=== PATIENT | female | born 1960 | race Caucasian/White ===

== ENCOUNTER 2016-07-02 16:14 | Inpatient (IN) | payer OTHER ==
[~2016-07-02] VITALS: Ht 177.8 cm; Wt 77.8 kg
[~2016-07-02 16:14] MED LIST: ALPR-138 PO; ETOMIDATE 20 MG/10 ML VIAL IV PUSH ONE; ETOMIDATE 40 MG/20 ML VIAL IV PUSH ONE; LIDOCAINE HCL 2% 100 MG/5 ML SYRINGE IV PUSH ONE; PAROXETINE PO; SUCCINYLCHOLINE CHLORIDE 200 MG/10 ML VIAL IVP ONE; VASO10TA8 PO; [UNRECOGNIZED DRUG - OTHER] PO
[2016-07-02 16:18] VITALS: O2SAT 100; O2SAT 99
[2016-07-02] MEDS ORDERED: PROPOFOL 1000 MG/100 ML INJ 100 ML ONE (16:24)
[2016-07-02] MEDS ORDERED: ROCURONIUM INJ 50 MG/5 ML VIAL ONE (16:25)
--- NOTE | 2016-07-02 16:33 | PD ---
HPI Chief Complaint: trauma alert Time Seen by Provider: 16:17 Travel History International Travel<30 days: No (unknown GCS 3) Contact w/Intl Traveler<30days: No (unknown GCS 3) Traveled to known affect area: No (unknown GCS 3) History of Present Illness HPI The patient is an approximately 48-year-old female who presents to the emergency department via air 1 as a trauma alert. According to EMS the patient was found down on the ground, and in an industrial area, with shelving material found on top of her. EMS surmised is that the shelving fell and the patient. The patient had an unknown down time, when EMS arrived, her GCS for apparently was 3. The patient was intubated prior to arrival by air one paramedics with a 7-0 endotracheal tube at 22 cm. EMS states that the patient had blood at the nares bilaterally and within the oropharynx was intubated. No further information is obtainable from the patient. Allergies are unknown. Medications are unknown. Medical history and surgical history are unknown. Social history is unknown. Patient did receive 2 doses of etomidate and 1 dose of succinylcholine by EMS in the field, prior to arrival. [facility] Past Medical History Medical History: Unable to Obtain Past Surgical History Surgical History: Unable to Obtain Family History Narrative Family History Unable to obtain Social History Narrative Social History Unable to obtain Tobacco Use: No Allergies-Medications (Allergen,Severity, Reaction): Coded Allergies: No Known Allergies (Unverified , 07/02/16) Reported Meds & Prescriptions Reported Meds & Active Scripts Active Review of Systems ROS Limitations: Clinical Condition, Intubated Except as stated in HPI: all other systems reviewed are Neg Physical Exam Narrative GENERAL: 48 something year-old female who presents intubated, cervical collar in place, and on a backboard. Initial GCS 3. SKIN: Warm and dry. HEAD: Atraumatic. Normocephalic. EYES: Pupils are 3 mm bilateral and sluggish. ENT: Dry blood in the nares bilateral. ET tube right lip at 22 cm. NECK: Trachea midline. No JVD. Cervical collar in place, when removed, trachea is midline with no visible hematoma. No obvious step-off of the cervical vertebrae. C-collar was placed back on. CARDIOVASCULAR: Regular rate and rhythm. No murmur appreciated. RESPIRATORY: Back valve ventilation reveals bilateral breath sounds. GASTROINTESTINAL: Abdomen soft, non-tender, nondistended. No rebound tenderness. MUSCULOSKELETAL: Walking boot in place left lower extremity. When removed, LE hose replaced, when they were pulled down, no obvious trauma. Bili was placed back on. No obvious trauma to the other extremities. Back: No obvious step-offs of the thoracic or lumbar vertebrae. NEUROLOGICAL: GCS of 3. PSYCHIATRIC: Unable to obtain. Data Data Last Documented VS Vital Signs Date Time Temp Pulse Resp B/P Pulse Ox O2 Delivery O2 Flow Rate FiO2 07/02/16 16:18 100 100 Orders Propofol 1000 Mg/100 Ml Inj (Diprivan 10 (07/02/16 16:24) Rocuronium Inj (Zemuron Inj) (07/02/16 16:25) I-Stat Profile (07/02/16 16:24) I-Stat Creatinine (07/02/16 16:24) Complete Blood Count With Diff (07/02/16 16:24) Prothrombin Time / Inr (Pt) (07/02/16 16:24) Act Partial Throm Time (Ptt) (07/02/16 16:24) Type And Screen (07/02/16 16:24) Alcohol (Ethanol) (07/02/16 16:24) Drug Screen, Random Urine (07/02/16 16:24) Chest, Single Ap (07/02/16 16:24) Ct Brain W/O Iv Contrast(Rout) (07/02/16 16:24) Ct Cerv Spine W/O Contrast (07/02/16 16:24) Ct Abd/Pel W Iv Contrast(Rout) (07/02/16 16:24) Ct Thorax/ Chest W Iv Contrast (07/02/16 16:24) Ct Thor Spine W/O Contrast (07/02/16 16:24) Ct Lumb Spine W/O Contrast (07/02/16 16:24) Iv Access Insert/Monitor (07/02/16 16:24) Ecg Monitoring (07/02/16 16:24) Oximetry (07/02/16 16:24) Oxygen Administration (07/02/16 16:24) Creatine Kinase (Cpk) (07/02/16 16:24) Dryv-Nwu-Zlbyjr (Booster) Inj (Boostrix (07/02/16 16:42) Sodium Chlor 0.9% 1000 Ml Inj (Ns 1000 M (07/02/16 17:00) Consult Neurosurgery (07/02/16 ) Admit Order (Ed Use Only) (07/02/16 16:47) Iohexol 350 Inj (Omnipaque 350 Inj) (07/02/16 16:49) Labs Laboratory Tests Test 07/02/16 16:25 White Blood Count 6.6 TH/MM3 Red Blood Count 4.20 MIL/MM3 Hemoglobin 12.8 GM/DL Bedside Hemoglobin 12.2 G/DL Hematocrit 37.7 % Bedside Hematocrit 36.0 % Mean Corpuscular Volume 89.9 FL Mean Corpuscular Hemoglobin 30.6 PG Mean Corpuscular Hemoglobin 34.0 % Concent Red Cell Distribution Width 12.9 % Platelet Count 168 TH/MM3 Mean Platelet Volume 7.8 FL Neutrophils (%) (Auto) 75.7 % Lymphocytes (%) (Auto) 15.1 % Monocytes (%) (Auto) 7.9 % Eosinophils (%) (Auto) 0.8 % Basophils (%) (Auto) 0.5 % Neutrophils # (Auto) 5.0 TH/MM3 Lymphocytes # (Auto) 1.0 TH/MM3 Monocytes # (Auto) 0.5 TH/MM3 Eosinophils # (Auto) 0.1 TH/MM3 Basophils # (Auto) 0.0 TH/MM3 CBC Comment DIFF FINAL Differential Comment Prothrombin Time 11.1 SEC Prothromb Time International 1.0 RATIO Ratio Activated Partial 25.8 SEC Thromboplast Time Bedside Sodium 140 MMOL/L Bedside Potassium 3.6 MMOL/L Bedside Chloride 102 MMOL/L Bedside Blood Urea Nitrogen 13 MG/DL Bedside Creatinine 0.8 MG/DL Bedside Glucose 121 MG/DL Total Creatine Kinase 134 U/L Ethyl Alcohol Level LESS THAN 3 MG/DL Blood Type A POSITIVE Antibody Screen NEGATIVE MDM Medical Screen Exam Complete: Yes Emergency Medical Condition: Yes Medical Record Reviewed: No (unable to assess as patient is Chapo Whitmore) EKG Prior to Arrival: No Interpretation(s) Laboratory Tests Test 07/02/16 16:25 White Blood Count 6.6 TH/MM3 Red Blood Count 4.20 MIL/MM3 Hemoglobin 12.8 GM/DL Bedside Hemoglobin 12.2 G/DL Hematocrit 37.7 % Bedside Hematocrit 36.0 % Mean Corpuscular Volume 89.9 FL Mean Corpuscular Hemoglobin 30.6 PG Mean Corpuscular Hemoglobin 34.0 % Concent Red Cell Distribution Width 12.9 % Platelet Count 168 TH/MM3 Mean Platelet Volume 7.8 FL Neutrophils (%) (Auto) 75.7 % Lymphocytes (%) (Auto) 15.1 % Monocytes (%) (Auto) 7.9 % Eosinophils (%) (Auto) 0.8 % Basophils (%) (Auto) 0.5 % Neutrophils # (Auto) 5.0 TH/MM3 Lymphocytes # (Auto) 1.0 TH/MM3 Monocytes # (Auto) 0.5 TH/MM3 Eosinophils # (Auto) 0.1 TH/MM3 Basophils # (Auto) 0.0 TH/MM3 CBC Comment DIFF FINAL Differential Comment Bedside Sodium 140 MMOL/L Bedside Potassium 3.6 MMOL/L Bedside Chloride 102 MMOL/L Bedside Blood Urea Nitrogen 13 MG/DL Bedside Creatinine 0.8 MG/DL Bedside Glucose 121 MG/DL Chest x-ray reveals endotracheal tube is in place. No pneumothorax. Last Impressions Thoracic Spine CT 07/02/161623 Signed Impressions: Service Date/Time: Saturday, July 02, 2016 16:40 - CONCLUSION: No acute bony injury in the thoracic spine Chapo Hicks MD Lumbar Spine CT 07/02/161623 Signed Impressions: Service Date/Time: Saturday, July 02, 2016 16:40 - CONCLUSION: No acute bony injury in the lumbosacral spine. Chapo Hicks MD Head CT 07/02/161623 Signed Impressions: Service Date/Time: Saturday, July 02, 2016 16:32 - CONCLUSION: None drainable intracranial hemorrhage. Diffuse cerebral edema. Skull fracture. Chapo Hicks MD Chest X-Ray 07/02/161623 Signed Impressions: Service Date/Time: Saturday, July 02, 2016 16:10 - CONCLUSION: Satisfactory trauma chest appearance. Chapo Hicks MD Chest CT 07/02/161623 Signed Impressions: Service Date/Time: Saturday, July 02, 2016 16:40 - CONCLUSION: Bilateral posterior lower lobe consolidative changes, left worse than right. No evidence of acute mediastinal injury. Chapo Hicks MD Cervical Spine CT 07/02/161623 Signed Impressions: Service Date/Time: Saturday, July 02, 2016 16:32 - CONCLUSION: 1. No acute findings. Moderate degenerative change in the lower cervical spine. David Quispe MD Differential Diagnosis Differential diagnosis includes intracranial hemorrhage, subdural hemorrhage, epidural hemorrhage, subarachnoid hemorrhage, concussion, cervical fracture, multisystem trauma, overdose. Narrative Course ATLS protocol was followed. The trauma surgeon was present when the patient arrived. Upon arrival the patient was intubated, had bilateral breath sounds via bag valve ventilation. The patient's heart rate and blood pressure were within normal limits. 2 large-bore IVs were established, labs were drawn and sent, and the patient was placed on cardiac telemetry monitoring and continuous pulse oximetry monitoring. Chest x-ray was obtained, endotracheal tube was in proper position. The patient was log rolled off of the backboard and the back was inspected. Tetanus shot was updated. He went to the CT suite with the trauma surgeon. The patient will be admitted to the trauma service. CT the brain was evaluated by Dr. Godoy in the trauma room on the patient was still present in the CT suite. Dr. Godoy believes that the patient has a subarachnoid and subdural hemorrhage with possible anoxic injury. Therefore, call was placed to the on-call neurosurgeon, Dr. Garcias, and the patient will be admitted to the intensive surgical care unit. I discussed the patient Dr. Garcias at 4:56 PM who will evaluate the patient in the surgical intensive care unit. Critical Care Narrative Aggregate critical care time was 20 minutes. Time to perform other separately billable procedures was not included in the critical care time. My time did not include minutes spent treating any other patients simultaneously or on activities that did not directly contribute to the patient's treatment. The services I provided to this patient were to treat and/or prevent clinically significant deterioration that could result in: Anoxia, proxy, aspiration, herniation, arrhythmia, . I provided critical care services requiring my management, as noted below: Chart data review, documentation time, medication orders and management, vital sign assessments/reviewing monitor data, ordering and reviewing lab tests, ordering and interpreting/reviewing x-rays and diagnostic studies, care of the patient and discussion of the patient with the admitting physicians. Trauma Alert - Level One Trauma Alert Level One: Full trauma team activate Time Surgeon Summoned: 16:06 Physician Communication The patient will be admitted to the trauma surgeon with consultation to neurosurgery and will be admitted to the intensive surgical care unit. Diagnosis Diagnosis: Primary Impression: Subarachnoid hemorrhage Additional Impressions: Subdural hemorrhage Trauma Condition: Critical Paulino Tadeo MD Jul 02, 2016 16:33
[2016-07-02 16:37] LABS: BASOPHIL % 0.5 % (0.0-2.0); EOSINOPHIL # 0.1 TH/MM3 (0-0.4); EOSINOPHIL % 0.8 % (0.0-4.0); HEMATOCRIT 37.7 % (35.0-46.0); HEMO FLAGS DIFF FINAL; LYMPH % 15.1 % (9.0-44.0); MEAN CELL VOLUME 89.9 FL (80.0-100.0); MEAN CORPUSCULAR HEMOGLOBIN 30.6 PG (27.0-34.0); MONO % 7.9 % (0.0-8.0); NEUT % 75.7 % (16.0-70.0); PLATELET COUNT 168 TH/MM3 (150-450); RED CELL DISTRIBUTION WIDTH 12.9 % (11.6-17.2); WHITE BLOOD COUNT 6.6 TH/MM3 (4.0-11.0)
--- NOTE | 2016-07-02 16:37 | RADRPT ---
EXAM DATE/TIME: 07/02/2016 16:10 [facility] COMPARISON: No previous studies available for comparison. INDICATIONS : Trauma alert, patient hit in head by shelving. MEDICAL HISTORY : None. SURGICAL HISTORY : None. ENCOUNTER: Initial ACUITY: 1 day PAIN SCORE: Non-responsive. LOCATION: Bilateral chest FINDINGS: Endotracheal tube is present in satisfactory position with tip 3-4 cm above the katharine. The lungs are grossly symmetric without definite contusion, hemothorax or pneumothorax. The cardiomediastinal cont ours are satisfactory for technique and projection. Thoracic skeleton appears grossly intact. CONCLUSION: Satisfactory trauma chest appearance. Chapo Hicks MD on July 02, 2016 at 16:33 Board Certified Radiologist. This report was verified electronically.
[2016-07-02 16:40] LABS: I-STAT SODIUM 140 MMOL/L (138-146)
[2016-07-02 16:41] LABS: I-STAT POTASSIUM 3.6 MMOL/L (3.5-4.9)
[2016-07-02] MEDS ORDERED: DIPHTH/TETANUS/ACEL PERTUSSIS (BOOSTER) 0.5 ML VIAL/PFS IM ONE (16:42)
[2016-07-02] MEDS ORDERED: IOHEXOL 350 MG/ML 10 ML VIAL (for RAD DIAG) IV ONE (16:49)
[2016-07-02 16:50] LABS: APTT (PATIENT) 25.8 SEC (24.3-30.1); PROTHROMBIN TIME - PATIENT 11.1 SEC (9.8-11.6)
--- NOTE | 2016-07-02 16:52 | RADRPT ---
EXAM DATE/TIME: 07/02/2016 16:32 [facility] COMPARISON: No previous studies available for comparison. INDICATIONS : Trauma alert; blunt trauma to head. RADIATION DOSE: 54.41 CTDIvol (mGy) MEDICAL HISTORY : Non-responsive. SURGICAL HISTORY : Non-responsive. ENCOUNTER: Initial ACUITY: 1 day PAIN SCALE: Non-responsive LOCATION: cranial TECHNIQUE: Multiple contiguous axial images were obtained of the head. Using automated exposure control and adj ustment of the mA and/or kV according to patient size, radiation dose was kept as low as reasonably a chievable to obtain optimal diagnostic quality images. FINDINGS: There is subarachnoid blood present fairly diffusely, mainly in the right frontal region are also pre sent over the left hemisphere and in the sylvian fissures. There appears to be mild diffuse brain swe lling with effacement of the paramesencephalic cisterns. Sulcal spaces are effaced. There is no drain able hemorrhagic collection. There appear to be a couple punctate parenchymal hemorrhages in the high convexity right frontal region. A right frontal skull fracture extends from the vertex inferiorly through the right frontal sinus and orbital roof. This is nondepressed. CONCLUSION: None drainable intracranial hemorrhage. Diffuse cerebral edema. Skull fracture. Chapo Hicks MD on July 02, 2016 at 16:45 Board Certified Radiologist. This report was verified electronically.
--- NOTE | 2016-07-02 16:53 | RADRPT ---
EXAM DATE/TIME: 07/02/2016 16:32 [facility] COMPARISON: No previous studies available for comparison. INDICATIONS : Trauma alert; blunt trauma to head. RADIATION DOSE: 17.44 CTDIvol (mGy) MEDICAL HISTORY : Non-responsive. SURGICAL HISTORY : Non-responsive. ENCOUNTER: Initial ACUITY: 1 day PAIN SCALE: Non-responsive LOCATION: neck TECHNIQUE: Volumetric scanning of the cervical spine was performed. Multiplanar reconstructions in the sagittal, coronal and oblique axial planes were performed. Using automated exposure control and adjustment o f the mA and/or kV according to patient size, radiation dose was kept as low as reasonably achievable to obtain optimal diagnostic quality images. FINDINGS: No acute fracture. Moderate degenerative disc disease at C5-6 with minimal degenerative retrolisthesi s of C5 on C6. No prevertebral soft tissue swelling. Patient is intubated. Mild facet arthropathy. CONCLUSION: 1. No acute findings. Moderate degenerative change in the lower cervical spine. David Quispe MD on July 02, 2016 at 16:45 Board Certified Radiologist. This report was verified electronically.
[2016-07-02 17:00] VITALS: BP 151/77; PULSE 61; RESP 14; TEMP 97.7; O2SAT 100
[2016-07-02] MEDS ORDERED: SODIUM CHLOR 0.9% 1000 ML INJ 1,000 ML IV SCH (17:00)
--- NOTE | 2016-07-02 17:00 | RADRPT ---
EXAM DATE/TIME: 07/02/2016 16:40 [facility] COMPARISON: CT THORAX W CONTRAST, July 02, 2016, 16:40. INDICATIONS : Trauma alert; blunt trauma to head. IV CONTRAST: 91 cc Omnipaque 350 (iohexol) IV ; Cumulative dose for multiple exams. ORAL CONTRAST: No oral contrast ingested. RADIATION DOSE: 17.78 CTDIvol (mGy) ; Combined studies - Thorax/Abdomen/Pelvis MEDICAL HISTORY : Non-responsive. SURGICAL HISTORY : Non-responsive. ENCOUNTER: Initial ACUITY: 1 day PAIN SCALE: Non-responsive LOCATION: Abdomen/pelvis TECHNIQUE: Volumetric scanning of the abdomen and pelvis was performed. Using automated exposure control and ad justment of the mA and/or kV according to patient size, radiation dose was kept as low as reasonably achievable to obtain optimal diagnostic quality images. FINDINGS: There are consolidative changes in the left base suspicious for aspiration. There is no pericardial effusion. Liver is free of focal defects. Spleen, pancreas, adrenal glands and kidneys are unremark able. There is no ascites or adenopathy. Pelvic contents appear normal. There is no free air. Review of bone windows reveals degenerative changes in the lower lumbar spine. There is no evidence for pelvic fracture. CONCLUSION: Negative CT scan abdomen and pelvis for acute traumatic injury. Jitendra Godoy MD FACR on July 02, 2016 at 16:52 Board Certified Radiologist. This report was verified electronically.
[2016-07-02 17:03] LABS: CREATINE KINASE 134 U/L (26-192)
--- NOTE | 2016-07-02 17:12 | RADRPT ---
EXAM DATE/TIME: 07/02/2016 16:40 [facility] COMPARISON: No previous studies available for comparison. INDICATIONS : Trauma alert; blunt trauma to head. IV CONTRAST: 91 cc Omnipaque 350 (iohexol) IV ; Cumulative dose for multiple exams. RADIATION DOSE: 17.78 CTDIvol (mGy) ; Combined studies - Thorax/Abdomen/Pelvis MEDICAL HISTORY : Non-responsive. SURGICAL HISTORY : Non-responsive. ENCOUNTER: Initial ACUITY: 1 day PAIN SCALE: Non-responsive LOCATION: chest TECHNIQUE: Volumetric scanning of the chest was performed. Using automated exposure control and adjustment of t he mA and/or kV according to patient size, radiation dose was kept as low as reasonably achievable to obtain optimal diagnostic quality images. FINDINGS: LUNGS: There is consolidation in the posterior medial left lower lobe and minimal atelectasis in the depende nt posterior right lung. PLEURA: There is no pleural thickening or pleural effusion. MEDIASTINUM: The heart and great vessels demonstrate no acute abnormality. There is no mediastinal or hilar lymph adenopathy. AXILLAE: Within normal limits. No lymphadenopathy. SKELETAL: Within normal limits for patient age. MISCELLANEOUS: The visualized upper abdominal organs demonstrate no acute abnormality. CONCLUSION: Bilateral posterior lower lobe consolidative changes, left worse than right. No evidence of acute mediastinal injury. Chapo Hicks MD on July 02, 2016 at 17:07 Board Certified Radiologist. This report was verified electronically.
--- NOTE | 2016-07-02 17:17 | RADRPT ---
EXAM DATE/TIME: 07/02/2016 16:40 [facility] COMPARISON: No previous studies available for comparison. INDICATIONS : Trauma alert; blunt trauma to head. RADIATION DOSE: ; Reconstructed from previous dataset MEDICAL HISTORY : Non-responsive. SURGICAL HISTORY : Non-responsive. ENCOUNTER: Initial ACUITY: 1 day PAIN SCALE: Non-responsive LOCATION: Lower back TECHNIQUE: Volumetric scanning of the lumbar spine was performed. Multiplanar reconstructions in the sagittal, coronal and oblique axial planes were performed. Using automated exposure control and adjustment of the mA and/or kV according to patient size, radiation dose was kept as low as reasonably achievable t o obtain optimal diagnostic quality images. FINDINGS: Lumbar spine alignment is satisfactory. There is no evidence of fracture. No bony canal or foraminal stenosis is identified. There is no evidence of paraspinal hematoma. 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 CONCLUSION: No acute bony injury in the lumbosacral spine. Chapo Hicks MD on July 02, 2016 at 17:13 Board Certified Radiologist. This report was verified electronically.
--- NOTE | 2016-07-02 17:18 | RADRPT ---
EXAM DATE/TIME: 07/02/2016 16:40 [facility] COMPARISON: No previous studies available for comparison. INDICATIONS : Trauma alert; blunt trauma to head. RADIATION DOSE: ; Reconstructed from previous dataset MEDICAL HISTORY : Non-responsive. SURGICAL HISTORY : Non-responsive. ENCOUNTER: Initial ACUITY: 1 day PAIN SCALE: Non-responsive LOCATION: Middle back TECHNIQUE: Volumetric scanning of the thoracic spine was performed. Multiplanar reconstructions in the sagittal , coronal and oblique axial planes were performed. Using automated exposure control and adjustment o f the mA and/or kV according to patient size, radiation dose was kept as low as reasonably achievable to obtain optimal diagnostic quality images. FINDINGS: The thoracic spinal alignment is satisfactory. There is no evidence of fracture. No bony canal or for aminal compromise is noted. Mild degenerative changes present with occasional predominantly ventral e ndplate osteophytes in the lower thoracic region. No evidence of paraspinal hematoma. CONCLUSION: No acute bony injury in the thoracic spine Chapo Hicks MD on July 02, 2016 at 17:15 Board Certified Radiologist. This report was verified electronically.
[2016-07-02] MEDS: SODIUM CHLOR 0.9% 1000 ML INJ 1,000 ML IV SCH (17:26)
[2016-07-02] MEDS ORDERED: ONDANSETRON HCL 4 MG/2 ML VIAL IV PRN (17:30)
[2016-07-02] MEDS ORDERED: CHLORHEXIDINE GLUCONATE 2 % 1 PACK (2 CLOTHS) TOP PRN (17:30)
[2016-07-02] MEDS ORDERED: SODIUM CHLORIDE 0.9% FLUSH 5 ML FLUSH IVF PRN (17:30)
[2016-07-02] MEDS ORDERED: MAGNESIUM HYDROXIDE SUSP 30 ML CUP PO PRN (17:30)
[2016-07-02] MEDS ORDERED: MISCELLANEOUS NURSING INFORMATION XX SCH (17:30)
--- NOTE | 2016-07-02 17:44 | PD.CONS ---
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 GCS was3 in the field. She was intubated in the ED. The head CT showed a large sagittal skull fracture non displaced with 2-3 mm diffuse SAH , worse in the frontal regions, right greater than left. She is sedated on propofol but has been opening her left eye and is moving purposefully all extremities. GCS is now [id number] = 9. She is spastic with positive Dos Santos and Babinski signs. Review of Systems ROS Limitations: Clinical Condition Past Family Social History Allergies: Coded Allergies: UNOBTAINABLE (Unverified , 07/02/16) Past Medical History HTN per her Past Surgical History not known Family History not known Social History Possible tobacco, and working Physical Exam Vital Signs Vital Signs Date Time Temp Pulse Resp B/P Pulse Ox O2 Delivery O2 Flow Rate FiO2 07/02/16 16:18 100 100 07/02/16 16:18 99 50 Physical Exam Intubated and sedated, pupils 3mm poorly reactive, corneal reflexes and gag are brisk. Neck in extrication collar, positicve periorbital ecchymosis right greater than left, no Yeung sign Purposefully moving the upper and lower extremities against gravity, sensation present to pain in all extremities. Spastic in both the arms and the legs, Positive Dos Santos and Babinski Skin clean and dry, abd soft obese, lungs clear to auscultation Laboratory Laboratory Tests Test 07/02/16 16:25 White Blood Count 6.6 Red Blood Count 4.20 Hemoglobin 12.8 Bedside Hemoglobin 12.2 Hematocrit 37.7 Bedside Hematocrit 36.0 Mean Corpuscular Volume 89.9 Mean Corpuscular Hemoglobin 30.6 Mean Corpuscular Hemoglobin 34.0 Concent Red Cell Distribution Width 12.9 Platelet Count 168 Mean Platelet Volume 7.8 Neutrophils (%) (Auto) 75.7 Lymphocytes (%) (Auto) 15.1 Monocytes (%) (Auto) 7.9 Eosinophils (%) (Auto) 0.8 Basophils (%) (Auto) 0.5 Neutrophils # (Auto) 5.0 Lymphocytes # (Auto) 1.0 Monocytes # (Auto) 0.5 Eosinophils # (Auto) 0.1 Basophils # (Auto) 0.0 CBC Comment DIFF FINAL Differential Comment Prothrombin Time 11.1 Prothromb Time International 1.0 Ratio Activated Partial 25.8 Thromboplast Time Bedside Sodium 140 Bedside Potassium 3.6 Bedside Chloride 102 Bedside Blood Urea Nitrogen 13 Bedside Creatinine 0.8 Bedside Glucose 121 Total Creatine Kinase 134 Ethyl Alcohol Level LESS THAN 3 Blood Type A POSITIVE Antibody Screen NEGATIVE Result Diagram: 07/02/16 1625 Imaging Last Impressions Chest X-Ray 07/02/16 1624 Signed Impressions: Service Date/Time: Saturday, July 02, 2016 16:10 - CONCLUSION: Satisfactory trauma chest appearance. Chapo Hicks MD Head CT showed a large sagittal non displaced skull fracture, 2-3mm diffuse SAH , worse in the right frontal area. CT of the cervical spine shows no loss of alignment no fracture and no bleed. Assessment and Plan Diagnosis: (1) Closed head injury with loss of consciousness of unknown duration Plan: The patient may have suffered an anoxic injury, but also is expected to have diffuse axonal injury. Maintaining perfusion pressures, hydration and serial neurologic exams is planned. (2) Subarachnoid hemorrhage Plan: Traumatic SAH associated with bi frontal cerebral contusions and 2-3 mm SDH in the right frontal and falcine areas, will be re-imaged tomorrow. Baseline TCDs are ordered. Magnus Garcias Jul 02, 2016 17:44
--- NOTE | 2016-07-02 17:47 | PD.CONS ---
HPI Service Critical Care Medicine Consult Requested By Trauma Service Reason for Consult Critical Care Primary Care Physician Unknown History of Present Illness The patient is a 56-year-old female that presented to the emergency department/Trauma [place] via [facility] as a trauma alert. Per medical history, reported by EMS the patient was found down on the ground, and in an industrial area, with shelving material that had fallen on her. The patient was unconscious for an undetermined time. Upon arrival of EMS the patient's GCS score 3. The patient was intubated prior to arrival by [facility] paramedics.A 7-0 endotracheal tube at 22 cm.at the lip. EMS reported that the laryngoscopic view patient had blood at the nares bilaterally and within the oropharynx. EMS reported that the had a difficult airway, very anterior. Patient did receive 2 doses of etomidate and 1 dose of succinylcholine by EMS in the field, prior to arrival.The patient then received Rocuronium upon arrival. Critical care medicine was consulted for management. History PFSH Past Medical History Medical History: Unable to Obtain Past Surgical History Surgical History: Unable to Obtain Family History Narrative Family History Unable to obtain Social History Narrative Social History Unable to obtain Tobacco Use: No Allergies-Medications Allergies-Medications (Allergen,Severity, Reaction): Coded Allergies: UNOBTAINABLE (Unverified , 07/02/16) ROS Review of Systems ROS Limitations: Clinical Condition, Intubated Except as stated in HPI: all other systems reviewed are Neg Past Family Social History Allergies: Coded Allergies: UNOBTAINABLE (Unverified , 07/02/16) Physical Exam Vital Signs Vital Signs Date Time Temp Pulse Resp B/P Pulse Ox O2 Delivery O2 Flow Rate FiO2 07/02/16 16:18 100 100 07/02/16 16:18 99 50 Physical Exam GENERAL: Well-nourished well-developed female intubated sedated SKIN: Warm and dry. HEAD: Atraumatic. Normocephalic. EYES: Pupils round, and reactive. Periorbital edema/ecchymosis right greater than left. No scleral icterus. No injection or drainage. ENT: Dried nasal blood noted. Epistaxis reported upon presentation by EMS Mucous membranes pink and moist. NECK: Trachea midline. No JVD. CARDIOVASCULAR: Normal rate, regular rhythm. RESPIRATORY: Mechanical ventilation No accessory muscle use. Clear to auscultation. Breath sounds equal bilaterally. GASTROINTESTINAL: Abdomen soft, non-tender, nondistended. No guarding. Normoactive bowel sounds MUSCULOSKELETAL: Extremities without clubbing, cyanosis, or edema. Left lower extremity splint and compression stocking noted. No obvious deformities. NEUROLOGICAL: GCS 3T Sedated and intubated, neuromuscular blockade given approximately 35 minutes previously, unable to adequately assess motor function at this time. Laboratory Laboratory Tests Test 07/02/16 16:25 White Blood Count 6.6 Red Blood Count 4.20 Hemoglobin 12.8 Bedside Hemoglobin 12.2 Hematocrit 37.7 Bedside Hematocrit 36.0 Mean Corpuscular Volume 89.9 Mean Corpuscular Hemoglobin 30.6 Mean Corpuscular Hemoglobin 34.0 Concent Red Cell Distribution Width 12.9 Platelet Count 168 Mean Platelet Volume 7.8 Neutrophils (%) (Auto) 75.7 Lymphocytes (%) (Auto) 15.1 Monocytes (%) (Auto) 7.9 Eosinophils (%) (Auto) 0.8 Basophils (%) (Auto) 0.5 Neutrophils # (Auto) 5.0 Lymphocytes # (Auto) 1.0 Monocytes # (Auto) 0.5 Eosinophils # (Auto) 0.1 Basophils # (Auto) 0.0 CBC Comment DIFF FINAL Differential Comment Prothrombin Time 11.1 Prothromb Time International 1.0 Ratio Activated Partial 25.8 Thromboplast Time Bedside Sodium 140 Bedside Potassium 3.6 Bedside Chloride 102 Bedside Blood Urea Nitrogen 13 Bedside Creatinine 0.8 Bedside Glucose 121 Total Creatine Kinase 134 Ethyl Alcohol Level LESS THAN 3 Blood Type A POSITIVE Antibody Screen NEGATIVE Result Diagram: 07/02/16 1625 Imaging Last Impressions Head CT 07/02/161623 Signed Impressions: Service Date/Time: Saturday, July 02, 2016 16:32 - CONCLUSION: None drainable intracranial hemorrhage. Diffuse cerebral edema. Skull fracture. Chapo Hicks MD Chest X-Ray 07/02/161623 Signed Impressions: Service Date/Time: Saturday, July 02, 2016 16:10 - CONCLUSION: Satisfactory trauma chest appearance. Chapo Hicks MD Cervical Spine CT 07/02/161623 Signed Impressions: Service Date/Time: Saturday, July 02, 2016 16:32 - CONCLUSION: 1. No acute findings. Moderate degenerative change in the lower cervical spine. David Quispe MD Septic Shock Reassessment Heart: Regular rate and rhythm Lungs: Clear Skin: Warm Peripheral Pulses: Bounding Right Radial Bounding Left Radial Bounding Right Popliteal Bounding Left Popliteal Capillary Refill: Brisk Assessment and Plan Assessment and Plan Plan by systems: Neurologic: TBI Cerebral edema Possible Anoxic brain injury Right frontal skull fracture Subarachnoid hemorrhage Subdural hematoma C5-6 retrolisthesis -Neuro checks per ICU protocol-Propofol for sedation -CT head 07/02 diffuse cerebral edema -Repeat CT head -Hypertonic 3% sodium chloride at 30 cc/hour -Keppra BID-seizure prophylaxis -Neurosurgery-Dr. Garcias, follow-up recommendations -TCD daily 14 days -CT cervical 07/02-5 C6 degenerative disc disease, with mild retrolisthesis C5-6 -Maintain [place] J, until clinical evaluation can be performed Respiratory: Hypoxic respiratory failure Possible aspiration -Intubated 07/02 7.0 ETT 23 cm at the lip. Difficult intubation, reported as anterior, 2 attempts -CT chest B/L lower lobe consolidation left greater than right -Mechanical ventilation PRVC/AC-600/14/0.50/5 -Sedation holiday -Ventilator bundle -DuoNeb's every 4 hours schedule -Maintain head of bed 30 Cardiovascular: Hypertension -Maintain systolic blood pressure <140 -Obtain home medication records from family, patient takes scheduled antihypertensive Renal: -No acute issues -- Strict I/Os FEN/GI: -NPO, will begin tube feeds in the a.m. -IV fluid -3% sodium chloride at 30 cc/hr -Obtain BMP -Obtain serial sodium levels every 6 hours, maintain serum sodium 155 -Replete electrolytes per ICU protocol Heme/ID: Monitor CBC Endocrine: Blood glucose monitoring every 6 hours per ICU protocol -- SSI Prophylaxis: GI Prophylaxis Protonix 40 mg IV daily DVT Prophylaxis -- SCDs No pharmacological DVT prophylaxis at this time secondary to ICH Lines: Peripheral IVs 2. Central line 07/02 Dispo: This patient remains critically ill with one or more organ systems which are or may become a threat to life. I have spent in excess of 34 minutes discontinuously in the care and management of this patient. This time is exclusive of procedures, and includes, but is not limited to, evaluation of the patient, review of the medical record, discussions with family, consultants, nursing staff, or respiratory therapy, and documentation in the medical record. Code Status Full Discussed Condition With Family and GOLF BALL TRIMMER at bedside Zena Chatterjee MD Jul 02, 2016 17:47
--- NOTE | 2016-07-02 17:50 | HHI.HP ---
HPI Service Critical Care Medicine Primary Care Physician Unknown Admission Diagnosis trauma alert, subarachnoid hemorrhage, subdural hemorrhage Diagnosis: Chief Complaint: Found unconscious under shelving material Travel History International Travel<30 Days: No (unknown GCS 3) Contact w/Intl Traveler <30 Da: No (unknown GCS 3) Traveled to Known Affected Are: No (unknown GCS 3) History of Present Illness 56-year-old woman who was found down after an apparently large shelving apparatus toppled onto her. She was down for an unknown period of time and had a Arlette Coma Scale of 3 upon EMS arrival. Prior to intubation she exhibited some decorticate posturing giving her a Arlette Coma Scale of 5. She was RSI'd in the field and brought to [facility] as a level I trauma alert. Patient arrived intubated sedated with the only external sign of trauma being some dry epistaxis. Her vital signs were normal and stable. Review of Systems ROS Limitations: Intubated, Unresponsive Past Family Social History Allergies: Coded Allergies: UNOBTAINABLE (Unverified , 07/02/16) Past Medical History Unable to determine due to the patient's condition Past Surgical History Unable to determine due to the patient's condition Reported Medications Unknown due to the patient's condition Family History Unobtainable due to the patient's condition Social History Unobtainable due to the patient's condition Physical Exam Vital Signs Vital Signs Date Time Temp Pulse Resp B/P Pulse Ox O2 Delivery O2 Flow Rate FiO2 07/02/16 16:18 100 100 07/02/16 16:18 99 50 Physical Exam 56-year-old woman lying intubated and unresponsive Head Calvarium appears intact she has small hematoma and occipital region and a small frontal hematoma Facial bones are stable to palpation no crepitus she has dry epistaxis, pupils are equal bilaterally at 2 mm, dentition appears intact Neck Soft trachea is midline she has no palpable nodes or masses, no JVD Chest Lungs are clear to auscultation bilaterally heart regular rate and rhythm there is no tenderness or crepitus to palpation Abdomen Soft nontender nondistended Pelvis Pelvis is stable nontender to palpation, femoral pulses are palpable bilaterally Extremities There is a cam boot on her left lower extremity this was removed and inspected no obvious injury, dorsalis pedis pulses are palpable bilaterally, radial pulses are palpable bilaterally no obvious sign of trauma to the extremities Skin She has the frontal hematoma and occipital hematoma, there are no other visible signs of skin trauma Neurologic Patient is intubated and sedated, she was given medication in the field so currently she has no response to pain no spontaneous eye movement and no verbal response for a Arlette Coma Scale of 3T Psychiatric Unable to assess Laboratory Laboratory Tests Test 07/02/16 16:25 White Blood Count 6.6 Red Blood Count 4.20 Hemoglobin 12.8 Bedside Hemoglobin 12.2 Hematocrit 37.7 Bedside Hematocrit 36.0 Mean Corpuscular Volume 89.9 Mean Corpuscular Hemoglobin 30.6 Mean Corpuscular Hemoglobin 34.0 Concent Red Cell Distribution Width 12.9 Platelet Count 168 Mean Platelet Volume 7.8 Neutrophils (%) (Auto) 75.7 Lymphocytes (%) (Auto) 15.1 Monocytes (%) (Auto) 7.9 Eosinophils (%) (Auto) 0.8 Basophils (%) (Auto) 0.5 Neutrophils # (Auto) 5.0 Lymphocytes # (Auto) 1.0 Monocytes # (Auto) 0.5 Eosinophils # (Auto) 0.1 Basophils # (Auto) 0.0 CBC Comment DIFF FINAL Differential Comment Prothrombin Time 11.1 Prothromb Time International 1.0 Ratio Activated Partial 25.8 Thromboplast Time Bedside Sodium 140 Bedside Potassium 3.6 Bedside Chloride 102 Bedside Blood Urea Nitrogen 13 Bedside Creatinine 0.8 Bedside Glucose 121 Total Creatine Kinase 134 Ethyl Alcohol Level LESS THAN 3 Blood Type A POSITIVE Antibody Screen NEGATIVE Result Diagram: 07/02/16 1625 Imaging Last Impressions Chest X-Ray 07/02/161623 Signed Impressions: Service Date/Time: Saturday, July 02, 2016 16:10 - CONCLUSION: Satisfactory trauma chest appearance. Chapo Hicks MD Last 24 hours Impressions Chest X-Ray 07/02/161623 Signed Impressions: Service Date/Time: Saturday, July 02, 2016 16:10 - CONCLUSION: Satisfactory trauma chest appearance. Chapo Hicks MD Course Patient arrived via EMS as a trauma alert. She underwent a primary and secondary survey which included a chest x-ray for ET tube position. She was then taken to the CT scan with suspicion for anoxic brain injury as well as traumatic brain injury. Sub-dural hematoma with subarachnoid blood and a frontal skull fracture confirmed our suspicions. There was also a component of anoxia evident with slight blurring of the del cid-white matter. I discussed these findings with her and she was taken to the trauma ICU in critical condition. Assessment and Plan Assessment and Plan Traumatic brain injury with anoxia. -Admit to trauma ICU for continuous hemodynamic monitoring and serial neuro exams -Place Villar catheter to monitor urine output -If the patient requires an ICP monitor, will place central line -Neurosurgery consult -Repeat head CT in the morning The patient remains critically ill with traumatic brain injury suspicion for anoxia. She requires full ventilator support continuous hemodynamic monitoring. I spent 70 minutes in the evaluation and management of this trauma activation. Code Status Full code Discussed Condition With Trauma attending and staff, ICU staff, consultants, spouse Joce Bermudez MD Jul 02, 2016 17:50
[2016-07-02 18:00] VITALS: BP 145/73; PULSE 57
[2016-07-02 18:12] LABS: BLOOD GAS BASE EXCESS 0.6 mmol/L (-2-2); BLOOD GAS CARBOXYHEMOGLOBIN 0.9 % (0-4); BLOOD GAS HCO3 24 mmol/L (22-26); BLOOD GAS METHEMOGLOBIN 0.9 % (0-2); BLOOD GAS O2 HGB SATURATION 98 % (90-100); BLOOD GAS OXYGEN CONTENT 16.7 Vol % (12.0-20.0); BLOOD GAS PCO2 33 mmHg (38-42); BLOOD GAS PO2 268 mmHg (61-120); BLOOD GAS TOTAL HGB 11.7 G/DL (12.0-16.0); CRITICAL VALUE NO; DRAW SITE ART LINE; FIO2 50 %; OXYGEN DEVICE VENTILATOR; STAT YES; TEMP CORR TO 98.6; VENT SETTINGS AC 600/14/+5PEEP
--- NOTE | 2016-07-02 18:48 | HHI.PR ---
Immediate Post Op Note Procedure Date: Jul 02, 2016 Pre Op Diagnosis: traumatic brain injury Post Op Diagnosis: traumatic brain injury Surgeon: Joce Bermudez Advertising Dispatch Clerks Supervisor(s): none Procedure: right subclavian central venous catheter placement Findings: single attempt with return of dark venous blood. All three ports willian dark venous blood and flushed without resistance. Complications: none Specimen(s) removed: none Estimated blood loss: minimal Anesthesia: Local (1% plain lidocaine) Drains: None Patient Condition: Critical Date/Time of Procedure: SEE SURGICAL CARE RECORD Joce Bermudez MD Jul 02, 2016 18:48
--- NOTE | 2016-07-02 18:57 | RADRPT ---
EXAM DATE/TIME: 07/02/2016 18:43 [facility] COMPARISON: CHEST SINGLE AP, July 02, 2016, 16:10. INDICATIONS : Central line placement. MEDICAL HISTORY : Unobtainable. SURGICAL HISTORY : Unobtainable. ENCOUNTER: Subsequent ACUITY: 1 day PAIN SCORE: Non-responsive. LOCATION: Bilateral chest FINDINGS: A single view of the chest demonstrates right subclavian central line with tip in the SVC. Left retro cardiac density. Endotracheal tube is unchanged. Nasogastric tube tip in stomach. The cardiomediastin al contours are unremarkable. Osseous structures are intact. CONCLUSION: 1. Adequate placement of right subclavian central line. 2. Left retrocardiac density. Reynold Guillen MD on July 02, 2016 at 18:55 Board Certified Radiologist. This report was verified electronically.
--- NOTE | 2016-07-02 18:57 | PD.OP ---
Operative Report Date of Surgery: Jul 02, 2016 Preoperative Diagnosis: (1) Closed head injury with loss of consciousness of unknown duration (2) Subarachnoid hemorrhage (3) Subdural hemorrhage (4) Trauma Postoperative Diagnosis: (1) Subarachnoid hemorrhage (2) Subdural hemorrhage (3) Trauma (4) Closed head injury with loss of consciousness of unknown duration Procedure: Right subclavian central venous access catheter placement Anesthesia: Local 1% plain lidocaine Surgeon: Joce Bermudez Solar Business Developer(s): None Resident Surgeon: None Operation and Findings: After obtaining informed consent the patient was prepped and draped in a standard sterile manner, timeout was performed. Access to the right subclavian vein was obtained on a single pass of a finder needle with immediate return of nonpulsatile, dark venous blood. A Cook multi lumen central venous catheter was placed using sterile Seldinger technique. All ports willian dark venous blood and flushed without resistance. The catheter was then secured with a single 2- 0 silk suture and covered with a Biopatch and an occlusive dressing. She tolerated the procedure well there were no complications and minimal blood loss. Portable chest x-ray was ordered to confirm placement. Joce Bermudez MD Jul 02, 2016 18:57
[2016-07-02] MEDS ORDERED: SODIUM CHLORIDE 23.4% INJ 188 MEQ in SODIUM CHLOR 0.9% 1000 ML INJ 1,000 ML IV SCH (19:00)
[2016-07-02 19:21] VITALS: O2SAT 100
[2016-07-02] MEDS: hydrALAZINE HCL 20 MG/ML VIAL IV PUSH PRN (19:23)
[2016-07-02] MEDS ORDERED: DEXTROSE 50% IN WATER 50 ML VIAL(D50) IV PUSH PRN (19:45)
[2016-07-02] MEDS ORDERED: MAGNESIUM SULFATE INJ 4 GM in SODIUM CHLORIDE 0.9% INJ 92 ML IV PRN (19:45)
[2016-07-02] MEDS ORDERED: GLUCAGON 1 MG/ML VIAL OTHER PRN (19:45)
[2016-07-02] MEDS ORDERED: SODIUM PHOSPHATE INJ 30 MMOL in SODIUM CHLOR 0.9% 250 ML INJ 240 ML IV PRN (19:45)
[2016-07-02] MEDS ORDERED: MAGNESIUM OXIDE 400 MG TAB PO PRN (19:45)
[2016-07-02] MEDS ORDERED: POTASSIUM CHLOR 20 MEQ PREMIX 100 ML IV PRN ×2 (19:45)
[2016-07-02] MEDS ORDERED: POTASSIUM CL 40 MEQ/30 ML LIQ UDC PO/TUBE PRN ×2 (19:45)
[2016-07-02] MEDS ORDERED: POTASSIUM PHOSPHATE MONOBASIC 500 MG TAB PO/TUBE PRN (19:45)
[2016-07-02] MEDS ORDERED: MAGNESIUM SULFATE INJ 2 GM in SODIUM CHLORIDE 0.9% INJ 96 ML IV PRN (19:45)
[2016-07-02] MEDS ORDERED: POTASSIUM PHOSPHATE MONOBASIC 500 MG TAB PO PRN (19:45)
[2016-07-02] MEDS ORDERED: POTASSIUM CHLOR 40 MEQ PREMIX 100 ML IV PRN (19:45)
[2016-07-02] MEDS ORDERED: POTASSIUM PHOSPHATE INJ 30 MMOL in SODIUM CHLOR 0.9% 250 ML INJ 250 ML IV PRN (19:45)
[2016-07-02 20:00] VITALS: BP 164/66; PULSE 58; PULSE 64; RESP 14; TEMP 97.9; O2SAT 100
[2016-07-02] MEDS: PROPOFOL 1000 MG/100 ML INJ 100 ML IV SCH (20:03)
[2016-07-02] MEDS: MORPHINE SULFATE 4 MG/ML INJ IV PRN (20:04)
[2016-07-02] MEDS: CHLORHEXIDINE 0.12% (ORAL KIT) 15 ML CUP MT SCH (20:42)
[2016-07-02] MEDS: levETIRAcetam INJ 500 MG in SODIUM CHLORIDE 0.9% INJ 100 ML IV SCH (20:43)
[2016-07-02] MEDS: DOCUSATE SODIUM 100 MG CAP PO SCH (20:43)
[2016-07-02] MEDS: ENALAPRILAT 1.25 MG/ML VIAL IV PRN (20:44)
[2016-07-02] MEDS: INSULIN ASPART SUPPLEMENTAL SCALE SQ SCH (21:00)
[2016-07-02 21:25] LABS: BLOOD GAS BASE EXCESS 1.6 mmol/L (-2-2); BLOOD GAS CARBOXYHEMOGLOBIN 0.9 % (0-4); BLOOD GAS HCO3 25 mmol/L (22-26); BLOOD GAS METHEMOGLOBIN 0.9 % (0-2); BLOOD GAS O2 HGB SATURATION 98 % (90-100); BLOOD GAS OXYGEN CONTENT 16.9 Vol % (12.0-20.0); BLOOD GAS PCO2 35 mmHg (38-42); BLOOD GAS PO2 191 mmHg (61-120); CRITICAL VALUE NO; DRAW SITE ART LINE; FIO2 40 %; OXYGEN DEVICE VENTILATOR; STAT NO; TEMP CORR TO 98.6; VENT SETTINGS AC 14/600/5PEEP
[2016-07-02 22:23] VITALS: O2SAT 100
[2016-07-02 22:23] LABS: BICARBONATE 26.6 MEQ/L (21.0-32.0); MAGNESIUM 1.8 MG/DL (1.5-2.5); POTASSIUM 3.1 MEQ/L (3.5-5.1)
[2016-07-02 23:29] LABS: AMPHETAMINE, URINE NEG (NEG); BARBITURATES, URINE NEG (NEG)
[2016-07-02 23:30] LABS: COCAINE, URINE NEG (NEG)
[2016-07-02] MEDS ORDERED: METOPROLOL TARTRATE 5 MG/5 ML VIAL IV ONE (23:30)
[2016-07-02] MEDS: 3% SALINE INJ 500 ML IV SCH (23:50)
[2016-07-03] VITALS (18 sets, daily range): BP systolic 154–165; BP diastolic 57–66; PULSE 65–81; RESP 14–15; TEMP 99–101.5; O2SAT 100
[2016-07-03] MEDS: PROPOFOL 1000 MG/100 ML INJ 100 ML IV SCH ×3 (00:57→19:29)
[2016-07-03] MEDS: ACETAMINOPHEN 325 MG TAB PO PRN (02:25)
[2016-07-03] MEDS ORDERED: ACETAMINOPHEN 1000 MG/100 ML VIAL IV SCH (05:15)
--- NOTE | 2016-07-03 05:37 | RADRPT ---
EXAM DATE/TIME: 07/03/2016 04:43 [facility] COMPARISON: CT BRAIN W/O CONTRAST, July 02, 2016, 16:32. INDICATIONS : Follow up hemorrhage. RADIATION DOSE: 46.12 CTDIvol (mGy) MEDICAL HISTORY : Non-responsive. SURGICAL HISTORY : Non-responsive. ENCOUNTER: Subsequent ACUITY: 1 day PAIN SCALE: Non-responsive LOCATION: cranial TECHNIQUE: Multiple contiguous axial images were obtained of the head. Using automated exposure control and adj ustment of the mA and/or kV according to patient size, radiation dose was kept as low as reasonably a chievable to obtain optimal diagnostic quality images. FINDINGS: Again seen is subarachnoid hemorrhage overlying both cerebral hemispheres. A new focus of intraparenc hymal hemorrhage is seen involving the right frontal lobe. This measures 1.3 cm in diameter. Diffuse cerebral edema again noted. Ventricles remain patent. No midline shift. Right frontal skull fracture nondepressed. CONCLUSION: The only interval change has been the appearance of a small intraparenchymal hemorrhage within the ri ght frontal lobe. Subarachnoid hemorrhage and diffuse cerebral edema are stable. Javon Roach Jr., MD on July 03, 2016 at 5:33 Board Certified Radiologist. This report was verified electronically.
[2016-07-03] MEDS: SODIUM CHLOR 0.9% 1000 ML INJ 1,000 ML IV SCH (05:44)
[2016-07-03] MEDS: CHLORHEXIDINE GLUCONATE 2 % 1 PACK (2 CLOTHS) TOP SCH (05:44)
[2016-07-03 06:03] LABS: BLOOD GAS BASE EXCESS -2.3 mmol/L (-2-2); BLOOD GAS CARBOXYHEMOGLOBIN 0.8 % (0-4); BLOOD GAS HCO3 21 mmol/L (22-26); BLOOD GAS METHEMOGLOBIN 0.9 % (0-2); BLOOD GAS O2 HGB SATURATION 98 % (90-100); BLOOD GAS OXYGEN CONTENT 15.5 Vol % (12.0-20.0); BLOOD GAS PCO2 31 mmHg (38-42); BLOOD GAS PO2 171 mmHg (61-120); CRITICAL VALUE NO; TEMP CORR TO 98.6
[2016-07-03 06:04] LABS: DRAW SITE ART LINE; FIO2 40 %; OXYGEN DEVICE VENTILATOR; VENT SETTINGS 14/600/PEEP5
[2016-07-03 06:05] LABS: STAT NO
[2016-07-03 06:06] LABS: PROTHROMBIN TIME - PATIENT 11.1 SEC (9.8-11.6)
[2016-07-03 06:10] LABS: POTASSIUM 3.7 MEQ/L (3.5-5.1)
[2016-07-03] MEDS: INSULIN ASPART SUPPLEMENTAL SCALE SQ SCH ×4 (06:16→20:26)
--- NOTE | 2016-07-03 06:20 | HHI.CCPN ---
Subjective Remarks/Hospital Course The patient is a 56-year-old female that presented to the emergency department/Trauma [place] via [facility] as a trauma alert. Per medical history, reported by EMS the patient was found down on the ground, and in an industrial area, with shelving material that had fallen on her. The patient was unconscious for an undetermined time. Upon arrival of EMS the patient's GCS score 3. The patient was intubated prior to arrival by [facility] paramedics.A 7-0 endotracheal tube at 22 cm.at the lip. EMS reported that the laryngoscopic view patient had blood at the nares bilaterally and within the oropharynx. EMS reported that the had a difficult airway, very anterior. Patient did receive 2 doses of etomidate and 1 dose of succinylcholine by EMS in the field, prior to arrival.The patient then received Rocuronium upon arrival. Critical care medicine was consulted for management. 07/03:Tmax 101.2 The patient's systolic blood pressure remained mid 160s patient received metoprolol 2.5 mg IV 1 dose with resolution. The patient spiked a temp overnight,cultures were sent. Objective Vital Signs Date Time Temp Pulse Resp B/P Pulse Ox O2 Delivery O2 Flow Rate FiO2 07/03/16 04:40 100 07/03/16 04:13 40 07/03/16 00:00 100.8 65 14 159/63 07/02/16 19:00 Mechanical Ventilator Intake and Output 07/02/16 07/02/16 07/02/16 07:59 15:59 23:59 Intake Total 598 ml Output Total 725 ml Balance -127 ml Result Diagram: 07/02/16 1625 07/02/160 Other Results Laboratory Tests Test 07/02/16 07/02/16 07/03/16 18:01 21:14 05:49 Blood Gas Puncture Site ART LINE ART LINE ART LINE Blood Gas Patient Temperature 98.6 98.6 98.6 Blood Gas HCO3 24 mmol/L 25 mmol/L 21 mmol/L (22-26) (22-26) (22-26) Blood Gas Base Excess 0.6 mmol/L 1.6 mmol/L -2.3 mmol/L (-2-2) (-2-2) (-2-2) Blood Gas Oxygen Saturation 98 % (90-100) 98 % (90-100) 98 % (90-100) Arterial Blood pH 7.48 7.47 7.45 (7.380-7.420) (7.380-7.420) (7.380-7.420) Arterial Blood Partial 33 mmHg (38-42) 35 mmHg (38-42) 31 mmHg (38-42) Pressure CO2 Arterial Blood Partial 268 mmHg 191 mmHg 171 mmHg Pressure O2 (61-120) (61-120) (61-120) Arterial Blood Oxygen Content 16.7 Vol % 16.9 Vol % 15.5 Vol % (12.0-20.0) (12.0-20.0) (12.0-20.0) Arterial Blood 0.9 % (0-4) 0.9 % (0-4) 0.8 % (0-4) Carboxyhemoglobin Arterial Blood Methemoglobin 0.9 % (0-2) 0.9 % (0-2) 0.9 % (0-2) Blood Gas Hemoglobin 11.7 G/DL 12.0 G/DL 11.0 G/DL (12.0-16.0) (12.0-16.0) (12.0-16.0) Oxygen Delivery Device VENTILATOR VENTILATOR VENTILATOR Blood Gas Ventilator Setting AC AC 14/600/PEEP5 600/14/+5PEEP 14/600/5PEEP Blood Gas Inspired Oxygen 50 % 40 % 40 % Imaging Last Impressions Head CT 07/02/161623 Signed Impressions: Service Date/Time: Saturday, July 02, 2016 16:32 - CONCLUSION: None drainable intracranial hemorrhage. Diffuse cerebral edema. Skull fracture. Chapo Hicks MD Chest X-Ray 07/02/161623 Signed Impressions: Service Date/Time: Saturday, July 02, 2016 16:10 - CONCLUSION: Satisfactory trauma chest appearance. Chapo Hicks MD Cervical Spine CT 07/02/161623 Signed Impressions: Service Date/Time: Saturday, July 02, 2016 16:32 - CONCLUSION: 1. No acute findings. Moderate degenerative change in the lower cervical spine. David Quispe MD Objective Remarks GENERAL: Well-nourished well-developed female intubated and sedated with Propofol SKIN: Warm and dry. HEAD: Atraumatic. Normocephalic. EYES: Pupils round, and reactive. Periorbital edema/ecchymosis right greater than left. No scleral icterus. No injection or drainage. ENT: Dried nasal blood noted. Epistaxis reported upon presentation by EMS Mucous membranes pink and moist. NECK: Trachea midline. No JVD. Ororacheally intubated CARDIOVASCULAR: Normal rate, regular rhythm. RESPIRATORY: Mechanical ventilation No accessory muscle use. Clear to auscultation. Breath sounds equal bilaterally. GASTROINTESTINAL: Abdomen soft, non-tender, nondistended. No guarding. Normoactive bowel sounds MUSCULOSKELETAL: Extremities without clubbing, cyanosis, or edema. No obvious deformities. NEUROLOGICAL: GCS 9T, moves extremities. Urinary Catheter: Yes Villar insert reason: Measure Accurate Output Vascular Central Line Catheter: Yes Date of Insertion: Jul 02, 2016 Line: Central Venous Catheter Side: Right Location: Subclavian Reason for Continuation 3% normal saline, vasoactive medications A/P Assessment and Plan Plan by systems: Neurologic: TBI Cerebral edema Possible Anoxic brain injury Right frontal skull fracture Subarachnoid hemorrhage Subdural hematoma C5-6 retrolisthesis -Neuro checks per ICU protocol-Propofol for sedation -CT head 07/02 diffuse cerebral edema -F/U Repeat CT head this am -Hypertonic 3% sodium chloride at 30 cc/hour, plan to discontinue 07/04 -Keppra BID-seizure prophylaxis -Neurosurgery-Dr. Garcias, follow-up recommendations -TCD daily 14 days -CT cervical 07/02-5 C6 degenerative disc disease, with mild retrolisthesis C5-6 -Maintain [place] J, until clinical evaluation can be performed Respiratory: Hypoxic respiratory failure Possible aspiration -Intubated 07/02 7.0 ETT 23 cm at the lip. Difficult intubation, reported as anterior, 2 attempts -CT chest B/L lower lobe consolidation left greater than right -Mechanical ventilation PRVC/AC-600/14/0.50/5 -CPAP trials today-plan to wean to extubate -Ventilator bundle -DuoNeb's every 4 hours schedule -Maintain head of bed 30 Cardiovascular: Hypertension -Maintain systolic blood pressure <160 -Obtain home medication records from family, patient takes scheduled antihypertensive Renal: -No acute issues -- Strict I/Os FEN/GI: -NPO, will begin tube feeds in the a.m. -3% sodium chloride at 30 cc/hr -Obtain BMP -Obtain serial sodium levels every 6 hours, maintain serum sodium 155 -Replete electrolytes per ICU protocol Heme/ID: Monitor CBC Endocrine: Blood glucose monitoring every 6 hours per ICU protocol -- SSI Prophylaxis: GI Prophylaxis Protonix 40 mg IV daily DVT Prophylaxis -- SCDs No pharmacological DVT prophylaxis at this time secondary to ICH Lines: Peripheral IVs 2. Central line 07/02 Dispo: This patient remains critically ill with one or more organ systems which are or may become a threat to life. I have spent in excess of 34 minutes discontinuously in the care and management of this patient. This time is exclusive of procedures, and includes, but is not limited to, evaluation of the patient, review of the medical record, discussions with family, consultants, nursing staff, or respiratory therapy, and documentation in the medical record. Physician Zena Aguirre MD Jul 03, 2016 06:20
[2016-07-03] MEDS ORDERED: CITA20TA4 PO (06:41)
[2016-07-03] MEDS ORDERED: LISI10TA3 PO (06:41)
[2016-07-03] MEDS ORDERED: TOVI4TAB PO (06:41)
--- NOTE | 2016-07-03 06:44 | RADRPT ---
EXAM DATE/TIME: 07/03/2016 06:02 [facility] COMPARISON: CHEST SINGLE AP, July 02, 2016, 18:43. INDICATIONS : Short of breath. MEDICAL HISTORY : None. SURGICAL HISTORY : None. ENCOUNTER: Subsequent ACUITY: 2 days PAIN SCORE: Non-responsive. LOCATION: Bilateral chest FINDINGS: A single portable frontal view of the chest shows the tip of the endotracheal tube 4 cm proximal to t he katharine. Nasogastric tube coiled in the fundus of the stomach. Right subclavian central line observ ed. No pneumothorax. Mild left basilar atelectasis. Bony structures are unremarkable. CONCLUSION: Mild left basilar atelectasis. Javon Roach Jr., MD on July 03, 2016 at 6:42 Board Certified Radiologist. This report was verified electronically.
--- NOTE | 2016-07-03 06:53 | HHI.NSPN ---
Subjective History Day 1 after closed head injury with frontal skull fx, SAH and cerebral contusions, intubated and sedated. The repeat head CT shows improved SAH and better defined contusions in the frontal lobe. She is on 3% saline and bad river band J is maintained until she can be more awake. Vitals . Vital Signs Date Time Temp Pulse Resp B/P Pulse Ox O2 Delivery O2 Flow Rate FiO2 07/03/16 06:14 14 07/03/16 04:40 100 07/03/16 04:13 100 40 07/03/16 04:00 40 07/03/16 04:00 101.5 68 14 156/62 100 07/03/16 01:23 100 40 07/03/16 00:00 100.8 65 14 159/63 100 07/03/16 00:00 40 07/02/16 22:23 100 40 07/02/16 20:09 14 07/02/16 20:00 97.9 64 14 164/66 100 07/02/16 20:00 58 07/02/16 20:00 40 07/02/16 19:26 40 07/02/16 19:21 100 40 07/02/16 19:00 100 Mechanical Ventilator 50 07/02/16 18:00 145/73 07/02/16 18:00 100 Mechanical Ventilator 50 07/02/16 18:00 57 07/02/16 17:00 97.7 61 14 151/77 100 07/02/16 16:18 100 100 07/02/16 16:18 99 50 07/02/16 07/02/16 07/03/16 15:00 23:00 07:00 Intake Total 598 ml 1425 ml Output Total 725 ml 425 ml Balance -127 ml 1000 ml Maximum Temperature: 101.5 Physical Exam Head Head: Abrasions (periorbital ecchymosis) Eyes Eyes: Pupils Equal Neuro Mental Status: Sedated Drips: Diprivan @ Pupils: Reactive Bilaterally Face: Symmetric [place] Coma Scale Best Eye Openin - None Best Verbal: 1 - None Best Motor: 5 - Localizes pain Total [place] Coma Scale (GCS): 7 Cardiac Cardiac: Regular Rate & Rhythm Respiratory Respiratory: CTA Gastrointestinal Gastrointestinal: Soft Genitourinary Genitourinary: Villar Catheter In Place Musculoskeletal Extremities Upper Extremities Deltoid Bicep Tricep HI W. Ext Right Left Lower Extremeties Ilio Quad Plantar Dorsi EHL Right Left Musculoskeletal Remarks Moves all extremities purposefully Dermatologic Dermatologic: Abrasions Extremities Edema: SCDs Objective Infectious Disease Cultures Microbiology Date/Time Procedure Status Source Growth 07/03/16 05:30 Gram Stain Received Sputum Oral Tracheal Aspirate Pending 07/03/16 05:30 Sputum Culture Received Sputum Oral Tracheal Aspirate Pending 07/03/16 05:30 Urine Culture Received Urine Catheterized Urine Pending 07/03/16 05:36 Aerobic Blood Culture Received Blood Peripheral Pending 07/03/16 05:36 Anaerobic Blood Culture Received Blood Peripheral Pending 07/03/16 05:50 Aerobic Blood Culture Received Blood Peripheral Pending 07/03/16 05:50 Anaerobic Blood Culture Received Blood Peripheral Pending Labs Laboratory Tests 07/02/16 16:25 07/02/16 21:15 07/03/16 05:36 Laboratory Tests Test 07/02/16 07/02/16 07/03/16 16:25 21:15 05:36 Bedside Sodium 140 MMOL/L Bedside Potassium 3.6 MMOL/L Bedside Chloride 102 MMOL/L Bedside Blood Urea Nitrogen 13 MG/DL Bedside Creatinine 0.8 MG/DL Bedside Glucose 121 MG/DL Total Creatine Kinase 134 U/L 153 U/L 167 U/L Sodium Level 141 MEQ/L 142 MEQ/L Potassium Level 3.1 MEQ/L 3.7 MEQ/L Chloride Level 107 MEQ/L 107 MEQ/L Carbon Dioxide Level 26.6 MEQ/L 24.0 MEQ/L Anion Gap 7 MEQ/L 11 MEQ/L Blood Urea Nitrogen 11 MG/DL 10 MG/DL Creatinine 0.53 MG/DL 0.61 MG/DL Estimat Glomerular Filtration 100 ML/MIN 85 ML/MIN Rate Random Glucose 119 MG/DL 98 MG/DL Calcium Level 7.8 MG/DL 8.1 MG/DL Phosphorus Level 2.1 MG/DL Magnesium Level 1.8 MG/DL Laboratory Tests Test 07/02/16 07/02/16 16:25 22:55 Ethyl Alcohol Level LESS THAN 3 MG/DL Urine Opiates Screen POS Urine Barbiturates Screen NEG Urine Amphetamines Screen NEG Urine Benzodiazepines Screen NEG Urine Cocaine Screen NEG Urine Cannabinoids Screen NEG Imaging Remarks Last Impressions Thoracic Spine CT 07/02/161623 Signed Impressions: Service Date/Time: Saturday, July 02, 2016 16:40 - CONCLUSION: No acute bony injury in the thoracic spine Chapo Hicks MD Lumbar Spine CT 07/02/161623 Signed Impressions: Service Date/Time: Saturday, July 02, 2016 16:40 - CONCLUSION: No acute bony injury in the lumbosacral spine. Chapo Hicks MD Head CT 07/02/161623 Signed Impressions: Service Date/Time: Saturday, July 02, 2016 16:32 - CONCLUSION: None drainable intracranial hemorrhage. Diffuse cerebral edema. Skull fracture. Chapo Hicks MD Chest X-Ray 07/02/161623 Signed Impressions: Service Date/Time: Saturday, July 02, 2016 16:10 - CONCLUSION: Satisfactory trauma chest appearance. Chapo Hicks MD Chest CT 07/02/161623 Signed Impressions: Service Date/Time: Saturday, July 02, 2016 16:40 - CONCLUSION: Bilateral posterior lower lobe consolidative changes, left worse than right. No evidence of acute mediastinal injury. Chapo Hicks MD Cervical Spine CT 07/02/161623 Signed Impressions: Service Date/Time: Saturday, July 02, 2016 16:32 - CONCLUSION: 1. No acute findings. Moderate degenerative change in the lower cervical spine. David Quispe MD Assessment & Plan Diagnosis: (1) Closed head injury with loss of consciousness of unknown duration Plan: The patient may have suffered an anoxic injury, but also is expected to have diffuse axonal injury. Maintaining perfusion pressures, hydration and serial neurologic exams is planned.Weaning the sedation off is best at this time. She does not seem to have brainstem dysfunction with the limited cranial nerve exam so far. (2) Subarachnoid hemorrhage Plan: Traumatic SAH associated with bi frontal cerebral contusions and 2-3 mm SDH in the right frontal and falcine areas, has improved over 24 hrs. Baseline TCDs are ordered. Critical Care Time (minutes): Magnus Hines Jul 03, 2016 06:53
[2016-07-03] MEDS: ENALAPRILAT 1.25 MG/ML VIAL IV PRN (07:30)
[2016-07-03 07:45] LABS: AUTOMATED NEUTROPHIL # 6.3 TH/MM3 (1.8-7.7); BASOPHIL % 0.2 % (0.0-2.0); EOSINOPHIL % 0.2 % (0.0-4.0); HEMATOCRIT 39.7 % (35.0-46.0); HEMO FLAGS DIFF FINAL; LYMPH % 7.1 % (9.0-44.0); LYMPHOCYTE # 0.5 TH/MM3 (1.0-4.8); MEAN CORPUSCULAR HEMOGLOBIN 30.9 PG (27.0-34.0); MEAN CORPUSCULAR HGB CONC 33.6 % (32.0-36.0); MONO % 10.1 % (0.0-8.0); NEUT % 82.4 % (16.0-70.0); PLATELET COUNT 127 TH/MM3 (150-450); RED BLOOD COUNT 4.32 MIL/MM3 (4.00-5.30); RED CELL DISTRIBUTION WIDTH 13.6 % (11.6-17.2); WHITE BLOOD COUNT 7.7 TH/MM3 (4.0-11.0)
[2016-07-03] MEDS: hydrALAZINE HCL 20 MG/ML VIAL IV PUSH PRN (08:08)
[2016-07-03] MEDS: PANTOPRAZOLE SODIUM 40 MG VIAL IV PUSH SCH (08:08)
[2016-07-03] MEDS: levETIRAcetam INJ 500 MG in SODIUM CHLORIDE 0.9% INJ 100 ML IV SCH ×2 (08:08→20:26)
[2016-07-03] MEDS: CHLORHEXIDINE 0.12% (ORAL KIT) 15 ML CUP MT SCH ×2 (08:09→20:26)
[2016-07-03] MEDS: DOCUSATE SODIUM 100 MG CAP PO SCH ×2 (08:09→20:26)
[2016-07-03] MEDS: LISINOPRIL 10 MG TAB PO SCH (10:17)
--- NOTE | 2016-07-03 11:30 | PD.HHIRCNE ---
Patient History Record/History Review Medical Information Review: Pre-episode setting, Hx of present illness, Prior Medical Hx Reason for Referral: The patient is a 56 year old unknown handed female status post traumatic injury with SAH and SDH secondary to a large shelf falling on her on who was admitted on 07/02/16. She was found unresponsive for an unknown period of time with anoxia , and found with decorticate posturing. Her GCS score on EMS arrival was 3. Recent head CT revealed frontal lobe contusions. She is being referred to neuropsychology in order to document her neurobehavioral and neurocognitive status as per Trauma protocol. Past Surgical/Medical History Past Surgery: No Major surgery in last 100 days: Unknown Hx of Neuro Prob: No Hx of Musculoskeletal Pro: Yes (Lt plantar fascitis) Hx of Cardiovascular Prob: Yes Hypertension (High Blood Press: Yes Hx of Respiratory Problem: No Hx of GI Problems: No Hx of Problems: No Blood Transfusion History Will receive Blood /Blood prod: Yes Medication Active Medications Acetaminophen (Ofirmev Inj) 1,000 mg NOW IV Last administered on 07/03/16 05:44 ; Admin Dose 1,000 MG; Start 07/03/16 at 05:15; Stop 07/03/16 at 06:45; Status DC Acetaminophen (Tylenol) 650 mg Q6H PRN PO Last administered on 07/03/16 02:25; Admin Dose 650 MG; Start 07/02/16 at 17:30 Chlorhexidine Gluconate (Chlorhexidine 2% Cloth) 3 pack Taper DAILY@04 TOP Last administered on 07/03/16 05:44; Admin Dose 3 PACK; Start 07/03/16 at 04:00; Stop 06/29/17 at 03:59 Chlorhexidine Gluconate (Peridex 0.12% Liq) 15 ml BID@08,20 MT Last administered on 07/03/16 08:09; Admin Dose 15 ML; Start 07/02/16 at 20:00 Chlorhexidine Gluconate 3 pack 3 pack UNSCH PRN TOP; Start 07/02/16 at 17:30 Clevidipine (Cleviprex Inj) 50 ml @ 0 mls/hr TITRATE IV; Start 07/03/16 at 08:30 Dextrose (D50w (Vial) Inj) 25 ml UNSCH PRN IV PUSH; Start 07/02/16 at 19:45 Diphtheria/ Tetanus/Acell Pertussis 0.5 ml 0.5 ml ONCE ONCE IM; Start 07/02/16 at 16:42; Stop 07/02/16 at 16:44; Status DC Docusate Sodium (Colace) 100 mg BID PO Last administered on 07/02/16 20:43; Admin Dose 100 MG; Start 07/02/16 at 21:00 Enalaprilat (Vasotec Inj) 1.25 mg Q8H PRN IV Last administered on 07/03/16 07: 30; Admin Dose 1.25 MG; Start 07/02/16 at 17:30 Glucagon 1 mg 1 mg UNSCH PRN OTHER; Start 07/02/16 at 19:45 Hydralazine HCl 10 mg 10 mg Q4H PRN IV PUSH Last administered on 07/03/16 08:08 ; Admin Dose 10 MG; Start 07/02/16 at 18:15 Iohexol 91 ml 91 ml STK-MED ONCE IV Last administered on 07/02/16 16:49; Admin Dose 91 ML; Start 07/02/16 at 16:49; Stop 07/02/16 at 16:50; Status DC IV Flush (NS Flush) 2 ml UNSCH PRN IVF; Start 07/02/16 at 17:30 Levetriacetam 500 mg/Sodium Chloride 105 ml @ 420 mls/hr Q12HR IV Last administered on 07/03/16 08:08; Admin Dose 420 MLS/HR; Start 07/02/16 at 21:00 Lisinopril (Prinivil) 10 mg DAILY PO Last administered on 07/03/16 10:17; Admin Dose 10 MG; Start 07/03/16 at 10:00 Magnesium Hydroxide (Milk Of Magnesia Liq) 30 ml Q6H PRN PO; Start 07/02/16 at 17:30 Magnesium Oxide 800 mg 800 mg UNSCH PRN PO; Start 07/02/16 at 19:45 Magnesium Sulfate/ Sodium Chloride (Magnesium Sulfate Inj/NS Inj) 100 ml @ 50 mls/hr UNSCH PRN IV; Start 07/02/16 at 19:45 Magnesium Sulfate/ Sodium Chloride (Magnesium Sulfate Inj/NS Inj) 100 ml @ 50 mls/hr UNSCH PRN IV; Start 07/02/16 at 19:45 Metoprolol Tartrate (Lopressor Inj) 2.5 mg NOW ONCE IV Last administered on 07/02 23:50; Admin Dose 2.5 MG; Start 07/02/16 at 23:30; Stop 07/02/16 at 23:31; Status DC Miscellaneous Information 1 [id number] XX; Start 07/02/16 at 17:30 Morphine Sulfate (Morphine Inj) 2 mg Q1H PRN IV Last administered on 07/02/16 20:04; Admin Dose 2 MG; Start 07/02/16 at 17:30 Ondansetron HCl (Zofran Inj) 4 mg Q6H PRN IV; Start 07/02/16 at 17:30 Pantoprazole Sodium 40 mg 40 mg Q24H IV PUSH Last administered on 07/03/16 08:08 ; Admin Dose 40 MG; Start 07/03/16 at 08:00 Potassium Chloride 40 meq 40 meq UNSCH PRN PO/TUBE; Start 07/02/16 at 19:45 Potassium Phosphate 2000 mg 2,000 mg Q4H PRN PO; Start 07/02/16 at 19:45 Potassium Phosphate 2000 mg 2,000 mg UNSCH PRN PO/TUBE; Start 07/02/16 at 19:45 Potassium Phosphate/Sodium Chloride (Potassium Phosphate Inj/NS 250 ml Inj) 260 ml @ 42 mls/hr UNSCH PRN IV Last administered on 07/02/16 22:30; Admin Dose 42 MLS/HR; Start 07/02/16 at 19:45 Potassium Chloride 100 ml @ 25 mls/hr UNSCH PRN IV; Start 07/02/16 at 19:45 Potassium Chloride 100 ml @ 50 mls/hr Q2H PRN IV; Start 07/02/16 at 19:45 Potassium Chloride 100 ml @ 50 mls/hr Q2H PRN IV; Start 07/02/16 at 19:45 Potassium Chloride (KCl 20 Meq Premix Inj) 100 ml @ 50 mls/hr Q2H PRN IV; Start 07/02/16 at 19:45 Potassium Chloride (KCl 40 Meq/30 ml Liq) 40 meq UNSCH PRN PO/TUBE; Start at 19:45 Propofol 100 ml @ 0 mls/hr TITRATE IV Last administered on 07/03/16 00:57; Admin Dose 0 MLS/HR; Start 07/02/16 at 17:30 Propofol (Diprivan 1000 Mg/100ml Inj) 100 ml @ As Directed STK-MED ONCE .ROUTE ; Start 07/02/16 at 16:24; Stop 07/02/16 at 16:25; Status DC Rocuronium [place] (Zemuron Inj) 50 mg STK-MED ONCE .ROUTE; Start 07/02/16 at 16: 25; Stop 07/02/16 at 16:26; Status DC Sodium Chloride (NS 1000 ml Inj) 1,000 ml @ 100 mls/hr Q10H IV Last administered on 07/03/16 05:44; Admin Dose 100 MLS/HR; Start 07/02/16 at 17:26; Stop 07/03/16 at 09:54; Status DC Sodium Chloride (NS 1000 ml Inj) 1,000 ml @ 125 mls/hr Q8H IV; Start 07/02/16 at 17:00; Stop 07/03/16 at 00:59; Status DC Sodium Chloride (Sodium Chloride 3% Inj) 500 ml @ 30 mls/hr Q24H IV Last administered on 07/02/16 23:50; Admin Dose 30 MLS/HR; Start 07/02/16 at 23:30 Sodium Chloride/ Sodium Chloride (Sodium Chloride 23.4% Inj/NS 1000 ml Inj) 1, 047 ml @ 20 mls/hr Q24H IV Last administered on 07/02/16 19:23; Admin Dose 20 MLS/HR; Start 07/02/16 at 19:00; Stop 07/02/16 at 23:23; Status DC Sodium Phosphate/ Sodium Chloride (Sodium Phosphate Inj/NS 250 ml Inj) 250 ml @ 42 mls/hr UNSCH PRN IV; Start 07/02/16 at 19:45 Mental Status Assessment Orientation: unable to asses Self, unable to asses Place, unable to asses Time , unable to asses Situation Observation The patient is unresponsive. The [place] Orientation and Amnesia Test (GOAT) score was 0/100, which falls within the impaired range. Adjustment/Coping Assessment Observation Unable to be assessed at this time. LTG Status: Deferred STG Status: Deferred Team Members: Neuropsychologist Behavior Assessment Agitation: None Treatment Engagement: No effort Observation Behaviorally, the patient is unconscious, and thus unable to fully assess at this time. LTG - Status: Deferred STG Status: Deferred Team Members: Neuropsychologist Feedback/Education Barriers to Treatment: Awareness, Capacity to Self-Determine, Cognition, Insight, Mental Status Diagnosis/Discharge Plan Impression This patient suffered a severe traumatic brain injury with anoxia and presumed diffuse anxonal injury who has been admitted on the trauma unit. Diagnosis: [place] Level: I:No response-total assistance Maximizing acute care outcome It is recommended that the patient be monitored for emergent behavioral impulsivity as her medical condition evolves. This patients neuropathological challenges may limit their rehabilitation potential going forward, and these challenges will require specialized therapeutic skills to maximize outcome. Additionally, the patients family is experiencing ongoing issues of adjustment given the traumatic nature of the injury, and they may benefit from ongoing psychological assistance which I am happy to provide. Discharge Planning Anticipated Problems Ongoing areas of concern will include behavioral impulsivity, lack of insight and judgment, which is expected to improve with time and treatment. Presently , the patient is not conscious. 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 Treatment Plan This clinician will continue to follow with you throughout the course of this patients rehabilitation treatment, and I will be available to meet with the patients family/support system to facilitate their understanding and the ongoing care of their family member. The goals of neuropsychological intervention shall be both educational and supportive to the family/support system as is deemed clinically appropriate. Session Attendance Variance 20 minutes, which includes record review, discussion with trauma team members, clinical observations of patient, and report write-up. Thank you Thank you for the opportunity to assist in this patients care. Liborio Hitchcock, Ph.D., ABPP Board Certified in Clinical Neuropsychology [place] [employer] [place] Licensed Psychologist #[id number] Liborio Hitchcock PhD Jul 03, 2016 11:30
[2016-07-03] MEDS: CLEVIDIPINE INJ 50 ML IV SCH ×2 (11:53→19:23)
--- NOTE | 2016-07-03 13:50 | RADRPT ---
EXAM DATE/TIME: 07/03/2016 08:17 [facility] COMPARISON: CT BRAIN W/O CONTRAST, July 03, 2016, 4:43. INDICATIONS : Subarachnoid hemorrhage. MEDICAL HISTORY : Hypertension. Left plantar fascitis. SURGICAL HISTORY : Unable to obtain. ENCOUNTER: Initial ACUITY: 1 day PAIN SCORE: Nonresponsive. LOCATION: Bilateral cranial TIME -AVERAGED MAXIMAL VELOCITIES: MCA (1): Right: 93 Left: 84 MCA (2): Right: 147 Left: 67 JESSY (1): Right: 70 Left: 37 JESSY (2): Right: 73 Left: 62 UNIVERSITY LECTURER (1): Right: 44 Left: 37 UNIVERSITY LECTURER (2): Right: 48 Left: 53 Opthalmic Artery: Right: 41 Left: 33 VERTEBRAL: Right: Non visualized. Left: Non visualized. BASILAR: Non visualized. Non visualized. ICA: Right: Non visualized. Left: Non visualized. MCA/ICA Ratio: Right: Unable to obtain. Left: Unable to obtain. FINDINGS: Examination performed at bedside. Real-time ultrasound with the assistance of color and spectral Dop pler was utilized to evaluate the intracerebral circulation. Time-averaged maximal velocities are ca lculated in cm/s. The exam is somewhat limited as the patient was in a c-collar we were unable to ass ess the distal carotid and vertebral circulation. CONCLUSION: 1. Limited examination. The lindegaard ratio cannot be calculated as the distal carotids could not be assessed. Please see above. 2. The examination does demonstrate an elevated TAMM in the right MCA circulation. This is a range w hich would suggest a mild degree of vasospasm in the right MCA distribution. The peak pulsatility ind ex is mildly elevated in this area as well. The remainder of the time averaged maximal velocities are within normal limits. Temo Godoy MD on July 03, 2016 at 13:16 Board Certified Radiologist. This report was verified electronically.
[2016-07-03] MEDS: 3% SALINE INJ 500 ML IV SCH (14:57)
--- NOTE | 2016-07-03 15:10 | HHI.CCPN ---
Subjective Remarks/Hospital Course The patient is a 56-year-old female that presented to the emergency department/[facility] via [facility] as a trauma alert. Per medical history, reported by EMS the patient was found down on the ground, and in an industrial area, with shelving material that had fallen on her. The patient was unconscious for an undetermined time. Upon arrival of EMS the patient's GCS score 3. The patient was intubated prior to arrival by [facility] paramedics.A 7-0 endotracheal tube at 22 cm.at the lip. EMS reported that the laryngoscopic view patient had blood at the nares bilaterally and within the oropharynx. EMS reported that the had a difficult airway, very anterior. Patient did receive 2 doses of etomidate and 1 dose of succinylcholine by EMS in the field, prior to arrival.The patient then received Rocuronium upon arrival. Critical care medicine was consulted for management. Patient spiked a low-grade temperature overnight and was cultured by the critical care team Objective Vital Signs Date Time Temp Pulse Resp B/P Pulse Ox O2 Delivery O2 Flow Rate FiO2 07/03/16 11:31 100 40 07/03/16 10:00 74 07/03/16 08:00 100.8 14 165/66 07/02/16 19:00 Mechanical Ventilator Intake and Output 07/02/16 07/02/16 07/02/16 07:59 15:59 23:59 Intake Total 598 ml Output Total 725 ml Balance -127 ml Result Diagram: 07/03/16 0536 07/03/16 1120 Other Results Laboratory Tests Test 07/02/16 07/02/16 07/03/16 18:01 21:14 05:49 Blood Gas Puncture Site ART LINE ART LINE ART LINE Blood Gas Patient Temperature 98.6 98.6 98.6 Blood Gas HCO3 24 mmol/L 25 mmol/L 21 mmol/L (22-26) (22-26) (22-26) Blood Gas Base Excess 0.6 mmol/L 1.6 mmol/L -2.3 mmol/L (-2-2) (-2-2) (-2-2) Blood Gas Oxygen Saturation 98 % (90-100) 98 % (90-100) 98 % (90-100) Arterial Blood pH 7.48 7.47 7.45 (7.380-7.420) (7.380-7.420) (7.380-7.420) Arterial Blood Partial 33 mmHg (38-42) 35 mmHg (38-42) 31 mmHg (38-42) Pressure CO2 Arterial Blood Partial 268 mmHg 191 mmHg 171 mmHg Pressure O2 (61-120) (61-120) (61-120) Arterial Blood Oxygen Content 16.7 Vol % 16.9 Vol % 15.5 Vol % (12.0-20.0) (12.0-20.0) (12.0-20.0) Arterial Blood 0.9 % (0-4) 0.9 % (0-4) 0.8 % (0-4) Carboxyhemoglobin Arterial Blood Methemoglobin 0.9 % (0-2) 0.9 % (0-2) 0.9 % (0-2) Blood Gas Hemoglobin 11.7 G/DL 12.0 G/DL 11.0 G/DL (12.0-16.0) (12.0-16.0) (12.0-16.0) Oxygen Delivery Device VENTILATOR VENTILATOR VENTILATOR Blood Gas Ventilator Setting AC AC 14/600/PEEP5 600/14/+5PEEP 14/600/5PEEP Blood Gas Inspired Oxygen 50 % 40 % 40 % Imaging Last 24 hours Impressions Transcranial Doppler Study Complete 07/03/16 0600 Signed Impressions: Service Date/Time: June 08:17 - CONCLUSION: 1. Limited examination. The lindegaard ratio cannot be calculated as the distal carotids could not be assessed. Please see above. 2. The examination does demonstrate an elevated TAMM in the right MCA circulation. This is a range which would suggest a mild degree of vasospasm in the right MCA distribution. The peak pulsatility index is mildly elevated in this area as well. The remainder of the time averaged maximal velocities are within normal limits. Temo Godoy MD Head CT 07/03/16 0000 Signed Impressions: Service Date/Time: June 04:43 - CONCLUSION: The only interval change has been the appearance of a small intraparenchymal hemorrhage within the right frontal lobe. Subarachnoid hemorrhage and diffuse cerebral edema are stable. Javon Roach Jr., MD Chest X-Ray 07/03/16 0000 Signed Impressions: Service Date/Time: June 06:02 - CONCLUSION: Mild left basilar atelectasis. Javon Roach Jr., MD Thoracic Spine CT 07/02/161623 Signed Impressions: Service Date/Time: Saturday, July 02, 2016 16:40 - CONCLUSION: No acute bony injury in the thoracic spine Chapo Hicks MD Lumbar Spine CT 07/02/161623 Signed Impressions: Service Date/Time: Saturday, July 02, 2016 16:40 - CONCLUSION: No acute bony injury in the lumbosacral spine. Chapo Hicks MD Head CT 07/02/161623 Signed Impressions: Service Date/Time: Saturday, July 02, 2016 16:32 - CONCLUSION: None drainable intracranial hemorrhage. Diffuse cerebral edema. Skull fracture. Chapo Hicks MD Chest X-Ray 07/02/161623 Signed Impressions: Service Date/Time: Saturday, July 02, 2016 16:10 - CONCLUSION: Satisfactory trauma chest appearance. Chapo Hicks MD Chest CT 07/02/161623 Signed Impressions: Service Date/Time: Saturday, July 02, 2016 16:40 - CONCLUSION: Bilateral posterior lower lobe consolidative changes, left worse than right. No evidence of acute mediastinal injury. Chapo Hicks MD Cervical Spine CT 07/02/161623 Signed Impressions: Service Date/Time: Saturday, July 02, 2016 16:32 - CONCLUSION: 1. No acute findings. Moderate degenerative change in the lower cervical spine. aDvid Quispe MD Objective Remarks GENERAL: Well-nourished well-developed woman intubated and sedated HEAD: Atraumatic. Normocephalic. EYES: Pupils round, and reactive. Periorbital edema/ecchymosis right greater than left. No scleral icterus. Conjunctiva pink ENT: Dry epistaxis, no further bleeding NECK: Trachea midline. No JVD, no masses or swelling CARDIOVASCULAR: Regular rate and rhythm RESPIRATORY: Clear to auscultation bilaterally, currently on full ventilator support GASTROINTESTINAL: Abdomen soft nontender nondistended, no tenderness to palpation MUSCULOSKELETAL: No clubbing cyanosis or edema, palpable distal pulse NEUROLOGICAL: GCS 7T - patient localizes does not open her eyes spontaneously and does not vocalize Date of Insertion: Jul 02, 2016 Line: Central Venous Catheter Side: Right Location: Subclavian A/P Assessment and Plan Neuro Traumatic brain injury with a component of hypoxia -Increase hypertonic saline to 40 cc an hour to push sodium above 150 -Continue supportive care with neuro checks and continuous hemodynamic monitoring Pulmonary -Continue full ventilatory support, wean as tolerated -Aggressive pulmonary toilet Cardiovascular -Continue to monitor -Maintain systolic blood pressure less than 160 GI -Initiate tube feeds advanced to goal -Switch all possible IV medications to by feeding tube -Continue Villar catheter for hemodynamic monitoring and accurate output ID -Await culture results FEN -Continue to monitor Replace Select electrolytes as needed Dispo -Patient remains critically ill with traumatic brain injury and an unknown level of hypoxic insult. As a result she has acute respiratory failure requiring full ventilator support. Total critical care time in the evaluation and management of this trauma patient was 40 minutes Joce Bermudez MD Jul 03, 2016 15:10
[2016-07-04] VITALS (16 sets, daily range): BP systolic 131–149; BP diastolic 56–83; PULSE 61–89; RESP 14–24; TEMP 97.8–101.4; O2SAT 100
[2016-07-04] MEDS: CLEVIDIPINE INJ 50 ML IV SCH ×2 (00:32→09:13)
[2016-07-04] MEDS: PROPOFOL 1000 MG/100 ML INJ 100 ML IV SCH (00:32)
[2016-07-04] MEDS: CHLORHEXIDINE GLUCONATE 2 % 1 PACK (2 CLOTHS) TOP SCH (04:00)
[2016-07-04] MEDS: 3% SALINE INJ 500 ML IV SCH (05:12)
[2016-07-04 05:23] LABS: HEMATOCRIT 34.7 % (35.0-46.0); MEAN CELL VOLUME 89.8 FL (80.0-100.0); MEAN CORPUSCULAR HEMOGLOBIN 30.9 PG (27.0-34.0); MEAN CORPUSCULAR HGB CONC 34.4 % (32.0-36.0); PLATELET COUNT 125 TH/MM3 (150-450); RED BLOOD COUNT 3.87 MIL/MM3 (4.00-5.30); RED CELL DISTRIBUTION WIDTH 13.2 % (11.6-17.2); REVIEW FLAG FINAL; WHITE BLOOD COUNT 8.8 TH/MM3 (4.0-11.0)
[2016-07-04 05:53] LABS: BICARBONATE 24.2 MEQ/L (21.0-32.0); POTASSIUM 3.2 MEQ/L (3.5-5.1)
[2016-07-04 06:04] LABS: BLOOD GAS BASE EXCESS -1.2 mmol/L (-2-2); BLOOD GAS CARBOXYHEMOGLOBIN 0.8 % (0-4); BLOOD GAS HCO3 23 mmol/L (22-26); BLOOD GAS METHEMOGLOBIN 0.9 % (0-2); BLOOD GAS O2 HGB SATURATION 98 % (90-100); BLOOD GAS OXYGEN CONTENT 16.8 Vol % (12.0-20.0); BLOOD GAS PCO2 35 mmHg (38-42); BLOOD GAS PO2 182 mmHg (61-120); CRITICAL VALUE NO; OXYGEN DEVICE VENTILATOR; TEMP CORR TO 98.6
[2016-07-04 06:05] LABS: DRAW SITE ART LINE; FIO2 40 %; STAT NO; VENT SETTINGS AC/14/600/PEEP5
--- NOTE | 2016-07-04 06:35 | RADRPT ---
EXAM DATE/TIME: 07/04/2016 05:46 [facility] COMPARISON: CHEST SINGLE AP, July 03, 2016, 6:02. INDICATIONS : Please evaluate after respiratory failure. MEDICAL HISTORY : None. SURGICAL HISTORY : None. ENCOUNTER: Subsequent ACUITY: 3 days PAIN SCORE: Non-responsive. LOCATION: Bilateral chest FINDINGS: Endotracheal, right central, and gastric tubes are stable in position. Persistent patchy areas of in filtrate in the left infrahilar region with loss of delineation of portions of the left hemidiaphragm . The right lung is clear. The heart is normal size. CONCLUSION: Persistent left lower lung infiltrates. Lines and tubes stable. Javon Merida MD on July 04, 2016 at 6:32 Board Certified Radiologist. This report was verified electronically.
[2016-07-04] MEDS: INSULIN ASPART SUPPLEMENTAL SCALE SQ SCH ×4 (06:40→20:34)
[2016-07-04] MEDS: POTASSIUM CHLOR 40 MEQ PREMIX 100 ML IV PRN ×2 (06:48→09:13)
[2016-07-04] MEDS: CHLORHEXIDINE 0.12% (ORAL KIT) 15 ML CUP MT SCH ×2 (08:16→20:00)
[2016-07-04] MEDS: DOCUSATE SODIUM 100 MG CAP PO SCH ×2 (08:17→20:21)
[2016-07-04] MEDS: LISINOPRIL 10 MG TAB PO SCH (08:17)
[2016-07-04] MEDS: levETIRAcetam INJ 500 MG in SODIUM CHLORIDE 0.9% INJ 100 ML IV SCH ×2 (08:17→20:21)
[2016-07-04] MEDS: PANTOPRAZOLE SODIUM 40 MG VIAL IV PUSH SCH (08:17)
[2016-07-04] MEDS: MAGNESIUM HYDROXIDE SUSP 30 ML CUP PO SCH (09:12)
[2016-07-04] MEDS: SODIUM CHLOR 0.9% 1000 ML INJ 1,000 ML IV SCH ×2 (10:00→20:00)
--- NOTE | 2016-07-04 11:13 | PD.CONS ---
HPI Service Rehabilitation Medicine Consult Requested By [facility] trauma service Reason for Consult Comprehensive rehabilitation evaluation. Primary Care Physician Unknown History of Present Illness Jeanne Hillman is a 56-year-old female admitted [facility] 07/02/16 after being found on the ground with shelving material on top of her. Time down is unknown. Glascow coma scale was 3. She was intubated. Head CT 07/02/16 showed diffuse subarachnoid hemorrhage mainly in the right frontal area but also in the left hemisphere and sylvian fissures with diffuse mild brain swelling and right frontal fracture extending through the right frontal sinus and orbital roof. She was noted to have possible aspiration. Follow-up head CT 07/03/16 showed no acute intracranial findings but evolving hemorrhages. Review of Systems ROS Limitations: Intubated, Altered Mental Status Past Family Social History Allergies: Coded Allergies: No Known Allergies (Unverified , 07/02/16) Past Medical History Hypertension Past Surgical History Unable to obtain Current Medications Current Medications Medications (Trade) Dose Ordered Sig/Leigha Route Start Time Stop Time Status Last Admin (NS Flush) 2 ml UNSCH PRN IVF 07/02/16 17:30 (Morphine Inj) 2 mg Q1H PRN IV 07/02/16 17:30 07/02/16 20:04 (Tylenol) 650 mg Q6H PRN PO 07/02/16 17:30 07/03/16 02:25 (Vasotec Inj) 1.25 mg Q8H PRN IV 07/02/16 17:30 07/03/16 07:30 (Zofran Inj) 4 mg Q6H PRN IV 07/02/16 17:30 (Colace) 100 mg BID PO 07/02/16 21:00 07/04/16 08:17 (Milk Of Magnesia Liq) 30 ml Q6H PRN PO 07/02/16 17:30 07/04/16 11:30 Miscellaneous Information 1 Q361D XX 07/02/16 17:30 (Chlorhexidine 2% Cloth) 3 pack Taper DAILY@04 TOP 07/03/16 04:00 06/29/17 03:59 07/04/16 04:00 Chlorhexidine Gluconate 3 pack 3 pack UNSCH PRN TOP 07/02/16 17:30 Propofol 100 ml @ 0 mls/hr TITRATE IV 07/02/16 17:30 07/04/16 00:32 (Keppra Inj/NS Inj) 105 ml @ 420 mls/hr Q12HR IV 07/02/16 21:00 07/04/16 08:17 Hydralazine HCl 10 mg 10 mg Q4H PRN IV PUSH 07/02/16 18:15 07/03/16 08:08 Potassium Chloride 100 ml @ 50 mls/hr Q2H PRN IV 07/02/16 19:45 07/04/16 09:13 (KCl 20 Meq Premix Inj) 100 ml @ 50 mls/hr Q2H PRN IV 07/02/16 19:45 Potassium Chloride 40 meq 40 meq UNSCH PRN PO/TUBE 07/02/16 19:45 Potassium Chloride 100 ml @ 25 mls/hr UNSCH PRN IV 07/02/16 19:45 Potassium Chloride 100 ml @ 50 mls/hr Q2H PRN IV 07/02/16 19:45 (Magnesium Sulfate Inj/NS Inj) 100 ml @ 50 mls/hr UNSCH PRN IV 07/02/16 19:45 Magnesium Oxide 800 mg 800 mg UNSCH PRN PO 07/02/16 19:45 (Magnesium Sulfate Inj/NS Inj) 100 ml @ 50 mls/hr UNSCH PRN IV 07/02/16 19:45 Potassium Phosphate 2000 mg 2,000 mg Q4H PRN PO 07/02/16 19:45 (Sodium Phosphate Inj/NS 250 ml Inj) 250 ml @ 42 mls/hr UNSCH PRN IV 07/02/16 19:45 (KCl 40 Meq/30 ml Liq) 40 meq UNSCH PRN PO/TUBE 07/02/16 19:45 Potassium Phosphate 2000 mg 2,000 mg UNSCH PRN PO/TUBE 07/02/16 19:45 (Potassium Phosphate Inj/NS 250 ml Inj) 260 ml @ 42 mls/hr UNSCH PRN IV 07/02/16 19:45 07/02/16 22:30 (Peridex 0.12% Liq) 15 ml BID@08,20 MT 07/02/16 20:00 07/04/16 08:16 (D50w (Vial) Inj) 25 ml UNSCH PRN IV PUSH 07/02/16 19:45 (Glucagon Inj) 1 mg UNSCH PRN OTHER 07/02/16 19:45 Pantoprazole Sodium 40 mg 40 mg Q24H IV PUSH 07/03/16 08:00 07/04/16 08:17 (Cleviprex Inj) 50 ml @ 0 mls/hr TITRATE IV 07/03/16 08:30 07/04/16 09:13 (Prinivil) 10 mg DAILY PO 07/03/16 10:00 07/04/16 08:17 Magnesium Hydroxide 30 ml 30 ml DAILY PO 07/04/16 09:00 07/04/16 09:12 (NS 1000 ml Inj) 1,000 ml @ 100 mls/hr Q10H IV 07/04/16 10:00 Family History Unable to obtain Social History Prior to admission patient was living in [place], [place]. She was independent with ADLs and mobility. 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 Exam I&O / VS 07/03/16 07/03/16 07/04/16 15:00 23:00 07:00 Intake Total 1244 ml 681 ml 749 ml Output Total 1000 ml 1000 ml 350 ml Balance 244 ml -319 ml 399 ml Intake IV Total 1214 ml 479 ml 489 ml Tube Feeding 30 ml 142 ml 200 ml Tube Irrigant 60 ml 60 ml Output Urine Total 1000 ml 1000 ml 350 ml Gastric Drainage Total 0 ml # Bowel Movements 0 0 0 Vital Signs Date Time Temp Pulse Resp B/P Pulse Ox O2 Delivery O2 Flow Rate FiO2 07/04/16 10:00 89 07/04/16 09:48 40 07/04/16 09:45 40 07/04/16 08:00 74 07/04/16 08:00 98.8 84 15 131/69 100 07/04/16 08:00 40 07/04/16 06:00 74 07/04/16 04:14 100 40 07/04/16 04:00 40 07/04/16 04:00 98.3 74 14 140/56 100 07/04/16 04:00 74 07/04/16 02:00 72 07/04/16 01:39 100 40 07/04/16 00:00 99.0 76 14 138/56 100 07/04/16 00:00 76 07/04/16 00:00 40 07/03/16 22:10 100 40 07/03/16 22:00 73 07/03/16 20:00 78 07/03/16 20:00 40 07/03/16 20:00 99.0 78 14 158/64 100 07/03/16 19:47 100 40 07/03/16 18:00 75 07/03/16 16:00 81 07/03/16 16:00 40 07/03/16 16:00 100.4 81 15 155/62 100 07/03/16 15:36 100 40 07/03/16 14:00 76 07/03/16 12:00 40 07/03/16 12:00 100.0 72 14 154/57 100 07/03/16 12:00 72 07/03/16 11:31 100 40 General: Intubated (No sedation), No acute distress Respiratory: Lungs CTA, Non-labored respirations, BS equal Gastrointestinal: Positive Bowel Sounds, Non-Distended Cardiovascular: Normal rate, Normal peripheral perfusion, Regular Rhythm Orientation: unable to asses Self, unable to asses Place, unable to asses Time , unable to asses Situation Neurologic: Pupils (PERRLA), EOM (Not focusing ) Motor: Right Upper Extremity (Follows simple command to health promotion specialist approximately 50%) , Left Upper Extremity (Trace spontaneous finger flexion), Right Lower Extremity (Followed 25% simple one step commands to move), Left Lower Extremity (No spontaneous or voluntary movement) Babinski: Positive (Right) Assessment and Plan Diagnosis: (1) Subarachnoid hemorrhage Assessment TBI now [place] 2 Plan 1. PT/OT consults to begin ROM and progress as medical and neurologic status allows. Neurosurgery notes the patient can be mobilized out of bed from neurosurgical standpoint. 2. ST consult for evaluation after extubated 3. Anticipate that patient will need inpatient rehabilitation at discharge. Case management is following. Will follow for level of inpatient rehabilitation. 4. Neuropsychology consult per trauma protocol 5. Will follow while hospitalized and at discharge. Thank you for this consult. Cesilia Phillips MD Jul 04, 2016 11:13
--- NOTE | 2016-07-04 11:30 | HHI.PR ---
Neuropsych Emotional Emotional: UnabletoAssess: Emotional, Anxious/Fearful, Depressed/Sad, Hostile/ Resentful, Irritable/Angry/Frustrate, Labile, Constricted/Blunted Behavior Behavior: Unable to Asses: Behavior, Coping/Acceptance, Cooperative w/ Treatment, Motivation, Frustration Tolerance/[place], Impulsive/Agitated, Suicidal/ Homicidal Risk Cognitive Cognitive: Unable to Asses: Cognitive, Attention/Concentration, Confused/ Orientation, Insight/Awareness, Judgement/Problem-Solving, Memory Psychosocial Psychosocial: Intact: Family/Other Adjustment, Realistic Expectation Progress Notes/Response to Tx Contents of Sessions: Level of Consciousness Time with Patient: 30 minutes Premorbid psychological status Premorbid Cognitive, Emotional and Behavioral Status: Stable. 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 The patient has no psychiatric difficulties , as described above. Substance abuse history includes not significant. Behavioral Reactions of Patient and Family/Support System: Stable. The patient s family is experiencing ongoing issues of adjustment given the nature of the injury, and this aspect of recovery will require ongoing monitoring. I spoke at length with the patient's brother, who indicated good understanding of his sister's course of recovery. Emotional/Behavioral Status of Patient and Family/Support System: Deferred. Pertinent issues, if appropriate to this patients clinical care, are described in detail above. Maximizing acute care outcome It is recommended that the patient be monitored for emergent behavioral impulsivity as the medical condition evolves. This patients neuropathological challenges may limit their rehabilitation potential going forward, and these challenges will require specialized therapeutic skills to maximize outcome. Additionally, the patients family is experiencing ongoing issues of adjustment given the traumatic nature of the injury, and they [will need / may benefit] from ongoing psychological assistance. It is understood that any possible underlying anoxic/hypoxic injury may have been overstated, based on reports from the patient's brother. Anticipated Problems Ongoing areas of concern will include behavioral impulsivity, lack of insight and judgment, which is expected to improve with time and treatment. Presently , the patient is unconscious. Treatment Plan This clinician will continue to follow with you throughout the course of this patients rehabilitation treatment, and I will be available to meet with the patients family/support system to facilitate their understanding and the ongoing care of their family member. The goals of neuropsychological intervention shall be both educational and supportive to the family/support system as is deemed clinically appropriate. [facility] Level: II:General response-total assist Impression This patient suffered a severe traumatic brain injury although it is not understood that any anoxic/hypoxic injury may have been overstated. Diagnosis: Progress Note Narrative Ongoing follow-up with patient. I was also able to speak at length with this patient's brother, who voiced good understanding of the issues of diagnosis and prognosis. Patient remains unconscious, and for me not following commands. I will continue to follow with you, and I am happy to discuss issues with the patient's family. Liborio Hitchcock PhD Jul 04, 2016 11:30 am
--- NOTE | 2016-07-04 13:23 | HHI.CCPN ---
Subjective Remarks/Hospital Course The patient is a 56-year-old female that presented to the emergency department/Trauma [place] via [facility] as a trauma alert. Per medical history, reported by EMS the patient was found down on the ground, and in an industrial area, with shelving material that had fallen on her. The patient was unconscious for an undetermined time. Upon arrival of EMS the patient's GCS score 3. The patient was intubated prior to arrival by [facility] paramedics.A 7-0 endotracheal tube at 22 cm.at the lip. EMS reported that the laryngoscopic view patient had blood at the nares bilaterally and within the oropharynx. EMS reported that the had a difficult airway, very anterior. Patient did receive 2 doses of etomidate and 1 dose of succinylcholine by EMS in the field, prior to arrival.The patient then received Rocuronium upon arrival. Critical care medicine was consulted for management. Patient spiked a low-grade temperature overnight and was cultured by the critical care team Objective Vital Signs Date Time Temp Pulse Resp B/P Pulse Ox O2 Delivery O2 Flow Rate FiO2 07/04/16 11:48 100 Nasal Cannula 3 07/04/16 11:24 40 07/04/16 10:00 89 07/04/16 08:00 98.8 15 131/69 Intake and Output 07/03/16 07/03/16 07/04/16 08:00 16:00 00:00 Intake Total 1425 ml 1244 ml 681 ml Output Total 425 ml 1000 ml 1000 ml Balance 1000 ml 244 ml -319 ml Result Diagram: 07/04/16 0500 07/04/16 0500 Other Results Laboratory Tests Test 07/04/16 05:54 Blood Gas Puncture Site ART LINE Blood Gas Patient Temperature 98.6 Blood Gas HCO3 23 mmol/L (22-26) Blood Gas Base Excess -1.2 mmol/L (-2-2) Blood Gas Oxygen Saturation 98 % (90-100) Arterial Blood pH 7.43 (7.380-7.420) Arterial Blood Partial 35 mmHg (38-42) Pressure CO2 Arterial Blood Partial 182 mmHg Pressure O2 (61-120) Arterial Blood Oxygen Content 16.8 Vol % (12.0-20.0) Arterial Blood 0.8 % (0-4) Carboxyhemoglobin Arterial Blood Methemoglobin 0.9 % (0-2) Blood Gas Hemoglobin 12.0 G/DL (12.0-16.0) Oxygen Delivery Device VENTILATOR Blood Gas Ventilator Setting AC/14/600/PEEP5 Blood Gas Inspired Oxygen 40 % Imaging Last 24 hours Impressions Chest X-Ray 07/04/16 06 Signed Impressions: Service Date/Time: Monday, July 04, 2016 05:46 - CONCLUSION: Persistent left lower lung infiltrates. Lines and tubes stable. Javon Merida MD Last 24 hours Impressions Transcranial Doppler Study Complete 07/03/16 0600 Signed Impressions: Service Date/Time: June 08:17 - CONCLUSION: 1. Limited examination. The lindegaard ratio cannot be calculated as the distal carotids could not be assessed. Please see above. 2. The examination does demonstrate an elevated TAMM in the right MCA circulation. This is a range which would suggest a mild degree of vasospasm in the right MCA distribution. The peak pulsatility index is mildly elevated in this area as well. The remainder of the time averaged maximal velocities are within normal limits. Temo Godoy MD Head CT 07/03/16 0000 Signed Impressions: Service Date/Time: June 04:43 - CONCLUSION: The only interval change has been the appearance of a small intraparenchymal hemorrhage within the right frontal lobe. Subarachnoid hemorrhage and diffuse cerebral edema are stable. Javon Roach Jr., MD Chest X-Ray 07/03/16 0000 Signed Impressions: Service Date/Time: June 06:02 - CONCLUSION: Mild left basilar atelectasis. Javon Roach Jr., MD Thoracic Spine CT 07/02/161623 Signed Impressions: Service Date/Time: Saturday, July 02, 2016 16:40 - CONCLUSION: No acute bony injury in the thoracic spine Chapo Hicks MD Lumbar Spine CT 07/02/161623 Signed Impressions: Service Date/Time: Saturday, July 02, 2016 16:40 - CONCLUSION: No acute bony injury in the lumbosacral spine. Chapo Hicks MD Head CT 07/02/161623 Signed Impressions: Service Date/Time: Saturday, July 02, 2016 16:32 - CONCLUSION: None drainable intracranial hemorrhage. Diffuse cerebral edema. Skull fracture. Chapo Hicks MD Chest X-Ray 07/02/161623 Signed Impressions: Service Date/Time: Saturday, July 02, 2016 16:10 - CONCLUSION: Satisfactory trauma chest appearance. Chapo Hicks MD Chest CT 07/02/161623 Signed Impressions: Service Date/Time: Saturday, July 02, 2016 16:40 - CONCLUSION: Bilateral posterior lower lobe consolidative changes, left worse than right. No evidence of acute mediastinal injury. Chapo Hicks MD Cervical Spine CT 07/02/161623 Signed Impressions: Service Date/Time: Saturday, July 02, 2016 16:32 - CONCLUSION: 1. No acute findings. Moderate degenerative change in the lower cervical spine. David Quispe MD Objective Remarks GENERAL: Well-nourished well-developed woman intubated and sedated HEAD: Atraumatic. Normocephalic. EYES: Pupils equal, round, and reactive. Periorbital edema/ecchymosis, conjunctiva pink NECK: Trachea midline. No JVD, no masses or swelling CARDIOVASCULAR: Regular rate and rhythm RESPIRATORY: Clear to auscultation bilaterally, currently on full ventilator support GASTROINTESTINAL: Abdomen soft nontender nondistended, no tenderness to palpation MUSCULOSKELETAL: No clubbing cyanosis or edema, palpable distal pulse NEUROLOGICAL: GCS 7T - patient localizes does not open her eyes spontaneously and does not vocalize, but more awake than yesterday with strong cough Urinary Catheter: Yes Date of Insertion: Jul 02, 2016 Line: Central Venous Catheter Side: Right Location: Subclavian A/P Assessment and Plan Neuro Traumatic brain injury with an unknown component of hypoxia -Stop hypertonic saline -Stop sedation and transition pain medication from IV to PO -Continue supportive care with neuro checks and continuous hemodynamic monitoring Pulmonary -CPAP trials -Aggressive pulmonary toilet Cardiovascular -Continue to monitor -Maintain systolic blood pressure less than 160 -Add beta bambi GI -Hold tube feeds for extubation, place DHT if extubated to resume tube feeds -Initiate tube feeds advanced to goal -Switch all possible IV medications to by feeding tube -Continue Villar catheter for hemodynamic monitoring and accurate output ID -Await culture results FEN -Continue to monitor Replace Select electrolytes as needed Dispo -Patient remains critically ill at the moment with traumatic brain injury and an unknown level of hypoxic insult. The plan is to wean sedation and likely extubate. She still has a feeding problem and will require nutritional support which will be provided via a Dobbhoff tube after she is extubated. Total critical care time in evaluation and management of this trauma patient was 50 minutes Joce Bermudez MD Jul 04, 2016 13:23
[2016-07-04] MEDS ORDERED: ACETAMINOPHEN 1000 MG/100 ML VIAL IV PRN (16:00)
[2016-07-04] MEDS ORDERED: EPINEPHrine HCL (1:10,000) 1 MG/10 ML SYRINGE ONE (16:59)
[2016-07-04] MEDS ORDERED: LIDOCAINE HCL 2% 100 MG/5 ML SYRINGE ONE (16:59)
[2016-07-04] MEDS ORDERED: ATROPINE SULFATE 1 MG/10 ML SYRINGE ONE ×2 (16:59→20:51)
[2016-07-04] MEDS ORDERED: MIDAZOLAM HCL 5 MG/ML VIAL (1 ML) ONE (17:20)
[2016-07-04] MEDS ORDERED: ETOMIDATE 20 MG/10 ML VIAL ONE (17:20)
[2016-07-04 17:37] LABS: BLOOD GAS BASE EXCESS -1.1 mmol/L (-2-2); BLOOD GAS HCO3 23 mmol/L (22-26); BLOOD GAS METHEMOGLOBIN 0.9 % (0-2); BLOOD GAS O2 HGB SATURATION 97 % (90-100); BLOOD GAS OXYGEN CONTENT 16.1 Vol % (12.0-20.0); BLOOD GAS PCO2 41 mmHg (38-42); BLOOD GAS PO2 160 mmHg (61-120); BLOOD GAS TOTAL HGB 11.5 G/DL (12.0-16.0); TEMP CORR TO 98.6
[2016-07-04 17:38] LABS: CRITICAL VALUE NO; LITER FLOW 3 L/M; OXYGEN DEVICE NASAL CANNULA
[2016-07-04 17:39] LABS: DRAW SITE RT RADIAL; NUMBER OF ARTERIAL PUNCTURES 1; STAT YES; ULNAR PULSE PRESENT
--- NOTE | 2016-07-04 18:07 | RADRPT ---
EXAM DATE/TIME: 07/04/2016 17:47 [facility] COMPARISON: CT BRAIN W/O CONTRAST, July 03, 2016, 4:43. INDICATIONS : Recent trauma; follow-up intracranial hemorrhage. RADIATION DOSE: 56.35 CTDIvol (mGy) MEDICAL HISTORY : Hypertension. SURGICAL HISTORY : None. ENCOUNTER: Initial ACUITY: 1 day PAIN SCALE: Non-responsive LOCATION: cranial TECHNIQUE: Multiple contiguous axial images were obtained of the head. Using automated exposure control and adj ustment of the mA and/or kV according to patient size, radiation dose was kept as low as reasonably a chievable to obtain optimal diagnostic quality images. FINDINGS: Skull fracture and brain injuries there are similar to prior. Patchy subarachnoid blood and high conv exity right frontal contusion or evolving with no new acute findings identified. Ventricles are stabl e and symmetric. Basal cisterns are symmetric and patent. CONCLUSION: No new acute intracranial findings. Evolving hemorrhages. Chapo Hicks MD on July 04, 2016 at 18:03 Board Certified Radiologist. This report was verified electronically.
--- NOTE | 2016-07-04 21:49 | EKG ---
Date Performed: 07/04/2016 Time Performed: 17:14:16 PTAGE: 56 years EKG: Sinus bradycardia with sinus arrhythmia. Septal T wave changes are nonspecific, Clinical co rrelation is recommended Borderline ECG NO PREVIOUS TRACING DOCTOR: Avinash Diaz Interpretating Date/Time 07/04/2016 21:48:52
--- NOTE | 2016-07-04 23:48 | HHI.NSPN ---
History Interval History Traumatic brain injury. Traumatic subarachnoid hemorrhage. Exam Results Vital Signs Date Time Temp Pulse Resp B/P Pulse Ox O2 Delivery O2 Flow Rate FiO2 07/04/16 22:00 81 07/04/16 20:00 97.8 21 149/71 100 07/04/16 11:48 Nasal Cannula 3 07/04/16 11:24 40 Intake and Output 07/03/16 07/03/16 07/04/16 08:00 16:00 00:00 Intake Total 1425 ml 1244 ml 681 ml Output Total 425 ml 1000 ml 1000 ml Balance 1000 ml 244 ml -319 ml Physical Examination Extubated Clear nonlabored respirations. Cardiac regular Abdomen soft Minimal eye opening to voice and sternal rub Moderate grasp bilateral-not to command Localizes intermittent with upper extremities. Intermittent spontaneous movement lower extremities Lab, Micro, Other Results 07/04/16 CT scan head images reviewed by the undersigned. Agree with findings as noted below: Chest X-Ray 07/04/16 0600 Signed Impressions: Service Date/Time: Monday, July 04, 2016 05:46 - CONCLUSION: Persistent left lower lung infiltrates. Lines and tubes stable. Javon Merida MD Head CT 07/04/16 0000 Signed Impressions: Service Date/Time: Monday, July 04, 2016 17:47 - CONCLUSION: No new acute intracranial findings. Evolving hemorrhages. Chapo Hicks MD Laboratory Tests Test 07/04/16 07/04/16 07/04/16 07/04/16 00:00 05:00 05:54 17:17 Sodium Level 146 MEQ/L 147 MEQ/L Serum Osmolality 299 MOSM/KG 304 MOSM/KG White Blood Count 8.8 TH/MM3 Red Blood Count 3.87 MIL/MM3 Hemoglobin 11.9 GM/DL Hematocrit 34.7 % Mean Corpuscular Volume 89.8 FL Mean Corpuscular Hemoglobin 30.9 PG Mean Corpuscular Hemoglobin 34.4 % Concent Red Cell Distribution Width 13.2 % Platelet Count 125 TH/MM3 Mean Platelet Volume 7.8 FL Potassium Level 3.2 MEQ/L Chloride Level 116 MEQ/L Carbon Dioxide Level 24.2 MEQ/L Anion Gap 7 MEQ/L Blood Urea Nitrogen 8 MG/DL Creatinine 0.44 MG/DL Estimat Glomerular Filtration 147 ML/MIN Rate Random Glucose 151 MG/DL Calcium Level 8.2 MG/DL Blood Gas Puncture Site ART LINE RT RADIAL Blood Gas Patient Temperature 98.6 98.6 Blood Gas HCO3 23 mmol/L 23 mmol/L Blood Gas Base Excess -1.2 mmol/L -1.1 mmol/L Blood Gas Oxygen Saturation 98 % 97 % Arterial Blood pH 7.43 7.38 Arterial Blood Partial 35 mmHg 41 mmHg Pressure CO2 Arterial Blood Partial 182 mmHg 160 mmHg Pressure O2 Arterial Blood Oxygen Content 16.8 Vol % 16.1 Vol % Arterial Blood 0.8 % 1.0 % Carboxyhemoglobin Arterial Blood Methemoglobin 0.9 % 0.9 % Blood Gas Hemoglobin 12.0 G/DL 11.5 G/DL Oxygen Delivery Device VENTILATOR NASAL CANNULA Blood Gas Ventilator Setting AC/14/600/PEEP5 Blood Gas Inspired Oxygen 40 % Blood Gas Liter Flow 3 L/M Medical Decision Making Impression and Plan Impression: 1. Stable neurologic function and CT scan 07/04/16 following extubation. Plan: Continue ISC neuro checks. Continue PT/OT/ST May mobilize out of bed as tolerated from neurosurgery standpoint Discussed with family in room Discussed with nursing staff Rashi Silva MD Jul 04, 2016 23:48
[2016-07-05] VITALS (15 sets, daily range): BP systolic 131–165; BP diastolic 65–79; PULSE 48–85; RESP 16–31; TEMP 99.2–101.2; O2SAT 98–100
[2016-07-05] MEDS: hydrALAZINE HCL 20 MG/ML VIAL IV PUSH PRN (00:40)
[2016-07-05] MEDS: CHLORHEXIDINE GLUCONATE 2 % 1 PACK (2 CLOTHS) TOP SCH (04:00)
[2016-07-05] MEDS: SODIUM CHLOR 0.9% 1000 ML INJ 1,000 ML IV SCH ×2 (04:05→16:14)
[2016-07-05 05:38] LABS: HEMATOCRIT 32.6 % (35.0-46.0); MEAN CELL VOLUME 91.6 FL (80.0-100.0); MEAN CORPUSCULAR HEMOGLOBIN 31.2 PG (27.0-34.0); PLATELET COUNT 126 TH/MM3 (150-450); RED BLOOD COUNT 3.55 MIL/MM3 (4.00-5.30); RED CELL DISTRIBUTION WIDTH 13.1 % (11.6-17.2); REVIEW FLAG FINAL; WHITE BLOOD COUNT 8.7 TH/MM3 (4.0-11.0)
--- NOTE | 2016-07-05 06:12 | RADRPT ---
EXAM DATE/TIME: 07/05/2016 05:03 [facility] COMPARISON: CHEST SINGLE AP, July 04, 2016, 5:46. INDICATIONS : Shortness of breath. MEDICAL HISTORY : None. SURGICAL HISTORY : None. ENCOUNTER: Subsequent ACUITY: 4 - 6 days PAIN SCORE: Non-responsive. LOCATION: Bilateral chest FINDINGS: Interval extubation and removal of gastric tube. Right central line tip projects over the distal sup erior vena cava. There is persisting consolidation in the left lower lung with loss of delineation o f the left hemidiaphragm. Hazy opacity in the right lower chest suggest possible small pleural effus ion. CONCLUSION: Left lower lobe consolidation, stable. Possible new small pleural effusion on the right. Javon Merida MD on July 05, 2016 at 6:10 Board Certified Radiologist. This report was verified electronically.
[2016-07-05 06:34] LABS: BICARBONATE 26.1 MEQ/L (21.0-32.0); POTASSIUM 3.8 MEQ/L (3.5-5.1)
[2016-07-05] MEDS: INSULIN ASPART SUPPLEMENTAL SCALE SQ SCH ×4 (07:00→21:00)
[2016-07-05] MEDS: DOCUSATE SODIUM 100 MG CAP PO SCH ×2 (08:49→20:36)
[2016-07-05] MEDS: MAGNESIUM HYDROXIDE SUSP 30 ML CUP PO SCH (08:49)
[2016-07-05] MEDS: LISINOPRIL 10 MG TAB PO SCH (08:49)
[2016-07-05] MEDS: PANTOPRAZOLE SODIUM 40 MG VIAL IV PUSH SCH (09:01)
[2016-07-05] MEDS: levETIRAcetam INJ 500 MG in SODIUM CHLORIDE 0.9% INJ 100 ML IV SCH ×2 (09:01→21:38)
[2016-07-05] MEDS: CHLORHEXIDINE 0.12% (ORAL KIT) 15 ML CUP MT SCH ×2 (09:01→20:00)
[2016-07-05] MEDS: ACETAMINOPHEN 1000 MG/100 ML VIAL IV PRN (12:06)
--- NOTE | 2016-07-05 12:17 | HHI.CCPN ---
Subjective Brief History The patient is a 56-year-old female that presented to the emergency department/Trauma [place] via [facility] as a trauma alert. Per medical history, reported by EMS the patient was found down on the ground, and in an industrial area, with shelving material that had fallen on her. The patient was unconscious for an undetermined time. Upon arrival of EMS the patient's GCS score 3. The patient was intubated prior to arrival by [facility] paramedics.A 7-0 endotracheal tube at 22 cm.at the lip. EMS reported that the laryngoscopic view patient had blood at the nares bilaterally and within the oropharynx. EMS reported that the had a difficult airway, very anterior. Patient did receive 2 doses of etomidate and 1 dose of succinylcholine by EMS in the field, prior to arrival.The patient then received Rocuronium upon arrival. Patient was found to have the subarachnoid and intraparenchymal hemorrhage mainly of the right frontal areas of brain In addition patient may have suffered the hypoxic or anoxic brain injury for undetermined period of time 24 Hour Review/Hospital Course Patient was initially intubated and ventilated and over the last 24 hours has gradually improved Patient was extubated last night She had this point moves all 4 extremities tries to open left thigh but does not follow any commands Based on all of the above patient may remain extubated but I would not be surprised if patient required reintubation at some point should she develop significant secretions and there would be a danger of compromised airway Objective Vital Signs Date Time Temp Pulse Resp B/P Pulse Ox O2 Delivery O2 Flow Rate FiO2 07/05/16 10:00 61 07/05/16 08:00 101.2 26 142/66 100 07/05/16 07:40 Simple Mask 6.00 07/04/16 11:24 40 Intake and Output 07/04/16 07/04/16 07/05/16 08:00 16:00 00:00 Intake Total 749 ml 1105 ml 950 ml Output Total 350 ml 450 ml 100 ml Balance 399 ml 655 ml 850 ml Result Diagram: 07/05/16 0520 07/05/16 0520 Other Results Microbiology Date/Time Procedure Status Source Growth 07/03/16 05:30 Gram Stain - Final Complete Sputum Oral Tracheal Aspirate 07/03/16 05:30 Sputum Culture - Final Complete Sputum Oral Tracheal Aspirate HEAVY GROWTH NORMAL RESPIRATORY ROBERT 07/03/16 05:30 Urine Culture - Final Complete Urine Catheterized Urine NO GROWTH IN 48 HOURS. 07/03/16 11:50 Urine Culture - Final Complete Urine Catheterized Urine NO GROWTH IN 48 HOURS. Laboratory Tests Test 07/04/16 17:17 Blood Gas Puncture Site RT RADIAL Blood Gas Patient Temperature 98.6 Blood Gas HCO3 23 mmol/L (22-26) Blood Gas Base Excess -1.1 mmol/L (-2-2) Blood Gas Oxygen Saturation 97 % (90-100) Arterial Blood pH 7.38 (7.380-7.420) Arterial Blood Partial 41 mmHg (38-42) Pressure CO2 Arterial Blood Partial 160 mmHg Pressure O2 (61-120) Arterial Blood Oxygen Content 16.1 Vol % (12.0-20.0) Arterial Blood 1.0 % (0-4) Carboxyhemoglobin Arterial Blood Methemoglobin 0.9 % (0-2) Blood Gas Hemoglobin 11.5 G/DL (12.0-16.0) Oxygen Delivery Device NASAL CANNULA Blood Gas Liter Flow 3 L/M Exam TIP TESTER Patient was found to have the subarachnoid and intraparenchymal hemorrhage mainly of the right frontal areas of brain In addition patient may have suffered the hypoxic or anoxic brain injury for undetermined period of time Patient moves all extremities trying to open left thigh however does not follow commands or verbalizes Based on her neurologic function patient is at this point able to protect her upper airway in addition she has a left sided the nasal trumpet On the other hand should secretions become an issue patient may need to be reintubated Hemodynamic/Cardiac Hemodynamically patient is stable and she has required some antihypertensives for control of high blood pressure Blood pressure is now lower than under control Pulmonary/Respiratory Bilateral good breath sounds patient is good inspiratory effort however if secretions become difficult to manage then patient may need to be reintubated Abdomen/GI Nutrition Abdomen is soft active bowel sounds and patient remains nothing by mouth When she wakes up little more will start feedings either anteriorly or if patient is able to swallow by natural route Vascular Central Line Catheter Date of Insertion: Jul 02, 2016 Line: Central Venous Catheter Side: Right Location: Subclavian Assessment and Plan Attestation The exam, history, and the medical decision-making described in the above note were completed with the assistance of the mid-level provider. I reviewed and agree with the findings presented. I attest that I had a [id number] encounter with the patient on the same day, and personally performed and documented my assessment and findings in the medical record. Critical care time 40 minutes. Saul Kuo MD Jul 05, 2016 12:17
[2016-07-05] MEDS ORDERED: FUROSEMIDE 20 MG/2 ML VIAL IV PUSH ONE (12:45)
[2016-07-05] MEDS ORDERED: RESP: ALBUTEROL 2.5 MG/IPRATROPIUM 0.5 MG NEB (PRN) NEB (12:45)
[2016-07-05] MEDS: RESP: ALBUTEROL 2.5 MG/IPRATROPIUM 0.5 MG NEB (SCH) NEB ×2 (15:50→21:17)
--- NOTE | 2016-07-05 20:48 | HHI.NSPN ---
History Interval History Traumatic brain injury. Traumatic subarachnoid hemorrhage. Exam Results Vital Signs Date Time Temp Pulse Resp B/P Pulse Ox O2 Delivery O2 Flow Rate FiO2 07/05/16 18:00 85 07/05/16 16:00 99.2 26 138/66 100 07/05/16 07:40 Simple Mask 6.00 07/04/16 11:24 40 Intake and Output 07/04/16 07/04/16 07/05/16 08:00 16:00 00:00 Intake Total 749 ml 1105 ml 950 ml Output Total 350 ml 450 ml 100 ml Balance 399 ml 655 ml 850 ml Physical Examination Extubated Clear nonlabored respirations. Cardiac regular Abdomen soft Moderate eye opening to voice and sternal rub Moderate grasp bilateral-appears to be to command Localizes deep pain with upper extremities, left greater than right Intermittent spontaneous movement lower extremities Appears to move bilateral lower extremities to command Medical Decision Making Impression and Plan Impression: 1. Mild improved neurologic function and CT scan 07/04/16 following extubation. Plan: Continue ISC neuro checks. Continue PT/OT/ST May mobilize out of bed as tolerated from neurosurgery standpoint Discussed with nursing staff Rashi Silva MD Jul 05, 2016 20:48
[2016-07-06] VITALS (14 sets, daily range): BP systolic 126–163; BP diastolic 63–82; PULSE 54–98; RESP 22–28; TEMP 98.4–100.6; O2SAT 94–98
[2016-07-06] MEDS: SODIUM CHLOR 0.9% 1000 ML INJ 1,000 ML IV SCH ×3 (02:00→21:43)
[2016-07-06] MEDS: CHLORHEXIDINE GLUCONATE 2 % 1 PACK (2 CLOTHS) TOP SCH (04:00)
[2016-07-06] MEDS: RESP: ALBUTEROL 2.5 MG/IPRATROPIUM 0.5 MG NEB (SCH) NEB ×4 (04:00→21:03)
--- NOTE | 2016-07-06 05:04 | RADRPT ---
EXAM DATE/TIME: 07/06/2016 04:30 [facility] COMPARISON: CT BRAIN W/O CONTRAST, July 04, 2016, 17:47. INDICATIONS : Follow up bleed / trauma. RADIATION DOSE: 35.65 CTDIvol (mGy) MEDICAL HISTORY : Hypertension. SURGICAL HISTORY : None. ENCOUNTER: Subsequent ACUITY: 4 - 6 days PAIN SCALE: Non-responsive LOCATION: cranial TECHNIQUE: Multiple contiguous axial images were obtained of the head. Using automated exposure control and adj ustment of the mA and/or kV according to patient size, radiation dose was kept as low as reasonably a chievable to obtain optimal diagnostic quality images. FINDINGS: Stable appearance to the right frontal subdural hematoma, parenchymal contusions in the frontal orbit al region bilaterally and to the high right frontal hemorrhages with surrounding edema. The subarach noid hemorrhage along the falx and in the high bilateral convexity is stable. No evidence of midline shift. The ventricles are symmetric in size. No intraventricular blood. The linear skull fracture which extends from right supraorbital region, through the frontal sinuses and to the vertex is stabl e in configuration. CONCLUSION: Stable appearance to multiple cortical hemorrhages, subdural blood, subarachnoid blood and skull frac ture. Javon Merida MD on July 06, 2016 at 4:47 Board Certified Radiologist. This report was verified electronically.
[2016-07-06 05:50] LABS: HEMATOCRIT 31.9 % (35.0-46.0); MEAN CELL VOLUME 91.2 FL (80.0-100.0); MEAN CORPUSCULAR HEMOGLOBIN 31.1 PG (27.0-34.0); MEAN CORPUSCULAR HGB CONC 34.1 % (32.0-36.0); PLATELET COUNT 123 TH/MM3 (150-450); RED CELL DISTRIBUTION WIDTH 12.9 % (11.6-17.2); REVIEW FLAG FINAL
[2016-07-06 06:16] LABS: BICARBONATE 26.4 MEQ/L (21.0-32.0); POTASSIUM 3.4 MEQ/L (3.5-5.1)
[2016-07-06] MEDS: INSULIN ASPART SUPPLEMENTAL SCALE SQ SCH ×2 (06:38→11:00)
--- NOTE | 2016-07-06 07:07 | RADRPT ---
EXAM DATE/TIME: 07/06/2016 05:36 [facility] COMPARISON: CHEST SINGLE AP, July 05, 2016, 5:03. INDICATIONS : Short of breath. MEDICAL HISTORY : None. SURGICAL HISTORY : None. ENCOUNTER: Subsequent ACUITY: 1 week PAIN SCORE: Non-responsive. LOCATION: Bilateral chest FINDINGS: The patient is mildly rotated towards the left. Right subclavian central line tip projects over the mid superior vena cava. There is persistent consolidation in the left lower lung with loss of deline ation of the entire left hemidiaphragm. Mild hazy opacity in the lower right chest with some blurrin g of the costophrenic angle suggests a small right pleural effusion. CONCLUSION: Stable left lower lobar consolidation and probable small right pleural effusion. Javon Merida MD on July 06, 2016 at 7:04 Board Certified Radiologist. This report was verified electronically.
[2016-07-06] MEDS ORDERED: POTASSIUM CHLORIDE 10 MEQ CONTROLLED RELEASE TAB PO ONE (08:45)
[2016-07-06] MEDS: hydrALAZINE HCL 20 MG/ML VIAL IV PUSH PRN ×2 (08:50→12:41)
[2016-07-06] MEDS: DOCUSATE SODIUM 100 MG CAP PO SCH ×2 (09:00→21:43)
[2016-07-06] MEDS: MAGNESIUM HYDROXIDE SUSP 30 ML CUP PO SCH (09:00)
[2016-07-06] MEDS: PANTOPRAZOLE SODIUM 40 MG VIAL IV PUSH SCH (09:03)
[2016-07-06] MEDS: ENALAPRILAT 1.25 MG/ML VIAL IV PRN ×2 (09:03→15:15)
[2016-07-06] MEDS: levETIRAcetam INJ 500 MG in SODIUM CHLORIDE 0.9% INJ 100 ML IV SCH ×2 (09:03→21:43)
[2016-07-06] MEDS: CHLORHEXIDINE 0.12% (ORAL KIT) 15 ML CUP MT SCH (09:04)
--- NOTE | 2016-07-06 11:15 | RADRPT ---
EXAM DATE/TIME: 07/06/2016 10:44 [facility] COMPARISON: No previous studies available for comparison. INDICATIONS : Dobbhoff placement. MEDICAL HISTORY : Hypertension. SURGICAL HISTORY : None. ENCOUNTER: Initial ACUITY: 1 day PAIN SCORE: Non-responsive. LOCATION: Bilateral abdomen. FINDINGS: Feeding tube is across the GE junction. Bowel gas pattern is unremarkable. There is no free air or obstruction. evidence of obstruction. CONCLUSION: Feeding tube across the GE junction and second portion of the duodenum. Jitendra Godoy MD FACR on July 06, 2016 at 11:12 Board Certified Radiologist. This report was verified electronically.
--- NOTE | 2016-07-06 13:46 | HHI.CCPN ---
Subjective Brief History The patient is a 56-year-old female that presented to the emergency department/[facility] via [facility] as a trauma alert. Per medical history, reported by EMS the patient was found down on the ground, and in an industrial area, with shelving material that had fallen on her. The patient was unconscious for an undetermined time. Upon arrival of EMS the patient's GCS score 3. The patient was intubated prior to arrival by [facility] paramedics.A 7-0 endotracheal tube at 22 cm.at the lip. EMS reported that the laryngoscopic view patient had blood at the nares bilaterally and within the oropharynx. EMS reported that the had a difficult airway, very anterior. Patient did receive 2 doses of etomidate and 1 dose of succinylcholine by EMS in the field, prior to arrival.The patient then received Rocuronium upon arrival. Patient was found to have the subarachnoid and intraparenchymal hemorrhage mainly of the right frontal areas of brain In addition patient may have suffered the hypoxic or anoxic brain injury for undetermined period of time 24 Hour Review/Hospital Course Patient was initially intubated and ventilated and over the last 24 hours has gradually improved Patient was extubated last night She had this point moves all 4 extremities tries to open left thigh but does not follow any commands Based on all of the above patient may remain extubated but I would not be surprised if patient required reintubation at some point should she develop significant secretions and there would be a danger of compromised airway 07/06/16 Patient neurologically slightly improved Did not open is yet however does follow some commands and squeezes hand when asked to Moves all 4 extremities [place] Coma Scale about 10 Objective Vital Signs Date Time Temp Pulse Resp B/P Pulse Ox O2 Delivery O2 Flow Rate FiO2 07/06/16 10:00 68 07/06/16 08:00 98.8 26 158/74 96 07/06/16 07:30 Venturi Mask 3.00 28 Intake and Output 07/05/16 07/05/16 07/06/16 08:00 16:00 00:00 Intake Total 814 ml 882 ml 756 ml Output Total 475 ml 250 ml 950 ml Balance 339 ml 632 ml -194 ml Result Diagram: 07/06/16 0508 07/06/16 0508 Imaging Last 24 hours Impressions Chest X-Ray 07/06/16 0600 Signed Impressions: Service Date/Time: Wednesday, July 06, 2016 05:36 - CONCLUSION: Stable left lower lobar consolidation and probable small right pleural effusion. Javon Merida MD Head CT 07/06/16 0000 Signed Impressions: Service Date/Time: Wednesday, July 06, 2016 04:30 - CONCLUSION: Stable appearance to multiple cortical hemorrhages, subdural blood, subarachnoid blood and skull fracture. Javon Merida MD Abdomen X-Ray 07/06/16 0000 Signed Impressions: Service Date/Time: Wednesday, July 06, 2016 10:44 - CONCLUSION: Feeding tube across the GE junction and second portion of the duodenum. Jitendra Godoy MD FACR Exam SPA DIRECTOR [place] Coma Scale about 10 Patient squeezes hand on command does not open eyes yet doesn't track Swelling over the is decreasing Hemodynamic/Cardiac Hemodynamically patient is stable Pulmonary/Respiratory Bilateral good breath sounds and good inspiratory effort with good saturation and ventilatory mechanics Abdomen/GI Nutrition Abdomen is soft active bowel sounds Dobbhoff tube placed for feedings for it may take a few days with her patient is able to swallow considering her decreased level of consciousness Vascular Central Line Catheter Date of Insertion: Jul 02, 2016 Line: Central Venous Catheter Side: Right Location: Subclavian Assessment and Plan Attestation The exam, history, and the medical decision-making described in the above note were completed with the assistance of the mid-level provider. I reviewed and agree with the findings presented. I attest that I had a [id number] encounter with the patient on the same day, and personally performed and documented my assessment and findings in the medical record. Critical care time 35 minutes. Saul Kuo MD Jul 06, 2016 13:46
[2016-07-06] MEDS: LISINOPRIL 20 MG TAB PO SCH (15:44)
[2016-07-06] MEDS: hydrALAZINE HCL 20 MG/ML VIAL IV PUSH SCH ×2 (16:15→21:43)
--- NOTE | 2016-07-06 16:48 | EC ---
Study Study Date:07/06/2016 STUDY CONCLUSIONS SUMMARY - Left ventricle: The cavity size was normal. Wall thickness was normal. Systolic function was normal. The estimated ejection fraction was in the range of 55% to 60%. Wall motion was normal; there were no regional wall motion abnormalities. - Pulmonary arteries: Systolic pressure was mildly increased. PA peak pressure: 54mm Hg (S). If LV function is below 40, please consider prescribing an ACEI or ARB or document rationale for non-use. PROCEDURE DATA STUDY STATUS: Elective. Procedure: Transthoracic echocardiography. Image quality was adequate. Scanning was performed from the parasternal, apical, and subcostal acoustic windows. Study completion: The patient tolerated the procedure well. Transthoracic echocardiography. M-mode, complete 2D, complete spectral Doppler, and color Doppler. Patient status: Inpatient. CARDIAC ANATOMY LEFT VENTRICLE: The cavity size was normal. Wall thickness was normal. Systolic function was normal. The estimated ejection fraction was in the range of 55% to 60%. Wall motion was normal; there were no regional wall motion abnormalities. AORTIC VALVE: Trileaflet; normal thickness leaflets. Doppler: Transvalvular velocity was within the normal range. There was no stenosis. No regurgitation. AORTA: Aortic root: The aortic root was normal in size. MITRAL VALVE: Structurally normal valve. Doppler: Transvalvular velocity was within the normal range. There was no evidence for stenosis. No regurgitation. Peak gradient: 5mm Hg (D). LEFT ATRIUM: The atrium was normal in size. RIGHT VENTRICLE: The cavity size was normal. Wall thickness was normal. PULMONIC VALVE: Poorly visualized. Doppler: Transvalvular velocity was within the normal range. There was no evidence for stenosis. No regurgitation. TRICUSPID VALVE: Structurally normal valve. Doppler: Transvalvular velocity was within the normal range. Trace regurgitation. PULMONARY ARTERY: The main pulmonary artery was normal-sized. Systolic pressure was mildly increased. RIGHT ATRIUM: The atrium was normal in size. PERICARDIUM: There was no pericardial effusion. SYSTEMIC VEINS: Inferior vena cava: The vessel was normal in size. BASIC MEASUREMENTS ADULT NORMAL Left ventricle LV internal dimension, ED, chordal level, 44.3 mm 43-52 PLAX LV posterior wall thickness, ED 7.73 mm IVS/LVPW ratio, ED 1.24 <1.3 Ventricular septum Septal thickness, ED 9.58 mm Aortic valve Leaflet separation 19 mm 15-26 Left atrium Anterior-posterior dimension 34 mm Right ventricle RV internal dimension, ED, PLAX 24.9 mm 19-38 BASIC MEASUREMENTS ADULT NORMAL Aortic valve Leaflet separation 19 mm 15-26 Aorta Root diameter, ED 30 mm 20-37 DOPPLER MEASUREMENTS ADULT NORMAL Main pulmonary artery Pressure, S *54 mm Hg =30 Mitral valve Peak E-wave velocity 112 cm/s Peak A-wave velocity 73.4 cm/s Peak gradient, D 5 mm Hg Peak E/A ratio 1.5 Tricuspid valve Regurgitant peak velocity 331 cm/s Peak RV-RA gradient, S 44 mm Hg Maximal regurgitant velocity 331 cm/s Systemic veins Estimated CVP 10 mm Hg Right ventricle RV pressure, S *54 mm Hg <30 LEGEND: Mean values are shown as u=mean value. Asterisk (*) mulligan values outside specified normal range. Prepared and signed by Fernando Brown [id number]
--- NOTE | 2016-07-06 17:52 | HHI.NSPN ---
History Interval History Traumatic brain injury. Traumatic subarachnoid hemorrhage. Exam Results Vital Signs Date Time Temp Pulse Resp B/P Pulse Ox O2 Delivery O2 Flow Rate FiO2 07/06/16 16:00 70 07/06/16 12:00 100.6 24 163/72 95 07/06/16 07:30 Venturi Mask 3.00 28 Intake and Output 07/05/16 07/05/16 07/06/16 08:00 16:00 00:00 Intake Total 814 ml 882 ml 756 ml Output Total 475 ml 250 ml 950 ml Balance 339 ml 632 ml -194 ml Physical Examination Extubated Clear nonlabored respirations. Cardiac regular Abdomen soft Moderate eye opening to voice and sternal rub Moderate grasp bilateral-appears to be to command Localizes deep pain with upper extremities, left greater than right Intermittent spontaneous movement lower extremities Appears to move bilateral lower extremities to command Lab, Micro, Other Results 07/06/16 CT scan images reviewed. Agree with findings as noted below: Chest X-Ray 07/06/16 0600 Signed Impressions: Service Date/Time: Wednesday, July 06, 2016 05:36 - CONCLUSION: Stable left lower lobar consolidation and probable small right pleural effusion. Javon Merida MD Head CT 07/06/16 0000 Signed Impressions: Service Date/Time: Wednesday, July 06, 2016 04:30 - CONCLUSION: Stable appearance to multiple cortical hemorrhages, subdural blood, subarachnoid blood and skull fracture. Javon Merida MD Abdomen X-Ray 07/06/16 0000 Signed Impressions: Service Date/Time: Wednesday, July 06, 2016 10:44 - CONCLUSION: Feeding tube across the GE junction and second portion of the duodenum. Jitendra Godoy MD FACR Laboratory Tests Test 07/06/16 05:08 White Blood Count 7.0 TH/MM3 Red Blood Count 3.50 MIL/MM3 Hemoglobin 10.9 GM/DL Hematocrit 31.9 % Mean Corpuscular Volume 91.2 FL Mean Corpuscular Hemoglobin 31.1 PG Mean Corpuscular Hemoglobin 34.1 % Concent Red Cell Distribution Width 12.9 % Platelet Count 123 TH/MM3 Mean Platelet Volume 7.7 FL Sodium Level 151 MEQ/L Potassium Level 3.4 MEQ/L Chloride Level 117 MEQ/L Carbon Dioxide Level 26.4 MEQ/L Anion Gap 8 MEQ/L Blood Urea Nitrogen 20 MG/DL Creatinine 0.50 MG/DL Estimat Glomerular Filtration 127 ML/MIN Rate Random Glucose 119 MG/DL Calcium Level 8.5 MG/DL Medical Decision Making Impression and Plan Impression: 1. Mild improved neurologic function and CT scan 07/04/[address] scan 07/06/16 stable Plan: Discussed with family in the room today Continue ISC neuro checks. Continue PT/OT/ST May mobilize out of bed as tolerated from neurosurgery standpoint Discussed with nursing staff Rashi Silva MD Jul 06, 2016 17:52
[2016-07-06] MEDS: ACETAMINOPHEN 1000 MG/100 ML VIAL IV PRN (18:37)
[2016-07-06] MEDS: MORPHINE SULFATE 4 MG/ML INJ IV PRN (23:10)
[2016-07-07] VITALS (14 sets, daily range): BP systolic 138–173; BP diastolic 66–99; PULSE 58–132; RESP 23–56; TEMP 98.2–100.1; O2SAT 93–95
[2016-07-07] MEDS: RESP: ALBUTEROL 2.5 MG/IPRATROPIUM 0.5 MG NEB (SCH) NEB ×4 (03:17→21:17)
[2016-07-07] MEDS: SODIUM CHLOR 0.9% 1000 ML INJ 1,000 ML IV SCH ×2 (04:20→08:00)
[2016-07-07] MEDS: CHLORHEXIDINE GLUCONATE 2 % 1 PACK (2 CLOTHS) TOP SCH (04:24)
[2016-07-07] MEDS: hydrALAZINE HCL 20 MG/ML VIAL IV PUSH SCH ×4 (04:24→21:17)
[2016-07-07 04:30] LABS: MEAN CELL VOLUME 90.5 FL (80.0-100.0); MEAN CORPUSCULAR HEMOGLOBIN 30.4 PG (27.0-34.0); MEAN CORPUSCULAR HGB CONC 33.6 % (32.0-36.0); PLATELET COUNT 150 TH/MM3 (150-450); RED BLOOD COUNT 3.64 MIL/MM3 (4.00-5.30); RED CELL DISTRIBUTION WIDTH 12.5 % (11.6-17.2); REVIEW FLAG FINAL; WHITE BLOOD COUNT 7.8 TH/MM3 (4.0-11.0)
[2016-07-07 04:55] LABS: BICARBONATE 28.5 MEQ/L (21.0-32.0)
[2016-07-07] MEDS: POTASSIUM CHLOR 40 MEQ PREMIX 100 ML IV PRN (06:13)
[2016-07-07] MEDS: MAGNESIUM HYDROXIDE SUSP 30 ML CUP PO SCH (08:17)
[2016-07-07] MEDS: DOCUSATE SODIUM 100 MG CAP PO SCH ×2 (08:18→21:17)
[2016-07-07] MEDS: PANTOPRAZOLE SODIUM 40 MG VIAL IV PUSH SCH (08:18)
[2016-07-07] MEDS: levETIRAcetam INJ 500 MG in SODIUM CHLORIDE 0.9% INJ 100 ML IV SCH ×2 (08:18→21:16)
[2016-07-07] MEDS: LISINOPRIL 20 MG TAB PO SCH (08:18)
[2016-07-07] MEDS ORDERED: LACTULOSE SYRUP 20 GM/30 ML CUP PO ONE (08:30)
[2016-07-07] MEDS ORDERED: FUROSEMIDE 40 MG/4 ML VIAL IV PUSH ONE (10:30)
--- NOTE | 2016-07-07 10:47 | HHI.NSPN ---
Subjective History Day 1 after closed head injury with frontal skull fx, SAH and cerebral contusions, intubated and sedated. The repeat head CT shows improved SAH and better defined contusions in the frontal lobe. She is on 3% saline and [place] J is maintained until she can be more awake. 07/07/15 She is very lethargic but is sitting in bed. She does not follow commands. Vitals . Vital Signs Date Time Temp Pulse Resp B/P Pulse Ox O2 Delivery O2 Flow Rate FiO2 07/07/16 10:00 87 07/07/16 08:35 94 Venturi Mask 3.00 28 07/07/16 08:00 98.2 75 23 143/74 95 07/07/16 08:00 69 07/07/16 06:00 58 07/07/16 04:00 98.7 94 24 138/67 94 07/07/16 04:00 94 07/07/16 02:00 88 07/07/16 00:00 99.1 74 25 142/66 95 07/07/16 00:00 74 07/06/16 22:00 98 07/06/16 21:03 96 Venturi Mask 3.00 28 07/06/16 20:00 94 07/06/16 20:00 99.3 94 28 126/63 95 07/06/16 18:00 98 07/06/16 16:00 70 07/06/16 16:00 98.4 70 22 157/71 96 07/06/16 14:00 68 07/06/16 12:00 100.6 68 24 163/72 95 07/06/16 12:00 68 07/06/16 07/06/16 07/07/16 15:00 23:00 07:00 Intake Total 884 ml 804 ml 961 ml Output Total 500 ml 300 ml 475 ml Balance 384 ml 504 ml 486 ml Physical Exam Eyes Eyes: Pupils Equal Neuro Mental Status: Lethargic Pupils: Reactive Bilaterally [place] Coma Scale Best Eye Openin - To speech Best Verbal: 2 - Incomprehensible Best Motor: 5 - Localizes pain Total [place]ow Coma Scale (GCS): 10 Cardiac Cardiac: Regular Rate & Rhythm Gastrointestinal Gastrointestinal: Soft Musculoskeletal Extremities Upper Extremities Deltoid Bicep Tricep HI W. Ext Right Left Lower Extremeties Ilio Quad Plantar Dorsi EHL Right Left Musculoskeletal Remarks Moves all extremities purposefully Objective Labs Laboratory Tests 07/07/16 04:05 Laboratory Tests Test 07/07/16 04:05 Sodium Level 151 MEQ/L Potassium Level 3.0 MEQ/L Chloride Level 116 MEQ/L Carbon Dioxide Level 28.5 MEQ/L Anion Gap 7 MEQ/L Blood Urea Nitrogen 17 MG/DL Creatinine 0.43 MG/DL Estimat Glomerular Filtration 151 ML/MIN Rate Random Glucose 135 MG/DL Calcium Level 7.8 MG/DL Magnesium Level 2.1 MG/DL Imaging Remarks Last Impressions Chest X-Ray 07/06/16 0600 Signed Impressions: Service Date/Time: Wednesday, July 06, 2016 05:36 - CONCLUSION: Stable left lower lobar consolidation and probable small right pleural effusion. Javon Merida MD Head CT 07/06/16 0000 Signed Impressions: Service Date/Time: Wednesday, July 06, 2016 04:30 - CONCLUSION: Stable appearance to multiple cortical hemorrhages, subdural blood, subarachnoid blood and skull fracture. Javon Merida MD Abdomen X-Ray 07/06/16 0000 Signed Impressions: Service Date/Time: Wednesday, July 06, 2016 10:44 - CONCLUSION: Feeding tube across the GE junction and second portion of the duodenum. Jitendra Godoy MD FACR Transcranial Doppler Study Complete 07/03/16 0600 Signed Impressions: Service Date/Time: June 08:17 - CONCLUSION: 1. Limited examination. The lindegaard ratio cannot be calculated as the distal carotids could not be assessed. Please see above. 2. The examination does demonstrate an elevated TAMM in the right MCA circulation. This is a range which would suggest a mild degree of vasospasm in the right MCA distribution. The peak pulsatility index is mildly elevated in this area as well. The remainder of the time averaged maximal velocities are within normal limits. Temo Godoy MD Thoracic Spine CT 07/02/16 1624 Signed Impressions: Service Date/Time: Saturday, July 02, 2016 16:40 - CONCLUSION: No acute bony injury in the thoracic spine Chapo Hicks MD Lumbar Spine CT [id number]/02/[id number] Signed Impressions: Service Date/Time: Saturday, July 02, 2016 16:40 - CONCLUSION: No acute bony injury in the lumbosacral spine. Chapo Hicks MD Chest CT [id number] Signed Impressions: Service Date/Time: Saturday, July 02, 2016 16:40 - CONCLUSION: Bilateral posterior lower lobe consolidative changes, left worse than right. No evidence of acute mediastinal injury. Chapo Hicks MD Cervical Spine CT [id number]/[id number] Signed Impressions: Service Date/Time: Saturday, July 02, 2016 16:32 - CONCLUSION: 1. No acute findings. Moderate degenerative change in the lower cervical spine. David Quispe MD Abdomen/Pelvis CT [id number]/02/[id number] Signed Impressions: Service Date/Time: Saturday, July 02, 2016 16:40 - CONCLUSION: Negative CT scan abdomen and pelvis for acute traumatic injury. Jitendra Godoy MD FACR Assessment & Plan Diagnosis: (1) Closed head injury with loss of consciousness of unknown duration Plan: The patient may have suffered an anoxic injury, but also is expected to have diffuse axonal injury. Maintaining perfusion pressures, hydration and serial neurologic exams is planned.Weaning the sedation off is best at this time. She does not seem to have brainstem dysfunction with the limited cranial nerve exam so far. 07/07/15 Sitting in bed but remains very lethargic. Rehab services to initiate ROM (2) Subarachnoid hemorrhage Plan: Traumatic SAH associated with bi frontal cerebral contusions and 2-3 mm SDH in the right frontal and falcine areas, has improved over 24 hrs.MRI of the brain and cervical spine in the near future. Critical Care Time (minutes): 10 Magnus Garcias Jul 07, 2016 10:46
[2016-07-07] MEDS: MORPHINE SULFATE 4 MG/ML INJ IV PRN (11:04)
[2016-07-07] MEDS: ENALAPRILAT 1.25 MG/ML VIAL IV PRN (11:47)
[2016-07-07 12:26] LABS: BLOOD GAS BASE EXCESS 3.4 mmol/L (-2-2); BLOOD GAS CARBOXYHEMOGLOBIN 1.3 % (0-4); BLOOD GAS HCO3 27 mmol/L (22-26); BLOOD GAS METHEMOGLOBIN 0.7 % (0-2); BLOOD GAS O2 HGB SATURATION 93 % (90-100); BLOOD GAS OXYGEN CONTENT 16.8 Vol % (12.0-20.0); BLOOD GAS PCO2 35 mmHg (38-42); BLOOD GAS PO2 68 mmHg (61-120); BLOOD GAS TOTAL HGB 12.9 G/DL (12.0-16.0); CRITICAL VALUE NO; DRAW SITE RT RADIAL; FIO2 28 %; LITER FLOW 3 L/M; NUMBER OF ARTERIAL PUNCTURES 1; OXYGEN DEVICE Venti Mask; STAT YES; TEMP CORR TO 98.6; ULNAR PULSE PRESENT
--- NOTE | 2016-07-07 12:27 | HHI.PR ---
Neuropsych Emotional Emotional: Mild: Irritable/Angry/Frustrate, UnabletoAssess: Emotional, Anxious /Fearful, Depressed/Sad, Hostile/Resentful, Labile, Constricted/Blunted Behavior Behavior: Unable to Asses: Behavior, Coping/Acceptance, Cooperative w/ Treatment, Motivation, Frustration Tolerance/[place], Impulsive/Agitated, Suicidal/ Homicidal Risk Cognitive Cognitive: Unable to Asses: Cognitive, Attention/Concentration, Confused/ Orientation, Insight/Awareness, Judgement/Problem-Solving, Memory Progress Notes/Response to Tx Contents of Sessions: Adjustment, Level of Consciousness Time with Patient: 30 minutes Premorbid psychological status Premorbid Cognitive, Emotional and Behavioral Status: Stable. 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 The patient has no psychiatric difficulties , as described above. Substance abuse history includes not significant. Behavioral Reactions of Patient and Family/Support System: Stable. The patient s family is experiencing ongoing issues of adjustment given the nature of the injury, and this aspect of recovery will require ongoing monitoring. I spoke at length with the patient's brother, who indicated good understanding of his sister's course of recovery. Emotional/Behavioral Status of Patient and Family/Support System: Deferred. Pertinent issues, if appropriate to this patients clinical care, are described in detail above. Maximizing acute care outcome It is recommended that the patient be monitored for emergent behavioral impulsivity as the medical condition evolves. This patients neuropathological challenges may limit their rehabilitation potential going forward, and these challenges will require specialized therapeutic skills to maximize outcome. Additionally, the patients family is experiencing ongoing issues of adjustment given the traumatic nature of the injury, and they [will need / may benefit] from ongoing psychological assistance. It is understood that any possible underlying anoxic/hypoxic injury may have been overstated, based on reports from the patient's brother. Anticipated Problems Ongoing areas of concern will include behavioral impulsivity, lack of insight and judgment, which is expected to improve with time and treatment. Presently , the patient is unconscious. Treatment Plan This clinician will continue to follow with you throughout the course of this patients rehabilitation treatment, and I will be available to meet with the patients family/support system to facilitate their understanding and the ongoing care of their family member. The goals of neuropsychological intervention shall be both educational and supportive to the family/support system as is deemed clinically appropriate. [facility] Level: II:General response-total assist Impression This patient suffered a severe traumatic brain injury although it is not understood that any anoxic/hypoxic injury may have been overstated. Diagnosis: Progress Note Narrative Ongoing follow-up with patient. I was able to speak with a family member about patient's status. Patient appears to be improving, with status consistent with a [place] Level II at this point. She was unconscious today for my assessment, with reports from family member that she is grasping her hand. I will continue to follow with you. Liborio Hitchcock PhD Jul 07, 2016 12:27 pm
[2016-07-07] MEDS ORDERED: HALOPERIDOL LACTATE 5 MG/ML AMP IV PUSH PRN (13:00)
[2016-07-07] MEDS: FREE WATER DOB SCH (15:16)
--- NOTE | 2016-07-07 17:04 | HHI.CCPN ---
Subjective Brief History The patient is a 56-year-old female that presented to the emergency department/Trauma [place] via [facility] as a trauma alert. Per medical history, reported by EMS the patient was found down on the ground, and in an industrial area, with shelving material that had fallen on her. The patient was unconscious for an undetermined time. Upon arrival of EMS the patient's GCS score 3. The patient was intubated prior to arrival by [facility] paramedics.A 7-0 endotracheal tube at 22 cm.at the lip. EMS reported that the laryngoscopic view patient had blood at the nares bilaterally and within the oropharynx. EMS reported that the had a difficult airway, very anterior. Patient did receive 2 doses of etomidate and 1 dose of succinylcholine by EMS in the field, prior to arrival.The patient then received Rocuronium upon arrival. Patient was found to have the subarachnoid and intraparenchymal hemorrhage mainly of the right frontal areas of brain In addition patient may have suffered the hypoxic or anoxic brain injury for undetermined period of time 24 Hour Review/Hospital Course Patient was initially intubated and ventilated and over the last 24 hours has gradually improved Patient was extubated last night She had this point moves all 4 extremities tries to open left thigh but does not follow any commands Based on all of the above patient may remain extubated but I would not be surprised if patient required reintubation at some point should she develop significant secretions and there would be a danger of compromised airway 07/06/16 Patient neurologically slightly improved Did not open is yet however does follow some commands and squeezes hand when asked to Moves all 4 extremities [place] Coma Scale about 10 07/07/16 Lethargic, follows commands Secretions improved Period of hyperventilation and tachycardia, resolved with IV Morphine (Karoline Gardner) Objective Vital Signs Date Time Temp Pulse Resp B/P Pulse Ox O2 Delivery O2 Flow Rate FiO2 07/07/16 16:00 80 07/07/16 16:00 100.1 32 156/72 94 07/07/16 08:35 Venturi Mask 3.00 28 Intake and Output 07/06/16 07/06/16 07/07/16 08:00 16:00 00:00 Intake Total 477 ml 884 ml 804 ml Output Total 350 ml 500 ml 300 ml Balance 127 ml 384 ml 504 ml (Karoline GardnerP) Result Diagram: 07/07/16 0405 07/07/16 0405 Other Results Laboratory Tests Test 07/07/16 12:18 Blood Gas Puncture Site RT RADIAL Blood Gas Patient Temperature 98.6 Blood Gas HCO3 27 mmol/L (22-26) Blood Gas Base Excess 3.4 mmol/L (-2-2) Blood Gas Oxygen Saturation 93 % (90-100) Arterial Blood pH 7.49 (7.380-7.420) Arterial Blood Partial 35 mmHg (38-42) Pressure CO2 Arterial Blood Partial 68 mmHg Pressure O2 (61-120) Arterial Blood Oxygen Content 16.8 Vol % (12.0-20.0) Arterial Blood 1.3 % (0-4) Carboxyhemoglobin Arterial Blood Methemoglobin 0.7 % (0-2) Blood Gas Hemoglobin 12.9 G/DL (12.0-16.0) Oxygen Delivery Device Venti Mask Blood Gas Liter Flow 3 L/M Blood Gas Inspired Oxygen 28 % Imaging Last Impressions Chest X-Ray 07/06/16 0600 Signed Impressions: Service Date/Time: Wednesday, July 06, 2016 05:36 - CONCLUSION: Stable left lower lobar consolidation and probable small right pleural effusion. Javon Merida MD Head CT 07/06/16 0000 Signed Impressions: Service Date/Time: Wednesday, July 06, 2016 04:30 - CONCLUSION: Stable appearance to multiple cortical hemorrhages, subdural blood, subarachnoid blood and skull fracture. Javon Merida MD Abdomen X-Ray 07/06/16 0000 Signed Impressions: Service Date/Time: Wednesday, July 06, 2016 10:44 - CONCLUSION: Feeding tube across the GE junction and second portion of the duodenum. Jitendra Godoy MD FACR Transcranial Doppler Study Complete 07/03/16 0600 Signed Impressions: Service Date/Time: June 08:17 - CONCLUSION: 1. Limited examination. The lindegaard ratio cannot be calculated as the distal carotids could not be assessed. Please see above. 2. The examination does demonstrate an elevated TAMM in the right MCA circulation. This is a range which would suggest a mild degree of vasospasm in the right MCA distribution. The peak pulsatility index is mildly elevated in this area as well. The remainder of the time averaged maximal velocities are within normal limits. Temo Godoy MD Thoracic Spine CT 07/02/161623 Signed Impressions: Service Date/Time: Saturday, July 02, 2016 16:40 - CONCLUSION: No acute bony injury in the thoracic spine Chapo Hicks MD Lumbar Spine CT 07/02/161623 Signed Impressions: Service Date/Time: Saturday, July 02, 2016 16:40 - CONCLUSION: No acute bony injury in the lumbosacral spine. Chapo Hicks MD Chest CT 07/02/161623 Signed Impressions: Service Date/Time: Saturday, July 02, 2016 16:40 - CONCLUSION: Bilateral posterior lower lobe consolidative changes, left worse than right. No evidence of acute mediastinal injury. Chapo Hicks MD Cervical Spine CT 07/02/161623 Signed Impressions: Service Date/Time: Saturday, July 02, 2016 16:32 - CONCLUSION: 1. No acute findings. Moderate degenerative change in the lower cervical spine. David Quispe MD Abdomen/Pelvis CT 07/02/161623 Signed Impressions: Service Date/Time: Saturday, July 02, 2016 16:40 - CONCLUSION: Negative CT scan abdomen and pelvis for acute traumatic injury. Jitendra Godoy MD FACR (Karoline Gardner) Exam PASTOR GENERAL: 56-year-old well-nourished, well developed female lying in bed. SKIN: Warm and dry. HEAD: Normocephalic. EYES: PERRL. ENT: No nasal bleeding or discharge. Mucous membranes pink and moist. Left nare NG tube in place. NECK: Trachea midline. No JVD. CARDIOVASCULAR: Regular rate and rhythm. RESPIRATORY: No accessory muscle use. Lungs clear and diminished to auscultation. Breath sounds equal bilaterally. GASTROINTESTINAL: Abdomen soft, non-tender, nondistended. + BS. MUSCULOSKELETAL: Extremities without cyanosis, generalized edema noted. No obvious deformities. NEUROLOGICAL: Lethargic, nonverbal. Follows commands. (Karoline Gardner ) Vascular Central Line Catheter Date of Insertion: Jul 02, 2016 Line: Central Venous Catheter Side: Right Location: Subclavian (Karoline Gardner) Assessment and Plan Plan NEUROLOGICAL: Provide analgesia for comfort and pain - Morphine IV F/U head CT 07/06 stable IV Keppra Monitor for seizure activity IV Haldol for agitation/confusion Neurosurgery following HOB elevated > 30 degrees CARDIOVASCULAR: HR = sinus rhythm. HR = 75-98 BPM. BP = MAP 90's PMHx: HTN Scheduled Norvasc, hydralazine, lisinopril and Vasotec PRN Follow CMP - Electrolyte protocol in place for replacement. RESPIRATORY: On 28% Venti-mask Continue to monitor closely for hypoxemia. Pulmonary toilet - L&S. Bronchodilators - Duonebs q2H PRN VAP protocol in place - 07/06 CXR stable left lower lobe consolidation and probable right pleural effusion Labs tomorrow Chest X-Ray PRN ABG today for hyperventilating-compensated metabolic alkalosis GASTROINTESTINAL: Diet - Jevity 1.5 @ goal 50 mL/H with 200 mL free water flushes q6H Bowel regimen - Colace and MOM. Lactulose 1 No BM yet RENAL / URINARY: I&O +1275 BUN / creat 17 / 0.43 Villar - in place to bedside drainage bag ENDOCRINE: BGM -stable HEMATOLOGY: H&H: 11.1 / 33.0 PLT 150 Continue to monitor for signs and symptoms of bleeding. Transfuse for < 7.0 Monitor patient for any bleeding complications. INFECTIOUS DISEASE: Follow CBC WBC - 7.8 T-max 100.6 07/03: Blood, urine and sputum cultures negative Administer antipyretics for temp as needed. Maintain vigorous aseptic care of central line to avoid blood stream infections. Invasive lines: R SC TLC 07/02 Villar 07/02 PROPHYLAXIS: GI - famotidine DVT - Mechanical VTE with SCDs. Chemical management contraindicated due to ICH SKIN: Warm / Dry ACTIVITY: Status -OOB to cardiac chair PT and OT evaluating. CASE MANAGEMENT: Consulted for assist with DC planning. Placement - disposition will need inpatient rehabilitation versus SNF. Plan of care discussed with RN and family at bedside. This patient is currently critically ill and being managed in the ICU. Trauma surgery team will round daily and evaluate patient and adjust the treatment plan. (Karoline Gardner) Attestation The exam, history, and the medical decision-making described in the above note were completed with the assistance of the mid-level provider. I reviewed and agree with the findings presented. I attest that I had a [id number] encounter with the patient on the same day, and personally performed and documented my assessment and findings in the medical record. Critical care time 40 minutes. (Saul Kuo MD) Karoline Gardner Jul 07, 2016 17:04 Saul Kuo MD Jul 10, 2016 16:13
[2016-07-07] MEDS: FAMOTIDINE 20 MG TAB NG SCH (21:17)
[2016-07-08] VITALS (13 sets, daily range): BP systolic 135–155; BP diastolic 63–90; PULSE 64–86; RESP 25–45; TEMP 98.4–101; O2SAT 91–98
[2016-07-08] MEDS: MORPHINE SULFATE 4 MG/ML INJ IV PRN ×2 (00:18→03:04)
[2016-07-08] MEDS: FREE WATER DOB SCH ×5 (00:27→23:20)
[2016-07-08] MEDS: CHLORHEXIDINE GLUCONATE 2 % 1 PACK (2 CLOTHS) TOP SCH (04:00)
[2016-07-08] MEDS: hydrALAZINE HCL 20 MG/ML VIAL IV PUSH SCH ×4 (04:17→22:05)
[2016-07-08] MEDS: RESP: ALBUTEROL 2.5 MG/IPRATROPIUM 0.5 MG NEB (SCH) NEB ×4 (04:25→19:35)
[2016-07-08 04:51] LABS: AUTOMATED NEUTROPHIL # 9.2 TH/MM3 (1.8-7.7); BASOPHIL % 0.3 % (0.0-2.0); EOSINOPHIL % 0.3 % (0.0-4.0); HEMATOCRIT 35.3 % (35.0-46.0); HEMO FLAGS DIFF FINAL; LYMPHOCYTE # 0.8 TH/MM3 (1.0-4.8); MEAN CELL VOLUME 89.8 FL (80.0-100.0); MEAN CORPUSCULAR HEMOGLOBIN 31.1 PG (27.0-34.0); MEAN CORPUSCULAR HGB CONC 34.6 % (32.0-36.0); MONO % 7.8 % (0.0-8.0); NEUT % 84.6 % (16.0-70.0); PLATELET COUNT 197 TH/MM3 (150-450); RED BLOOD COUNT 3.94 MIL/MM3 (4.00-5.30); WHITE BLOOD COUNT 10.8 TH/MM3 (4.0-11.0)
[2016-07-08 05:12] LABS: ALKALINE PHOSPHATASE 66 U/L (45-117); ALT (GPT) 65 U/L (10-53); ANION GAP 5 MEQ/L (5-15); AST (GOT) 53 U/L (15-37); BICARBONATE 30.8 MEQ/L (21.0-32.0); BLOOD UREA NITROGEN 14 MG/DL (7-18); CHLORIDE 113 MEQ/L (98-107); GLOMERULAR FILTRATION RATE 136 ML/MIN (>89); MAGNESIUM 2.2 MG/DL (1.5-2.5); POTASSIUM 3.6 MEQ/L (3.5-5.1); SODIUM (NA) 149 MEQ/L (136-145); TOTAL BILIRUBIN ADULT 0.4 MG/DL (0.2-1.0)
[2016-07-08] MEDS: levETIRAcetam INJ 500 MG in SODIUM CHLORIDE 0.9% INJ 100 ML IV SCH ×2 (08:51→22:05)
[2016-07-08] MEDS: FAMOTIDINE 20 MG TAB NG SCH ×2 (08:51→22:05)
[2016-07-08] MEDS: DOCUSATE SODIUM 100 MG CAP PO SCH ×2 (08:52→22:06)
[2016-07-08] MEDS: LISINOPRIL 20 MG TAB PO SCH (08:52)
[2016-07-08] MEDS ORDERED: LORazepam 2 MG/ML VIAL IV PUSH ONE (10:45)
[2016-07-08] MEDS: MAGNESIUM HYDROXIDE SUSP 30 ML CUP PO SCH (10:55)
[2016-07-08] MEDS: VALPROIC ACID 250 MG CAP PO SCH ×2 (11:44→22:05)
--- NOTE | 2016-07-08 12:25 | HHI.PR ---
Neuropsych Emotional Emotional: UnabletoAssess: Emotional, Anxious/Fearful, Depressed/Sad, Hostile/ Resentful, Irritable/Angry/Frustrate, Labile, Constricted/Blunted Behavior Behavior: Mild: Impulsive/Agitated, Unable to Asses: Behavior, Coping/ Acceptance, Cooperative w/ Treatment, Motivation, Frustration Tolerance/[place], Suicidal/Homicidal Risk Cognitive Cognitive: Unable to Asses: Cognitive, Attention/Concentration, Confused/ Orientation, Insight/Awareness, Judgement/Problem-Solving, Memory Psychosocial Psychosocial: Intact: Psychosocial, Family/Other Adjustment, Mild: Realistic Expectation, Unable to Asses: Self-Esteem/Confidence Progress Notes/Response to Tx Contents of Sessions: Adjustment, Level of Consciousness Time with Patient: 30 minutes Premorbid psychological status Premorbid Cognitive, Emotional and Behavioral Status: Stable. 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 The patient has no psychiatric difficulties , as described above. Substance abuse history includes not significant. Behavioral Reactions of Patient and Family/Support System: Stable. The patient s family is experiencing ongoing issues of adjustment given the nature of the injury, and this aspect of recovery will require ongoing monitoring. I spoke at length with the patient's brother, who indicated good understanding of his sister's course of recovery. Emotional/Behavioral Status of Patient and Family/Support System: Deferred. Pertinent issues, if appropriate to this patients clinical care, are described in detail above. Maximizing acute care outcome It is recommended that the patient be monitored for emergent behavioral impulsivity as the medical condition evolves. This patients neuropathological challenges may limit their rehabilitation potential going forward, and these challenges will require specialized therapeutic skills to maximize outcome. Additionally, the patients family is experiencing ongoing issues of adjustment given the traumatic nature of the injury, and they [will need / may benefit] from ongoing psychological assistance. It is understood that any possible underlying anoxic/hypoxic injury may have been overstated, based on reports from the patient's brother. Anticipated Problems Ongoing areas of concern will include behavioral impulsivity, lack of insight and judgment, which is expected to improve with time and treatment. Presently , the patient is unconscious. Treatment Plan This clinician will continue to follow with you throughout the course of this patients rehabilitation treatment, and I will be available to meet with the patients family/support system to facilitate their understanding and the ongoing care of their family member. The goals of neuropsychological intervention shall be both educational and supportive to the family/support system as is deemed clinically appropriate. [place] Level: II:General response-total assist Impression This patient suffered a severe traumatic brain injury although it is not understood that any anoxic/hypoxic injury may have been overstated. Diagnosis: Progress Note Narrative Ongoing follow-up with patient both personally and within the context of trauma rounds. Patient's family is present in room, and I had the opportunity to discuss this patient's neurobehavioral recovery with them, transitions through recovery stages, and gathering additional information about her psychosocial history. The patient's family demonstrate a good understanding about recovery expectations, and I will make myself available to them as an educational resource for them going forward. Today, the patient was unconscious and minimally unresponsive, although there are reports that she is becoming more active behaviorally. Discussed with trauma team possible treatment approaches that may be beneficial to facilitate her ongoing improvement. Patient appears to remain at a [place] Level II emerging III, characterized by localized pain response. I will continue to follow with you. Liborio Hitchcock PhD Jul 08, 2016 12:25 pm
--- NOTE | 2016-07-08 13:27 | HHI.CCPN ---
Subjective Brief History The patient is a 56-year-old female that presented to the emergency department/Trauma [place] via [facility] as a trauma alert. Per medical history, reported by EMS the patient was found down on the ground, and in an industrial area, with shelving material that had fallen on her. The patient was unconscious for an undetermined time. Upon arrival of EMS the patient's GCS score 3. The patient was intubated prior to arrival by [facility] paramedics.A 7-0 endotracheal tube at 22 cm.at the lip. EMS reported that the laryngoscopic view patient had blood at the nares bilaterally and within the oropharynx. EMS reported that the had a difficult airway, very anterior. Patient did receive 2 doses of etomidate and 1 dose of succinylcholine by EMS in the field, prior to arrival.The patient then received Rocuronium upon arrival. Patient was found to have the subarachnoid and intraparenchymal hemorrhage mainly of the right frontal areas of brain In addition patient may have suffered the hypoxic or anoxic brain injury for undetermined period of time 24 Hour Review/Hospital Course Patient was initially intubated and ventilated and over the last 24 hours has gradually improved Patient was extubated last night She had this point moves all 4 extremities tries to open left thigh but does not follow any commands Based on all of the above patient may remain extubated but I would not be surprised if patient required reintubation at some point should she develop significant secretions and there would be a danger of compromised airway 07/06/16 Patient neurologically slightly improved Did not open is yet however does follow some commands and squeezes hand when asked to Moves all 4 extremities [place] Coma Scale about 10 07/07/16 Lethargic, follows commands Secretions improved Period of hyperventilation and tachycardia, resolved with IV Morphine 07/08/16 Obtunded, responds to sternal rub Periods of tachypnea overnight MRI brain today (Karoline Gardner) Objective Vital Signs Date Time Temp Pulse Resp B/P Pulse Ox O2 Delivery O2 Flow Rate FiO2 07/08/16 08:06 99.2 73 25 155/90 98 07/08/16 07:50 Nasal Cannula 3.00 07/07/16 21:17 21 Intake and Output 07/07/16 07/07/16 07/08/16 08:00 16:00 00:00 Intake Total 961 ml 1302 ml 757 ml Output Total 475 ml 2500 ml 1200 ml Balance 486 ml -1198 ml -443 ml (Karoline Gardner CATHODIC PROTECTION TECHNICIAN) Result Diagram: 07/08/1643407/08/16434 Vascular Central Line Catheter Date of Insertion: Jul 02, 2016 Line: Central Venous Catheter Side: Right Location: Subclavian (Karoline Gardner CATHODIC PROTECTION TECHNICIAN) Assessment and Plan Plan GENERAL: 56-year-old well-nourished, well developed female lying in bed. SKIN: Warm and dry. Erythema noted on chest. HEAD: Normocephalic. EYES: PERRL. ENT: No nasal bleeding or discharge. Mucous membranes pink and moist. Left nare NG tube in place. NECK: Trachea midline. No JVD. CARDIOVASCULAR: Regular rate and rhythm. RESPIRATORY: No accessory muscle use. Lungs clear and diminished to auscultation. Breath sounds equal bilaterally. GASTROINTESTINAL: Abdomen soft, non-tender, nondistended. + BS. F/C in place. MUSCULOSKELETAL: Extremities without cyanosis, generalized edema noted. No obvious deformities. NEUROLOGICAL: Obtunded, nonverbal. Follows commands. NEUROLOGICAL: Valporic acid F/U head CT 07/06 stable IV Keppra Monitor for seizure activity IV Haldol for agitation/confusion Neurosurgery following MRI brain and cervical spine today HOB elevated > 30 degrees CARDIOVASCULAR: HR = sinus rhythm. HR = 75-98 BPM. BP = MAP 90's PMHx: HTN Scheduled Norvasc, hydralazine, lisinopril and Vasotec PRN Follow CMP - Electrolyte protocol in place for replacement. RESPIRATORY: On 3L nasal cannula Continue to monitor closely for hypoxemia. Pulmonary toilet - L&S. Bronchodilators - Duonebs q2H PRN VAP protocol in place - 07/06 CXR stable left lower lobe consolidation and probable right pleural effusion Labs tomorrow Chest X-Ray PRN ABG today for hyperventilating-compensated metabolic alkalosis GASTROINTESTINAL: Diet - Jevity 1.5 @ goal 50 mL/H with 200 mL free water flushes q6H Bowel regimen - Colace and MOM. LBM 07/08 RENAL / URINARY: I&O +1374 BUN / creat stable Villar - in place to bedside drainage bag ENDOCRINE: BGM -stable HEMATOLOGY: H&H: stable Continue to monitor for signs and symptoms of bleeding. Transfuse for < 7.0 Monitor patient for any bleeding complications. INFECTIOUS DISEASE: Follow CBC T-max 100.1 07/03: Blood, urine and sputum cultures negative Administer antipyretics for temp as needed. Maintain vigorous aseptic care of central line to avoid blood stream infections. Invasive lines: R SC TLC 07/02 Villar 07/02 PROPHYLAXIS: GI - famotidine DVT - Mechanical VTE with SCDs. Chemical management contraindicated due to ICH SKIN: Warm / Dry ACTIVITY: Status -OOB to cardiac chair PT and OT evaluating. CASE MANAGEMENT: Consulted for assist with DC planning. Placement - disposition will need inpatient rehabilitation versus SNF. Plan of care discussed with RN and family at bedside. This patient is currently critically ill and being managed in the ICU. Trauma surgery team will round daily and evaluate patient and adjust the treatment plan. (Karoline Gardner) Attestation The exam, history, and the medical decision-making described in the above note were completed with the assistance of the mid-level provider. I reviewed and agree with the findings presented. I attest that I had a [id number] encounter with the patient on the same day, and personally performed and documented my assessment and findings in the medical record. Critical care time 40 minutes. (Saul Kuo MD) Karoline Gardner Jul 08, 2016 13:27 Saul Kuo MD Jul 10, 2016 16:29
--- NOTE | 2016-07-08 14:19 | RADRPT ---
EXAM DATE/TIME: 07/08/2016 13:48 [facility] COMPARISON: CT BRAIN W/O CONTRAST, July 06, 2016, 4:30. INDICATIONS : Altered mental status post cabinet falling on her. MEDICAL HISTORY : Hypertension. SURGICAL HISTORY : None. ENCOUNTER: Subsequent ACUITY: 1 week PAIN SCORE: Nonresponsive. LOCATION: cranial TECHNIQUE: Multiplanar, multisequence MRI of the brain was performed without contrast. FINDINGS: CEREBRUM: There is a large area of hematoma involving the right frontal lobe with surrounding edema within the white matter, not significantly changed in size as compared to the prior CT. Bilateral small subdural hematomas and scattered areas of subarachnoid hemorrhage. Within the posterior medial temporal lobes there is an area of subtle restricted diffusion identified bilaterally. Gradient-echo imaging demons trates punctate foci of blooming within this region consistent with microhemorrhages and axonal injur y resulting in restricted diffusion. The ventricles remain normal in size. No evidence of midline nate ft. POSTERIOR FOSSA: The cerebellum and brainstem are intact. The 4th ventricle is midline. The cerebellopontine angle is unremarkable. The cerebellar tonsils are normal in position. DIFFUSION IMAGING: Restriction diffusion involving the posterior medial temporal lobes with slight effacement of the adj acent sulci. EXTRACRANIAL: The visualized portions of the orbits and paranasal sinuses are unremarkable. CONCLUSION: Stable appearance of right frontal parenchymal contusion, small bilateral subdural hematomas and scat tered areas of subarachnoid hemorrhage. There is an area of restricted diffusion involving the junior account manager ior medial temporal lobes bilaterally consistent with a contrecoup injury. No evidence of midline nate ft or hydrocephalus.. Noemi Lozano MD on July 08, 2016 at 14:08 Board Certified Radiologist. This report was verified electronically.
--- NOTE | 2016-07-08 14:41 | RADRPT ---
EXAM DATE/TIME: 07/08/2016 13:48 [place] COMPARISON: No previous studies available for comparison. INDICATIONS : Altered mental status post cabinet falling on her. MEDICAL HISTORY : Hypertension. SURGICAL HISTORY : None. ENCOUNTER: Subsequent ACUITY: 1 week PAIN SCORE: Nonresponsive. LOCATION: cranial TECHNIQUE: Multiplanar, multisequence MRI examination of the cervical spine was performed. FINDINGS: There is a small amount of fluid identified within the deep tendon portion of the sphenoid sinuses re lated to the patient's trauma. VERTEBRAE: Normal vertebral body height. Homogeneous marrow signal. ALIGNMENT: No evidence of subluxation. CORD: Normal configuration and signal. POST FOSSA: The cerebellar tonsils are normal in position. C2-C3: The thecal sac has a normal configuration. There is no evidence of disc herniation or spinal canal s tenosis. The neural foramina are patent bilaterally. C3-C4: The thecal sac has a normal configuration. There is no evidence of disc herniation or spinal canal s tenosis. The neural foramina are patent bilaterally. C4-C5: The thecal sac has a normal configuration. There is no evidence of disc herniation or spinal canal s tenosis. The neural foramina are patent bilaterally. C5-C6: The thecal sac has a normal configuration. There is no evidence of disc herniation or spinal canal s tenosis. The neural foramina are patent bilaterally. C6-C7: The thecal sac has a normal configuration. There is no evidence of disc herniation or spinal canal s tenosis. The neural foramina are patent bilaterally. C7-T1: The thecal sac has a normal configuration. There is no evidence of disc herniation or spinal canal s tenosis. The neural foramina are patent bilaterally. CONCLUSION: No abnormalities are seen within the cervical spine. Fluid identified within the dependent portion of the sphenoid sinuses likely related to the patient's trauma.. Noemi Lozano MD on July 08, 2016 at 14:38 Board Certified Radiologist. This report was verified electronically.
--- NOTE | 2016-07-08 16:10 | HHI.NSPN ---
Subjective History Day 1 after closed head injury with frontal skull fx, SAH and cerebral contusions, intubated and sedated. The repeat head CT shows improved SAH and better defined contusions in the frontal lobe. She is on 3% saline and shawnee J is maintained until she can be more awake. 07/07/15 She is very lethargic but is sitting in bed. She does not follow commands. 07/08/15 MRI of the brain and cervical spine completed. Multiple cerebral contusions found including a left midbrain bruise but no shit/mass effect, no vertebral fracture or cord injury. She is still critically ill with a phos level of 1.3 Vitals . Vital Signs Date Time Temp Pulse Resp B/P Pulse Ox O2 Delivery O2 Flow Rate FiO2 07/08/16 12:00 98.4 64 26 135/63 96 07/08/16 08:06 99.2 73 25 155/90 98 07/08/16 07:50 97 Nasal Cannula 3.00 07/08/16 06:00 80 07/08/16 04:25 97 Nasal Cannula 3.00 07/08/16 04:00 69 07/08/16 04:00 99.0 69 27 155/75 91 07/08/16 02:00 81 07/08/16 00:23 30 07/08/16 00:00 98.8 86 45 155/79 93 07/08/16 00:00 86 07/07/16 22:00 96 07/07/16 21:17 93 21 07/07/16 20:00 99.8 81 56 156/79 93 07/07/16 20:00 81 07/07/16 18:00 83 07/07/16 07/07/16 07/08/16 15:00 23:00 07:00 Intake Total 1302 ml 757 ml 510 ml Output Total 2500 ml 1200 ml 475 ml Balance -1198 ml -443 ml 35 ml Physical Exam Head Head: Abrasions (right eye ecchymosis) Eyes Eyes: Pupils Equal Neuro Mental Status: Lethargic Pupils: Reactive Bilaterally [place] Coma Scale Best Eye Openin - To speech Best Verbal: 2 - Incomprehensible Best Motor: 4 - Withdraws to pain Total Gl[place]ow Coma Scale (GCS): 9 Cardiac Cardiac: Regular Rate & Rhythm Gastrointestinal Gastrointestinal: Soft Musculoskeletal Extremities Upper Extremities Deltoid Bicep Tricep HI W. Ext Right Left Lower Extremeties Ilio Quad Plantar Dorsi EHL Right Left Musculoskeletal Remarks withdraws both lower extremities well to stimulation, tone wnl, no Babinski Extremities Edema: SCDs Objective Labs Laboratory Tests 07/08/16 04:35 Laboratory Tests Test 07/08/16 04:35 Sodium Level 149 MEQ/L Potassium Level 3.6 MEQ/L Chloride Level 113 MEQ/L Carbon Dioxide Level 30.8 MEQ/L Anion Gap 5 MEQ/L Blood Urea Nitrogen 14 MG/DL Creatinine 0.47 MG/DL Estimat Glomerular Filtration 136 ML/MIN Rate Random Glucose 140 MG/DL Calcium Level 8.1 MG/DL Phosphorus Level 1.3 MG/DL Magnesium Level 2.2 MG/DL Total Bilirubin 0.4 MG/DL Aspartate Amino Transf 53 U/L (AST/SGOT) Alanine Aminotransferase 65 U/L (ALT/SGPT) Alkaline Phosphatase 66 U/L Total Protein 6.2 GM/DL Albumin 3.0 GM/DL Imaging Remarks Last Impressions Cervical Spine MRI 07/08/16 0000 Signed Impressions: Service Date/Time: Friday, July 08, 2016 13:48 - CONCLUSION: No abnormalities are seen within the cervical spine. Fluid identified within the dependent portion of the sphenoid sinuses likely related to the patient's trauma.. Noemi Lozano MD Brain MRI 07/08/16 0000 Signed Impressions: Service Date/Time: Friday, July 08, 2016 13:48 - CONCLUSION: Stable appearance of right frontal parenchymal contusion, small bilateral subdural hematomas and scattered areas of subarachnoid hemorrhage. There is an area of restricted diffusion involving the posterior medial temporal lobes bilaterally consistent with a contrecoup injury. No evidence of midline shift or hydrocephalus.. Noemi Lozano MD Chest X-Ray 07/06/16 0600 Signed Impressions: Service Date/Time: Wednesday, July 06, 2016 05:36 - CONCLUSION: Stable left lower lobar consolidation and probable small right pleural effusion. Javon Merida MD Head CT 07/06/16 0000 Signed Impressions: Service Date/Time: Wednesday, July 06, 2016 04:30 - CONCLUSION: Stable appearance to multiple cortical hemorrhages, subdural blood, subarachnoid blood and skull fracture. Javon Merida MD Abdomen X-Ray 07/06/16 0000 Signed Impressions: Service Date/Time: Wednesday, July 06, 2016 10:44 - CONCLUSION: Feeding tube across the GE junction and second portion of the duodenum. Jitendra Godoy MD FACR Transcranial Doppler Study Complete 07/03/16 0600 Signed Impressions: Service Date/Time: June 08:17 - CONCLUSION: 1. Limited examination. The lindegaard ratio cannot be calculated as the distal carotids could not be assessed. Please see above. 2. The examination does demonstrate an elevated TAMM in the right MCA circulation. This is a range which would suggest a mild degree of vasospasm in the right MCA distribution. The peak pulsatility index is mildly elevated in this area as well. The remainder of the time averaged maximal velocities are within normal limits. Temo Godoy MD Thoracic Spine CT 07/02/161623 Signed Impressions: Service Date/Time: Saturday, July 02, 2016 16:40 - CONCLUSION: No acute bony injury in the thoracic spine Chapo Hicks MD Lumbar Spine CT 07/02/161623 Signed Impressions: Service Date/Time: Saturday, July 02, 2016 16:40 - CONCLUSION: No acute bony injury in the lumbosacral spine. Chapo Hicks MD Chest CT 07/02/161623 Signed Impressions: Service Date/Time: Saturday, July 02, 2016 16:40 - CONCLUSION: Bilateral posterior lower lobe consolidative changes, left worse than right. No evidence of acute mediastinal injury. Chapo Hicks MD Cervical Spine CT 07/02/161623 Signed Impressions: Service Date/Time: Saturday, July 02, 2016 16:32 - CONCLUSION: 1. No acute findings. Moderate degenerative change in the lower cervical spine. David Quispe MD Abdomen/Pelvis CT 07/02/161623 Signed Impressions: Service Date/Time: Saturday, July 02, 2016 16:40 - CONCLUSION: Negative CT scan abdomen and pelvis for acute traumatic injury. Jitendra Godoy MD FACR Assessment & Plan Diagnosis: (1) Closed head injury with loss of consciousness of unknown duration Plan: The patient may have suffered an anoxic injury, but also is expected to have diffuse axonal injury. Maintaining perfusion pressures, hydration and serial neurologic exams is planned.Weaning the sedation off is best at this time. She does not seem to have brainstem dysfunction with the limited cranial nerve exam so far. 07/07/15 Sitting in bed but remains very lethargic. Rehab services to initiate ROM 07/08/15 Still very lethargic after the MRI with sedation (2) Subarachnoid hemorrhage Plan: Traumatic SAH associated with bi frontal cerebral contusions and 2-3 mm SDH in the right frontal and falcine areas, has improved over 24 hrs.MRI of the brain and cervical spine showed no vertebral fracture or cord contusion, diffuse cortical and left midbrain bruising, Supportive care, pulmonary toilet, OT/PT/speech therapy continued. Critical Care Time (minutes): 10 Magnus Garcias Jul 08, 2016 16:10
[2016-07-08] MEDS: ACETAMINOPHEN 325 MG TAB PO PRN (22:05)
[2016-07-09] VITALS (16 sets, daily range): BP systolic 131–157; BP diastolic 68–92; PULSE 68–126; RESP 25–36; TEMP 97.5–99.5; O2SAT 95–98
[2016-07-09] MEDS: RESP: ALBUTEROL 2.5 MG/IPRATROPIUM 0.5 MG NEB (SCH) NEB ×2 (03:56→09:20)
[2016-07-09] MEDS: CHLORHEXIDINE GLUCONATE 2 % 1 PACK (2 CLOTHS) TOP SCH (04:00)
[2016-07-09] MEDS: hydrALAZINE HCL 20 MG/ML VIAL IV PUSH SCH ×4 (05:06→22:00)
[2016-07-09] MEDS: FREE WATER DOB SCH ×3 (08:00→23:51)
--- NOTE | 2016-07-09 09:55 | HHI.NSPN ---
Subjective History Day 1 after closed head injury with frontal skull fx, SAH and cerebral contusions, intubated and sedated. The repeat head CT shows improved SAH and better defined contusions in the frontal lobe. She is on 3% saline and nikolai J is maintained until she can be more awake. 07/07/15 She is very lethargic but is sitting in bed. She does not follow commands. 07/08/15 MRI of the brain and cervical spine completed. Multiple cerebral contusions found including a left midbrain bruise but no shit/mass effect, no vertebral fracture or cord injury. She is still critically ill with a phos level of 1.3 07/09/16 She is more awake today, still has difficulty with eyelid opening and facial control but can open her left eye to stimulation and is able to answer good morning . She can move both upper extremities to command but is weaker in the left lower extremity. Vitals . Vital Signs Date Time Temp Pulse Resp B/P Pulse Ox O2 Delivery O2 Flow Rate FiO2 07/09/16 09:20 97 Nasal Cannula 4.00 07/09/16 06:00 99 07/09/16 04:00 99.1 86 25 157/92 96 07/09/16 04:00 86 07/09/16 02:00 68 07/09/16 00:00 87 07/09/16 00:00 97.5 70 28 131/68 98 07/08/16 22:00 72 07/08/16 20:00 101.0 72 29 145/69 98 07/08/16 20:00 72 07/08/16 19:35 98 Nasal Cannula 4.00 07/08/16 18:00 74 07/08/16 16:00 98.7 78 29 153/66 98 07/08/16 12:00 98.4 64 26 135/63 96 07/08/16 07/08/16 07/09/16 15:00 23:00 07:00 Intake Total 760 ml 1037 ml 735 ml Output Total 700 ml 375 ml 650 ml Balance 60 ml 662 ml 85 ml Physical Exam Head Head: Abrasions (facial ecchymosis stable) Eyes Eyes: Pupils Equal Neuro Mental Status: Lethargic Pupils: Reactive Bilaterally [place] Coma Scale Best Eye Openin - To speech Best Verbal: 4 - Confused Best Motor: 6 - Obeys Total Glascow Coma Scale (GCS): 13 Cardiac Cardiac: Regular Rate & Rhythm Genitourinary Genitourinary: Villar Catheter In Place Musculoskeletal Extremities Upper Extremities Deltoid Bicep Tricep HI W. Ext Right Left Lower Extremeties Ilio Quad Plantar Dorsi EHL Right Left Musculoskeletal Remarks moves all extremities to stimulation and command but has difficulty with eyelid control and left lower extremity control Extremities Edema: SCDs Assessment & Plan Diagnosis: (1) Closed head injury with loss of consciousness of unknown duration Plan: The patient may have suffered an anoxic injury, but also is expected to have diffuse axonal injury. Maintaining perfusion pressures, hydration and serial neurologic exams is planned.Weaning the sedation off is best at this time. She does not seem to have brainstem dysfunction with the limited cranial nerve exam so far. 07/07/15 Sitting in bed but remains very lethargic. Rehab services to initiate ROM 07/08/15 Still very lethargic after the MRI with sedation 07/09/16 She is more awake today, ophthalmoplegia and left leg paresis more evident. (2) Subarachnoid hemorrhage Plan: Traumatic SAH associated with bi frontal cerebral contusions and 2-3 mm SDH in the right frontal and falcine areas, has improved over 24 hrs.MRI of the brain and cervical spine showed no vertebral fracture or cord contusion, diffuse cortical and left midbrain bruising, Supportive care, pulmonary toilet, OT/PT/speech therapy continued. Critical Care Time (minutes): 10 Magnus Garcias Jul 09, 2016 09:55
[2016-07-09] MEDS: FAMOTIDINE 20 MG TAB NG SCH ×2 (10:32→20:46)
[2016-07-09] MEDS: VALPROIC ACID 250 MG CAP PO SCH ×2 (10:32→20:46)
[2016-07-09] MEDS: MAGNESIUM HYDROXIDE SUSP 30 ML CUP PO SCH (10:32)
[2016-07-09] MEDS: DOCUSATE SODIUM 100 MG CAP PO SCH ×2 (10:33→20:45)
[2016-07-09] MEDS: levETIRAcetam INJ 500 MG in SODIUM CHLORIDE 0.9% INJ 100 ML IV SCH ×2 (10:33→20:46)
[2016-07-09] MEDS: LISINOPRIL 20 MG TAB PO SCH (10:33)
--- NOTE | 2016-07-09 12:35 | HHI.PR ---
Neuropsych Emotional Emotional: UnabletoAssess: Emotional, Anxious/Fearful, Depressed/Sad, Hostile/ Resentful, Irritable/Angry/Frustrate, Labile, Constricted/Blunted Behavior Behavior: Mild: Impulsive/Agitated, Unable to Asses: Behavior, Coping/ Acceptance, Cooperative w/ Treatment, Motivation, Frustration Tolerance/[place], Suicidal/Homicidal Risk Cognitive Cognitive: Unable to Asses: Cognitive, Attention/Concentration, Confused/ Orientation, Insight/Awareness, Judgement/Problem-Solving, Memory Psychosocial Psychosocial: Intact: Psychosocial, Family/Other Adjustment, Realistic Expectation, Unable to Asses: Self-Esteem/Confidence Progress Notes/Response to Tx Contents of Sessions: Level of Consciousness Time with Patient: 15 minutes Premorbid psychological status Premorbid Cognitive, Emotional and Behavioral Status: Stable. 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 The patient has no psychiatric difficulties , as described above. Substance abuse history includes not significant. Behavioral Reactions of Patient and Family/Support System: Stable. The patient s family is experiencing ongoing issues of adjustment given the nature of the injury, and this aspect of recovery will require ongoing monitoring. I spoke at length with the patient's brother, who indicated good understanding of his sister's course of recovery. Emotional/Behavioral Status of Patient and Family/Support System: Deferred. Pertinent issues, if appropriate to this patients clinical care, are described in detail above. Maximizing acute care outcome It is recommended that the patient be monitored for emergent behavioral impulsivity as the medical condition evolves. This patients neuropathological challenges may limit their rehabilitation potential going forward, and these challenges will require specialized therapeutic skills to maximize outcome. It is understood that any possible underlying anoxic/hypoxic injury may have been overstated, based on reports from the patient's brother. Anticipated Problems Ongoing areas of concern will include behavioral impulsivity, lack of insight and judgment, which is expected to improve with time and treatment. Presently , the patient is preconscious. Treatment Plan This clinician will continue to follow with you throughout the course of this patients rehabilitation treatment, and I will be available to meet with the patients family/support system to facilitate their understanding and the ongoing care of their family member. The goals of neuropsychological intervention shall be both educational and supportive to the family/support system as is deemed clinically appropriate. [facility] Level: III:Localized response-total assist Impression This patient suffered a severe traumatic brain injury although it is not understood that any anoxic/hypoxic injury may have been overstated. Diagnosis: Progress Note Narrative Ongoing follow-up of patient both from personal observations and within the context of trauma rounds. This patient is reportedly inconsistently following one-step commands, although there is reportedly concerns that her lethargy may be related to midbrain-pontine insult that is slowing recovery. I am keeping in close contact with this patient's family and providing an ongoing resource throughout their loved one's recovery. I will continue to follow with you. Lbiorio Hitchcock PhD Jul 09, 2016 12:35 pm
--- NOTE | 2016-07-09 13:35 | HHI.CCPN ---
Subjective Brief History The patient is a 56-year-old female that presented to the emergency department/[facility] via [facility] as a trauma alert. Per medical history, reported by EMS the patient was found down on the ground, and in an industrial area, with shelving material that had fallen on her. The patient was unconscious for an undetermined time. Upon arrival of EMS the patient's GCS score 3. The patient was intubated prior to arrival by [facility] paramedics.A 7-0 endotracheal tube at 22 cm.at the lip. EMS reported that the laryngoscopic view patient had blood at the nares bilaterally and within the oropharynx. EMS reported that the had a difficult airway, very anterior. Patient did receive 2 doses of etomidate and 1 dose of succinylcholine by EMS in the field, prior to arrival.The patient then received Rocuronium upon arrival. Patient was found to have the subarachnoid and intraparenchymal hemorrhage mainly of the right frontal areas of brain In addition patient may have suffered the hypoxic or anoxic brain injury for undetermined period of time 24 Hour Review/Hospital Course Patient was initially intubated and ventilated and over the last 24 hours has gradually improved Patient was extubated last night She had this point moves all 4 extremities tries to open left thigh but does not follow any commands Based on all of the above patient may remain extubated but I would not be surprised if patient required reintubation at some point should she develop significant secretions and there would be a danger of compromised airway 07/06/16 Patient neurologically slightly improved Did not open is yet however does follow some commands and squeezes hand when asked to Moves all 4 extremities [place] Coma Scale about 10 07/07/16 Lethargic, follows commands Secretions improved Period of hyperventilation and tachycardia, resolved with IV Morphine 07/08/16 Obtunded, responds to sternal rub Periods of tachypnea overnight MRI brain today 07/09/16 Patient slightly more awake and purposeful. Follows commands and squeezes hand Repeat brain MRI done Patient will transfer out of the ICU today Discussed case with Dr. 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 MRI reveals above-noted and non-right frontal cerebral hematoma subdural and subarachnoid bilateral hemorrhage and some bleeding within midbrain- mesencephalon where the reticular activating system is located. Patient therefore will be very slow to wake up Nonetheless patient can protect her upper airway and therefore in the face of her progress will be transferred to the floor Hemodynamic/Cardiac Hemodynamically remains stable Pulmonary/Respiratory The lateral good breath sounds and much better inspiratory effort Secretions sounds decreased and minimal at this time Abdomen/GI Nutrition Abdomen is soft patient is enterally fed successfully Vascular Central Line Catheter Date of Insertion: Jul 02, 2016 Line: Central Venous Catheter Side: Right Location: Subclavian Assessment and Plan Plan GENERAL: 56-year-old well-nourished, well developed female lying in bed. SKIN: Warm and dry. Erythema noted on chest. HEAD: Normocephalic. EYES: PERRL. ENT: No nasal bleeding or discharge. Mucous membranes pink and moist. Left nare NG tube in place. NECK: Trachea midline. No JVD. CARDIOVASCULAR: Regular rate and rhythm. RESPIRATORY: No accessory muscle use. Lungs clear and diminished to auscultation. Breath sounds equal bilaterally. GASTROINTESTINAL: Abdomen soft, non-tender, nondistended. + BS. F/C in place. MUSCULOSKELETAL: Extremities without cyanosis, generalized edema noted. No obvious deformities. NEUROLOGICAL: Obtunded, nonverbal. Follows commands. NEUROLOGICAL: Valporic acid F/U head CT 07/06 stable IV Keppra Monitor for seizure activity IV Haldol for agitation/confusion Neurosurgery following MRI brain and cervical spine today HOB elevated > 30 degrees CARDIOVASCULAR: HR = sinus rhythm. HR = 75-98 BPM. BP = MAP 90's PMHx: HTN Scheduled Norvasc, hydralazine, lisinopril and Vasotec PRN Follow CMP - Electrolyte protocol in place for replacement. RESPIRATORY: On 3L nasal cannula Continue to monitor closely for hypoxemia. Pulmonary toilet - L&S. Bronchodilators - Duonebs q2H PRN VAP protocol in place - 07/06 CXR stable left lower lobe consolidation and probable right pleural effusion Labs tomorrow Chest X-Ray PRN ABG today for hyperventilating-compensated metabolic alkalosis GASTROINTESTINAL: Diet - Jevity 1.5 @ goal 50 mL/H with 200 mL free water flushes q6H Bowel regimen - Colace and MOM. LBM 07/08 RENAL / URINARY: I&O +1374 BUN / creat stable Villar - in place to bedside drainage bag ENDOCRINE: BGM -stable HEMATOLOGY: H&H: stable Continue to monitor for signs and symptoms of bleeding. Transfuse for < 7.0 Monitor patient for any bleeding complications. INFECTIOUS DISEASE: Follow CBC T-max 100.1 07/03: Blood, urine and sputum cultures negative Administer antipyretics for temp as needed. Maintain vigorous aseptic care of central line to avoid blood stream infections. Invasive lines: R SC TLC 07/02 Villar 07/02 PROPHYLAXIS: GI - famotidine DVT - Mechanical VTE with SCDs. Chemical management contraindicated due to ICH SKIN: Warm / Dry ACTIVITY: Status -OOB to cardiac chair PT and OT evaluating. CASE MANAGEMENT: Consulted for assist with DC planning. Placement - disposition will need inpatient rehabilitation versus SNF. Plan of care discussed with RN and family at bedside. This patient is currently critically ill and being managed in the ICU. Trauma surgery team will round daily and evaluate patient and adjust the treatment plan. Attestation Patient doing well at this time slowly waking up and slowly improving Transferred to floor today The exam, history, and the medical decision-making described in the above note were completed with the assistance of the mid-level provider. I reviewed and agree with the findings presented. I attest that I had a [id number] encounter with the patient on the same day, and personally performed and documented my assessment and findings in the medical record. Critical care time 35 minutes. Saul Kuo MD Jul 09, 2016 13:35
[2016-07-09] MEDS: ACETAMINOPHEN 325 MG TAB PO PRN (17:50)
--- NOTE | 2016-07-09 18:18 | HHI.PR ---
Subjective Subjective Comments Patient resting comfortably in bed. Nasal cannula oxygen is in place. Briefly attempts to open eyes but not consistently following commands. Does not appear to be in any discomfort. Allergies: Coded Allergies: No Known Allergies (Unverified , 07/02/16) Review of Systems All other ROS: Unable to obtain Exam I&O / VS 07/08/16 07/08/16 07/09/16 15:00 23:00 07:00 Intake Total 760 ml 1037 ml 735 ml Output Total 700 ml 375 ml 650 ml Balance 60 ml 662 ml 85 ml Intake IV Total 210 ml 264 ml 137 ml Tube Feeding 350 ml 373 ml 338 ml Tube Irrigant 60 ml Other 200 ml 400 ml 200 ml Output Urine Total 700 ml 375 ml 650 ml # Bowel Movements 1 0 Vital Signs Date Time Temp Pulse Resp B/P Pulse Ox O2 Delivery O2 Flow Rate FiO2 07/09/16 09:20 97 Nasal Cannula 4.00 07/09/16 07:15 89 07/09/16 06:00 99 07/09/16 04:00 99.1 86 25 157/92 96 07/09/16 04:00 86 07/09/16 02:00 68 07/09/16 00:00 87 07/09/16 00:00 97.5 70 28 131/68 98 07/08/16 22:00 72 07/08/16 20:00 101.0 72 29 145/69 98 07/08/16 20:00 72 07/08/16 19:35 98 Nasal Cannula 4.00 General: No acute distress, Other (nasal cannula oxygen in place) Cardiovascular: Regular Rhythm Musculoskeletal: ROM (within functional limits) Orientation: unable to asses Self, unable to asses Place, unable to asses Time , unable to asses Situation Neurologic: Speech (not verbalizing), Other (follows commands to pcb designer bilaterally right greater than left; withdraws throughout) Clonus: Negative Assessment and Plan Diagnosis: (1) Subarachnoid hemorrhage Assessment TBI (Head CT 07/02/16 showed diffuse subarachnoid hemorrhage mainly in the right frontal area but also in the left hemisphere and sylvian fissures with diffuse mild brain swelling and right frontal fracture extending through the right frontal sinus and orbital roof Currently Rancho 3 Plan 1. PT providing passive range of motion and active assist range of motion 2. Occupational therapy addressing ADLs and currently dependent 3. ST consult for evaluation 4. Appreciate neuropsychology consult and follow-up 5. Anticipate that patient will need inpatient rehabilitation at discharge. Case management is following. Will follow for level of inpatient rehabilitation. 6. Will follow while hospitalized and at discharge. Cesilia Phillips MD Jul 09, 2016 18:18
[2016-07-10] VITALS (13 sets, daily range): BP systolic 128–146; BP diastolic 64–76; PULSE 90–120; RESP 22–43; TEMP 97.8–100.1; O2SAT 94–99
[2016-07-10] MEDS: hydrALAZINE HCL 20 MG/ML VIAL IV PUSH SCH ×4 (04:00→20:58)
[2016-07-10] MEDS: CHLORHEXIDINE GLUCONATE 2 % 1 PACK (2 CLOTHS) TOP SCH (04:00)
--- NOTE | 2016-07-10 05:48 | RADRPT ---
EXAM DATE/TIME: 07/10/2016 05:32 [facility] COMPARISON: CHEST SINGLE AP, July 06, 2016, 5:36. INDICATIONS : Shortness of breath. MEDICAL HISTORY : None. SURGICAL HISTORY : None. ENCOUNTER: Subsequent ACUITY: 1 week PAIN SCORE: Non-responsive. LOCATION: Bilateral chest FINDINGS: A single view of the chest demonstrates improving right basilar density. Feeding tube with tip in sto mach. Right subclavian central line stable in position. The cardiomediastinal contours are unremarkab le. Osseous structures are intact. CONCLUSION: Improving right basilar density. Reynold Guillen MD on July 10, 2016 at 5:46 Board Certified Radiologist. This report was verified electronically.
[2016-07-10 05:56] LABS: BICARBONATE 26.2 MEQ/L (21.0-32.0); MAGNESIUM 2.3 MG/DL (1.5-2.5)
[2016-07-10 05:57] LABS: POTASSIUM 4.1 MEQ/L (3.5-5.1)
[2016-07-10] MEDS: FREE WATER DOB SCH ×2 (08:00→16:00)
--- NOTE | 2016-07-10 08:34 | HHI.NSPN ---
Subjective History Day 1 after closed head injury with frontal skull fx, SAH and cerebral contusions, intubated and sedated. The repeat head CT shows improved SAH and better defined contusions in the frontal lobe. She is on 3% saline and [place] J is maintained until she can be more awake. 07/07/15 She is very lethargic but is sitting in bed. She does not follow commands. 07/08/15 MRI of the brain and cervical spine completed. Multiple cerebral contusions found including a left midbrain bruise but no shit/mass effect, no vertebral fracture or cord injury. She is still critically ill with a phos level of 1.3 07/09/16 She is more awake today, still has difficulty with eyelid opening and facial control but can open her left eye to stimulation and is able to answer good morning . She can move both upper extremities to command but is weaker in the left lower extremity. 07/10/16 Tachypneic but awake and following commands with all 4 extremities, very weak. Vitals . Vital Signs Date Time Temp Pulse Resp B/P Pulse Ox O2 Delivery O2 Flow Rate FiO2 07/10/16 06:00 114 07/10/16 04:00 100.1 92 37 145/75 94 07/10/16 04:00 92 07/10/16 02:00 96 07/10/16 00:00 98.9 112 33 138/66 94 07/10/16 00:00 112 07/09/16 22:00 121 07/09/16 20:56 96 Nasal Cannula 3.00 07/09/16 20:00 77 07/09/16 20:00 99.5 77 31 147/70 95 07/09/16 19:00 94 07/09/16 18:00 104 07/09/16 16:00 99.1 122 32 139/69 95 07/09/16 16:00 122 07/09/16 14:00 126 07/09/16 12:00 99.2 120 36 148/68 97 07/09/16 12:00 120 07/09/16 10:00 94 07/09/16 09:20 97 Nasal Cannula 4.00 07/09/16 07/09/16 07/10/16 15:00 23:00 07:00 Intake Total 861 ml 768 ml 683 ml Output Total 1000 ml 950 ml 1100 ml Balance -139 ml -182 ml -417 ml Physical Exam Eyes Eyes: Pupils Equal Neuro Mental Status: Lethargic Pupils: Reactive Bilaterally Arlette Coma Scale Best Eye Openin - To speech Best Verbal: 1 - None Best Motor: 6 - Obeys Total Glascow Coma Scale (GCS): 10 Cardiac Cardiac: Regular Rate & Rhythm (tachy) Respiratory Respiratory: CTA Gastrointestinal Gastrointestinal: Soft Bowel Sounds: Present Genitourinary Genitourinary: Villar Catheter In Place Musculoskeletal Extremities Upper Extremities Deltoid Bicep Tricep HI W. Ext Right Left Lower Extremeties Ilio Quad Plantar Dorsi EHL Right Left Musculoskeletal Remarks Awake but has difficulty with full eye opening and eye movements, pupils reactive, gaze limited by conjunctival edema, corneal reflexes and gag are present, able to grasp weakly and move toes weakly bilaterally Dermatologic Dermatologic: Abrasions Extremities Edema: Edematous, SCDs Objective Labs Laboratory Tests 07/10/16 05:12 Laboratory Tests Test 07/10/16 05:12 Sodium Level 140 MEQ/L Potassium Level 4.1 MEQ/L Chloride Level 108 MEQ/L Carbon Dioxide Level 26.2 MEQ/L Anion Gap 6 MEQ/L Blood Urea Nitrogen 15 MG/DL Creatinine 0.40 MG/DL Estimat Glomerular Filtration 164 ML/MIN Rate Random Glucose 127 MG/DL Calcium Level 8.4 MG/DL Phosphorus Level 3.4 MG/DL Magnesium Level 2.3 MG/DL Imaging Remarks Last Impressions Chest X-Ray 07/10/16 0600 Signed Impressions: Service Date/Time: June 05:32 - CONCLUSION: Improving right basilar density. Reynold Guillen MD Cervical Spine MRI 07/08/16 0000 Signed Impressions: Service Date/Time: Friday, July 08, 2016 13:48 - CONCLUSION: No abnormalities are seen within the cervical spine. Fluid identified within the dependent portion of the sphenoid sinuses likely related to the patient's trauma.. Noemi Lozano MD Brain MRI 07/08/16 0000 Signed Impressions: Service Date/Time: Friday, July 08, 2016 13:48 - CONCLUSION: Stable appearance of right frontal parenchymal contusion, small bilateral subdural hematomas and scattered areas of subarachnoid hemorrhage. There is an area of restricted diffusion involving the posterior medial temporal lobes bilaterally consistent with a contrecoup injury. No evidence of midline shift or hydrocephalus.. Noemi Lozano MD Head CT 07/06/16 0000 Signed Impressions: Service Date/Time: Wednesday, July 06, 2016 04:30 - CONCLUSION: Stable appearance to multiple cortical hemorrhages, subdural blood, subarachnoid blood and skull fracture. Javon Merida MD Abdomen X-Ray 07/06/16 0000 Signed Impressions: Service Date/Time: Wednesday, July 06, 2016 10:44 - CONCLUSION: Feeding tube across the GE junction and second portion of the duodenum. Jitendra Godoy MD FACR Transcranial Doppler Study Complete 07/03/16 0600 Signed Impressions: Service Date/Time: June 08:17 - CONCLUSION: 1. Limited examination. The lindegaard ratio cannot be calculated as the distal carotids could not be assessed. Please see above. 2. The examination does demonstrate an elevated TAMM in the right MCA circulation. This is a range which would suggest a mild degree of vasospasm in the right MCA distribution. The peak pulsatility index is mildly elevated in this area as well. The remainder of the time averaged maximal velocities are within normal limits. Temo Godoy MD Thoracic Spine CT 07/02/161623 Signed Impressions: Service Date/Time: Saturday, July 02, 2016 16:40 - CONCLUSION: No acute bony injury in the thoracic spine Chapo Hicks MD Lumbar Spine CT 07/02/161623 Signed Impressions: Service Date/Time: Saturday, July 02, 2016 16:40 - CONCLUSION: No acute bony injury in the lumbosacral spine. Chapo Hicks MD Chest CT 07/02/161623 Signed Impressions: Service Date/Time: Saturday, July 02, 2016 16:40 - CONCLUSION: Bilateral posterior lower lobe consolidative changes, left worse than right. No evidence of acute mediastinal injury. Chapo Hicks MD Cervical Spine CT 07/02/161623 Signed Impressions: Service Date/Time: Saturday, July 02, 2016 16:32 - CONCLUSION: 1. No acute findings. Moderate degenerative change in the lower cervical spine. David Quispe MD Abdomen/Pelvis CT 07/02/16 1624 Signed Impressions: Service Date/Time: Saturday, July 02, 2016 16:40 - CONCLUSION: Negative CT scan abdomen and pelvis for acute traumatic injury. Jitendra Godoy MD FACR Assessment & Plan Diagnosis: (1) Closed head injury with loss of consciousness of unknown duration Plan: The patient may have suffered an anoxic injury, but also is expected to have diffuse axonal injury. Maintaining perfusion pressures, hydration and serial neurologic exams is planned.Weaning the sedation off is best at this time. She does not seem to have brainstem dysfunction with the limited cranial nerve exam so far. 07/07/15 Sitting in bed but remains very lethargic. Rehab services to initiate ROM 07/08/15 Still very lethargic after the MRI with sedation 07/09/16 She is more awake today, ophthalmoplegia and left leg paresis more evident. 07/10/16 Still lethargic, tachypneic and diaphoretic. Sepsis and thrombosis work up initiated. (2) Subarachnoid hemorrhage Plan: Traumatic SAH associated with bi frontal cerebral contusions and 2-3 mm SDH in the right frontal and falcine areas, has improved over 24 hrs.MRI of the brain and cervical spine showed no vertebral fracture or cord contusion, diffuse cortical and left midbrain bruising, Supportive care, pulmonary toilet, OT/PT/speech therapy continued. 07/10/16 She is tachpyneic and lethargic. Follow up TCDs ordered to follow up on the elevated right MCA velocities from admission. Critical Care Time (minutes): 10 Magnus Garcias Jul 10, 2016 08:34
[2016-07-10] MEDS: MAGNESIUM HYDROXIDE SUSP 30 ML CUP PO SCH (08:44)
[2016-07-10] MEDS: LISINOPRIL 20 MG TAB PO SCH (08:45)
[2016-07-10] MEDS: DOCUSATE SODIUM 100 MG CAP PO SCH ×2 (08:45→20:58)
[2016-07-10] MEDS: VALPROIC ACID 250 MG CAP PO SCH ×2 (08:45→22:33)
[2016-07-10] MEDS: FAMOTIDINE 20 MG TAB NG SCH ×2 (08:45→20:58)
[2016-07-10 08:57] LABS: BLOOD GAS CARBOXYHEMOGLOBIN 0.8 % (0-4); BLOOD GAS HCO3 29 mmol/L (22-26); BLOOD GAS METHEMOGLOBIN 0.8 % (0-2); BLOOD GAS O2 HGB SATURATION 98 % (90-100); BLOOD GAS OXYGEN CONTENT 18.6 Vol % (12.0-20.0); BLOOD GAS PCO2 41 mmHg (38-42); BLOOD GAS PO2 231 mmHg (61-120); BLOOD GAS TOTAL HGB 13.2 G/DL (12.0-16.0); CRITICAL VALUE NO; DRAW SITE RT RADIAL; LITER FLOW 8 L/M; NUMBER OF ARTERIAL PUNCTURES 1; OXYGEN DEVICE MASK; STAT NO; TEMP CORR TO 98.6; ULNAR PULSE PRESENT
[2016-07-10 11:12] LABS: AUTOMATED NEUTROPHIL # 10.2 TH/MM3 (1.8-7.7); BASOPHIL % 0.2 % (0.0-2.0); EOSINOPHIL # 0.1 TH/MM3 (0-0.4); EOSINOPHIL % 0.7 % (0.0-4.0); HEMATOCRIT 37.7 % (35.0-46.0); HEMO FLAGS DIFF FINAL; LYMPH % 6.4 % (9.0-44.0); LYMPHOCYTE # 0.8 TH/MM3 (1.0-4.8); MEAN CELL VOLUME 89.8 FL (80.0-100.0); MEAN CORPUSCULAR HEMOGLOBIN 30.6 PG (27.0-34.0); MEAN CORPUSCULAR HGB CONC 34.1 % (32.0-36.0); MONO % 7.9 % (0.0-8.0); NEUT % 84.8 % (16.0-70.0); PLATELET COUNT 256 TH/MM3 (150-450); RED BLOOD COUNT 4.19 MIL/MM3 (4.00-5.30); RED CELL DISTRIBUTION WIDTH 13.5 % (11.6-17.2)
--- NOTE | 2016-07-10 11:51 | HHI.PR ---
Neuropsych Emotional Emotional: UnabletoAssess: Emotional, Anxious/Fearful, Depressed/Sad, Hostile/ Resentful, Irritable/Angry/Frustrate, Labile, Constricted/Blunted Behavior Behavior: Unable to Asses: Behavior, Coping/Acceptance, Cooperative w/ Treatment, Motivation, Frustration Tolerance/[place], Impulsive/Agitated, Suicidal/ Homicidal Risk Cognitive Cognitive: Unable to Asses: Cognitive, Attention/Concentration, Confused/ Orientation, Insight/Awareness, Judgement/Problem-Solving, Memory Psychosocial Psychosocial: Intact: Psychosocial, Family/Other Adjustment, Realistic Expectation Progress Notes/Response to Tx Contents of Sessions: Level of Consciousness Time with Patient: 15 minutes Premorbid psychological status Premorbid Cognitive, Emotional and Behavioral Status: Stable. 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 The patient has no psychiatric difficulties , as described above. Substance abuse history includes not significant. Behavioral Reactions of Patient and Family/Support System: Stable. The patient s family is experiencing ongoing issues of adjustment given the nature of the injury, and this aspect of recovery will require ongoing monitoring. I spoke at length with the patient's brother, who indicated good understanding of his sister's course of recovery. Emotional/Behavioral Status of Patient and Family/Support System: Deferred. Pertinent issues, if appropriate to this patients clinical care, are described in detail above. Maximizing acute care outcome It is recommended that the patient be monitored for emergent behavioral impulsivity as the medical condition evolves. This patients neuropathological challenges may limit their rehabilitation potential going forward, and these challenges will require specialized therapeutic skills to maximize outcome. It is understood that any possible underlying anoxic/hypoxic injury may have been overstated, based on reports from the patient's brother. Anticipated Problems Ongoing areas of concern will include behavioral impulsivity, lack of insight and judgment, which is expected to improve with time and treatment. Presently , the patient is preconscious. Treatment Plan This clinician will continue to follow with you throughout the course of this patients rehabilitation treatment, and I will be available to meet with the patients family/support system to facilitate their understanding and the ongoing care of their family member. The goals of neuropsychological intervention shall be both educational and supportive to the family/support system as is deemed clinically appropriate. [facility] Level: III:Localized response-total assist Impression This patient suffered a severe traumatic brain injury although it is not understood that any anoxic/hypoxic injury may have been overstated. Diagnosis: Progress Note Narrative Ongoing follow-up of patient and discussion with patient's family, who was bedside. This patient does appear to be progressing to a Rancho level III, characterized by localized responding, response to physical discomfort and inconsistent responding to commands. Pertinent issues have included managing arousal level, cardiac issues and sleep-wake concerns. I will continue to follow with you. Liborio Hitchcock PhD Jul 10, 2016 11:51 am
[2016-07-10] MEDS: LORazepam 0.5 MG TAB PO PRN (12:13)
[2016-07-10] MEDS: FUROSEMIDE 20 MG TAB PO SCH (12:13)
--- NOTE | 2016-07-10 13:16 | RADRPT ---
EXAM DATE/TIME: 07/10/2016 09:17 CORRECTION Corrected on: July 22, 2016; This report includes an Addendum and supersedes previous reports for this exam. [facility] COMPARISON: No previous studies available for comparison. INDICATIONS : Swelling. MEDICAL HISTORY : Hypertension. Left plantar fascitis. SURGICAL HISTORY : Tubal ligation. Lymph node removal left arm. ENCOUNTER: Initial ACUITY: 1 day PAIN SCORE: Non-responsive LOCATION: Bilateral leg. TECHNIQUE: Venous ultrasound of the left and right leg was performed from the inguinal ligament to the proximal calf. Real-time, color Doppler and spectral tracing, compression and augmentation techniques were us ed. FINDINGS: RIGHT LEG: There is normal compressibility of the deep venous system from the inguinal region to the proximal ca lf. No echogenic clot is seen in the lumen of the common femoral, femoral, popliteal, and posterior tibial veins. There is a normal response of the venous system to proximal and distal augmentation an d respiration. LEFT LEG: There is normal compressibility of the deep venous system from the inguinal region to the proximal ca lf. No echogenic clot is seen in the lumen of the common femoral, femoral, popliteal, and posterior tibial veins. There is a normal response of the venous system to proximal and distal augmentation an d respiration. CONCLUSION: No evidence of deep venous thrombosis within the lower extremities. Anthony So MD on July 10, 2016 at 13:13 Board Certified Radiologist. This report was verified electronically. ADDENDUM: It was brought to my attention today that the above report is incorrect. There is no DVT identified w ithin either lower extremity as previously described but there is a thrombus/clot within the right pe roneal vein. The above findings were relayed to the patient's nurse via telephone by the kennel aide at the time o f this dictation. Chapo Davis MD on July 22, 2016 at 15:55 Board Certified Radiologist. This report was verified electronically. Chapo Davis MD on July 22, 2016 at 15:59 Board Certified Radiologist. This report was verified electronically.
--- NOTE | 2016-07-10 13:44 | RADRPT ---
EXAM DATE/TIME: 07/10/2016 09:18 [facility] COMPARISON: US TRANSCRANIAL DOPPLER COMPLETE, July 03, 2016, 8:17. CT BRAIN W/O CONTRAST, July 06, 2016, 4 :30. INDICATIONS : Subarachnoid hemorrhage. Subdural hemorrhage. MEDICAL HISTORY : Hypertension. Left plantar fascitis. SURGICAL HISTORY : Tubal ligation. Lymph node removal left arm. ENCOUNTER: Subsequent ACUITY: 1 week PAIN SCORE: Nonresponsive. LOCATION: Bilateral cranial TIME -AVERAGED MAXIMAL VELOCITIES: MCA (1): Right: 96.5 Left: 126.4 MCA (2): Right: 95.4 Left: 83.5 JESSY (1): Right: 44.0 Left: 29.0 JESSY (2): Right: 57.6 Left: 48.6 PT SKILLED (1): Right: 65.2 Left: 69.2 PT SKILLED (2): Right: 44.9 Left: 53.4 VERTEBRAL: Right: 79.8 antegrade Left: 55.6 antegrade BASILAR: 52.0 ICA: Right: 95.5 Left: 73.6 Lindegaard Ratio: Right: 1.0 Left: 1.7 Tyson Ratio: Right: 0.6 Left: 0.7 FINDINGS: Examination performed at bedside. Real-time ultrasound with the assistance of color and spectral Dop pler was utilized to evaluate the intracerebral circulation. Time-averaged maximal velocities are ca lculated in cm/s. There is a mildly elevated mean flow velocity in the left M1 segment. However, the Lindegaard ratio i s normal suggesting that this is secondary to physiologic factors. CONCLUSION: There are no findings to indicate vasospasm. Chapo Davis MD on July 10, 2016 at 13:23 Board Certified Radiologist. This report was verified electronically.
--- NOTE | 2016-07-10 16:57 | HHI.CCPN ---
Subjective Brief History The patient is a 56-year-old female that presented to the emergency department/[facility] via [facility] as a trauma alert. Per medical history, reported by EMS the patient was found down on the ground, and in an industrial area, with shelving material that had fallen on her. The patient was unconscious for an undetermined time. Upon arrival of EMS the patient's GCS score 3. The patient was intubated prior to arrival by [facility] paramedics. A 7-0 endotracheal tube at 22 cm.at the lip. EMS reported that the laryngoscopic view patient had blood at the nares bilaterally and within the oropharynx. EMS reported that the had a difficult airway, very anterior. Patient did receive 2 doses of etomidate and 1 dose of succinylcholine by EMS in the field, prior to arrival. The patient then received Rocuronium upon arrival. Patient was found to have the subarachnoid and intraparenchymal hemorrhage mainly of the right frontal areas of brain. In addition patient may have suffered the hypoxic or anoxic brain injury for undetermined period of time 24 Hour Review/Hospital Course Patient was initially intubated and ventilated and over the last 24 hours has gradually improved Patient was extubated last night She had this point moves all 4 extremities tries to open left thigh but does not follow any commands Based on all of the above patient may remain extubated but I would not be surprised if patient required reintubation at some point should she develop significant secretions and there would be a danger of compromised airway 07/06/16 Patient neurologically slightly improved Did not open is yet however does follow some commands and squeezes hand when asked to Moves all 4 extremities Arlette Coma Scale about 10 07/07/16 Lethargic, follows commands Secretions improved Period of hyperventilation and tachycardia, resolved with IV Morphine 07/08/16 Obtunded, responds to sternal rub Periods of tachypnea overnight MRI brain today 07/09/16 Patient slightly more awake and purposeful. Follows commands and squeezes hand Repeat brain MRI done Patient will transfer out of the ICU today Discussed case with Dr. Garcias 07/10/16 Patient continues to be lethargic and have periods of tachypnea and tachycardia Follows commands 4 Ultrasound of bilateral lower extremities negative for DVT (Karoline Gardner) Objective Vital Signs Date Time Temp Pulse Resp B/P Pulse Ox O2 Delivery O2 Flow Rate FiO2 07/10/16 14:00 96 07/10/16 12:00 98.7 43 146/74 94 07/10/16 08:52 Simple Mask 8.00 07/07/16 21:17 21 Intake and Output 07/09/16 07/09/16 07/10/16 08:00 16:00 00:00 Intake Total 735 ml 861 ml 768 ml Output Total 650 ml 1000 ml 950 ml Balance 85 ml -139 ml -182 ml (Karoline Gardner) Result Diagram: 07/10/16 1045 07/10/16 0512 Other Results Laboratory Tests Test 07/10/16 08:45 Blood Gas Puncture Site RT RADIAL Blood Gas Patient Temperature 98.6 Blood Gas HCO3 29 mmol/L (22-26) Blood Gas Base Excess 5.0 mmol/L (-2-2) Blood Gas Oxygen Saturation 98 % (90-100) Arterial Blood pH 7.46 (7.380-7.420) Arterial Blood Partial 41 mmHg (38-42) Pressure CO2 Arterial Blood Partial 231 mmHg Pressure O2 (61-120) Arterial Blood Oxygen Content 18.6 Vol % (12.0-20.0) Arterial Blood 0.8 % (0-4) Carboxyhemoglobin Arterial Blood Methemoglobin 0.8 % (0-2) Blood Gas Hemoglobin 13.2 G/DL (12.0-16.0) Oxygen Delivery Device MASK Blood Gas Liter Flow 8 L/M Imaging Last 24 hours Impressions Chest X-Ray 07/10/16 0600 Signed Impressions: Service Date/Time: June 05:32 - CONCLUSION: Improving right basilar density. Reynold Guillen MD Transcranial Doppler Study Limited 07/10/16 0000 Signed Impressions: Service Date/Time: June 09:18 - CONCLUSION: There are no findings to indicate vasospasm. Chapo Davis MD Lower Extremity Ultrasound 07/10/16 0000 Signed Impressions: Service Date/Time: June 09:17 - CONCLUSION: No evidence of deep venous thrombosis within the lower extremities. Anthnoy So MD (Karoline Gardner) Vascular Central Line Catheter Date of Insertion: Jul 02, 2016 Line: Central Venous Catheter Side: Right Location: Subclavian (Karoline Gardner) Assessment and Plan Plan GENERAL: 56-year-old well-nourished, well developed female lying in bed. SKIN: Warm and dry. Erythema noted on chest. HEAD: Normocephalic. EYES: PERRL. ENT: No nasal bleeding or discharge. Mucous membranes pink and moist. Left nare NG tube in place. NECK: Trachea midline. No JVD. CARDIOVASCULAR: Regular rate and rhythm. RESPIRATORY: No accessory muscle use. Lungs clear and diminished to auscultation. Breath sounds equal bilaterally. GASTROINTESTINAL: Abdomen soft, non-tender, nondistended. + BS. F/C in place. MUSCULOSKELETAL: Extremities without cyanosis, generalized edema noted. No obvious deformities. NEUROLOGICAL: Lethargic, nonverbal. Follows commands 4. NEUROLOGICAL: Valporic acid F/U head CT 07/06 stable IV Keppra discontinued, no seizure activity noted 8 days Ativan TID PRN agitation Neurosurgery following MRI brain 07/09- multiple cerebral contusions diffuse cortical and left midbrain MRI cervical spine 07/09- negative HOB elevated > 30 degrees CARDIOVASCULAR: HR = sinus rhythm. HR = 95-120 BPM. BP = stable PMHx: HTN Scheduled Norvasc, hydralazine, lisinopril and Vasotec PRN Added 20 mg Lasix daily BLE ultrasound negative for DVT Follow CMP - Electrolyte protocol in place for replacement. RESPIRATORY: On 3L nasal cannula Tachypneic Continue to monitor closely for hypoxemia. Pulmonary toilet - L&S. Bronchodilators - Duonebs q2H PRN 07/10 CXR improving right basilar density Labs tomorrow Chest X-Ray PRN GASTROINTESTINAL: Diet - Jevity 1.5 @ goal 50 mL/H with 200 mL free water flushes q6H, tolerating well Bowel regimen - Colace and MOM. LBM 07/10 RENAL / URINARY: I&O +807 BUN / creat stable Villar - in place to bedside drainage bag ENDOCRINE: BGM -stable HEMATOLOGY: H&H: 12.8 / 37.7 Continue to monitor for signs and symptoms of bleeding. Transfuse for < 7.0 Monitor patient for any bleeding complications. INFECTIOUS DISEASE: Follow CBC WBC 12.0 T-max 100.1 1: Blood, urine and sputum cultures negative Administer antipyretics for temp as needed. Discontinue central line and obtain PIV Invasive lines: R SC TLC 07/02 Villar 07/02 PROPHYLAXIS: GI - famotidine DVT - Mechanical VTE with SCDs. Chemical management contraindicated due to ICH SKIN: Warm / Dry ACTIVITY: Status -OOB to cardiac chair PT and OT evaluating. CASE MANAGEMENT: Consulted for assist with DC planning. Placement - disposition will need inpatient rehabilitation specializes in neuro injuries. Plan of care discussed with RN and family at bedside. Patient has transfer to Med/Surg floor. Trauma surgery team will round daily and evaluate patient and adjust the treatment plan. (Karoline Gardner) Attestation The exam, history, and the medical decision-making described in the above note were completed with the assistance of the mid-level provider. I reviewed and agree with the findings presented. I attest that I had a [id number] encounter with the patient on the same day, and personally performed and documented my assessment and findings in the medical record. Critical care time 35 minutes. (Saul Kuo MD) Karoline Gardner Jul 10, 2016 16:57 Saul Kuo MD Jul 13, 2016 11:36
[2016-07-11] VITALS (7 sets, daily range): BP systolic 130–145; BP diastolic 69–85; PULSE 84–97; RESP 18–24; TEMP 96.4–99.9; O2SAT 98–100
[2016-07-11] MEDS: hydrALAZINE HCL 20 MG/ML VIAL IV PUSH SCH ×4 (04:00→22:00)
[2016-07-11] MEDS: FREE WATER DOB SCH ×3 (08:00→15:01)
[2016-07-11] MEDS: FAMOTIDINE 20 MG TAB NG SCH (08:22)
[2016-07-11] MEDS: MAGNESIUM HYDROXIDE SUSP 30 ML CUP PO SCH (08:23)
[2016-07-11] MEDS: VALPROIC ACID 250 MG CAP PO SCH (08:23)
[2016-07-11] MEDS: FUROSEMIDE 20 MG TAB PO SCH (08:24)
[2016-07-11] MEDS: DOCUSATE SODIUM 100 MG CAP PO SCH (08:24)
[2016-07-11] MEDS: LISINOPRIL 20 MG TAB PO SCH (08:24)
--- NOTE | 2016-07-11 15:13 | RADRPT ---
EXAM DATE/TIME: 07/10/2016 09:18 CORRECTION Corrected on: July 11, 2016; CORRECTED: Procedure name to match order. [facility] COMPARISON: US TRANSCRANIAL DOPPLER COMPLETE, July 03, 2016, 8:17. CT BRAIN W/O CONTRAST, July 06, 2016, 4 :30. INDICATIONS : Subarachnoid hemorrhage. Subdural hemorrhage. MEDICAL HISTORY : Hypertension. Left plantar fascitis. SURGICAL HISTORY : Tubal ligation. Lymph node removal left arm. ENCOUNTER: Subsequent ACUITY: 1 week PAIN SCORE: Nonresponsive. LOCATION: Bilateral cranial TIME -AVERAGED MAXIMAL VELOCITIES: MCA (1): Right: 96.5 Left: 126.4 MCA (2): Right: 95.4 Left: 83.5 JESSY (1): Right: 44.0 Left: 29.0 JESSY (2): Right: 57.6 Left: 48.6 COTTON PICKER OPERATOR (1): Right: 65.2 Left: 69.2 COTTON PICKER OPERATOR (2): Right: 44.9 Left: 53.4 VERTEBRAL: Right: 79.8 antegrade Left: 55.6 antegrade BASILAR: 52.0 ICA: Right: 95.5 Left: 73.6 Lindegaard Ratio: Right: 1.0 Left: 1.7 Tyson Ratio: Right: 0.6 Left: 0.7 FINDINGS: Examination performed at bedside. Real-time ultrasound with the assistance of color and spectral Dop pler was utilized to evaluate the intracerebral circulation. Time-averaged maximal velocities are ca lculated in cm/s. There is a mildly elevated mean flow velocity in the left M1 segment. However, the Lindegaard ratio i s normal suggesting that this is secondary to physiologic factors. CONCLUSION: There are no findings to indicate vasospasm. Chapo Davis MD on July 10, 2016 at 13:23 Board Certified Radiologist. This report was verified electronically. DR Broussard on July 11, 2016 at 15:31 Board Certified Radiologist. This report was verified electronically.
[2016-07-11] MEDS: ACETAMINOPHEN 325 MG TAB PO PRN (15:55)
--- NOTE | 2016-07-11 16:32 | HHI.PR ---
Subjective Subjective Notes Failing swallow evaluation, may need PEG placement Follows commands. Still requiring restraints. Objective Vitals/I&O Vital Signs Date Time Temp Pulse Resp B/P Pulse Ox O2 Delivery O2 Flow Rate FiO2 07/11/16 12:00 99.9 85 18 142/72 99 07/11/16 09:09 Nasal Cannula 4.00 07/07/16 21:17 21 Labs Laboratory Tests Test 07/07/16 07/08/16 07/10/16 07/10/16 12:18 04:35 05:12 08:45 Blood Gas Inspired Oxygen 28 % Total Bilirubin 0.4 MG/DL Aspartate Amino Transf 53 U/L (AST/SGOT) Alanine Aminotransferase 65 U/L (ALT/SGPT) Alkaline Phosphatase 66 U/L Total Protein 6.2 GM/DL Albumin 3.0 GM/DL Sodium Level 140 MEQ/L Potassium Level 4.1 MEQ/L Chloride Level 108 MEQ/L Carbon Dioxide Level 26.2 MEQ/L Anion Gap 6 MEQ/L Blood Urea Nitrogen 15 MG/DL Creatinine 0.40 MG/DL Estimat Glomerular Filtration 164 ML/MIN Rate Random Glucose 127 MG/DL Calcium Level 8.4 MG/DL Phosphorus Level 3.4 MG/DL Magnesium Level 2.3 MG/DL Blood Gas Puncture Site RT RADIAL Blood Gas Patient Temperature 98.6 Blood Gas HCO3 29 mmol/L Blood Gas Base Excess 5.0 mmol/L Blood Gas Oxygen Saturation 98 % Arterial Blood pH 7.46 Arterial Blood Partial 41 mmHg Pressure CO2 Arterial Blood Partial 231 mmHg Pressure O2 Arterial Blood Oxygen Content 18.6 Vol % Arterial Blood 0.8 % Carboxyhemoglobin Arterial Blood Methemoglobin 0.8 % Blood Gas Hemoglobin 13.2 G/DL Oxygen Delivery Device MASK Blood Gas Liter Flow 8 L/M Test 07/10/16 10:45 White Blood Count 12.0 TH/MM3 Red Blood Count 4.19 MIL/MM3 Hemoglobin 12.8 GM/DL Hematocrit 37.7 % Mean Corpuscular Volume 89.8 FL Mean Corpuscular Hemoglobin 30.6 PG Mean Corpuscular Hemoglobin 34.1 % Concent Red Cell Distribution Width 13.5 % Platelet Count 256 TH/MM3 Mean Platelet Volume 7.5 FL Neutrophils (%) (Auto) 84.8 % Lymphocytes (%) (Auto) 6.4 % Monocytes (%) (Auto) 7.9 % Eosinophils (%) (Auto) 0.7 % Basophils (%) (Auto) 0.2 % Neutrophils # (Auto) 10.2 TH/MM3 Lymphocytes # (Auto) 0.8 TH/MM3 Monocytes # (Auto) 1.0 TH/MM3 Eosinophils # (Auto) 0.1 TH/MM3 Basophils # (Auto) 0.0 TH/MM3 CBC Comment DIFF FINAL Differential Comment Radiology Last Impressions Chest X-Ray 07/10/16 0600 Signed Impressions: Service Date/Time: June 05:32 - CONCLUSION: Improving right basilar density. Reynold Guillen MD Transcranial Doppler Study Limited 07/10/16 0000 Cancelled Impressions: Service Date/Time: June 09:18 - CONCLUSION: There are no findings to indicate vasospasm. Chapo Davis MD Transcranial Doppler Study Complete 07/10/16 0000 Signed Impressions: Service Date/Time: , July 10, 2016 09:18 - CONCLUSION: There are no findings to indicate vasospasm. Chapo Davis MD Lower Extremity Ultrasound 07/10/16 0000 Signed Impressions: Service Date/Time: June 09:17 - CONCLUSION: No evidence of deep venous thrombosis within the lower extremities. Anthony So MD Cervical Spine MRI 07/08/16 0000 Signed Impressions: Service Date/Time: Friday, July 08, 2016 13:48 - CONCLUSION: No abnormalities are seen within the cervical spine. Fluid identified within the dependent portion of the sphenoid sinuses likely related to the patient's trauma.. Noemi Lozano MD Brain MRI 07/08/16 0000 Signed Impressions: Service Date/Time: Friday, July 08, 2016 13:48 - CONCLUSION: Stable appearance of right frontal parenchymal contusion, small bilateral subdural hematomas and scattered areas of subarachnoid hemorrhage. There is an area of restricted diffusion involving the posterior medial temporal lobes bilaterally consistent with a contrecoup injury. No evidence of midline shift or hydrocephalus.. Noemi Lozano MD Head CT 07/06/16 0000 Signed Impressions: Service Date/Time: Wednesday, July 06, 2016 04:30 - CONCLUSION: Stable appearance to multiple cortical hemorrhages, subdural blood, subarachnoid blood and skull fracture. Javon Merida MD Abdomen X-Ray 07/06/16 0000 Signed Impressions: Service Date/Time: Wednesday, July 06, 2016 10:44 - CONCLUSION: Feeding tube across the GE junction and second portion of the duodenum. Jitendra Godoy MD FACR Thoracic Spine CT [id number]/02/161623 Signed Impressions: Service Date/Time: Saturday, July 02, 2016 16:40 - CONCLUSION: No acute bony injury in the thoracic spine Chapo Hicks MD Lumbar Spine CT [id number]/02/[id number] Signed Impressions: Service Date/Time: Saturday, July 02, 2016 16:40 - CONCLUSION: No acute bony injury in the lumbosacral spine. Chapo Hicks MD Chest CT [id number]/02/161623 Signed Impressions: Service Date/Time: Saturday, July 02, 2016 16:40 - CONCLUSION: Bilateral posterior lower lobe consolidative changes, left worse than right. No evidence of acute mediastinal injury. Chapo Hicks MD Cervical Spine CT 07/02/161623 Signed Impressions: Service Date/Time: Saturday, July 02, 2016 16:32 - CONCLUSION: 1. No acute findings. Moderate degenerative change in the lower cervical spine. David Quispe MD Abdomen/Pelvis CT 07/02/161623 Signed Impressions: Service Date/Time: Saturday, July 02, 2016 16:40 - CONCLUSION: Negative CT scan abdomen and pelvis for acute traumatic injury. Jitendra Godoy MD FACR Narrative Exam GENERAL: 56-year-old well-nourished, well developed female lying in bed. SKIN: Warm and dry. HEAD: Normocephalic. EYES: PERRL. ENT: No nasal bleeding or discharge. Mucous membranes pink and moist. Left nare NG tube in place. NECK: Trachea midline. No JVD. CARDIOVASCULAR: Regular rate and rhythm. RESPIRATORY: No accessory muscle use. Lungs clear and diminished to auscultation. Breath sounds equal bilaterally. GASTROINTESTINAL: Abdomen soft, non-tender, nondistended. + BS. F/C in place. MUSCULOSKELETAL: Extremities without cyanosis, generalized edema noted. No obvious deformities. NEUROLOGICAL: Obtunded, nonverbal. Follows commands. A/P Problem List: (1) Subdural hemorrhage (2) Trauma (3) Subarachnoid hemorrhage Assessment and Plan [place]: Patient found down after large shelving fell on patient. Unknown down time. GCS 3 in field with decorticate posturing. INJURIES: RIGHT frontal skull fx RIGHT frontal SAH with punctate parenchymal hemorrhages (diffuse cerebral edema ) Diet: NGT, Jevity goal 50, tolerating well Pulm: 4L NC Pain: Tylenol. Ativan PO TID PRN anxiety Activity: OOB daily. PT, OT evaluating GI: famotidine Bowel: Colace. MOM scheduled. LBM 07/10 DVT: SCD. Start Lovenox when cleared by neurosurgery. Discontinue Villar. MRI brain 07/09- multiple cerebral contusions diffuse cortical and left midbrain ST following on a daily basis to assess swallow function. Patient may need PEG tube placement if patient unable to advance the next few days. Case management consulted to assist in discharge planning. Patient will need a neuro rehabilitation. Plan of care discussed with patient and family at bedside. Patient is stable and being managed on Med/Surg. The exam, history, and the medical decision-making described in the above note were completed with the assistance of the mid-level provider. I reviewed and agree with the findings presented. I attest that I had a [id number] encounter with the patient on the same day, and personally performed and documented my assessment and findings in the medical record. Karoline Gardner Jul 11, 2016 16:32 Manuel Quinn MD Jul 12, 2016 18:24
--- NOTE | 2016-07-11 19:01 | HHI.NSPN ---
History Chief Complaint: none Interval History 07/11/16 Day 9 after severe closed head injury, conjunctival edema is improved, she remains weak but better able to use facial muscles. Internuclear ophthalmoplegia noted but the 6th CN function is better as well as the tongue control. Her cough remains weak. Review of Systems General: Negative for: fever, chills, insomnia Respiratory: Negative for: shortness of breath, cough, sputum Cardiovascular: Negative for: chest pain, palpitations, orthopnea Gastrointestinal: Negative for: nausea, vomitting, diarrhea, constipation Exam Results Vital Signs Date Time Temp Pulse Resp B/P Pulse Ox O2 Delivery O2 Flow Rate FiO2 07/11/16 16:00 99.8 84 20 144/70 99 07/11/16 09:09 Nasal Cannula 4.00 07/07/16 21:17 21 Intake and Output 07/10/16 07/10/16 07/11/16 08:00 16:00 00:00 Intake Total 683 ml 781 ml Output Total 1100 ml 875 ml 550 ml Balance -417 ml -94 ml -550 ml Physical Examination Extubated, awake, eyes are open, conjunctival edema improving, speaking in full sentences but has bilateral internuclear ophthalmoplegia, Oriented to the place and events, follows complex commands with all 4 extremities, strength is weakest in the left lower extremity No spasticity, No Dos Santos sign, no clonus Spasms noted in the right shoulder Lab, Micro, Other Results Na 141 Medical Decision Making Impression and Plan Day 9 after severe closed head injury with skull fx and multiple cerebral contusions including the midbrain. The eye movement and laryngeal control should improve with time and therapy. Speech, OT/PT are following. Total Minutes: 10 Magnus Garcias Jul 11, 2016 19:00
[2016-07-12] VITALS (8 sets, daily range): BP systolic 129–155; BP diastolic 71–87; PULSE 75–102; RESP 18–22; TEMP 98–99.3; O2SAT 95–100
[2016-07-12] MEDS: VALPROIC ACID 250 MG CAP PO SCH ×3 (00:56→23:12)
[2016-07-12] MEDS: FAMOTIDINE 20 MG TAB NG SCH ×3 (00:56→23:12)
[2016-07-12] MEDS: DOCUSATE SODIUM 100 MG CAP PO SCH ×3 (00:56→23:12)
[2016-07-12] MEDS: hydrALAZINE HCL 20 MG/ML VIAL IV PUSH SCH (04:00)
[2016-07-12] MEDS: FREE WATER DOB SCH ×4 (08:00→23:12)
[2016-07-12] MEDS ORDERED: LACTULOSE SYRUP 20 GM/30 ML CUP PO ONE (09:00)
[2016-07-12] MEDS: MAGNESIUM HYDROXIDE SUSP 30 ML CUP PO SCH (09:32)
[2016-07-12] MEDS: FUROSEMIDE 20 MG TAB PO SCH (09:32)
[2016-07-12] MEDS: LISINOPRIL 20 MG TAB PO SCH (09:33)
--- NOTE | 2016-07-12 13:13 | HHI.PR ---
Subjective Subjective Notes PTD: 10 Patient is not answering questions, but follows commands occasionally. at bedside. Objective Vitals/I&O Vital Signs Date Time Temp Pulse Resp B/P Pulse Ox O2 Delivery O2 Flow Rate FiO2 07/12/16 09:20 99 Nasal Cannula 4.00 07/12/16 09:20 99.0 75 21 146/75 Labs Laboratory Tests Test 07/08/16 07/10/16 07/10/16 07/10/16 04:35 05:12 08:45 10:45 Total Bilirubin 0.4 MG/DL Aspartate Amino Transf 53 U/L (AST/SGOT) Alanine Aminotransferase 65 U/L (ALT/SGPT) Alkaline Phosphatase 66 U/L Total Protein 6.2 GM/DL Albumin 3.0 GM/DL Sodium Level 140 MEQ/L Potassium Level 4.1 MEQ/L Chloride Level 108 MEQ/L Carbon Dioxide Level 26.2 MEQ/L Anion Gap 6 MEQ/L Blood Urea Nitrogen 15 MG/DL Creatinine 0.40 MG/DL Estimat Glomerular Filtration 164 ML/MIN Rate Random Glucose 127 MG/DL Calcium Level 8.4 MG/DL Phosphorus Level 3.4 MG/DL Magnesium Level 2.3 MG/DL Blood Gas Puncture Site RT RADIAL Blood Gas Patient Temperature 98.6 Blood Gas HCO3 29 mmol/L Blood Gas Base Excess 5.0 mmol/L Blood Gas Oxygen Saturation 98 % Arterial Blood pH 7.46 Arterial Blood Partial 41 mmHg Pressure CO2 Arterial Blood Partial 231 mmHg Pressure O2 Arterial Blood Oxygen Content 18.6 Vol % Arterial Blood 0.8 % Carboxyhemoglobin Arterial Blood Methemoglobin 0.8 % Blood Gas Hemoglobin 13.2 G/DL Oxygen Delivery Device MASK Blood Gas Liter Flow 8 L/M White Blood Count 12.0 TH/MM3 Red Blood Count 4.19 MIL/MM3 Hemoglobin 12.8 GM/DL Hematocrit 37.7 % Mean Corpuscular Volume 89.8 FL Mean Corpuscular Hemoglobin 30.6 PG Mean Corpuscular Hemoglobin 34.1 % Concent Red Cell Distribution Width 13.5 % Platelet Count 256 TH/MM3 Mean Platelet Volume 7.5 FL Neutrophils (%) (Auto) 84.8 % Lymphocytes (%) (Auto) 6.4 % Monocytes (%) (Auto) 7.9 % Eosinophils (%) (Auto) 0.7 % Basophils (%) (Auto) 0.2 % Neutrophils # (Auto) 10.2 TH/MM3 Lymphocytes # (Auto) 0.8 TH/MM3 Monocytes # (Auto) 1.0 TH/MM3 Eosinophils # (Auto) 0.1 TH/MM3 Basophils # (Auto) 0.0 TH/MM3 CBC Comment DIFF FINAL Differential Comment Radiology Last Impressions Chest X-Ray 07/10/16 0600 Signed Impressions: Service Date/Time: , July 10, 2016 05:32 - CONCLUSION: Improving right basilar density. Reynold Guillen MD Transcranial Doppler Study Limited 07/10/16 0000 Cancelled Impressions: Service Date/Time: , July 10, 2016 09:18 - CONCLUSION: There are no findings to indicate vasospasm. Chapo Davis MD Transcranial Doppler Study Complete 07/10/16 0000 Signed Impressions: Service Date/Time: , July 10, 2016 09:18 - CONCLUSION: There are no findings to indicate vasospasm. Chapo Davis MD Lower Extremity Ultrasound 07/10/16 0000 Signed Impressions: Service Date/Time: June 09:17 - CONCLUSION: No evidence of deep venous thrombosis within the lower extremities. Anthony So MD Cervical Spine MRI 07/08/16 0000 Signed Impressions: Service Date/Time: Friday, July 08, 2016 13:48 - CONCLUSION: No abnormalities are seen within the cervical spine. Fluid identified within the dependent portion of the sphenoid sinuses likely related to the patient's trauma.. Noemi Lozano MD Brain MRI 07/08/16 0000 Signed Impressions: Service Date/Time: Friday, July 08, 2016 13:48 - CONCLUSION: Stable appearance of right frontal parenchymal contusion, small bilateral subdural hematomas and scattered areas of subarachnoid hemorrhage. There is an area of restricted diffusion involving the posterior medial temporal lobes bilaterally consistent with a contrecoup injury. No evidence of midline shift or hydrocephalus.. Noemi Lozano MD Head CT 07/06/16 0000 Signed Impressions: Service Date/Time: Wednesday, July 06, 2016 04:30 - CONCLUSION: Stable appearance to multiple cortical hemorrhages, subdural blood, subarachnoid blood and skull fracture. Javon Merida MD Abdomen X-Ray 07/06/16 0000 Signed Impressions: Service Date/Time: Wednesday, July 06, 2016 10:44 - CONCLUSION: Feeding tube across the GE junction and second portion of the duodenum. Jitendra Godoy MD FACR Thoracic Spine CT 07/02/161623 Signed Impressions: Service Date/Time: Saturday, July 02, 2016 16:40 - CONCLUSION: No acute bony injury in the thoracic spine Chapo Hicks MD Lumbar Spine CT 07/02/161623 Signed Impressions: Service Date/Time: Saturday, July 02, 2016 16:40 - CONCLUSION: No acute bony injury in the lumbosacral spine. Chapo Hicks MD Chest CT 07/02/161623 Signed Impressions: Service Date/Time: Saturday, July 02, 2016 16:40 - CONCLUSION: Bilateral posterior lower lobe consolidative changes, left worse than right. No evidence of acute mediastinal injury. Chapo Hicks MD Cervical Spine CT 07/02/161623 Signed Impressions: Service Date/Time: Saturday, July 02, 2016 16:32 - CONCLUSION: 1. No acute findings. Moderate degenerative change in the lower cervical spine. David Quispe MD Abdomen/Pelvis CT 07/02/161623 Signed Impressions: Service Date/Time: Saturday, July 02, 2016 16:40 - CONCLUSION: Negative CT scan abdomen and pelvis for acute traumatic injury. Jitendra Godoy MD FACR Narrative Exam GENERAL: This is a 56-year-old female in bed in no distress. SKIN: Warm and dry. HEAD: Atraumatic. Normocephalic. EYES: PERRLA. ENT: No nasal bleeding or discharge. Mucous membranes pink and moist. NECK: Trachea midline. No JVD. CARDIOVASCULAR: Regular rate and rhythm. RESPIRATORY: No accessory muscle use. Lungs are clear to auscultation. Breath sounds equal bilaterally. No distress or dyspnea. GASTROINTESTINAL: BS + x 4 quads. Abdomen soft, non-tender, nondistended. MUSCULOSKELETAL: Extremities without cyanosis, or edema. + peripheral pulses x 4 extremities. Warm with good capillary refill and sensation. MAEW. NEUROLOGICAL: Awake. Eyes open. Occasionally follows commands. Not verbalizing. A/P Problem List: (1) Subdural hemorrhage (2) Trauma (3) Subarachnoid hemorrhage Assessment and Plan [place]: This is a 56-year-old female who was found down for an unknown period of time. Apparently a separate shelving fell down on her. GCS equals 3 in the field was decorticate posturing. She was managed with mechanical ventilation in the ICU, but has since been extubated and has transferred to the [facility] floor. PMHx; HTN INJURIES; RIGHT frontal skull fx RIGHT frontal SAH with punctate parenchymal hemorrhages (diffuse cerebral edema) Consults: Neurosurgery and Pastoral Diet: Jevity at 50 cc/hr = goal. Tolerating well with no residuals. Pulmonary: Encourage good pulmonary toileting. PAIN Management: Tylenol. Ativan po PRN. Valproic acid. Activity: OOB to stretcher chair. PT and OT ordered. GI prophylaxis: Pepcid by mouth Bowel regimen: Colace and MOM. 0BM x 2 days. Intensified with lactulose 1. DVT prophylaxis: Mechanical VTE with SCDs. Chemical management contraindicated at this time due to SAH. Awaiting clearance from neurosurgery. Labs for the morning. HTN management: Lisinopril, Norvasc. DC Planning: Case management consulted for assistance with final discharge disposition. This is a workman's comp case. Case management is evaluating for [place] neuro rehabilitation versus [facility] for placement. Emotional support provided to patient and family at bedside and plan of care discussed. Plan of care discussed with RN at bedside. Patient is hemodynamically stable and being managed on the med/surg floor. The exam, history, and the medical decision-making described in the above note were completed with the assistance of the mid-level provider. I reviewed and agree with the findings presented. I attest that I had a [id number] encounter with the patient on the same day, and personally performed and documented my assessment and findings in the medical record. Linnea Cohen Jul 12, 2016 13:13 Manuel Quinn MD Jul 12, 2016 18:19
[2016-07-13] VITALS (8 sets, daily range): BP systolic 124–151; BP diastolic 71–77; PULSE 85–113; RESP 18–20; TEMP 96.8–99.5; O2SAT 95–100
[2016-07-13 05:55] LABS: AUTOMATED NEUTROPHIL # 12.5 TH/MM3 (1.8-7.7); BASOPHIL # 0.1 TH/MM3 (0-0.2); BASOPHIL % 0.7 % (0.0-2.0); EOSINOPHIL # 0.2 TH/MM3 (0-0.4); EOSINOPHIL % 1.1 % (0.0-4.0); LYMPH % 7.4 % (9.0-44.0); LYMPHOCYTE # 1.1 TH/MM3 (1.0-4.8); MEAN CELL VOLUME 90.6 FL (80.0-100.0); MEAN CORPUSCULAR HEMOGLOBIN 30.6 PG (27.0-34.0); MEAN CORPUSCULAR HGB CONC 33.7 % (32.0-36.0); MONO % 8.2 % (0.0-8.0); NEUT % 82.6 % (16.0-70.0); PLATELET COUNT 196 TH/MM3 (150-450); RED BLOOD COUNT 4.63 MIL/MM3 (4.00-5.30); RED CELL DISTRIBUTION WIDTH 13.3 % (11.6-17.2); WHITE BLOOD COUNT 15.1 TH/MM3 (4.0-11.0)
[2016-07-13 06:06] LABS: HEMO FLAGS AUTO DIFF
[2016-07-13 06:16] LABS: BICARBONATE 31.8 MEQ/L (21.0-32.0); MAGNESIUM 2.6 MG/DL (1.5-2.5); POTASSIUM 4.3 MEQ/L (3.5-5.1)
[2016-07-13 07:27] LABS: SCAN/DIFF AUTO DIFF CONFIRMED
[2016-07-13] MEDS ORDERED: BISACODYL 10 MG SUPP RECTAL ONE (07:45)
[2016-07-13] MEDS: FREE WATER DOB SCH ×2 (08:00→16:00)
[2016-07-13] MEDS: MAGNESIUM HYDROXIDE SUSP 30 ML CUP PO SCH (09:00)
[2016-07-13] MEDS: VALPROIC ACID 250 MG CAP PO SCH ×2 (09:00→21:13)
[2016-07-13] MEDS: FAMOTIDINE 20 MG TAB NG SCH ×2 (09:00→21:13)
[2016-07-13] MEDS: FUROSEMIDE 20 MG TAB PO SCH (09:00)
[2016-07-13] MEDS: DOCUSATE SODIUM 100 MG CAP PO SCH ×2 (09:00→21:13)
[2016-07-13] MEDS: LISINOPRIL 20 MG TAB PO SCH (09:00)
[2016-07-13] MEDS ORDERED: FURO20TA PO (09:25)
[2016-07-13] MEDS ORDERED: MILKSUS PO (09:25)
[2016-07-13] MEDS ORDERED: FAMO20TA2 NG (09:25)
[2016-07-13] MEDS ORDERED: ACET325T PO (09:25)
[2016-07-13] MEDS ORDERED: AMLO10 PO (09:25)
[2016-07-13] MEDS ORDERED: LISI-515 PO (09:25)
[2016-07-13] MEDS ORDERED: VALP250 PO (09:25)
[2016-07-13] MEDS ORDERED: DOCU1CAP39 PO (09:25)
[2016-07-13 12:23] LABS: BLOOD GAS BASE EXCESS 6.9 mmol/L (-2-2); BLOOD GAS CARBOXYHEMOGLOBIN 1.2 % (0-4); BLOOD GAS HCO3 31 mmol/L (22-26); BLOOD GAS METHEMOGLOBIN 0.8 % (0-2); BLOOD GAS O2 HGB SATURATION 97 % (90-100); BLOOD GAS OXYGEN CONTENT 18.2 Vol % (12.0-20.0); BLOOD GAS PCO2 47 mmHg (38-42); BLOOD GAS PO2 131 mmHg (61-120); BLOOD GAS TOTAL HGB 13.3 G/DL (12.0-16.0); CRITICAL VALUE NO; DRAW SITE LT RADIAL; LITER FLOW 3 L/M; NUMBER OF ARTERIAL PUNCTURES 1; OXYGEN DEVICE NASAL CANNULA; STAT NO; TEMP CORR TO 98.6; ULNAR PULSE PRESENT
--- NOTE | 2016-07-13 12:46 | HHI.PR ---
Subjective Subjective Notes PTD: 11 Patient is more lethargic today, it takes a deep sternal rub and loud voices to get the patient to respond minimally. She does not open her eyes when asked, but will follow commands such as squeezing hands, or showing 2 fingers. Objective Vitals/I&O Vital Signs Date Time Temp Pulse Resp B/P Pulse Ox O2 Delivery O2 Flow Rate FiO2 07/13/16 10:18 98 Nasal Cannula 3.00 07/13/16 08:01 98.7 96 18 133/77 Labs Laboratory Tests Test 07/13/16 07/13/16 05:42 12:18 White Blood Count 15.1 Red Blood Count 4.63 Hemoglobin 14.2 Hematocrit 42.0 Mean Corpuscular Volume 90.6 Mean Corpuscular Hemoglobin 30.6 Mean Corpuscular Hemoglobin 33.7 Concent Red Cell Distribution Width 13.3 Platelet Count 196 Mean Platelet Volume 8.0 Neutrophils (%) (Auto) 82.6 Lymphocytes (%) (Auto) 7.4 Monocytes (%) (Auto) 8.2 Eosinophils (%) (Auto) 1.1 Basophils (%) (Auto) 0.7 Neutrophils # (Auto) 12.5 Lymphocytes # (Auto) 1.1 Monocytes # (Auto) 1.2 Eosinophils # (Auto) 0.2 Basophils # (Auto) 0.1 CBC Comment AUTO DIFF Differential Comment AUTO DIFF CONFIRMED Sodium Level 144 Potassium Level 4.3 Chloride Level 104 Carbon Dioxide Level 31.8 Anion Gap 8 Blood Urea Nitrogen 23 Creatinine 0.53 Estimat Glomerular Filtration 118 Rate Random Glucose 116 Calcium Level 8.6 Magnesium Level 2.6 Blood Gas Puncture Site LT RADIAL Blood Gas Patient Temperature 98.6 Blood Gas HCO3 31 Blood Gas Base Excess 6.9 Blood Gas Oxygen Saturation 97 Arterial Blood pH 7.44 Arterial Blood Partial 47 Pressure CO2 Arterial Blood Partial 131 Pressure O2 Arterial Blood Oxygen Content 18.2 Arterial Blood 1.2 Carboxyhemoglobin Arterial Blood Methemoglobin 0.8 Blood Gas Hemoglobin 13.3 Oxygen Delivery Device NASAL CANNULA Blood Gas Liter Flow 3 Radiology Last Impressions Chest X-Ray 07/10/16 0600 Signed Impressions: Service Date/Time: June 05:32 - CONCLUSION: Improving right basilar density. Reynold Guillen MD Transcranial Doppler Study Limited 07/10/16 0000 Cancelled Impressions: Service Date/Time: June 09:18 - CONCLUSION: There are no findings to indicate vasospasm. Chapo Davis MD Transcranial Doppler Study Complete 07/10/16 0000 Signed Impressions: Service Date/Time: June 09:18 - CONCLUSION: There are no findings to indicate vasospasm. Chapo Davis MD Lower Extremity Ultrasound 07/10/16 0000 Signed Impressions: Service Date/Time: June 09:17 - CONCLUSION: No evidence of deep venous thrombosis within the lower extremities. Anthony So MD Cervical Spine MRI 07/08/16 0000 Signed Impressions: Service Date/Time: Friday, July 08, 2016 13:48 - CONCLUSION: No abnormalities are seen within the cervical spine. Fluid identified within the dependent portion of the sphenoid sinuses likely related to the patient's trauma.. Noemi Lozano MD Brain MRI 07/08/16 0000 Signed Impressions: Service Date/Time: Friday, July 08, 2016 13:48 - CONCLUSION: Stable appearance of right frontal parenchymal contusion, small bilateral subdural hematomas and scattered areas of subarachnoid hemorrhage. There is an area of restricted diffusion involving the posterior medial temporal lobes bilaterally consistent with a contrecoup injury. No evidence of midline shift or hydrocephalus.. Noemi Lozano MD Head CT 07/06/16 0000 Signed Impressions: Service Date/Time: Wednesday, July 06, 2016 04:30 - CONCLUSION: Stable appearance to multiple cortical hemorrhages, subdural blood, subarachnoid blood and skull fracture. Javon Mreida MD Abdomen X-Ray 07/06/16 0000 Signed Impressions: Service Date/Time: Wednesday, July 06, 2016 10:44 - CONCLUSION: Feeding tube across the GE junction and second portion of the duodenum. Jitendra Godoy MD FACR Thoracic Spine CT 07/02/16 1624 Signed Impressions: Service Date/Time: Saturday, July 02, 2016 16:40 - CONCLUSION: No acute bony injury in the thoracic spine Chapo Hicks MD Lumbar Spine CT 07/02/16 1624 Signed Impressions: Service Date/Time: Saturday, July 02, 2016 16:40 - CONCLUSION: No acute bony injury in the lumbosacral spine. Chapo Hicks MD Chest CT 07/02/161623 Signed Impressions: Service Date/Time: Saturday, July 02, 2016 16:40 - CONCLUSION: Bilateral posterior lower lobe consolidative changes, left worse than right. No evidence of acute mediastinal injury. Chapo Hicks MD Cervical Spine CT 07/02/161623 Signed Impressions: Service Date/Time: Saturday, July 02, 2016 16:32 - CONCLUSION: 1. No acute findings. Moderate degenerative change in the lower cervical spine. David Quispe MD Abdomen/Pelvis CT 07/02/161623 Signed Impressions: Service Date/Time: Saturday, July 02, 2016 16:40 - CONCLUSION: Negative CT scan abdomen and pelvis for acute traumatic injury. Jitendra Godoy MD FACR Narrative Exam GENERAL: This is a 56-year-old female in bed in no distress. SKIN: Warm and dry. HEAD: Atraumatic. Normocephalic. EYES: PERRLA. ENT: No nasal bleeding or discharge. Mucous membranes pink and moist. NECK: Trachea midline. No JVD. CARDIOVASCULAR: Regular rate and rhythm. RESPIRATORY: No accessory muscle use. Lungs are clear to auscultation. Breath sounds equal bilaterally. No distress or dyspnea. GASTROINTESTINAL: BS + x 4 quads. Abdomen soft, non-tender, nondistended. MUSCULOSKELETAL: Extremities without cyanosis, or edema. + peripheral pulses x 4 extremities. Warm with good capillary refill and sensation. MAEW. NEUROLOGICAL: Her eyes are closed, she does not verbalize. She will follow very simple commands, but this requires intense stimulation. A/P Problem List: (1) Subarachnoid hemorrhage (2) Subdural hemorrhage (3) Trauma (4) Closed head injury with loss of consciousness of unknown duration Assessment and Plan [place]: This is a 56-year-old female who was found down for an unknown period of time. Apparently a set of shelving fell down on her. GCS equals 3 in the field was decorticate posturing. She was managed with mechanical ventilation in the ICU, but has since been extubated and has transferred to the [facility] floor. PMHx; HTN INJURIES; RIGHT frontal skull fx RIGHT frontal SAH with punctate parenchymal hemorrhages (diffuse cerebral edema) Consults: Neurosurgery and Pastoral Diet: Jevity at 50 cc/hr = goal. Tolerating well with no residuals. Pulmonary: Encourage good pulmonary toileting. Pt is portraying an irregular neuro-type breathing. She will display a pattern of quick, shallow breaths followed by a regular period of normal breathing. This is causing metabolic alkalosis, as displayed on her ABG results. Do not want to give morphine at this time, as I feel it will sedate her even more and prevent obtaining an accurate neuro assessment daily. She will be monitored closely. PAIN Management: Tylenol. Ativan po PRN. Valproic acid. Activity: OOB to stretcher chair. PT and OT ordered. GI prophylaxis: Pepcid by mouth Bowel regimen: Colace and MOM. 0BM x 3 days. Intensified with bisacodyl TN. DVT prophylaxis: Mechanical VTE with SCDs. Chemical management contraindicated at this time due to SAH. Awaiting clearance from neurosurgery. HTN management: Lisinopril, Norvasc. DC Planning: Case management consulted for assistance with final discharge disposition. This is a workman's comp case. Case management is evaluating for [place] neuro rehabilitation versus [facility] for placement. Emotional support provided to patient and family at bedside and plan of care discussed. Plan of care discussed with RN at bedside. Patient is hemodynamically stable and being managed on the med/surg floor. The exam, history, and the medical decision-making described in the above note were completed with the assistance of the mid-level provider. I reviewed and agree with the findings presented. I attest that I had a [id number] encounter with the patient on the same day, and personally performed and documented my assessment and findings in the medical record. Linnea Cohen Jul 13, 2016 12:46 Manuel Quinn MD Jul 15, 2016 13:23
[2016-07-13] MEDS ORDERED: SODIUM CHLOR 0.9% 1000 ML INJ 1,000 ML IV ONE (23:15)
[2016-07-14] VITALS (24 sets, daily range): BP systolic 79–111; BP diastolic 48–62; PULSE 106–127; RESP 18–52; TEMP 97.5–102.7; O2SAT 96–100
[2016-07-14 00:31] LABS: AUTOMATED NEUTROPHIL # 18.6 TH/MM3 (1.8-7.7); BASOPHIL # 0.1 TH/MM3 (0-0.2); BASOPHIL % 0.4 % (0.0-2.0); EOSINOPHIL % 0.2 % (0.0-4.0); HEMATOCRIT 35.1 % (35.0-46.0); HEMO FLAGS DIFF FINAL; LYMPH % 4.9 % (9.0-44.0); LYMPHOCYTE # 1.1 TH/MM3 (1.0-4.8); MEAN CELL VOLUME 90.2 FL (80.0-100.0); MEAN CORPUSCULAR HEMOGLOBIN 30.5 PG (27.0-34.0); MEAN CORPUSCULAR HGB CONC 33.8 % (32.0-36.0); MONO % 8.4 % (0.0-8.0); NEUT % 86.1 % (16.0-70.0); PLATELET COUNT 268 TH/MM3 (150-450); RED CELL DISTRIBUTION WIDTH 13.1 % (11.6-17.2); WHITE BLOOD COUNT 21.7 TH/MM3 (4.0-11.0)
[2016-07-14] MEDS ORDERED: MIDAZOLAM HCL 5 MG/ML VIAL (1 ML) ONE (01:08)
--- NOTE | 2016-07-14 02:12 | HHI.CCPN ---
Subjective Remarks/Hospital Course The patient is a 56-year-old female that presented to the emergency department/[facility] [place] via [facility] as a trauma alert. Per medical history, reported by EMS the patient was found down on the ground, and in an industrial area, with shelving material that had fallen on her. The patient was unconscious for an undetermined time. Upon arrival of EMS the patient's GCS score 3. The patient was intubated prior to arrival by [facility] paramedics.A 7-0 endotracheal tube at 22 cm.at the lip. EMS reported that the laryngoscopic view patient had blood at the nares bilaterally and within the oropharynx. 07/14: Patient developed lower GI bleed with hypovolemic shock requiring levophed vasopressor support. Respiratory status is hampered by plentiful thick oral secretions and poor no cough or gag reflex presently. Sputum is foul. Objective Vital Signs Date Time Temp Pulse Resp B/P Pulse Ox O2 Delivery O2 Flow Rate FiO2 07/14/16 01:28 100 100 07/14/16 00:00 99.7 117 52 95/58 07/13/16 10:18 Nasal Cannula 3.00 Result Diagram: 07/14/16 0002 07/13/16 0542 Other Results Laboratory Tests Test 07/13/16 12:18 Blood Gas Puncture Site LT RADIAL Blood Gas Patient Temperature 98.6 Blood Gas HCO3 31 mmol/L (22-26) Blood Gas Base Excess 6.9 mmol/L (-2-2) Blood Gas Oxygen Saturation 97 % (90-100) Arterial Blood pH 7.44 (7.380-7.420) Arterial Blood Partial 47 mmHg (38-42) Pressure CO2 Arterial Blood Partial 131 mmHg Pressure O2 (61-120) Arterial Blood Oxygen Content 18.2 Vol % (12.0-20.0) Arterial Blood 1.2 % (0-4) Carboxyhemoglobin Arterial Blood Methemoglobin 0.8 % (0-2) Blood Gas Hemoglobin 13.3 G/DL (12.0-16.0) Oxygen Delivery Device NASAL CANNULA Blood Gas Liter Flow 3 L/M Imaging Last 24 hours Impressions Chest X-Ray 07/04/16 0600 Signed Impressions: Service Date/Time: Monday, July 04, 2016 05:46 - CONCLUSION: Persistent left lower lung infiltrates. Lines and tubes stable. Javon Merida MD Last 24 hours Impressions Transcranial Doppler Study Complete 07/03/16 0600 Signed Impressions: Service Date/Time: June 08:17 - CONCLUSION: 1. Limited examination. The lindegaard ratio cannot be calculated as the distal carotids could not be assessed. Please see above. 2. The examination does demonstrate an elevated TAMM in the right MCA circulation. This is a range which would suggest a mild degree of vasospasm in the right MCA distribution. The peak pulsatility index is mildly elevated in this area as well. The remainder of the time averaged maximal velocities are within normal limits. Temo Godoy MD Head CT 07/03/16 0000 Signed Impressions: Service Date/Time: June 04:43 - CONCLUSION: The only interval change has been the appearance of a small intraparenchymal hemorrhage within the right frontal lobe. Subarachnoid hemorrhage and diffuse cerebral edema are stable. Javon Roach Jr., MD Chest X-Ray 07/03/16 0000 Signed Impressions: Service Date/Time: June 06:02 - CONCLUSION: Mild left basilar atelectasis. Javon Roach Jr., MD Thoracic Spine CT 07/02/161623 Signed Impressions: Service Date/Time: Saturday, July 02, 2016 16:40 - CONCLUSION: No acute bony injury in the thoracic spine Chapo Hicks MD Lumbar Spine CT 07/02/161623 Signed Impressions: Service Date/Time: Saturday, July 02, 2016 16:40 - CONCLUSION: No acute bony injury in the lumbosacral spine. Chapo Hicks MD Head CT 07/02/161623 Signed Impressions: Service Date/Time: Saturday, July 02, 2016 16:32 - CONCLUSION: None drainable intracranial hemorrhage. Diffuse cerebral edema. Skull fracture. Chapo Hicks MD Chest X-Ray 07/02/161623 Signed Impressions: Service Date/Time: Saturday, July 02, 2016 16:10 - CONCLUSION: Satisfactory trauma chest appearance. Chapo Hicks MD Chest CT 07/02/161623 Signed Impressions: Service Date/Time: Saturday, July 02, 2016 16:40 - CONCLUSION: Bilateral posterior lower lobe consolidative changes, left worse than right. No evidence of acute mediastinal injury. Chapo Hicks MD Cervical Spine CT 07/02/16 1624 Signed Impressions: Service Date/Time: Saturday, July 02, 2016 16:32 - CONCLUSION: 1. No acute findings. Moderate degenerative change in the lower cervical spine. David Quispe MD Objective Remarks GENERAL: Unresponsive, poor ventilatory effort. HEAD: Resolving periorbital edema left. Normocephalic. EYES: Pupils 2 mm, reactive. NECK: Trachea midline. Obstructive respiratory sounds. CARDIOVASCULAR: Regular rate and rhythm, no m,r. No JVD. RESPIRATORY: Upper airway secretions, sonorous rhonchi, weal effort. GASTROINTESTINAL: Abdomen soft, nontender nondistended, no tenderness to palpation MUSCULOSKELETAL: Tepid, adequately perfused. NEUROLOGICAL: Unresponsive. Rapid jaw movements to noxious stimulation. Date of Insertion: Jul 02, 2016 Line: Central Venous Catheter Side: Right Location: Subclavian A/P Assessment and Plan Neuro Traumatic brain injury with an unknown component of hypoxia -Aggressive pulmonary toilet Cardiovascular -Minimal sedation to allow vent synchrony. GI -Start Golytely through dobhoff. GI consult in a.m. -Continue Villar catheter for accurate output ID -Sputum C&S FEN -Continue to monitor Replace Select electrolytes as needed Overall impression: Critically ill with hypovolemic shock and acute lower GI bleed. Requires intubation and mechanical ventilation for respiratory failure associated with inability to clear secretions. Seen at request of Dr. Quinn. Critical care 39 mins aside from procedures. Ruben Lira MD Jul 14, 2016 02:12
[2016-07-14] MEDS ORDERED: PEG (High)/E-LYTE SOLN 4000 ML BTL PO ONE (02:15)
[2016-07-14] MEDS ORDERED: Vancomycin Consult Pharmacy 1 EA OTHER SCH (02:15)
--- NOTE | 2016-07-14 02:25 | RADRPT ---
EXAM DATE/TIME: 07/14/2016 02:05 [place] COMPARISON: CHEST SINGLE AP, July 10, 2016, 5:32. INDICATIONS : Evaluate ETT and central line placement. MEDICAL HISTORY : None. SURGICAL HISTORY : None. ENCOUNTER: Initial PAIN SCORE: 6/10 LOCATION: Bilateral chest FINDINGS: The endotracheal tube is present in good position with tip 3-4 cm above the katharine. A weighted feedin g tube is present. A left subclavian central line is present with tip overlying SVC. There has been r emoval a right central line. There is no evidence of pneumothorax or other complication. Lungs are sy mmetrically aerated and grossly clear. CONCLUSION: Satisfactory support line and tube positioning. No evidence of complication. Chapo Hicks MD on July 14, 2016 at 2:22 Board Certified Radiologist. This report was verified electronically.
--- NOTE | 2016-07-14 02:25 | PD.PROCEDR ---
Procedure Note Procedure DX: Respiratory Failure, Hypovolemic Shock OP: 1. Orotracheal Intubation (23355) 2. Insertion CVL ([id number]) Procedure; Bag mask ventilation.Large amount of thick, foul secretions suctioned from hypopharynx. No sedation required. Intubated orally with 7.5 tube. Position confirmed with CO2 detection, breath sounds, sats 100%. Left chest prepped and draped. Left subclavian vein cannulated and wire easily advanced. Catheter passed over wire to 17 cm. Lumens aspirated and flushed. Dressing applied. CXR with ET tube and line in good position, suitable for use. Ruben Lira MD Jul 14, 2016 02:25
[2016-07-14 02:30] LABS: BLOOD GAS VENOUS HCO3 27 mmol/L (22-26); BLOOD GAS VENOUS O2 CONTENT 8.8 Vol % (9.0-17.0); BLOOD GAS VENOUS O2 HGB SAT 60 % (70-76); BLOOD GAS VENOUS PCO2 43 mmHg (44-48); BLOOD GAS VENOUS PO2 35 mmHg (35-40); BLOOD GAS VENOUS pH 7.42 (7.360-7.400); CRITICAL VALUE NO; OXYGEN DEVICE VENTILATOR; TEMP CORR TO 98.6
[2016-07-14 02:31] LABS: DRAW SITE CENTRAL LINE; FIO2 100 %; STAT NO; VENT SETTINGS PRVC/R20/500/1.0/+5
[2016-07-14] MEDS ORDERED: VANCOMYCIN INJ 2,000 MG in SODIUM CHLORID 0.9% 500 ML INJ 500 ML IV ONE (03:30)
[2016-07-14] MEDS: PIPERACIL-TAZO 3.375 GM PREMIX 50 ML IV SCH ×3 (03:51→21:36)
[2016-07-14] MEDS ORDERED: SODIUM CHLOR 0.9% 1000 ML INJ 1,000 ML IV ONE (04:45)
[2016-07-14 05:53] LABS: HEMATOCRIT 28.8 % (35.0-46.0); REVIEW FLAG FINAL
[2016-07-14 05:55] LABS: APTT (PATIENT) 22.3 SEC (24.3-30.1); INTERNATIONAL NORMALIZED RATIO 1.1 RATIO
[2016-07-14 05:58] LABS: BLOOD GAS BASE EXCESS 2.4 mmol/L (-2-2); BLOOD GAS HCO3 26 mmol/L (22-26); BLOOD GAS METHEMOGLOBIN 0.8 % (0-2); BLOOD GAS O2 HGB SATURATION 98 % (90-100); BLOOD GAS PCO2 39 mmHg (38-42); BLOOD GAS PO2 187 mmHg (61-120); BLOOD GAS TOTAL HGB 9.1 G/DL (12.0-16.0); TEMP CORR TO 98.6
[2016-07-14 05:59] LABS: CRITICAL VALUE NO; DRAW SITE RT RADIAL; FIO2 50 %; NUMBER OF ARTERIAL PUNCTURES 1; OXYGEN DEVICE VENTILATOR; VENT SETTINGS PRVC/14/500/1.0/+5
[2016-07-14 06:00] LABS: STAT NO; ULNAR PULSE PRESENT
[2016-07-14] MEDS: NOREPINEPHRINE 4 MG/D5W 250 ML IV SCH ×2 (07:20→21:25)
[2016-07-14] MEDS ORDERED: SODIUM CHLOR 0.9% 250 ML INJ 250 ML IV ONE ×2 (07:45→15:00)
[2016-07-14] MEDS: FREE WATER DOB SCH ×3 (08:00→16:00)
[2016-07-14] MEDS: CHLORHEXIDINE 0.12% (ORAL KIT) 15 ML CUP MT SCH ×2 (08:00→21:36)
[2016-07-14] MEDS: DOCUSATE SODIUM 100 MG CAP PO SCH ×2 (08:04→21:00)
[2016-07-14] MEDS: MAGNESIUM HYDROXIDE SUSP 30 ML CUP PO SCH (08:04)
[2016-07-14] MEDS: FUROSEMIDE 20 MG TAB PO SCH (08:04)
[2016-07-14] MEDS: VALPROIC ACID 250 MG CAP PO SCH ×2 (08:04→21:36)
[2016-07-14] MEDS: LISINOPRIL 20 MG TAB PO SCH (08:05)
--- NOTE | 2016-07-14 08:44 | PD.CONS ---
HPI History of Present Illness This is a 56 year old old female that presented to the emergency department via [facility] as a trauma alert. Per medical history,reported by EMS the patient was found down on the ground, and in an industrial area, with shelving material that had fallen on her. She was found to have subarachnoid hemorrhage and hypoxemic component. Subsequently,she was intubated then later extubated and transferred to the floor. According to nurse, she never fully recovered, she remained obtunded and was receiving TF through [facility]. Last night, Patient developed lower GI bleed with hypovolemic shock requiring Levophed vasopressor support, and respiratory distress associated with thick oral secretions and poor no cough or gag reflex. Currently, patient is intubated , still on Levophed, one unit of blood pending, she has a rectal bag with bright red blood and clots. According to nurse, the abdomen alternates between rigid and soft. There was also a large bloody BM noted on the bed. She has been receiving Golytley in preparation for a colonoscopy. Hgb last night was 9.6 this is a significant drop from 14.2 on (07/13/16). She was started on PPI. (Cricket Bai) PFSH Past Medical History Unable to obtain due to patient condition Past Surgical History Unable to obtain due to patient condition (Cricket Bai) Coded Allergies: Flagyl (Verified Allergy, Mild, NAUSEA, 04/30/08) Medications Current Medications Medications (Trade) Dose Ordered Sig/Leigha Route Start Time Stop Time Status Last Admin (NS Flush) 2 ml UNSCH PRN IVF 07/02/16 17:30 07/10/16 08:45 (Tylenol) 650 mg Q6H PRN PO 07/02/16 17:30 07/11/16 15:55 (Vasotec Inj) 1.25 mg Q8H PRN IV 07/02/16 17:30 07/07/16 11:47 (Zofran Inj) 4 mg Q6H PRN IV 07/02/16 17:30 (Colace) 100 mg BID PO 07/02/16 21:00 07/13/16 21:13 (Milk Of Magnesia Liq) 30 ml DAILY PO 07/04/16 09:00 07/13/16 09:00 (Prinivil) 20 mg DAILY PO 07/06/16 15:15 07/13/16 09:00 (Norvasc) 10 mg DAILY PO 07/06/16 15:15 07/13/16 09:00 (Free Water) 200 ml Q8H 07/07/16 16:00 07/13/16 16:00 (Depakene) 250 mg Q12HR PO 07/08/16 10:15 07/13/16 21:13 (Lasix) 20 mg DAILY PO 07/10/16 11:00 07/13/16 09:00 (Ativan) 0.5 mg TID PRN PO 07/10/16 12:15 07/10/16 12:13 (Apresoline Inj) 10 mg Q6H PRN IV PUSH 07/12/16 10:00 Chlorhexidine Gluconate 15 ml 15 ml BID@08,20 MT 07/14/16 08:00 07/14/16 08:00 Propofol 100 ml @ 0 mls/hr TITRATE IV 07/14/16 02:15 Pharmacy Profile Note 0 ml @ 0 mls/hr UNSCH OTHER 07/14/16 02:15 Piperacillin Sod/ Tazobactam Sod 50 ml @ 100 mls/hr Q8H IV 07/14/16 03:00 07/14/16 03:51 Norepinephrine Bitartrate 250 ml @ 0 mls/hr TITRATE IV 07/14/16 07:15 07/14/16 07:20 Sodium Chloride 250 ml @ 15 mls/hr ONCE ONCE IV 07/14/16 07:45 07/15/16 00:24 07/14/16 07:45 (Protonix Inj/NS Inj) 100 ml @ 10 mls/hr Q10H IV 07/14/16 10:00 Family History Unable to obtain due to patient condition Social History Unable to obtain due to patient condition (Cricket Bai) Review of Systems Gastrointestinal: COMPLAINS OF: Bloody stools ROS Unable to obtain due to patient condition (Cricket Bai) GI Exam Vitals I&O Vital Signs Date Time Temp Pulse Resp B/P Pulse Ox O2 Delivery O2 Flow Rate FiO2 07/14/16 07:46 100 35 07/14/16 07:00 100 Mechanical Ventilator 50 07/14/16 07:00 121 07/14/16 06:05 100 40 07/14/16 05:53 40 07/14/16 04:00 98.0 114 18 104/59 100 07/14/16 04:00 114 07/14/16 03:46 100 50 07/14/16 02:49 99 50 07/14/16 02:20 100 100 07/14/16 01:28 100 100 07/14/16 01:24 100 07/14/16 00:45 84 Non-Rebreather 15.00 07/14/16 00:45 94 Nasal Cannula 4.00 07/14/16 00:00 99.7 117 52 95/58 96 07/13/16 20:00 96.8 113 20 151/72 97 07/13/16 16:00 99.5 93 20 124/72 98 07/13/16 12:00 99.0 97 20 126/72 100 07/13/16 10:18 98 Nasal Cannula 3.00 I/O 07/13/16 07/13/16 07/13/16 07/14/16 07/14/16 07/14/16 07:00 15:00 23:00 07:00 15:00 23:00 Intake Total 5334 ml Output Total 550 ml Balance 4784 ml Intake Oral 2620 ml IV Total 2714 ml Output Urine Total 500 ml Stool Total 50 ml # Voids 4 1 # Bowel Movements 2 0 Imaging Last Impressions Chest X-Ray 07/14/16 0000 Signed Impressions: Service Date/Time: Thursday, July 14, 2016 02:05 - CONCLUSION: Satisfactory support line and tube positioning. No evidence of complication. Chapo Hicks MD Transcranial Doppler Study Limited 07/10/16 0000 Cancelled Impressions: Service Date/Time: June 09:18 - CONCLUSION: There are no findings to indicate vasospasm. Chapo Davis MD Transcranial Doppler Study Complete 07/10/16 0000 Signed Impressions: Service Date/Time: June 09:18 - CONCLUSION: There are no findings to indicate vasospasm. Chapo Davis MD Lower Extremity Ultrasound 07/10/16 0000 Signed Impressions: Service Date/Time: June 09:17 - CONCLUSION: No evidence of deep venous thrombosis within the lower extremities. Anthony So MD Cervical Spine MRI 07/08/16 0000 Signed Impressions: Service Date/Time: Friday, July 08, 2016 13:48 - CONCLUSION: No abnormalities are seen within the cervical spine. Fluid identified within the dependent portion of the sphenoid sinuses likely related to the patient's trauma.. Noemi Lozano MD Brain MRI 07/08/16 0000 Signed Impressions: Service Date/Time: Friday, July 08, 2016 13:48 - CONCLUSION: Stable appearance of right frontal parenchymal contusion, small bilateral subdural hematomas and scattered areas of subarachnoid hemorrhage. There is an area of restricted diffusion involving the posterior medial temporal lobes bilaterally consistent with a contrecoup injury. No evidence of midline shift or hydrocephalus.. Noemi Lozano MD Head CT 07/06/16 0000 Signed Impressions: Service Date/Time: Wednesday, July 06, 2016 04:30 - CONCLUSION: Stable appearance to multiple cortical hemorrhages, subdural blood, subarachnoid blood and skull fracture. Javon Merida MD Abdomen X-Ray 07/06/16 0000 Signed Impressions: Service Date/Time: Wednesday, July 06, 2016 10:44 - CONCLUSION: Feeding tube across the GE junction and second portion of the duodenum. Jitendra Godoy MD FACR Thoracic Spine CT [id number]/02/161623 Signed Impressions: Service Date/Time: Saturday, July 02, 2016 16:40 - CONCLUSION: No acute bony injury in the thoracic spine Chapo Hicks MD Lumbar Spine CT [id number]/[id number] Signed Impressions: Service Date/Time: Saturday, July 02, 2016 16:40 - CONCLUSION: No acute bony injury in the lumbosacral spine. Chapo Hicks MD Chest CT [id number]/[id number] Signed Impressions: Service Date/Time: Saturday, July 02, 2016 16:40 - CONCLUSION: Bilateral posterior lower lobe consolidative changes, left worse than right. No evidence of acute mediastinal injury. Chapo Hicks MD Cervical Spine CT [id number]/[id number] Signed Impressions: Service Date/Time: Saturday, July 02, 2016 16:32 - CONCLUSION: 1. No acute findings. Moderate degenerative change in the lower cervical spine. David Quispe MD Abdomen/Pelvis CT [id number]/02/[id number] Signed Impressions: Service Date/Time: Saturday, July 02, 2016 16:40 - CONCLUSION: Negative CT scan abdomen and pelvis for acute traumatic injury. Jitendra Godoy MD FACR Laboratory Test 07/13/16 07/14/16 07/14/16 07/14/16 12:18 00:02 02:09 05:10 Blood Gas Puncture Site LT RADIAL CENTRAL LINE Blood Gas Patient Temperature 98.6 98.6 Blood Gas HCO3 31 mmol/L Blood Gas Base Excess 6.9 mmol/L Blood Gas Oxygen Saturation 97 % Arterial Blood pH 7.44 Arterial Blood Partial 47 mmHg Pressure CO2 Arterial Blood Partial 131 mmHg Pressure O2 Arterial Blood Oxygen Content 18.2 Vol % Arterial Blood 1.2 % Carboxyhemoglobin Arterial Blood Methemoglobin 0.8 % Blood Gas Hemoglobin 13.3 G/DL Oxygen Delivery Device NASAL CANNULA VENTILATOR Blood Gas Liter Flow 3 L/M White Blood Count 21.7 TH/MM3 Red Blood Count 3.90 MIL/MM3 Hemoglobin 11.9 GM/DL 9.6 GM/DL Hematocrit 35.1 % 28.8 % Mean Corpuscular Volume 90.2 FL Mean Corpuscular Hemoglobin 30.5 PG Mean Corpuscular Hemoglobin 33.8 % Concent Red Cell Distribution Width 13.1 % Platelet Count 268 TH/MM3 Mean Platelet Volume 8.3 FL Neutrophils (%) (Auto) 86.1 % Lymphocytes (%) (Auto) 4.9 % Monocytes (%) (Auto) 8.4 % Eosinophils (%) (Auto) 0.2 % Basophils (%) (Auto) 0.4 % Neutrophils # (Auto) 18.6 TH/MM3 Lymphocytes # (Auto) 1.1 TH/MM3 Monocytes # (Auto) 1.8 TH/MM3 Eosinophils # (Auto) 0.0 TH/MM3 Basophils # (Auto) 0.1 TH/MM3 CBC Comment DIFF FINAL Differential Comment Venous Blood pH 7.42 Venous Blood Partial Pressure 43 mmHg CO2 Venous Blood Partial Pressure 35 mmHg O2 Venous Blood HCO3 27 mmol/L Venous Blood Oxygen Saturation 60 % Venous Blood Oxygen Content 8.8 Vol % Venous Blood Base Excess 3.0 mmol/L Blood Gas Ventilator Setting PRVC/R20/500/1.0/+5 Blood Gas Inspired Oxygen 100 % Prothrombin Time 12.0 SEC Prothromb Time International 1.1 RATIO Ratio Activated Partial 22.3 SEC Thromboplast Time Lactic Acid Level 0.9 mmol/L Test 07/14/16 05:35 Blood Gas Puncture Site RT RADIAL Blood Gas Patient Temperature 98.6 Blood Gas HCO3 26 mmol/L Blood Gas Base Excess 2.4 mmol/L Blood Gas Oxygen Saturation 98 % Arterial Blood pH 7.45 Arterial Blood Partial 39 mmHg Pressure CO2 Arterial Blood Partial 187 mmHg Pressure O2 Arterial Blood Oxygen Content 13.0 Vol % Arterial Blood 1.0 % Carboxyhemoglobin Arterial Blood Methemoglobin 0.8 % Blood Gas Hemoglobin 9.1 G/DL Oxygen Delivery Device VENTILATOR Blood Gas Ventilator Setting PRVC/14/500/1.0/+5 Blood Gas Inspired Oxygen 50 % Date/Time Procedure Status Source Growth 07/14/16 01:30 Gram Stain Received Sputum Endotracheal Pending 07/14/16 01:30 Sputum Culture Received Sputum Endotracheal Pending Physical Examination HEENTnormocephalic; atraumatic; CHEST: ventilated, poor respiration effort CARDIAC: Regular rate and rhythm with no murmur gallop or rubs. ABDOMEN: Soft, nondistended, nontender; no hepatosplenomegaly; bowel sounds are present in all four quadrants. EXTREMITIES: No clubbing, cyanosis, or edema. SKIN: Normal; no rash; no jaundice. 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 Currently, patient is intubated, still on Levophed, one unit of blood pending, she has a rectal bag with bright red blood and clots. According to nurse, the abdomen alternates between rigid and soft. There was also a large bloody BM noted on the bed. She has been receiving Golytley in preparation for a colonoscopy. Hgb last night was 9.6 this is a significant drop from 14.2 on (), PPI - Hypovolemic shock- Due to acute GI bleed, Levophed - Respiratory failure- Per CCM, intubated - subarachnoid hemorrhage and hypoxemia- Patient was a trauma alert. Per medical history,reported by EMS the patient was found down on the ground, and in an industrial area, with shelving material that had fallen on her. She was found to have subarachnoid hemorrhage and hypoxemic component. Subsequently,she was intubated then later extubated and transferred to the floor. According to nurse, she never fully recovered, she remained obtunded and was receiving TF through [facility]. Plan: - Stat h&h - Transfuse as needed to keep hgb > 8 - Patient is very high risk, but EGD/colonoscopy planned for today on emergent basis due to active bleed with blood clots - Cont. PPI - Notify GI for active bleed - Supportive care - Patient seen and examined by Dr. Sutton and myself and this note is written on his behalf. (Cricket Bai) Physician Comments Seen and examined with SCANNING TECH, active gi bleeding. Emergent egd/colonoscopy planned for today. Monitor labs, transfuse as needed. Discussed with pts. and nurse at bedside. Thank you (Regulo Sutton MD) Cricket Bai Jul 14, 2016 08:44 Regulo Sutton MD Jul 14, 2016 14:09
[2016-07-14 09:32] LABS: HEMATOCRIT 20.4 % (35.0-46.0)
[2016-07-14] MEDS: PANTOPRAZOLE INJ 80 MG in SODIUM CHLORIDE 0.9% INJ 100 ML IV SCH ×2 (10:00→21:37)
--- NOTE | 2016-07-14 12:05 | HHI.PR ---
Neuropsych Emotional Emotional: UnabletoAssess: Emotional, Anxious/Fearful, Depressed/Sad, Hostile/ Resentful, Irritable/Angry/Frustrate, Labile, Constricted/Blunted Behavior Behavior: Unable to Asses: Behavior, Coping/Acceptance, Cooperative w/ Treatment, Motivation, Frustration Tolerance/[place], Impulsive/Agitated, Suicidal/ Homicidal Risk Cognitive Cognitive: Unable to Asses: Cognitive, Attention/Concentration, Confused/ Orientation, Insight/Awareness, Judgement/Problem-Solving, Memory Psychosocial Psychosocial: Unable to Asses: Psychosocial, Family/Other Adjustment, Realistic Expectation, Self-Esteem/Confidence Progress Notes/Response to Tx Contents of Sessions: Level of Consciousness Time with Patient: 15 minutes Premorbid psychological status Premorbid Cognitive, Emotional and Behavioral Status: Stable. 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 The patient has no psychiatric difficulties , as described above. Substance abuse history includes not significant. Behavioral Reactions of Patient and Family/Support System: Stable. The patient s family is experiencing ongoing issues of adjustment given the nature of the injury, and this aspect of recovery will require ongoing monitoring. I spoke at length with the patient's brother, who indicated good understanding of his sister's course of recovery. Emotional/Behavioral Status of Patient and Family/Support System: Deferred. Pertinent issues, if appropriate to this patients clinical care, are described in detail above. Maximizing acute care outcome It is recommended that the patient be monitored for emergent behavioral impulsivity as the medical condition evolves. This patients neuropathological challenges may limit their rehabilitation potential going forward, and these challenges will require specialized therapeutic skills to maximize outcome. It is understood that any possible underlying anoxic/hypoxic injury may have been overstated, based on reports from the patient's brother. Anticipated Problems Ongoing areas of concern will include behavioral impulsivity, lack of insight and judgment, which is expected to improve with time and treatment. Presently , the patient is preconscious. Treatment Plan This clinician will continue to follow with you throughout the course of this patients rehabilitation treatment, and I will be available to meet with the patients family/support system to facilitate their understanding and the ongoing care of their family member. The goals of neuropsychological intervention shall be both educational and supportive to the family/support system as is deemed clinically appropriate. [facility] Level: I:No response-total assistance Impression This patient suffered a severe traumatic brain injury although it is not understood that any anoxic/hypoxic injury may have been overstated. Diagnosis: Progress Note Narrative Ongoing follow-up of patient, who apparently experienced a medical complication. Patient was seen in room with the trauma rounding team. She was unconscious and non-responsive. I will continue to follow with the team. Liborio Hitchcock PhD Jul 14, 2016 12:04 pm
[2016-07-14 13:09] LABS: HEMATOCRIT 24.5 % (35.0-46.0); MEAN CELL VOLUME 89.4 FL (80.0-100.0); MEAN CORPUSCULAR HEMOGLOBIN 30.4 PG (27.0-34.0); MEAN CORPUSCULAR HGB CONC 34.1 % (32.0-36.0); PLATELET COUNT 146 TH/MM3 (150-450); RED BLOOD COUNT 2.74 MIL/MM3 (4.00-5.30); RED CELL DISTRIBUTION WIDTH 13.7 % (11.6-17.2); REVIEW FLAG FINAL; WHITE BLOOD COUNT 23.9 TH/MM3 (4.0-11.0)
[2016-07-14] MEDS ORDERED: PROPOFOL 200 MG/20 ML AMP IV ONE (14:27)
--- NOTE | 2016-07-14 15:14 | HHI.CCPN ---
Subjective Brief History The patient is a 56-year-old female that presented to the emergency department/[facility] [place] via [facility] as a trauma alert. Per medical history, reported by EMS the patient was found down on the ground, and in an industrial area, with shelving material that had fallen on her. The patient was unconscious for an undetermined time. Upon arrival of EMS the patient's GCS score 3. The patient was intubated prior to arrival by [facility] paramedics. A 7-0 endotracheal tube at 22 cm.at the lip. EMS reported that the laryngoscopic view patient had blood at the nares bilaterally and within the oropharynx. EMS reported that the had a difficult airway, very anterior. Patient did receive 2 doses of etomidate and 1 dose of succinylcholine by EMS in the field, prior to arrival. The patient then received Rocuronium upon arrival. Patient was found to have the subarachnoid and intraparenchymal hemorrhage mainly of the right frontal areas of brain. In addition patient may have suffered the hypoxic or anoxic brain injury for undetermined period of time 24 Hour Review/Hospital Course Patient was initially intubated and ventilated and over the last 24 hours has gradually improved Patient was extubated last night She had this point moves all 4 extremities tries to open left thigh but does not follow any commands Based on all of the above patient may remain extubated but I would not be surprised if patient required reintubation at some point should she develop significant secretions and there would be a danger of compromised airway 07/06/16 Patient neurologically slightly improved Did not open is yet however does follow some commands and squeezes hand when asked to Moves all 4 extremities Arlette Coma Scale about 10 07/07/16 Lethargic, follows commands Secretions improved Period of hyperventilation and tachycardia, resolved with IV Morphine 07/08/16 Obtunded, responds to sternal rub Periods of tachypnea overnight MRI brain today 07/09/16 Patient slightly more awake and purposeful. Follows commands and squeezes hand Repeat brain MRI done Patient will transfer out of the ICU today Discussed case with Dr. Garcias 07/10/16 Patient continues to be lethargic and have periods of tachypnea and tachycardia Follows commands 4 Ultrasound of bilateral lower extremities negative for DVT 07/14/16 Patient with traumatic brain contusion and bleeding was transferred to the floor several days ago and developed acute GI hemorrhage overnight Patient was transferred to ICU resuscitated received 4 units of blood and additional 2 units at this time Abdomen is soft hypoactive bowel sounds Blood is fairly fresh and there is very little question my mind that this is a diverticular bleed originating from the left side of the colon Colonoscopy however was not successful due to month blood no bleeder could be visualized In face of active bleeding we'll do angiogram in radiology and see if we can localize the bleed 85-90% of these bleeds will stop spontaneously with adequate therapy and supplementation with blood and blood products. Only about 10% of patients will require surgery on emergency basis but it is clearly helpful if not essential to know the site of bleeding in order to remove the correct hemicolon. In patients will continue to bleed and bleeding site cannot be visualized usually total abdominal colectomy is indicated Objective Vital Signs Date Time Temp Pulse Resp B/P Pulse Ox O2 Delivery O2 Flow Rate FiO2 07/14/16 12:53 100 50 07/14/16 12:00 99.8 112 18 107/62 07/14/16 07:00 Mechanical Ventilator 07/14/16 00:45 15.00 Result Diagram: 07/14/16 1253 07/13/16 0542 Other Results Laboratory Tests Test 07/14/16 07/14/16 02:09 05:35 Blood Gas Puncture Site CENTRAL LINE RT RADIAL Blood Gas Patient Temperature 98.6 98.6 Venous Blood pH 7.42 (7.360-7.400) Venous Blood Partial Pressure 43 mmHg (44-48) CO2 Venous Blood Partial Pressure 35 mmHg (35-40) O2 Venous Blood HCO3 27 mmol/L (22-26) Venous Blood Oxygen Saturation 60 % (70-76) Venous Blood Oxygen Content 8.8 Vol % (9.0-17.0) Venous Blood Base Excess 3.0 mmol/L (-2-2) Oxygen Delivery Device VENTILATOR VENTILATOR Blood Gas Ventilator Setting PRVC/R20/500/1.0/+5 PRVC/14/500/1.0/+5 Blood Gas Inspired Oxygen 100 % 50 % Blood Gas HCO3 26 mmol/L (22-26) Blood Gas Base Excess 2.4 mmol/L (-2-2) Blood Gas Oxygen Saturation 98 % (90-100) Arterial Blood pH 7.45 (7.380-7.420) Arterial Blood Partial 39 mmHg (38-42) Pressure CO2 Arterial Blood Partial 187 mmHg Pressure O2 (61-120) Arterial Blood Oxygen Content 13.0 Vol % (12.0-20.0) Arterial Blood 1.0 % (0-4) Carboxyhemoglobin Arterial Blood Methemoglobin 0.8 % (0-2) Blood Gas Hemoglobin 9.1 G/DL (12.0-16.0) Imaging Last 24 hours Impressions Chest X-Ray 07/14/16 0000 Signed Impressions: Service Date/Time: Thursday, July 14, 2016 02:05 - CONCLUSION: Satisfactory support line and tube positioning. No evidence of complication. 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 SKIN: Warm and dry. Erythema noted on chest. HEAD: Normocephalic. EYES: PERRL. ENT: No nasal bleeding or discharge. Mucous membranes pink and moist. Left nare NG tube in place. NECK: Trachea midline. No JVD. CARDIOVASCULAR: Regular rate and rhythm. RESPIRATORY: No accessory muscle use. Lungs clear and diminished to auscultation. Breath sounds equal bilaterally. GASTROINTESTINAL: Abdomen soft, non-tender, nondistended. + BS. F/C in place. MUSCULOSKELETAL: Extremities without cyanosis, generalized edema noted. No obvious deformities. NEUROLOGICAL: Lethargic, nonverbal. Follows commands 4. NEUROLOGICAL: Valporic acid F/U head CT 07/06 stable IV Keppra discontinued, no seizure activity noted 8 days Ativan TID PRN agitation Neurosurgery following MRI brain 07/09- multiple cerebral contusions diffuse cortical and left midbrain MRI cervical spine 07/09- negative HOB elevated > 30 degrees CARDIOVASCULAR: HR = sinus rhythm. HR = 95-120 BPM. BP = stable PMHx: HTN Scheduled Norvasc, hydralazine, lisinopril and Vasotec PRN Added 20 mg Lasix daily BLE ultrasound negative for DVT Follow CMP - Electrolyte protocol in place for replacement. RESPIRATORY: On 3L nasal cannula Tachypneic Continue to monitor closely for hypoxemia. Pulmonary toilet - L&S. Bronchodilators - Duonebs q2H PRN 07/10 CXR improving right basilar density Labs tomorrow Chest X-Ray PRN GASTROINTESTINAL: Diet - Jevity 1.5 @ goal 50 mL/H with 200 mL free water flushes q6H, tolerating well Bowel regimen - Colace and MOM. LBM 07/10 RENAL / URINARY: I&O +807 BUN / creat stable Villar - in place to bedside drainage bag ENDOCRINE: BGM -stable HEMATOLOGY: H&H: 12.8 / 37.7 Continue to monitor for signs and symptoms of bleeding. Transfuse for < 7.0 Monitor patient for any bleeding complications. INFECTIOUS DISEASE: Follow CBC WBC 12.0 T-max 100.1 07/03: Blood, urine and sputum cultures negative Administer antipyretics for temp as needed. Discontinue central line and obtain PIV Invasive lines: R SC TLC 07/02 Villar 07/02 PROPHYLAXIS: GI - famotidine DVT - Mechanical VTE with SCDs. Chemical management contraindicated due to ICH SKIN: Warm / Dry ACTIVITY: Status -OOB to cardiac chair PT and OT evaluating. CASE MANAGEMENT: Consulted for assist with DC planning. Placement - disposition will need inpatient rehabilitation specializes in neuro injuries. Plan of care discussed with RN and family at bedside. Patient has transfer to Med/Surg floor. Trauma surgery team will round daily and evaluate patient and adjust the treatment plan. Attestation The exam, history, and the medical decision-making described in the above note were completed with the assistance of the mid-level provider. I reviewed and agree with the findings presented. I attest that I had a [id number] encounter with the patient on the same day, and personally performed and documented my assessment and findings in the medical record. Critical care time 60 minutes. Saul Kuo MD Jul 14, 2016 15:14
[2016-07-14] MEDS: PROPOFOL 1000 MG/100 ML INJ 100 ML IV SCH (15:15)
[2016-07-14] MEDS ORDERED: VANCOMYCIN INJ 1,250 MG in SODIUM CHLOR 0.9% 250 ML INJ 250 ML IV SCH (16:00)
[2016-07-14] MEDS ORDERED: IODIXANOL 320 MG/ML 50 ML VIAL (for RAD SPEC) I-ARTERIAL ONE (17:07)
--- NOTE | 2016-07-14 17:22 | PD.RAD ---
Post Procedure Progress Note Pre Procedure Diagnosis: (1) GI bleed Post Procedure Diagnosis: (1) GI bleed Procedure Date: Jul 14, 2016 Supervising Radiologist: Fernandez Martin Proceduralist/Assist: Mariaelena Santo RT(R) Anesthesia: Local Plan of Activity Patient to Unit: Critical Care Patient Condition: Fair See PACS Report for procedural detail/treatment Vascular-Arterial Procedure Procedure 1 Procedure Site: Superior Mesenteric Artery (and MARIO) Procedure(s): Angiogram Access Access Site(s): Right Femoral Artery Closure Site(s): Right vascular closure device (Angioseal) Findings: Could not identify source of bleed. Subselected MARIO with Renegade microcatheter. Fernandez Martin MD Jul 14, 2016 17:22
--- NOTE | 2016-07-14 17:49 | HHI.CCPN ---
Subjective Brief History The patient is a 56-year-old female that presented to the emergency department/Trauma [place] via [facility] as a trauma alert. Per medical history, reported by EMS the patient was found down on the ground, and in an industrial area, with shelving material that had fallen on her. The patient was unconscious for an undetermined time. Upon arrival of EMS the patient's GCS score 3. The patient was intubated prior to arrival by [facility] paramedics. A 7-0 endotracheal tube at 22 cm.at the lip. EMS reported that the laryngoscopic view patient had blood at the nares bilaterally and within the oropharynx. EMS reported that the had a difficult airway, very anterior. Patient did receive 2 doses of etomidate and 1 dose of succinylcholine by EMS in the field, prior to arrival. The patient then received Rocuronium upon arrival. Patient was found to have the subarachnoid and intraparenchymal hemorrhage mainly of the right frontal areas of brain. In addition patient may have suffered the hypoxic or anoxic brain injury for undetermined period of time 24 Hour Review/Hospital Course Patient was initially intubated and ventilated and over the last 24 hours has gradually improved Patient was extubated last night She had this point moves all 4 extremities tries to open left thigh but does not follow any commands Based on all of the above patient may remain extubated but I would not be surprised if patient required reintubation at some point should she develop significant secretions and there would be a danger of compromised airway 07/06/16 Patient neurologically slightly improved Did not open is yet however does follow some commands and squeezes hand when asked to Moves all 4 extremities Arlette Coma Scale about 10 07/07/16 Lethargic, follows commands Secretions improved Period of hyperventilation and tachycardia, resolved with IV Morphine 07/08/16 Obtunded, responds to sternal rub Periods of tachypnea overnight MRI brain today 07/09/16 Patient slightly more awake and purposeful. Follows commands and squeezes hand Repeat brain MRI done Patient will transfer out of the ICU today Discussed case with Dr. Garcias 07/10/16 Patient continues to be lethargic and have periods of tachypnea and tachycardia Follows commands 4 Ultrasound of bilateral lower extremities negative for DVT 07/14/16 Patient with traumatic brain contusion and bleeding was transferred to the floor several days ago and developed acute GI hemorrhage overnight Patient was transferred to ICU resuscitated received 4 units of blood and additional 2 units at this time Abdomen is soft hypoactive bowel sounds Blood is fairly fresh and there is very little question my mind that this is a diverticular bleed originating from the left side of the colon Colonoscopy however was not successful due to month blood no bleeder could be visualized In face of active bleeding we'll do angiogram in radiology and see if we can localize the bleed 85-90% of these bleeds will stop spontaneously with adequate therapy and supplementation with blood and blood products. Only about 10% of patients will require surgery on emergency basis but it is clearly helpful if not essential to know the site of bleeding in order to remove the correct hemicolon. In patients will continue to bleed and bleeding site cannot be visualized usually total abdominal colectomy is indicated Addendum Patient underwent the angiogram in the interventional suite and inferior mesenteric arteries superior mesenteric artery and distal branches were selectively injected. No bleeding site has been found The amount of bleeding required for positive angiogram is infinite Pletal low about 0.1 mL/m. Based on negative angiogram there is likelihood that patient has stopped bleeding in the meantime. We will follow H&H every 4 hours, as necessary and if patient continues to bleed and bleeding source cannot be found after bout 8 units patient will be taken to the operating room with purpose of subtotal colectomy Have discussed this with her and he agrees to the plan Objective Vital Signs Date Time Temp Pulse Resp B/P Pulse Ox O2 Delivery O2 Flow Rate FiO2 07/14/16 17:24 100 100 07/14/16 15:15 98.8 115 25 105/56 07/14/16 07:00 Mechanical Ventilator 07/14/16 00:45 15.00 Result Diagram: 07/14/16 1253 07/13/16 0542 Other Results Laboratory Tests Test 07/14/16 07/14/16 02:09 05:35 Blood Gas Puncture Site CENTRAL LINE RT RADIAL Blood Gas Patient Temperature 98.6 98.6 Venous Blood pH 7.42 (7.360-7.400) Venous Blood Partial Pressure 43 mmHg (44-48) CO2 Venous Blood Partial Pressure 35 mmHg (35-40) O2 Venous Blood HCO3 27 mmol/L (22-26) Venous Blood Oxygen Saturation 60 % (70-76) Venous Blood Oxygen Content 8.8 Vol % (9.0-17.0) Venous Blood Base Excess 3.0 mmol/L (-2-2) Oxygen Delivery Device VENTILATOR VENTILATOR Blood Gas Ventilator Setting PRVC/R20/500/1.0/+5 PRVC/14/500/1.0/+5 Blood Gas Inspired Oxygen 100 % 50 % Blood Gas HCO3 26 mmol/L (22-26) Blood Gas Base Excess 2.4 mmol/L (-2-2) Blood Gas Oxygen Saturation 98 % (90-100) Arterial Blood pH 7.45 (7.380-7.420) Arterial Blood Partial 39 mmHg (38-42) Pressure CO2 Arterial Blood Partial 187 mmHg Pressure O2 (61-120) Arterial Blood Oxygen Content 13.0 Vol % (12.0-20.0) Arterial Blood 1.0 % (0-4) Carboxyhemoglobin Arterial Blood Methemoglobin 0.8 % (0-2) Blood Gas Hemoglobin 9.1 G/DL (12.0-16.0) Imaging Last 24 hours Impressions Chest X-Ray 07/14/16 0000 Signed Impressions: Service Date/Time: Thursday, July 14, 2016 02:05 - CONCLUSION: Satisfactory support line and tube positioning. No evidence of complication. Chapo Hicks MD Vascular Central Line Catheter Date of Insertion: Jul 02, 2016 Line: Central Venous Catheter Side: Right Location: Subclavian Assessment and Plan Plan GENERAL: 56-year-old well-nourished, well developed female lying in bed. SKIN: Warm and dry. Erythema noted on chest. HEAD: Normocephalic. EYES: PERRL. ENT: No nasal bleeding or discharge. Mucous membranes pink and moist. Left nare NG tube in place. NECK: Trachea midline. No JVD. CARDIOVASCULAR: Regular rate and rhythm. RESPIRATORY: No accessory muscle use. Lungs clear and diminished to auscultation. Breath sounds equal bilaterally. GASTROINTESTINAL: Abdomen soft, non-tender, nondistended. + BS. F/C in place. MUSCULOSKELETAL: Extremities without cyanosis, generalized edema noted. No obvious deformities. NEUROLOGICAL: Lethargic, nonverbal. Follows commands 4. NEUROLOGICAL: Valporic acid F/U head CT 07/06 stable IV Keppra discontinued, no seizure activity noted 8 days Ativan TID PRN agitation Neurosurgery following MRI brain 07/09- multiple cerebral contusions diffuse cortical and left midbrain MRI cervical spine 07/09- negative HOB elevated > 30 degrees CARDIOVASCULAR: HR = sinus rhythm. HR = 95-120 BPM. BP = stable PMHx: HTN Scheduled Norvasc, hydralazine, lisinopril and Vasotec PRN Added 20 mg Lasix daily BLE ultrasound negative for DVT Follow CMP - Electrolyte protocol in place for replacement. RESPIRATORY: On 3L nasal cannula Tachypneic Continue to monitor closely for hypoxemia. Pulmonary toilet - L&S. Bronchodilators - Duonebs q2H PRN 07/10 CXR improving right basilar density Labs tomorrow Chest X-Ray PRN GASTROINTESTINAL: Diet - Jevity 1.5 @ goal 50 mL/H with 200 mL free water flushes q6H, tolerating well Bowel regimen - Colace and MOM. LBM 07/10 RENAL / URINARY: I&O +807 BUN / creat stable Villar - in place to bedside drainage bag ENDOCRINE: BGM -stable HEMATOLOGY: H&H: 12.8 / 37.7 Continue to monitor for signs and symptoms of bleeding. Transfuse for < 7.0 Monitor patient for any bleeding complications. INFECTIOUS DISEASE: Follow CBC WBC 12.0 T-max 100.1 07/03: Blood, urine and sputum cultures negative Administer antipyretics for temp as needed. Discontinue central line and obtain PIV Invasive lines: R SC TLC 07/02 Villar 07/02 PROPHYLAXIS: GI - famotidine DVT - Mechanical VTE with SCDs. Chemical management contraindicated due to ICH SKIN: Warm / Dry ACTIVITY: Status -OOB to cardiac chair PT and OT evaluating. CASE MANAGEMENT: Consulted for assist with DC planning. Placement - disposition will need inpatient rehabilitation specializes in neuro injuries. Plan of care discussed with RN and family at bedside. Patient has transfer to Med/Surg floor. Trauma surgery team will round daily and evaluate patient and adjust the treatment plan. Saul Kuo MD Jul 14, 2016 17:49
--- NOTE | 2016-07-14 18:09 | RADRPT ---
EXAM DATE/TIME: 07/14/2016 14:59 [facility] COMPARISON: No previous studies available for comparison. INDICATIONS : Patient with a history of traumatic brain injury, GI bleed. MEDICAL HISTORY : Unable to obtain SURGICAL HISTORY : Unable to obtain ENCOUNTER: Initial ACUITY: 1 day PAIN SCORE: Nonresponsive. FLUORO TIME: 10.5 minutes ACCESS SITE: Right Femoral artery SEDATION TIME: 1.) 80 cc Visipaque (iodixanol) DEVICE(S): 1.) Right common femoral artery 6FR Angio-Seal PROCEDURE : 1. Ultrasound-guided puncture of the access site. 2. Angiography of the access site prior to closure device. 3. Conscious sedation with continuous EKG and Oximetry monitoring. 4. Percutaneous closure of the access site. 5. Angiography of the SMA 6. Angiography of the The risks, benefits and alternatives to the procedure were explained and verbal and written consent w as obtained. The site was prepped in sterile fashion. Full sterile technique was used, including ca p, mask, sterile gloves and gown and a large sterile sheet. Hand hygiene and 2% chlorhexidine and/or betadine/alcohol prep was utilized per protocol for cutaneous antisepsis. The skin and subcutaneous tissues were infiltrated with local anesthetic solution. With ultrasound and fluoroscopic guidance the selected artery was punctured and a vascular sheath was placed. Angiography of the common femoral artery was performed for evaluation prior to percutaneous closure device placement. A hook catheter was used to select the MARIO. Contrast injection showed normal arborization of the vess els no active bleed. Therefore, branch vessels in the region of the distal descending and sigmoid por tions of the colon were selected with a renegade hi flow catheter. Subselective injections with the m icrocatheter and then failed to demonstrate an active area of hemorrhage. Catheter was removed and replaced with the hook catheter which was then used to select the SMA. Contr asted run again showed normal arborization of the SMA with no active hemorrhage Hemostasis was obtained with the prescribed medicated closure device. Conscious sedation was perform ed with the prescribed dosages and duration as above. EKG and oximetry remained stable throughout e procedure. The patient was sent to post anesthesia recovery in stable condition. CONCLUSION: No active GI bleed identified in the SMA and MARIO distributions as detailed above. Fernandez Martin MD on July 14, 2016 at 17:51 Board Certified Radiologist. This report was verified electronically.
[2016-07-14 18:40] LABS: BLOOD GAS BASE EXCESS -3.2 mmol/L (-2-2); BLOOD GAS HCO3 20 mmol/L (22-26); BLOOD GAS METHEMOGLOBIN 0.7 % (0-2); BLOOD GAS O2 HGB SATURATION 97 % (90-100); BLOOD GAS OXYGEN CONTENT 13.8 Vol % (12.0-20.0); BLOOD GAS PCO2 29 mmHg (38-42); BLOOD GAS PO2 228 mmHg (61-120); BLOOD GAS TOTAL HGB 9.7 G/DL (12.0-16.0); CRITICAL VALUE NO; OXYGEN DEVICE VENTILATOR; TEMP CORR TO 98.6
[2016-07-14 18:41] LABS: FIO2 50 %; VENT SETTINGS PRVC/AC
[2016-07-14 18:42] LABS: DRAW SITE RT RADIAL; NUMBER OF ARTERIAL PUNCTURES 1; STAT YES; ULNAR PULSE PRESENT
[2016-07-14 18:53] LABS: HEMATOCRIT 27.8 % (35.0-46.0); REVIEW FLAG FINAL
[2016-07-14 21:27] LABS: HEMATOCRIT 25.7 % (35.0-46.0)
[2016-07-14 21:34] LABS: REVIEW FLAG FINAL
[2016-07-14 21:38] LABS: APTT (PATIENT) 25.1 SEC (24.3-30.1); INTERNATIONAL NORMALIZED RATIO 1.2 RATIO; PROTHROMBIN TIME - PATIENT 13.7 SEC (9.8-11.6)
[2016-07-15] VITALS (15 sets, daily range): BP systolic 110–126; BP diastolic 50–66; PULSE 76–123; RESP 14–24; TEMP 97.9–99.3; O2SAT 93–100
[2016-07-15] MEDS: NOREPINEPHRINE 4 MG/D5W 250 ML IV SCH ×3 (00:24→22:57)
[2016-07-15 02:01] LABS: HEMATOCRIT 31.2 % (35.0-46.0); REVIEW FLAG FINAL
[2016-07-15] MEDS: PANTOPRAZOLE INJ 80 MG in SODIUM CHLORIDE 0.9% INJ 100 ML IV SCH ×3 (02:18→22:57)
[2016-07-15] MEDS: PIPERACIL-TAZO 3.375 GM PREMIX 50 ML IV SCH ×3 (02:19→19:07)
[2016-07-15] MEDS: VANCOMYCIN INJ 1,250 MG in SODIUM CHLOR 0.9% 250 ML INJ 250 ML IV SCH ×2 (05:10→16:39)
[2016-07-15 05:11] LABS: BLOOD GAS BASE EXCESS -1.3 mmol/L (-2-2); BLOOD GAS HCO3 23 mmol/L (22-26); BLOOD GAS O2 HGB SATURATION 97 % (90-100); BLOOD GAS PCO2 35 mmHg (38-42); BLOOD GAS PO2 157 mmHg (61-120); BLOOD GAS TOTAL HGB 10.1 G/DL (12.0-16.0); CRITICAL VALUE NO; OXYGEN DEVICE VENTILATOR; TEMP CORR TO 98.6
[2016-07-15 05:12] LABS: DRAW SITE ART LINE; FIO2 35 %; STAT NO; VENT SETTINGS PRVC/AC
[2016-07-15 05:40] LABS: HEMATOCRIT 29.4 % (35.0-46.0); MEAN CELL VOLUME 86.9 FL (80.0-100.0); MEAN CORPUSCULAR HEMOGLOBIN 30.2 PG (27.0-34.0); MEAN CORPUSCULAR HGB CONC 34.7 % (32.0-36.0); PLATELET COUNT 102 TH/MM3 (150-450); RED BLOOD COUNT 3.38 MIL/MM3 (4.00-5.30); RED CELL DISTRIBUTION WIDTH 13.4 % (11.6-17.2); REVIEW FLAG FINAL; WHITE BLOOD COUNT 21.8 TH/MM3 (4.0-11.0)
[2016-07-15 05:57] LABS: BICARBONATE 25.4 MEQ/L (21.0-32.0); MAGNESIUM 2.4 MG/DL (1.5-2.5); POTASSIUM 3.6 MEQ/L (3.5-5.1)
[2016-07-15 06:19] LABS: CALCIUM-PROTEIN CORRECTED 8.5 MG/DL (8.5-10.1)
--- NOTE | 2016-07-15 06:51 | RADRPT ---
EXAM DATE/TIME: 07/15/2016 06:15 [facility] COMPARISON: CHEST SINGLE AP, July 14, 2016, 2:05. INDICATIONS : Short of breath. MEDICAL HISTORY : Hypertension. SURGICAL HISTORY : None. ENCOUNTER: Initial ACUITY: 2 weeks PAIN SCORE: Non-responsive. LOCATION: Bilateral chest FINDINGS: Endotracheal tube and left subclavian central line are present good position. A nasogastric tube desc ends to the stomach. Lungs are symmetrically aerated and grossly clear. CONCLUSION: No acute cardiopulmonary disease. Chapo Hicks MD on July 15, 2016 at 6:49 Board Certified Radiologist. This report was verified electronically.
[2016-07-15] MEDS ORDERED: POTASSIUM PHOSPHATE INJ 30 MMOL in SODIUM CHLOR 0.9% 250 ML INJ 250 ML IV PRN (07:45)
[2016-07-15] MEDS ORDERED: SODIUM PHOSPHATE INJ 30 MMOL in SODIUM CHLOR 0.9% 250 ML INJ 240 ML IV PRN (07:45)
[2016-07-15] MEDS ORDERED: POTASSIUM PHOSPHATE MONOBASIC 500 MG TAB PO/TUBE PRN (07:45)
[2016-07-15] MEDS ORDERED: POTASSIUM PHOSPHATE MONOBASIC 500 MG TAB PO PRN (07:45)
[2016-07-15] MEDS ORDERED: POTASSIUM CHLOR 20 MEQ PREMIX 100 ML IV PRN ×2 (07:45)
[2016-07-15] MEDS ORDERED: POTASSIUM CL 40 MEQ/30 ML LIQ UDC PO/TUBE PRN (07:45)
[2016-07-15] MEDS ORDERED: MAGNESIUM SULFATE INJ 4 GM in SODIUM CHLORIDE 0.9% INJ 92 ML IV PRN (07:45)
[2016-07-15] MEDS ORDERED: MAGNESIUM SULFATE INJ 2 GM in SODIUM CHLORIDE 0.9% INJ 96 ML IV PRN (07:45)
[2016-07-15] MEDS ORDERED: MAGNESIUM OXIDE 400 MG TAB PO PRN (07:45)
[2016-07-15] MEDS: CHLORHEXIDINE 0.12% (ORAL KIT) 15 ML CUP MT SCH ×2 (08:17→20:49)
[2016-07-15] MEDS: FREE WATER DOB SCH ×3 (08:17→16:39)
[2016-07-15] MEDS: MAGNESIUM HYDROXIDE SUSP 30 ML CUP PO SCH (08:28)
[2016-07-15] MEDS: FUROSEMIDE 20 MG TAB PO SCH (08:28)
[2016-07-15] MEDS: DOCUSATE SODIUM 100 MG CAP PO SCH ×2 (08:28→20:48)
[2016-07-15] MEDS: LISINOPRIL 20 MG TAB PO SCH (08:29)
[2016-07-15] MEDS: VALPROIC ACID 250 MG CAP PO SCH ×2 (08:29→20:48)
[2016-07-15] MEDS: RESP: ALBUTEROL 2.5 MG/IPRATROPIUM 0.5 MG NEB (SCH) NEB ×3 (09:27→21:28)
[2016-07-15] MEDS: SODIUM CHLOR 0.9% 1000 ML INJ 1,000 ML IV SCH (10:00)
[2016-07-15] MEDS ORDERED: FUROSEMIDE 40 MG/4 ML VIAL IV PUSH ONE (10:15)
--- NOTE | 2016-07-15 10:31 | HHI.PR ---
Neuropsych Emotional Emotional: UnabletoAssess: Emotional, Anxious/Fearful, Depressed/Sad, Hostile/ Resentful, Irritable/Angry/Frustrate, Labile, Constricted/Blunted Behavior Behavior: Unable to Asses: Behavior, Coping/Acceptance, Cooperative w/ Treatment, Motivation, Frustration Tolerance/[place], Impulsive/Agitated, Suicidal/ Homicidal Risk Cognitive Cognitive: Unable to Asses: Cognitive, Attention/Concentration, Confused/ Orientation, Insight/Awareness, Judgement/Problem-Solving, Memory Psychosocial Psychosocial: Unable to Asses: Psychosocial, Family/Other Adjustment, Realistic Expectation, Self-Esteem/Confidence Progress Notes/Response to Tx Contents of Sessions: Decline of functioning, Level of Consciousness Time with Patient: 15 minutes Premorbid psychological status Premorbid Cognitive, Emotional and Behavioral Status: Stable. 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 The patient has no psychiatric difficulties , as described above. Substance abuse history includes not significant. Behavioral Reactions of Patient and Family/Support System: Stable. The patient s family is experiencing ongoing issues of adjustment given the nature of the injury, and this aspect of recovery will require ongoing monitoring. I spoke at length with the patient's brother, who indicated good understanding of his sister's course of recovery. Emotional/Behavioral Status of Patient and Family/Support System: Deferred. Pertinent issues, if appropriate to this patients clinical care, are described in detail above. Maximizing acute care outcome It is recommended that the patient be monitored for emergent behavioral impulsivity as the medical condition evolves. This patients neuropathological challenges may limit their rehabilitation potential going forward, and these challenges will require specialized therapeutic skills to maximize outcome. It is understood that any possible underlying anoxic/hypoxic injury may have been overstated, based on reports from the patient's brother. Anticipated Problems Ongoing areas of concern will include behavioral impulsivity, lack of insight and judgment, which is expected to improve with time and treatment. Presently , the patient is preconscious. Treatment Plan This clinician will continue to follow with you throughout the course of this patients rehabilitation treatment, and I will be available to meet with the patients family/support system to facilitate their understanding and the ongoing care of their family member. The goals of neuropsychological intervention shall be both educational and supportive to the family/support system as is deemed clinically appropriate. [facility] Level: III:Localized response-total assist Impression This patient suffered a severe traumatic brain injury although it is not understood that any anoxic/hypoxic injury may have been overstated. Diagnosis: Progress Note Narrative Ongoing follow-up with patient, who was seen in room with trauma rounding team. Nursing reports that patient is becoming more awake, moving left upper extremity to command, less so on right. No family present to discuss. I will continue to follow with you. Liborio Hitchcock PhD Jul 15, 2016 10:31 am
--- NOTE | 2016-07-15 11:52 | HHI.GIFU ---
Subjective Remarks Patient still intubated, per nurse no more bleeding today, hgb holding nicely, she had a solid BM today, she is more stable, off of Levophed (Cricket Bai) Objective Vitals I&O Vital Signs Date Time Temp Pulse Resp B/P Pulse Ox O2 Delivery O2 Flow Rate FiO2 07/15/16 08:16 100 35 07/15/16 08:00 35 07/15/16 08:00 98.9 81 15 112/50 100 07/15/16 07:15 77 07/15/16 07:15 100 Mechanical Ventilator 35 07/15/16 04:00 98.4 76 14 117/55 100 07/15/16 04:00 35 07/15/16 03:50 100 35 07/15/16 00:58 100 35 07/15/16 00:00 35 07/15/16 00:00 98.6 86 19 110/59 93 07/14/16 22:27 100 35 07/14/16 20:27 99 35 07/14/16 20:00 35 07/14/16 20:00 97.5 106 18 101/59 100 07/14/16 19:00 100 Mechanical Ventilator 35 07/14/16 19:00 114 07/14/16 18:34 102.7 118 23 98/52 100 07/14/16 18:24 101.7 121 23 79/51 100 07/14/16 18:00 99.9 127 23 95/53 100 07/14/16 17:24 100 100 07/14/16 16:00 50 07/14/16 15:15 98.8 115 25 105/56 100 07/14/16 15:00 98.5 118 30 111/54 100 07/14/16 12:53 100 50 07/14/16 12:00 50 07/14/16 12:00 99.8 112 18 107/62 100 I/O 07/14/16 07/14/16 07/14/16 07/15/16 07/15/16 07/15/16 07:00 15:00 23:00 07:00 15:00 23:00 Intake Total 5334 ml 3923 ml 2781 ml 2847 ml Output Total 550 ml 500 ml 845 ml 1070 ml Balance 4784 ml 3423 ml 1936 ml 1777 ml Intake Oral 2620 ml 250 ml IV Total 2714 ml 3673 ml 2781 ml 1647 ml Packed Cells 1000 ml Tube Irrigant 200 ml Other 0 ml Output Urine Total 500 ml 500 ml 595 ml 1000 ml Stool Total 50 ml 250 ml 50 ml Gastric Drainage Total 20 ml # Bowel Movements 5 Laboratory Laboratory Tests Test 07/14/16 07/14/16 07/14/16 07/14/16 12:53 14:01 14:30 18:24 White Blood Count 23.9 Red Blood Count 2.74 Hemoglobin 8.3 9.5 Hematocrit 24.5 27.8 Mean Corpuscular Volume 89.4 Mean Corpuscular Hemoglobin 30.4 Mean Corpuscular Hemoglobin 34.1 Concent Red Cell Distribution Width 13.7 Platelet Count 146 Mean Platelet Volume 8.3 Crossmatch Leukocyte-Reduced Leukocyte-Reduced Red Blood Red Blood Cells Cells Blood Bank Comment Blood Type A POSITIVE Test 07/14/16 07/14/16 07/14/16 07/14/16 18:30 20:25 21:00 22:04 Blood Gas Puncture Site RT RADIAL Blood Gas Patient Temperature 98.6 Blood Gas HCO3 20 Blood Gas Base Excess -3.2 Blood Gas Oxygen Saturation 97 Arterial Blood pH 7.45 Arterial Blood Partial 29 Pressure CO2 Arterial Blood Partial 228 Pressure O2 Arterial Blood Oxygen Content 13.8 Arterial Blood 0.0 Carboxyhemoglobin Arterial Blood Methemoglobin 0.7 Blood Gas Hemoglobin 9.7 Oxygen Delivery Device VENTILATOR Blood Gas Ventilator Setting PRVC/AC Blood Gas Inspired Oxygen 50 Prothrombin Time 13.7 Prothromb Time International 1.2 Ratio Activated Partial 25.1 Thromboplast Time Lactic Acid Level 1.5 Hemoglobin 8.8 Hematocrit 25.7 Blood Type A POSITIVE Crossmatch Leukocyte-Reduced Red Blood Cells Blood Bank Comment Test 07/15/16 07/15/16 07/15/16 01:50 04:39 05:20 Hemoglobin 10.8 10.2 Hematocrit 31.2 29.4 Blood Gas Puncture Site ART LINE Blood Gas Patient Temperature 98.6 Blood Gas HCO3 23 Blood Gas Base Excess -1.3 Blood Gas Oxygen Saturation 97 Arterial Blood pH 7.42 Arterial Blood Partial 35 Pressure CO2 Arterial Blood Partial 157 Pressure O2 Arterial Blood Oxygen Content 14.0 Arterial Blood 1.0 Carboxyhemoglobin Arterial Blood Methemoglobin 1.0 Blood Gas Hemoglobin 10.1 Oxygen Delivery Device VENTILATOR Blood Gas Ventilator Setting PRVC/AC Blood Gas Inspired Oxygen 35 White Blood Count 21.8 Red Blood Count 3.38 Mean Corpuscular Volume 86.9 Mean Corpuscular Hemoglobin 30.2 Mean Corpuscular Hemoglobin 34.7 Concent Red Cell Distribution Width 13.4 Platelet Count 102 Mean Platelet Volume 9.2 Sodium Level 148 Potassium Level 3.6 Chloride Level 117 Carbon Dioxide Level 25.4 Anion Gap 6 Blood Urea Nitrogen 40 Creatinine 0.62 Estimat Glomerular Filtration 99 Rate Random Glucose 154 Calcium Level 6.8 Protein Corrected Calcium 8.5 Magnesium Level 2.4 Total Protein 4.0 Date/Time Procedure Status Source Growth 07/14/16 01:30 Gram Stain - Final Resulted Sputum Endotracheal 07/14/16 01:30 Sputum Culture Resulted Sputum Endotracheal Pending Imaging Last Impressions Chest X-Ray 07/15/16 0600 Signed Impressions: Service Date/Time: Friday, July 15, 2016 06:15 - CONCLUSION: No acute cardiopulmonary disease. Chapo Hicks MD Abdomen Arteriogram 07/14/16 0000 Signed Impressions: Service Date/Time: Thursday, July 14, 2016 14:59 - CONCLUSION: No active GI bleed identified in the SMA and MARIO distributions as detailed above. Fernandez Martin MD Transcranial Doppler Study Limited 07/10/16 0000 Cancelled Impressions: Service Date/Time: June 09:18 - CONCLUSION: There are no findings to indicate vasospasm. Chapo Davis MD Transcranial Doppler Study Complete 07/10/16 0000 Signed Impressions: Service Date/Time: June 09:18 - CONCLUSION: There are no findings to indicate vasospasm. Chapo Davis MD Lower Extremity Ultrasound 07/10/16 0000 Signed Impressions: Service Date/Time: June 09:17 - CONCLUSION: No evidence of deep venous thrombosis within the lower extremities. Anthony So MD Cervical Spine MRI 07/08/16 0000 Signed Impressions: Service Date/Time: Friday, July 08, 2016 13:48 - CONCLUSION: No abnormalities are seen within the cervical spine. Fluid identified within the dependent portion of the sphenoid sinuses likely related to the patient's trauma.. Noemi Lozano MD Brain MRI 07/08/16 0000 Signed Impressions: Service Date/Time: Friday, July 08, 2016 13:48 - CONCLUSION: Stable appearance of right frontal parenchymal contusion, small bilateral subdural hematomas and scattered areas of subarachnoid hemorrhage. There is an area of restricted diffusion involving the posterior medial temporal lobes bilaterally consistent with a contrecoup injury. No evidence of midline shift or hydrocephalus.. Noemi Lozano MD Head CT 07/06/16 0000 Signed Impressions: Service Date/Time: Wednesday, July 06, 2016 04:30 - CONCLUSION: Stable appearance to multiple cortical hemorrhages, subdural blood, subarachnoid blood and skull fracture. Javon Merida MD Abdomen X-Ray 07/06/16 0000 Signed Impressions: Service Date/Time: Wednesday, July 06, 2016 10:44 - CONCLUSION: Feeding tube across the GE junction and second portion of the duodenum. Jitendra Godoy MD FACR Thoracic Spine CT 07/02/161623 Signed Impressions: Service Date/Time: Saturday, July 02, 2016 16:40 - CONCLUSION: No acute bony injury in the thoracic spine Chapo Hicks MD Lumbar Spine CT 07/02/161623 Signed Impressions: Service Date/Time: Saturday, July 02, 2016 16:40 - CONCLUSION: No acute bony injury in the lumbosacral spine. Chapo Hicks MD Chest CT 07/02/161623 Signed Impressions: Service Date/Time: Saturday, July 02, 2016 16:40 - CONCLUSION: Bilateral posterior lower lobe consolidative changes, left worse than right. No evidence of acute mediastinal injury. Chapo Hicks MD Cervical Spine CT 07/02/161623 Signed Impressions: Service Date/Time: Saturday, July 02, 2016 16:32 - CONCLUSION: 1. No acute findings. Moderate degenerative change in the lower cervical spine. David Quispe MD Abdomen/Pelvis CT [id number]/02/161623 Signed Impressions: Service Date/Time: Saturday, July 02, 2016 16:40 - CONCLUSION: Negative CT scan abdomen and pelvis for acute traumatic injury. Jitendra Godoy MD FACR Physical Exam HEENT: normocephalic; atraumatic; no jaundice. intubated NECK: Neck is supple, no JVD, no lymphadenopathy. CHEST: Chest is clear to auscultation and percussion. CARDIAC: Regular rate and rhythm with no murmur gallop or rubs. ABDOMEN: Soft, nondistended, nontender; no hepatosplenomegaly; bowel sounds are present in all four quadrants. EXTREMITIES: No clubbing, cyanosis, or edema. SKIN: Normal; no rash; no jaundice. 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 Today patient doing good , having solid BM, hgb holding - Hypovolemic shock- Improving, Due to acute GI bleed, better - Respiratory failure- Per CCM, intubated - subarachnoid hemorrhage and hypoxemia- Patient was a trauma alert. Per medical history,reported by EMS the patient was found down on the ground, and in an industrial area, with shelving material that had fallen on her. She was found to have subarachnoid hemorrhage and hypoxemic component. Subsequently,she was intubated then later extubated and transferred to the floor. According to nurse, she never fully recovered, she remained obtunded and was receiving TF through [facility]. Plan: - Diet per attending - Will need a repeat colonoscopy at some point, not stable at this point, no active GI bleed, will hold off for now - Cont to monitor hh - Transfuse as needed to keep hgb > 8 - Cont. PPI - Notify GI for active bleed - Supportive care - Patient seen and examined by Dr. Sutton and myself and this note is written on his behalf. (Cricket Bai) Physician Comments Seen and examined with CHARGE MASTER COORDINATOR< no active bleeding. Still not cleaned out adequately for a colonoscopy. Discussed with and nurse at the bedside. Hold off on colonoscopy for now unless active bleeding. Will need colonoscopy at some point electively once more stable. (Regulo Sutton MD) Cricket Bai Jul 15, 2016 11:51 Regulo Sutton MD Jul 15, 2016 12:28
--- NOTE | 2016-07-15 13:40 | HHI.CCPN ---
Subjective Brief History The patient is a 56-year-old female that presented to the emergency department/[facility] as a trauma alert. Per medical history, reported by EMS the patient was found down on the ground, and in an industrial area, with shelving material that had fallen on her. The patient was unconscious for an undetermined time. Upon arrival of EMS the patient's GCS score 3. The patient was intubated prior to arrival by [facility] paramedics. A 7-0 endotracheal tube at 22 cm.at the lip. EMS reported that the laryngoscopic view patient had blood at the nares bilaterally and within the oropharynx. EMS reported that the had a difficult airway, very anterior. Patient did receive 2 doses of etomidate and 1 dose of succinylcholine by EMS in the field, prior to arrival. The patient then received Rocuronium upon arrival. Patient was found to have the subarachnoid and intraparenchymal hemorrhage mainly of the right frontal areas of brain. In addition patient may have suffered the hypoxic or anoxic brain injury for undetermined period of time 24 Hour Review/Hospital Course Patient was initially intubated and ventilated and over the last 24 hours has gradually improved Patient was extubated last night She had this point moves all 4 extremities tries to open left thigh but does not follow any commands Based on all of the above patient may remain extubated but I would not be surprised if patient required reintubation at some point should she develop significant secretions and there would be a danger of compromised airway 07/06/16 Patient neurologically slightly improved Did not open is yet however does follow some commands and squeezes hand when asked to Moves all 4 extremities Arlette Coma Scale about 10 07/07/16 Lethargic, follows commands Secretions improved Period of hyperventilation and tachycardia, resolved with IV Morphine 07/08/16 Obtunded, responds to sternal rub Periods of tachypnea overnight MRI brain today 07/09/16 Patient slightly more awake and purposeful. Follows commands and squeezes hand Repeat brain MRI done Patient will transfer out of the ICU today Discussed case with Dr. Garcias 07/10/16 Patient continues to be lethargic and have periods of tachypnea and tachycardia Follows commands 4 Ultrasound of bilateral lower extremities negative for DVT 07/14/16 Patient with traumatic brain contusion and bleeding was transferred to the floor several days ago and developed acute GI hemorrhage overnight Patient was transferred to ICU resuscitated received 4 units of blood and additional 2 units at this time Abdomen is soft hypoactive bowel sounds Blood is fairly fresh and there is very little question my mind that this is a diverticular bleed originating from the left side of the colon Colonoscopy however was not successful due to month blood no bleeder could be visualized In face of active bleeding we'll do angiogram in radiology and see if we can localize the bleed 85-90% of these bleeds will stop spontaneously with adequate therapy and supplementation with blood and blood products. Only about 10% of patients will require surgery on emergency basis but it is clearly helpful if not essential to know the site of bleeding in order to remove the correct hemicolon. In patients will continue to bleed and bleeding site cannot be visualized usually total abdominal colectomy is indicated Addendum Patient underwent the angiogram in the interventional suite and inferior mesenteric arteries superior mesenteric artery and distal branches were selectively injected. No bleeding site has been found The amount of bleeding required for positive angiogram is infinite Pletal low about 0.1 mL/m. Based on negative angiogram there is likelihood that patient has stopped bleeding in the meantime. We will follow H&H every 4 hours, as necessary and if patient continues to bleed and bleeding source cannot be found after bout 8 units patient will be taken to the operating room with purpose of subtotal colectomy Have discussed this with her and he agrees to the plan 07/15/16 Patient transferred yesterday to the ICU due to massive lower GI bleeding Patient underwent the SMA and MARIO angiograms which did not reveal the source of bleeding because by that time bleeding had stopped Patient has lost about 4 units of blood and in all likelihood this is a diverticular bleed originating from the left side of the colon Either way this has stopped right now and if it reoccurs patient will undergo another angiogram followed by colectomy Objective Vital Signs Date Time Temp Pulse Resp B/P Pulse Ox O2 Delivery O2 Flow Rate FiO2 07/15/16 12:30 100 35 07/15/16 12:00 97.9 123 24 112/66 07/15/16 07:15 Mechanical Ventilator 07/14/16 00:45 15.00 Intake and Output 07/14/16 07/14/16 07/15/16 08:00 16:00 00:00 Intake Total 5334 ml 3923 ml 2781 ml Output Total 550 ml 500 ml 845 ml Balance 4784 ml 3423 ml 1936 ml Result Diagram: 07/15/16 0520 07/15/16 0520 Other Results Laboratory Tests Test 07/14/16 07/15/16 18:30 04:39 Blood Gas Puncture Site RT RADIAL ART LINE Blood Gas Patient Temperature 98.6 98.6 Blood Gas HCO3 20 mmol/L 23 mmol/L (22-26) (22-26) Blood Gas Base Excess -3.2 mmol/L -1.3 mmol/L (-2-2) (-2-2) Blood Gas Oxygen Saturation 97 % (90-100) 97 % (90-100) Arterial Blood pH 7.45 7.42 (7.380-7.420) (7.380-7.420) Arterial Blood Partial 29 mmHg (38-42) 35 mmHg (38-42) Pressure CO2 Arterial Blood Partial 228 mmHg 157 mmHg Pressure O2 (61-120) (61-120) Arterial Blood Oxygen Content 13.8 Vol % 14.0 Vol % (12.0-20.0) (12.0-20.0) Arterial Blood 0.0 % (0-4) 1.0 % (0-4) Carboxyhemoglobin Arterial Blood Methemoglobin 0.7 % (0-2) 1.0 % (0-2) Blood Gas Hemoglobin 9.7 G/DL 10.1 G/DL (12.0-16.0) (12.0-16.0) Oxygen Delivery Device VENTILATOR VENTILATOR Blood Gas Ventilator Setting PRVC/AC PRVC/AC Blood Gas Inspired Oxygen 50 % 35 % Imaging Last 24 hours Impressions Chest X-Ray 07/15/16 0600 Signed Impressions: Service Date/Time: Friday, July 15, 2016 06:15 - CONCLUSION: No acute cardiopulmonary disease. Chapo Hicks MD Exam DISTRIBUTION SYSTEM OPERATOR Neurologically patient is improving Initial admitting diagnosis was that of a traumatic brain injury and at this point patient is responding much better to the verbal stimulation and following commands [id number] her neurologic exam is much better than been since the arrival to the hospital Details can be found neuropsychologist note Dr. Hitchcock Hemodynamic/Cardiac Hemodynamically remains stable and Levophed will be weaned down is time for patient will not require any vasomotor support Pulmonary/Respiratory Bilateral good breath sounds and good respiratory function Abdomen/GI Nutrition Abdomen is soft no distention is noted patient is active bowel sounds and bleeding has stopped Hemoglobin remains stable Renal/I&O Good urine output BUN elevation is due to absorption of nitrogen from the intestinal tract in face of GI bleed Vascular Central Line Catheter Date of Insertion: Jul 02, 2016 Line: Central Venous Catheter Side: Right Location: Subclavian Assessment and Plan Plan GENERAL: 56-year-old well-nourished, well developed female lying in bed. SKIN: Warm and dry. Erythema noted on chest. HEAD: Normocephalic. EYES: PERRL. ENT: No nasal bleeding or discharge. Mucous membranes pink and moist. Left nare NG tube in place. NECK: Trachea midline. No JVD. CARDIOVASCULAR: Regular rate and rhythm. RESPIRATORY: No accessory muscle use. Lungs clear and diminished to auscultation. Breath sounds equal bilaterally. GASTROINTESTINAL: Abdomen soft, non-tender, nondistended. + BS. F/C in place. MUSCULOSKELETAL: Extremities without cyanosis, generalized edema noted. No obvious deformities. NEUROLOGICAL: Lethargic, nonverbal. Follows commands 4. NEUROLOGICAL: Valporic acid F/U head CT 07/06 stable IV Keppra discontinued, no seizure activity noted 8 days Ativan TID PRN agitation Neurosurgery following MRI brain 07/09- multiple cerebral contusions diffuse cortical and left midbrain MRI cervical spine 07/09- negative HOB elevated > 30 degrees CARDIOVASCULAR: HR = sinus rhythm. HR = 95-120 BPM. BP = stable PMHx: HTN Scheduled Norvasc, hydralazine, lisinopril and Vasotec PRN Added 20 mg Lasix daily BLE ultrasound negative for DVT Follow CMP - Electrolyte protocol in place for replacement. RESPIRATORY: On 3L nasal cannula Tachypneic Continue to monitor closely for hypoxemia. Pulmonary toilet - L&S. Bronchodilators - Duonebs q2H PRN 07/10 CXR improving right basilar density Labs tomorrow Chest X-Ray PRN GASTROINTESTINAL: Diet - Jevity 1.5 @ goal 50 mL/H with 200 mL free water flushes q6H, tolerating well Bowel regimen - Colace and MOM. LBM 07/10 RENAL / URINARY: I&O +807 BUN / creat stable Villar - in place to bedside drainage bag ENDOCRINE: BGM -stable HEMATOLOGY: H&H: 12.8 / 37.7 Continue to monitor for signs and symptoms of bleeding. Transfuse for < 7.0 Monitor patient for any bleeding complications. INFECTIOUS DISEASE: Follow CBC WBC 12.0 T-max 100.1 07/03: Blood, urine and sputum cultures negative Administer antipyretics for temp as needed. Discontinue central line and obtain PIV Invasive lines: R SC TLC 07/02 Villar 07/02 PROPHYLAXIS: GI - famotidine DVT - Mechanical VTE with SCDs. Chemical management contraindicated due to ICH SKIN: Warm / Dry ACTIVITY: Status -OOB to cardiac chair PT and OT evaluating. CASE MANAGEMENT: Consulted for assist with DC planning. Placement - disposition will need inpatient rehabilitation specializes in neuro injuries. Plan of care discussed with RN and family at bedside. Patient has transfer to Med/Surg floor. Trauma surgery team will round daily and evaluate patient and adjust the treatment plan. Attestation The exam, history, and the medical decision-making described in the above note were completed with the assistance of the mid-level provider. I reviewed and agree with the findings presented. I attest that I had a [id number] encounter with the patient on the same day, and personally performed and documented my assessment and findings in the medical record. Critical care time 45 minutes. Saul Kuo MD Jul 15, 2016 13:40
[2016-07-15] MEDS ORDERED: PHARMACY ORDERED LAB XX ONE (15:45)
[2016-07-15] MEDS: PROPOFOL 1000 MG/100 ML INJ 100 ML IV SCH (22:57)
[2016-07-15] MEDS: LORazepam 0.5 MG TAB PO PRN (23:10)
[2016-07-16] VITALS (14 sets, daily range): BP systolic 108–142; BP diastolic 49–70; PULSE 88–108; RESP 13–20; TEMP 99–99.6; O2SAT 100
[2016-07-16] MEDS: RESP: ALBUTEROL 2.5 MG/IPRATROPIUM 0.5 MG NEB (SCH) NEB ×4 (03:44→21:25)
[2016-07-16] MEDS: PIPERACIL-TAZO 3.375 GM PREMIX 50 ML IV SCH ×3 (04:22→19:59)
[2016-07-16] MEDS: VANCOMYCIN 1,500 MG/NS 500 ML IV SCH ×4 (04:46→16:55)
[2016-07-16] MEDS: LORazepam 0.5 MG TAB PO PRN (05:23)
--- NOTE | 2016-07-16 05:42 | RADRPT ---
EXAM DATE/TIME: 07/16/2016 04:47 [facility] COMPARISON: CHEST SINGLE AP, July 15, 2016, 6:15. INDICATIONS : Short of breath MEDICAL HISTORY : Hypertension. SURGICAL HISTORY : Unknown ENCOUNTER: Subsequent ACUITY: 4 - 6 days PAIN SCORE: Non-responsive. LOCATION: Bilateral chest FINDINGS: Endotracheal tube tip is at the katharine. Slight retraction would be recommended. Nasogastric tube desc ends to the stomach. Left subclavian central line is in good position. Lungs are focally clear. No pl eural effusion suspected. Cardiomediastinal contours are satisfactory. CONCLUSION: Endotracheal tube tip at the katharine. Stable clear lungs. Chapo Hicks MD on July 16, 2016 at 5:40 Board Certified Radiologist. This report was verified electronically.
[2016-07-16 05:43] LABS: BLOOD GAS BASE EXCESS -0.3 mmol/L (-2-2); BLOOD GAS HCO3 23 mmol/L (22-26); BLOOD GAS METHEMOGLOBIN 0.9 % (0-2); BLOOD GAS O2 HGB SATURATION 98 % (90-100); BLOOD GAS OXYGEN CONTENT 11.7 Vol % (12.0-20.0); BLOOD GAS PCO2 35 mmHg (38-42); BLOOD GAS PO2 177 mmHg (61-120); BLOOD GAS TOTAL HGB 8.3 G/DL (12.0-16.0); CRITICAL VALUE NO; DRAW SITE ART LINE; FIO2 35 %; OXYGEN DEVICE VENTILATOR; STAT NO; TEMP CORR TO 98.6; VENT SETTINGS PRVC/AC
[2016-07-16 05:53] LABS: HEMATOCRIT 23.6 % (35.0-46.0); MEAN CELL VOLUME 87.7 FL (80.0-100.0); MEAN CORPUSCULAR HEMOGLOBIN 30.8 PG (27.0-34.0); MEAN CORPUSCULAR HGB CONC 35.1 % (32.0-36.0); PLATELET COUNT 114 TH/MM3 (150-450); RED BLOOD COUNT 2.69 MIL/MM3 (4.00-5.30); RED CELL DISTRIBUTION WIDTH 13.3 % (11.6-17.2); REVIEW FLAG FINAL; WHITE BLOOD COUNT 16.6 TH/MM3 (4.0-11.0)
--- NOTE | 2016-07-16 06:03 | PD.PROCEDR ---
Procedure Note Procedure I performed this procedure on 07/14. Procedure: Arterial Line Placement Right radial arterial line Diagnosis: GI bleeding Indications: Need for beat to beat hemodynamic monitoring Consent: Consent is deemed emergent or medically necessary Description of the Procedure: The right wrist was prepped and draped sterilely. 1% lidocaine was used for local anesthesia. The pulse was located and a needle was advanced into the artery. A 20 gauge, 12 cm catheter was advanced into the artery using a modified Seldinger technique. The catheter was sutured to the skin and a sterile dressing was applied. The catheter was connected to a pressure transducer and an arterial waveform was noted. There were no immediate complications noted. There was minimal EBL. I personally performed the procedure. Gael Kelley MD Jul 16, 2016 06:03
[2016-07-16 06:27] LABS: BICARBONATE 25.8 MEQ/L (21.0-32.0); MAGNESIUM 2.4 MG/DL (1.5-2.5)
[2016-07-16] MEDS: CHLORHEXIDINE 0.12% (ORAL KIT) 15 ML CUP MT SCH ×2 (08:15→20:00)
[2016-07-16] MEDS: LISINOPRIL 20 MG TAB PO SCH (08:16)
[2016-07-16] MEDS: DOCUSATE SODIUM 100 MG CAP PO SCH ×2 (09:02→20:27)
[2016-07-16] MEDS: MAGNESIUM HYDROXIDE SUSP 30 ML CUP PO SCH (09:02)
[2016-07-16] MEDS: FREE WATER DOB SCH ×3 (09:02→16:55)
[2016-07-16] MEDS: VALPROIC ACID 250 MG CAP PO SCH ×2 (09:02→20:27)
[2016-07-16] MEDS: FUROSEMIDE 20 MG TAB PO SCH (09:02)
[2016-07-16] MEDS: SODIUM CHLOR 0.9% 1000 ML INJ 1,000 ML IV SCH (09:03)
[2016-07-16] MEDS: POTASSIUM CHLOR 40 MEQ PREMIX 100 ML IV PRN (09:04)
--- NOTE | 2016-07-16 10:34 | HHI.PR ---
Neuropsych Emotional Emotional: UnabletoAssess: Emotional, Anxious/Fearful, Depressed/Sad, Hostile/ Resentful, Irritable/Angry/Frustrate, Labile, Constricted/Blunted Behavior Behavior: Unable to Asses: Behavior, Coping/Acceptance, Cooperative w/ Treatment, Motivation, Frustration Tolerance/Peck, Impulsive/Agitated, Suicidal/ Homicidal Risk Cognitive Cognitive: Unable to Asses: Cognitive, Attention/Concentration, Confused/ Orientation, Insight/Awareness, Judgement/Problem-Solving, Memory Psychosocial Psychosocial: Moderate: Psychosocial, Family/Other Adjustment, Realistic Expectation Progress Notes/Response to Tx Contents of Sessions: Level of Consciousness Time with Patient: 15 minutes Premorbid psychological status Premorbid Cognitive, Emotional and Behavioral Status: Stable. 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 The patient has no psychiatric difficulties , as described above. Substance abuse history includes not significant. Behavioral Reactions of Patient and Family/Support System: Stable. The patient s family is experiencing ongoing issues of adjustment given the nature of the injury, and this aspect of recovery will require ongoing monitoring. I spoke at length with the patient's brother, who indicated good understanding of his sister's course of recovery. Emotional/Behavioral Status of Patient and Family/Support System: Deferred. Pertinent issues, if appropriate to this patients clinical care, are described in detail above. Maximizing acute care outcome It is recommended that the patient be monitored for emergent behavioral impulsivity as the medical condition evolves. This patients neuropathological challenges may limit their rehabilitation potential going forward, and these challenges will require specialized therapeutic skills to maximize outcome. It is understood that any possible underlying anoxic/hypoxic injury may have been overstated, based on reports from the patient's brother. Anticipated Problems Ongoing areas of concern will include behavioral impulsivity, lack of insight and judgment, which is expected to improve with time and treatment. Presently , the patient is preconscious. Treatment Plan This clinician will continue to follow with you throughout the course of this patients rehabilitation treatment, and I will be available to meet with the patients family/support system to facilitate their understanding and the ongoing care of their family member. The goals of neuropsychological intervention shall be both educational and supportive to the family/support system as is deemed clinically appropriate. [facility] Level: I:No response-total assistance Impression This patient suffered a severe traumatic brain injury although it is not understood that any anoxic/hypoxic injury may have been overstated. Diagnosis: Progress Note Narrative Ongoing follow-up with patient, who remains at this point in time, unconscious. The medical plan is to begin to wean her off of sedatives, which will allow a better understanding of her neurobehavioral recovery at this point in time. I will amend or update this report after this process has begun. Liborio Hitchcock PhD Jul 16, 2016 10:34 am
--- NOTE | 2016-07-16 10:55 | HHI.CCPN ---
Subjective Brief History The patient is a 56-year-old female that presented to the emergency department/Trauma [place] via [facility] as a trauma alert. Per medical history, reported by EMS the patient was found down on the ground, and in an industrial area, with shelving material that had fallen on her. The patient was unconscious for an undetermined time. Upon arrival of EMS the patient's GCS score 3. The patient was intubated prior to arrival by [facility] paramedics. A 7-0 endotracheal tube at 22 cm.at the lip. EMS reported that the laryngoscopic view patient had blood at the nares bilaterally and within the oropharynx. EMS reported that the had a difficult airway, very anterior. Patient did receive 2 doses of etomidate and 1 dose of succinylcholine by EMS in the field, prior to arrival. The patient then received Rocuronium upon arrival. Patient was found to have the subarachnoid and intraparenchymal hemorrhage mainly of the right frontal areas of brain. In addition patient may have suffered the hypoxic or anoxic brain injury for undetermined period of time 24 Hour Review/Hospital Course Patient was initially intubated and ventilated and over the last 24 hours has gradually improved Patient was extubated last night She had this point moves all 4 extremities tries to open left thigh but does not follow any commands Based on all of the above patient may remain extubated but I would not be surprised if patient required reintubation at some point should she develop significant secretions and there would be a danger of compromised airway 07/06/16 Patient neurologically slightly improved Did not open is yet however does follow some commands and squeezes hand when asked to Moves all 4 extremities Arlette Coma Scale about 10 07/07/16 Lethargic, follows commands Secretions improved Period of hyperventilation and tachycardia, resolved with IV Morphine 07/08/16 Obtunded, responds to sternal rub Periods of tachypnea overnight MRI brain today 07/09/16 Patient slightly more awake and purposeful. Follows commands and squeezes hand Repeat brain MRI done Patient will transfer out of the ICU today Discussed case with Dr. Garcias 07/10/16 Patient continues to be lethargic and have periods of tachypnea and tachycardia Follows commands 4 Ultrasound of bilateral lower extremities negative for DVT 07/14/16 Patient with traumatic brain contusion and bleeding was transferred to the floor several days ago and developed acute GI hemorrhage overnight Patient was transferred to ICU resuscitated received 4 units of blood and additional 2 units at this time Abdomen is soft hypoactive bowel sounds Blood is fairly fresh and there is very little question my mind that this is a diverticular bleed originating from the left side of the colon Colonoscopy however was not successful due to month blood no bleeder could be visualized In face of active bleeding we'll do angiogram in radiology and see if we can localize the bleed 85-90% of these bleeds will stop spontaneously with adequate therapy and supplementation with blood and blood products. Only about 10% of patients will require surgery on emergency basis but it is clearly helpful if not essential to know the site of bleeding in order to remove the correct hemicolon. In patients will continue to bleed and bleeding site cannot be visualized usually total abdominal colectomy is indicated Addendum Patient underwent the angiogram in the interventional suite and inferior mesenteric arteries superior mesenteric artery and distal branches were selectively injected. No bleeding site has been found The amount of bleeding required for positive angiogram is infinite Pletal low about 0.1 mL/m. Based on negative angiogram there is likelihood that patient has stopped bleeding in the meantime. We will follow H&H every 4 hours, as necessary and if patient continues to bleed and bleeding source cannot be found after bout 8 units patient will be taken to the operating room with purpose of subtotal colectomy Have discussed this with her and he agrees to the plan 07/15/16 Patient transferred yesterday to the ICU due to massive lower GI bleeding Patient underwent the SMA and MARIO angiograms which did not reveal the source of bleeding because by that time bleeding had stopped Patient has lost about 4 units of blood and in all likelihood this is a diverticular bleed originating from the left side of the colon Either way this has stopped right now and if it reoccurs patient will undergo another angiogram followed by colectomy 07/16/16 Patient remained stable Slight drop in hemoglobin since yesterday which can be attributed to the hemodilution and may be minor bleeding No more major hemorrhage from diverticula and hopefully this is going remain to be the case If patient rebleeds she will have immediate arteriogram and then goes to the operating room for colon resection On the ventilator patient has been stable and today will be today to wean her off the respirator possible and if neurologic status permits Objective Vital Signs Date Time Temp Pulse Resp B/P Pulse Ox O2 Delivery O2 Flow Rate FiO2 07/16/16 08:03 100 35 07/16/16 08:00 99.6 99 19 124/49 07/16/16 07:00 Mechanical Ventilator 07/14/16 00:45 15.00 Intake and Output 07/15/16 07/15/16 07/16/16 08:00 16:00 00:00 Intake Total 2847 ml 2902 ml 923 ml Output Total 1070 ml 1700 ml 1225 ml Balance 1777 ml 1202 ml -302 ml Result Diagram: 07/16/16 0535 07/16/16 0535 Other Results Microbiology Date/Time Procedure Status Source Growth 07/14/16 01:30 Gram Stain - Final Complete Sputum Endotracheal 07/14/16 01:30 Sputum Culture - Final Complete Pseudomonas Aeruginosa Morganella Morganii Laboratory Tests Test 07/16/16 05:35 Blood Gas Puncture Site ART LINE Blood Gas Patient Temperature 98.6 Blood Gas HCO3 23 mmol/L (22-26) Blood Gas Base Excess -0.3 mmol/L (-2-2) Blood Gas Oxygen Saturation 98 % (90-100) Arterial Blood pH 7.44 (7.380-7.420) Arterial Blood Partial 35 mmHg (38-42) Pressure CO2 Arterial Blood Partial 177 mmHg Pressure O2 (61-120) Arterial Blood Oxygen Content 11.7 Vol % (12.0-20.0) Arterial Blood 1.0 % (0-4) Carboxyhemoglobin Arterial Blood Methemoglobin 0.9 % (0-2) Blood Gas Hemoglobin 8.3 G/DL (12.0-16.0) Oxygen Delivery Device VENTILATOR Blood Gas Ventilator Setting PRVC/AC Blood Gas Inspired Oxygen 35 % Imaging Last 24 hours Impressions Chest X-Ray 07/16/16 0600 Signed Impressions: Service Date/Time: Saturday, July 16, 2016 04:47 - CONCLUSION: Endotracheal tube tip at the katharine. Stable clear lungs. 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 Through the night patient was hyperventilating and she was given 0.5 mg of Ativan At this point I am weaning patient to extubate if her neurologic status permits the same In order to assess all the sedation including propofol and Ativan have been discontinued If the patient can keep up her airway will extubate Hemodynamic/Cardiac Hemodynamic stable minimum Levophed support to maintain mean arterial pressure face of her and injuries Pulmonary/Respiratory Bilateral good breath sounds with good PO2 FiO2 ratio Abdomen/GI Nutrition Abdomen soft enteral feeds tolerated Vascular Central Line Catheter Date of Insertion: Jul 02, 2016 Line: Central Venous Catheter Side: Right Location: Subclavian Assessment and Plan Plan GENERAL: 56-year-old well-nourished, well developed female lying in bed. SKIN: Warm and dry. Erythema noted on chest. HEAD: Normocephalic. EYES: PERRL. ENT: No nasal bleeding or discharge. Mucous membranes pink and moist. Left nare NG tube in place. NECK: Trachea midline. No JVD. CARDIOVASCULAR: Regular rate and rhythm. RESPIRATORY: No accessory muscle use. Lungs clear and diminished to auscultation. Breath sounds equal bilaterally. GASTROINTESTINAL: Abdomen soft, non-tender, nondistended. + BS. F/C in place. MUSCULOSKELETAL: Extremities without cyanosis, generalized edema noted. No obvious deformities. NEUROLOGICAL: Lethargic, nonverbal. Follows commands 4. NEUROLOGICAL: Valporic acid F/U head CT 07/06 stable IV Keppra discontinued, no seizure activity noted 8 days Ativan TID PRN agitation Neurosurgery following MRI brain 07/09- multiple cerebral contusions diffuse cortical and left midbrain MRI cervical spine 07/09- negative HOB elevated > 30 degrees CARDIOVASCULAR: HR = sinus rhythm. HR = 95-120 BPM. BP = stable PMHx: HTN Scheduled Norvasc, hydralazine, lisinopril and Vasotec PRN Added 20 mg Lasix daily BLE ultrasound negative for DVT Follow CMP - Electrolyte protocol in place for replacement. RESPIRATORY: On 3L nasal cannula Tachypneic Continue to monitor closely for hypoxemia. Pulmonary toilet - L&S. Bronchodilators - Duonebs q2H PRN 07/10 CXR improving right basilar density Labs tomorrow Chest X-Ray PRN GASTROINTESTINAL: Diet - Jevity 1.5 @ goal 50 mL/H with 200 mL free water flushes q6H, tolerating well Bowel regimen - Colace and MOM. LBM 07/10 RENAL / URINARY: I&O +807 BUN / creat stable Villar - in place to bedside drainage bag ENDOCRINE: BGM -stable HEMATOLOGY: H&H: 12.8 / 37.7 Continue to monitor for signs and symptoms of bleeding. Transfuse for < 7.0 Monitor patient for any bleeding complications. INFECTIOUS DISEASE: Follow CBC WBC 12.0 T-max 100.1 07/03: Blood, urine and sputum cultures negative Administer antipyretics for temp as needed. Discontinue central line and obtain PIV Invasive lines: R SC TLC 07/02 Villar 07/02 PROPHYLAXIS: GI - famotidine DVT - Mechanical VTE with SCDs. Chemical management contraindicated due to ICH SKIN: Warm / Dry ACTIVITY: Status -OOB to cardiac chair PT and OT evaluating. CASE MANAGEMENT: Consulted for assist with DC planning. Placement - disposition will need inpatient rehabilitation specializes in neuro injuries. Plan of care discussed with RN and family at bedside. Patient has transfer to Med/Surg floor. Trauma surgery team will round daily and evaluate patient and adjust the treatment plan. Attestation Wean to extubate today from neurologic condition permits The exam, history, and the medical decision-making described in the above note were completed with the assistance of the mid-level provider. I reviewed and agree with the findings presented. I attest that I had a [id number] encounter with the patient on the same day, and personally performed and documented my assessment and findings in the medical record. Critical care time 40 minutes. Saul Kuo MD Jul 16, 2016 10:55
[2016-07-16] MEDS: PANTOPRAZOLE INJ 80 MG in SODIUM CHLORIDE 0.9% INJ 100 ML IV SCH ×2 (11:18→20:27)
--- NOTE | 2016-07-16 14:32 | HHI.GIFU ---
Subjective Remarks Resting in bed. Sedated on vent. No active bleeding at this time. (Lanny Mota) Objective Vitals I&O Vital Signs Date Time Temp Pulse Resp B/P Pulse Ox O2 Delivery O2 Flow Rate FiO2 07/16/16 11:30 100 35 07/16/16 11:30 35 07/16/16 08:03 100 35 07/16/16 08:00 35 07/16/16 08:00 99.6 99 19 124/49 100 07/16/16 07:00 100 Mechanical Ventilator 35 07/16/16 07:00 88 07/16/16 04:45 100 35 07/16/16 04:00 99.2 99 19 132/49 100 07/16/16 04:00 35 07/16/16 00:59 100 35 07/16/16 00:00 99.1 106 16 108/51 100 07/16/16 00:00 35 07/15/16 22:52 99 35 07/15/16 20:04 98 35 07/15/16 20:00 35 07/15/16 20:00 99.3 118 22 121/63 98 07/15/16 19:00 117 07/15/16 19:00 99 Mechanical Ventilator 35 07/15/16 17:18 100 35 07/15/16 16:00 97.9 111 23 126/65 100 07/15/16 16:00 35 I/O 07/15/16 07/15/16 07/15/16 07/16/16 07/16/16 07/16/16 07:00 15:00 23:00 07:00 15:00 23:00 Intake Total 2847 ml 2902 ml 923 ml 700 ml Output Total 1070 ml 1700 ml 1225 ml 450 ml Balance 1777 ml 1202 ml -302 ml 250 ml Intake Oral 250 ml IV Total 1647 ml 1452 ml 923 ml 500 ml Packed Cells 1000 ml 1000 ml Tube Irrigant 200 ml 200 ml 200 ml Output Urine Total 1000 ml 1700 ml 1175 ml 400 ml Stool Total 50 ml Gastric Drainage Total 20 ml 0 ml 50 ml 50 ml # Bowel Movements 1 1 Laboratory Laboratory Tests Test 07/15/16 07/16/16 16:47 05:35 Vancomycin Level Trough 12.1 White Blood Count 16.6 Red Blood Count 2.69 Hemoglobin 8.3 Hematocrit 23.6 Mean Corpuscular Volume 87.7 Mean Corpuscular Hemoglobin 30.8 Mean Corpuscular Hemoglobin 35.1 Concent Red Cell Distribution Width 13.3 Platelet Count 114 Mean Platelet Volume 8.5 Blood Gas Puncture Site ART LINE Blood Gas Patient Temperature 98.6 Blood Gas HCO3 23 Blood Gas Base Excess -0.3 Blood Gas Oxygen Saturation 98 Arterial Blood pH 7.44 Arterial Blood Partial 35 Pressure CO2 Arterial Blood Partial 177 Pressure O2 Arterial Blood Oxygen Content 11.7 Arterial Blood 1.0 Carboxyhemoglobin Arterial Blood Methemoglobin 0.9 Blood Gas Hemoglobin 8.3 Oxygen Delivery Device VENTILATOR Blood Gas Ventilator Setting PRVC/AC Blood Gas Inspired Oxygen 35 Sodium Level 149 Potassium Level 3.0 Chloride Level 115 Carbon Dioxide Level 25.8 Anion Gap 8 Blood Urea Nitrogen 22 Creatinine 0.40 Estimat Glomerular Filtration 164 Rate Random Glucose 139 Calcium Level 7.4 Protein Corrected Calcium 9.0 Magnesium Level 2.4 Total Protein 4.4 Date/Time Procedure Status Source Growth 07/14/16 01:30 Gram Stain - Final Complete Sputum Endotracheal 07/14/16 01:30 Sputum Culture - Final Complete Pseudomonas Aeruginosa Morganella Morganii Imaging Last Impressions Chest X-Ray 07/16/16 0600 Signed Impressions: Service Date/Time: Saturday, July 16, 2016 04:47 - CONCLUSION: Endotracheal tube tip at the katharine. Stable clear lungs. Chapo Hicks MD Abdomen Arteriogram 07/14/16 0000 Signed Impressions: Service Date/Time: Thursday, July 14, 2016 14:59 - CONCLUSION: No active GI bleed identified in the SMA and MARIO distributions as detailed above. Fernandez Martin MD Transcranial Doppler Study Limited 07/10/16 0000 Cancelled Impressions: Service Date/Time: June 09:18 - CONCLUSION: There are no findings to indicate vasospasm. Chapo Davis MD Transcranial Doppler Study Complete 07/10/16 0000 Signed Impressions: Service Date/Time: June 09:18 - CONCLUSION: There are no findings to indicate vasospasm. Chapo Davis MD Lower Extremity Ultrasound 07/10/16 0000 Signed Impressions: Service Date/Time: June 09:17 - CONCLUSION: No evidence of deep venous thrombosis within the lower extremities. Anthony So MD Cervical Spine MRI 07/08/16 0000 Signed Impressions: Service Date/Time: Friday, July 08, 2016 13:48 - CONCLUSION: No abnormalities are seen within the cervical spine. Fluid identified within the dependent portion of the sphenoid sinuses likely related to the patient's trauma.. Noemi Lozano MD Brain MRI 07/08/16 0000 Signed Impressions: Service Date/Time: Friday, July 08, 2016 13:48 - CONCLUSION: Stable appearance of right frontal parenchymal contusion, small bilateral subdural hematomas and scattered areas of subarachnoid hemorrhage. There is an area of restricted diffusion involving the posterior medial temporal lobes bilaterally consistent with a contrecoup injury. No evidence of midline shift or hydrocephalus.. Noemi Lozano MD Head CT 07/06/16 0000 Signed Impressions: Service Date/Time: Wednesday, July 06, 2016 04:30 - CONCLUSION: Stable appearance to multiple cortical hemorrhages, subdural blood, subarachnoid blood and skull fracture. Javon Merida MD Abdomen X-Ray 07/06/16 0000 Signed Impressions: Service Date/Time: Wednesday, July 06, 2016 10:44 - CONCLUSION: Feeding tube across the GE junction and second portion of the duodenum. Jitendra Godoy MD FACR Thoracic Spine CT 07/02/161623 Signed Impressions: Service Date/Time: Saturday, July 02, 2016 16:40 - CONCLUSION: No acute bony injury in the thoracic spine Chapo Hicks MD Lumbar Spine CT [id number]/02/161623 Signed Impressions: Service Date/Time: Saturday, July 02, 2016 16:40 - CONCLUSION: No acute bony injury in the lumbosacral spine. Chapo Hicks MD Chest CT 07/02/161623 Signed Impressions: Service Date/Time: Saturday, July 02, 2016 16:40 - CONCLUSION: Bilateral posterior lower lobe consolidative changes, left worse than right. No evidence of acute mediastinal injury. Chapo Hicks MD Cervical Spine CT 07/02/161623 Signed Impressions: Service Date/Time: Saturday, July 02, 2016 16:32 - CONCLUSION: 1. No acute findings. Moderate degenerative change in the lower cervical spine. David Quispe MD Abdomen/Pelvis CT 1/4/17 1624 Signed Impressions: Service Date/Time: Saturday, July 02, 2016 16:40 - CONCLUSION: Negative CT scan abdomen and pelvis for acute traumatic injury. Jitendra Godoy MD FACR Physical Exam HEENT: Normocephalic; atraumatic; no jaundice. intubated NECK: Neck is supple, no JVD, no lymphadenopathy. CHEST: CTA CARDIAC: RRR ABDOMEN: Soft, mildly distended, nontender; no hepatosplenomegaly; bowel sounds are present in all four quadrants. EXTREMITIES: Generalized edema. SKIN: Normal; no rash; no jaundice. 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 S/P EGD/incomplete colonoscopy (07/14/16)----> Full of blood clots and brown stools, internal hemorrhoids, external hemorrhoids, gastritis. Pt's HH dropped from 10.2/29.4 to 8.3/23.6, but she has not had any obvious active bleeding. NGT with yellowish gastric secretions. S/P 6 units PRBC. - Anemia secondary to blood loss. S/P 6 units PRBC, 8.3/23.6. - Respiratory failure- Per CCM, intubated - Subarachnoid hemorrhage and hypoxemia- Patient was a trauma alert. Per medical history,reported by EMS the patient was found down on the ground, and in an industrial area, with shelving material that had fallen on her. She was found to have subarachnoid hemorrhage and hypoxemic component. She is currently sedated on the vent. Plan: - Okay to resume TF (already ordered in EMR) - Cont. PPI - Monitor HH - Transfuse as necessary to keep hgb > 8.0 - Notify GI for active bleed - Supportive care - Will need repeat colonoscopy with better prep when able - Patient seen and examined by Dr. Sutton and myself and this note is written on his behalf. (Lanny Mota) Physician Comments Seen and examined with Ms. Nakul EMERY, no bleeding, H/H stable. Colonoscopy when stable or if repeat bleeding occurs. ok with this plan. Will sign off, please reconsult as needed or when pt. able to proceed with prep. Thank you (Regulo Sutton MD) Lanny Mota Jul 16, 2016 14:32 Regulo Sutton MD Jul 16, 2016 16:28
[2016-07-16 19:37] LABS: HEMATOCRIT 21.8 % (35.0-46.0); REVIEW FLAG FINAL
[2016-07-17] VITALS (21 sets, daily range): BP systolic 124–145; BP diastolic 48–74; PULSE 78–125; RESP 13–30; TEMP 98.8–100.8; O2SAT 97–100
[2016-07-17] MEDS: FREE WATER DOB SCH ×3 (00:50→15:39)
[2016-07-17] MEDS: PROPOFOL 1000 MG/100 ML INJ 100 ML IV SCH ×2 (03:20→15:39)
[2016-07-17] MEDS: PIPERACIL-TAZO 3.375 GM PREMIX 50 ML IV SCH ×3 (03:20→19:24)
--- NOTE | 2016-07-17 03:41 | RADRPT ---
EXAM DATE/TIME: 07/17/2016 03:03 [facility] COMPARISON: CHEST SINGLE AP, July 16, 2016, 4:47. INDICATIONS : Evaluate for pulmonary disease. MEDICAL HISTORY : Hypertension. SURGICAL HISTORY : Unknown ENCOUNTER: Subsequent ACUITY: 1 week PAIN SCORE: Non-responsive. LOCATION: Bilateral chest FINDINGS: Endotracheal tube is present good position with tip 4 cm above the katharine. Nasogastric tube descends in the stomach. Left subclavian central line is stable in good position. Lungs are symmetrically aera brook and grossly clear. Cardiac contours are unchanged. CONCLUSION: Satisfactory chest appearance Chapo Hicks MD on July 17, 2016 at 3:39 Board Certified Radiologist. This report was verified electronically.
[2016-07-17] MEDS: RESP: ALBUTEROL 2.5 MG/IPRATROPIUM 0.5 MG NEB (SCH) NEB ×4 (03:43→19:22)
[2016-07-17] MEDS: VANCOMYCIN 1,500 MG/NS 500 ML IV SCH ×4 (04:25→15:39)
[2016-07-17 05:04] LABS: HEMATOCRIT 21.6 % (35.0-46.0); MEAN CELL VOLUME 90.1 FL (80.0-100.0); MEAN CORPUSCULAR HGB CONC 34.4 % (32.0-36.0); PLATELET COUNT 116 TH/MM3 (150-450); RED CELL DISTRIBUTION WIDTH 13.4 % (11.6-17.2); REVIEW FLAG FINAL; WHITE BLOOD COUNT 10.1 TH/MM3 (4.0-11.0)
[2016-07-17] MEDS: PANTOPRAZOLE INJ 80 MG in SODIUM CHLORIDE 0.9% INJ 100 ML IV SCH ×2 (05:06→15:40)
[2016-07-17 05:36] LABS: MAGNESIUM 2.3 MG/DL (1.5-2.5); POTASSIUM 3.3 MEQ/L (3.5-5.1)
[2016-07-17 05:48] LABS: BLOOD GAS BASE EXCESS 0.1 mmol/L (-2-2); BLOOD GAS HCO3 24 mmol/L (22-26); BLOOD GAS O2 HGB SATURATION 97 % (90-100); BLOOD GAS OXYGEN CONTENT 11.1 Vol % (12.0-20.0); BLOOD GAS PCO2 38 mmHg (38-42); BLOOD GAS PO2 173 mmHg (61-120); BLOOD GAS TOTAL HGB 7.8 G/DL (12.0-16.0); TEMP CORR TO 98.6
[2016-07-17 05:49] LABS: CRITICAL VALUE NO; OXYGEN DEVICE VENTILATOR
[2016-07-17 05:50] LABS: DRAW SITE ART LINE; FIO2 35 %; STAT NO; VENT SETTINGS PRVC/AC
[2016-07-17] MEDS: POTASSIUM CHLOR 40 MEQ PREMIX 100 ML IV PRN (06:09)
[2016-07-17] MEDS: LISINOPRIL 20 MG TAB PO SCH (08:21)
[2016-07-17] MEDS: MAGNESIUM HYDROXIDE SUSP 30 ML CUP PO SCH (08:21)
[2016-07-17] MEDS: DOCUSATE SODIUM 100 MG CAP PO SCH ×2 (08:21→20:43)
[2016-07-17] MEDS: VALPROIC ACID 250 MG CAP PO SCH ×2 (08:21→20:43)
[2016-07-17] MEDS: hydrALAZINE HCL 20 MG/ML VIAL IV PUSH PRN (08:21)
[2016-07-17] MEDS: FUROSEMIDE 20 MG TAB PO SCH (08:21)
[2016-07-17] MEDS: CHLORHEXIDINE 0.12% (ORAL KIT) 15 ML CUP MT SCH ×2 (08:22→20:43)
[2016-07-17] MEDS: SODIUM CHLOR 0.9% 1000 ML INJ 1,000 ML IV SCH (08:22)
[2016-07-17] MEDS ORDERED: SODIUM CHLOR 0.9% 250 ML INJ 250 ML IV ONE (09:45)
--- NOTE | 2016-07-17 10:58 | HHI.PR ---
Neuropsych Emotional Emotional: UnabletoAssess: Emotional, Anxious/Fearful, Depressed/Sad, Hostile/ Resentful, Irritable/Angry/Frustrate, Labile, Constricted/Blunted Behavior Behavior: Unable to Asses: Behavior, Coping/Acceptance, Cooperative w/ Treatment, Motivation, Frustration Tolerance/[place], Impulsive/Agitated, Suicidal/ Homicidal Risk Cognitive Cognitive: Unable to Asses: Cognitive, Attention/Concentration, Confused/ Orientation, Insight/Awareness, Judgement/Problem-Solving, Memory Progress Notes/Response to Tx Time with Patient: 15 minutes Premorbid psychological status Premorbid Cognitive, Emotional and Behavioral Status: Stable. 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 The patient has no psychiatric difficulties , as described above. Substance abuse history includes not significant. Behavioral Reactions of Patient and Family/Support System: Stable. The patient s family is experiencing ongoing issues of adjustment given the nature of the injury, and this aspect of recovery will require ongoing monitoring. I spoke at length with the patient's brother, who indicated good understanding of his sister's course of recovery. Emotional/Behavioral Status of Patient and Family/Support System: Deferred. Pertinent issues, if appropriate to this patients clinical care, are described in detail above. Maximizing acute care outcome It is recommended that the patient be monitored for emergent behavioral impulsivity as the medical condition evolves. This patients neuropathological challenges may limit their rehabilitation potential going forward, and these challenges will require specialized therapeutic skills to maximize outcome. It is understood that any possible underlying anoxic/hypoxic injury may have been overstated, based on reports from the patient's brother. Anticipated Problems Ongoing areas of concern will include behavioral impulsivity, lack of insight and judgment, which is expected to improve with time and treatment. Presently , the patient is preconscious. Treatment Plan This clinician will continue to follow with you throughout the course of this patients rehabilitation treatment, and I will be available to meet with the patients family/support system to facilitate their understanding and the ongoing care of their family member. The goals of neuropsychological intervention shall be both educational and supportive to the family/support system as is deemed clinically appropriate. [facility] Level: II:General response-total assist Impression This patient suffered a severe traumatic brain injury although it is not understood that any anoxic/hypoxic injury may have been overstated. Diagnosis: Progress Note Narrative Ongoing follow-up of patient within the context of daily trauma rounding. She reportedly is having inconsistent following of basic commands to move her left arm, but issue of arousal regulation persists. Her [place] Level of II does indicate some level of improvement however. I will continue to follow with you. Liborio Hitchcock PhD Jul 17, 2016 10:58 am
--- NOTE | 2016-07-17 11:07 | RADRPT ---
EXAM DATE/TIME: 07/17/2016 10:25 [place] COMPARISON: No previous studies available for comparison. INDICATIONS : Eval dobhoff placement. MEDICAL HISTORY : Hypertension. Pulmonary disease, stroke, SA hemorrhage. SURGICAL HISTORY : Unobtainable. ENCOUNTER: Subsequent ACUITY: 1 week PAIN SCORE: Non-responsive. LOCATION: Abdomen FINDINGS: The bowel gas pattern appears normal. No free air is identified. No organomegaly is evident. Dobbhoff tube has its tip in the duodenal bulb. CONCLUSION: 1. Dobbhoff with tip in duodenal bulb. Jayden Taylor MD on July 17, 2016 at 11:04 Board Certified Radiologist. This report was verified electronically.
--- NOTE | 2016-07-17 11:12 | HHI.CCPN ---
Subjective Brief History The patient is a 56-year-old female that presented to the emergency department/Trauma [place] via [facility] as a trauma alert. Per medical history, reported by EMS the patient was found down on the ground, and in an industrial area, with shelving material that had fallen on her. The patient was unconscious for an undetermined time. Upon arrival of EMS the patient's GCS score 3. The patient was intubated prior to arrival by [facility] paramedics. A 7-0 endotracheal tube at 22 cm.at the lip. EMS reported that the laryngoscopic view patient had blood at the nares bilaterally and within the oropharynx. EMS reported that the had a difficult airway, very anterior. Patient did receive 2 doses of etomidate and 1 dose of succinylcholine by EMS in the field, prior to arrival. The patient then received Rocuronium upon arrival. Patient was found to have the subarachnoid and intraparenchymal hemorrhage mainly of the right frontal areas of brain. In addition patient may have suffered the hypoxic or anoxic brain injury for undetermined period of time 24 Hour Review/Hospital Course Patient was initially intubated and ventilated and over the last 24 hours has gradually improved Patient was extubated last night She had this point moves all 4 extremities tries to open left thigh but does not follow any commands Based on all of the above patient may remain extubated but I would not be surprised if patient required reintubation at some point should she develop significant secretions and there would be a danger of compromised airway 07/06/16 Patient neurologically slightly improved Did not open is yet however does follow some commands and squeezes hand when asked to Moves all 4 extremities [place] Coma Scale about 10 07/07/16 Lethargic, follows commands Secretions improved Period of hyperventilation and tachycardia, resolved with IV Morphine 07/08/16 Obtunded, responds to sternal rub Periods of tachypnea overnight MRI brain today 07/09/16 Patient slightly more awake and purposeful. Follows commands and squeezes hand Repeat brain MRI done Patient will transfer out of the ICU today Discussed case with Dr. Garicas 07/10/16 Patient continues to be lethargic and have periods of tachypnea and tachycardia Follows commands 4 Ultrasound of bilateral lower extremities negative for DVT 07/14/16 Patient with traumatic brain contusion and bleeding was transferred to the floor several days ago and developed acute GI hemorrhage overnight Patient was transferred to ICU resuscitated received 4 units of blood and additional 2 units at this time Abdomen is soft hypoactive bowel sounds Blood is fairly fresh and there is very little question my mind that this is a diverticular bleed originating from the left side of the colon Colonoscopy however was not successful due to month blood no bleeder could be visualized In face of active bleeding we'll do angiogram in radiology and see if we can localize the bleed 85-90% of these bleeds will stop spontaneously with adequate therapy and supplementation with blood and blood products. Only about 10% of patients will require surgery on emergency basis but it is clearly helpful if not essential to know the site of bleeding in order to remove the correct hemicolon. In patients will continue to bleed and bleeding site cannot be visualized usually total abdominal colectomy is indicated Addendum Patient underwent the angiogram in the interventional suite and inferior mesenteric arteries superior mesenteric artery and distal branches were selectively injected. No bleeding site has been found The amount of bleeding required for positive angiogram is infinite Pletal low about 0.1 mL/m. Based on negative angiogram there is likelihood that patient has stopped bleeding in the meantime. We will follow H&H every 4 hours, as necessary and if patient continues to bleed and bleeding source cannot be found after bout 8 units patient will be taken to the operating room with purpose of subtotal colectomy Have discussed this with her and he agrees to the plan 07/15/16 Patient transferred yesterday to the ICU due to massive lower GI bleeding Patient underwent the SMA and MARIO angiograms which did not reveal the source of bleeding because by that time bleeding had stopped Patient has lost about 4 units of blood and in all likelihood this is a diverticular bleed originating from the left side of the colon Either way this has stopped right now and if it reoccurs patient will undergo another angiogram followed by colectomy 07/16/16 Patient remained stable Slight drop in hemoglobin since yesterday which can be attributed to the hemodilution and may be minor bleeding No more major hemorrhage from diverticula and hopefully this is going remain to be the case If patient rebleeds she will have immediate arteriogram and then goes to the operating room for colon resection On the ventilator patient has been stable and today will be today to wean her off the respirator possible and if neurologic status permits 07/17/16 Patient with head injury was recovering on the floor then developed a massive lower GI bleed most likely diverticular Patient was treated conservatively and this has since abated Hemoglobin has been dropping 1 g per day very slowly which may be indication of continuous small bleed or more likely a dilutional effect Will transfuse one unit of blood today the patient In the bigger picture patient remains ventilated and really responds only to commands occasionally Has a very heavy secretions and will not be able to protect her upper airway adequately extubated due to decreased level of consciousness and Arlette Coma Scale about 8 or 9 at best Therefore this point it is appropriate to go ahead with tracheostomy at this time I will discuss this with the family Objective Vital Signs Date Time Temp Pulse Resp B/P Pulse Ox O2 Delivery O2 Flow Rate FiO2 07/17/16 10:00 114 07/17/16 09:35 97 35 07/17/16 08:00 98.9 17 145/60 07/16/16 07:00 Mechanical Ventilator 07/14/16 00:45 15.00 Intake and Output 07/16/16 07/16/16 07/17/16 08:00 16:00 00:00 Intake Total 700 ml 1397 ml 1008 ml Output Total 450 ml 625 ml 550 ml Balance 250 ml 772 ml 458 ml Result Diagram: 07/17/16 0455 07/17/16 0455 Other Results Laboratory Tests Test 07/17/16 05:37 Blood Gas Puncture Site ART LINE Blood Gas Patient Temperature 98.6 Blood Gas HCO3 24 mmol/L (22-26) Blood Gas Base Excess 0.1 mmol/L (-2-2) Blood Gas Oxygen Saturation 97 % (90-100) Arterial Blood pH 7.42 (7.380-7.420) Arterial Blood Partial 38 mmHg (38-42) Pressure CO2 Arterial Blood Partial 173 mmHg Pressure O2 (61-120) Arterial Blood Oxygen Content 11.1 Vol % (12.0-20.0) Arterial Blood 1.0 % (0-4) Carboxyhemoglobin Arterial Blood Methemoglobin 1.0 % (0-2) Blood Gas Hemoglobin 7.8 G/DL (12.0-16.0) Oxygen Delivery Device VENTILATOR Blood Gas Ventilator Setting PRVC/AC Blood Gas Inspired Oxygen 35 % Imaging Last 24 hours Impressions Chest X-Ray 07/17/16 0600 Signed Impressions: Service Date/Time: June 03:03 - CONCLUSION: Satisfactory chest appearance Chapo Hicks MD Exam [employer] Patient occasionally responds to verbal stimuli does not open eyes and her [place] Coma Scale is round 8 Hemodynamic/Cardiac Hemodynamically patient is stable Pulmonary/Respiratory Bilateral breath sounds ventilatory supported but with copious secretions Due to the neurologic status patient cannot be extubated at this time and copious secretions will lead eventually to development of pneumonia At this point patient will need tracheostomy Abdomen/GI Nutrition Abdomen is soft, enteral feedings are to be restarted Hemoglobin drop has been minimal about 1 g a day which can be accounted for dilutional effect Will transfuse one unit of blood today and continue to observe the patient Vascular Central Line Catheter Date of Insertion: Jul 02, 2016 Line: Central Venous Catheter Side: Right Location: Subclavian Assessment and Plan Plan GENERAL: 56-year-old well-nourished, well developed female lying in bed. SKIN: Warm and dry. Erythema noted on chest. HEAD: Normocephalic. EYES: PERRL. ENT: No nasal bleeding or discharge. Mucous membranes pink and moist. Left nare NG tube in place. NECK: Trachea midline. No JVD. CARDIOVASCULAR: Regular rate and rhythm. RESPIRATORY: No accessory muscle use. Lungs clear and diminished to auscultation. Breath sounds equal bilaterally. GASTROINTESTINAL: Abdomen soft, non-tender, nondistended. + BS. F/C in place. MUSCULOSKELETAL: Extremities without cyanosis, generalized edema noted. No obvious deformities. NEUROLOGICAL: Lethargic, nonverbal. Follows commands 4. NEUROLOGICAL: Valporic acid F/U head CT 07/06 stable IV Keppra discontinued, no seizure activity noted 8 days Ativan TID PRN agitation Neurosurgery following MRI brain 07/09- multiple cerebral contusions diffuse cortical and left midbrain MRI cervical spine 07/09- negative HOB elevated > 30 degrees CARDIOVASCULAR: HR = sinus rhythm. HR = 95-120 BPM. BP = stable PMHx: HTN Scheduled Norvasc, hydralazine, lisinopril and Vasotec PRN Added 20 mg Lasix daily BLE ultrasound negative for DVT Follow CMP - Electrolyte protocol in place for replacement. RESPIRATORY: On 3L nasal cannula Tachypneic Continue to monitor closely for hypoxemia. Pulmonary toilet - L&S. Bronchodilators - Duonebs q2H PRN 07/10 CXR improving right basilar density Labs tomorrow Chest X-Ray PRN GASTROINTESTINAL: Diet - Jevity 1.5 @ goal 50 mL/H with 200 mL free water flushes q6H, tolerating well Bowel regimen - Colace and MOM. LBM 07/10 RENAL / URINARY: I&O +807 BUN / creat stable Villar - in place to bedside drainage bag ENDOCRINE: BGM -stable HEMATOLOGY: H&H: 12.8 / 37.7 Continue to monitor for signs and symptoms of bleeding. Transfuse for < 7.0 Monitor patient for any bleeding complications. INFECTIOUS DISEASE: Follow CBC WBC 12.0 T-max 100.1 07/03: Blood, urine and sputum cultures negative Administer antipyretics for temp as needed. Discontinue central line and obtain PIV Invasive lines: R SC TLC 07/02 Villar 07/02 PROPHYLAXIS: GI - famotidine DVT - Mechanical VTE with SCDs. Chemical management contraindicated due to ICH SKIN: Warm / Dry ACTIVITY: Status -OOB to cardiac chair PT and OT evaluating. CASE MANAGEMENT: Consulted for assist with DC planning. Placement - disposition will need inpatient rehabilitation specializes in neuro injuries. Plan of care discussed with RN and family at bedside. Patient has transfer to Med/Surg floor. Trauma surgery team will round daily and evaluate patient and adjust the treatment plan. Attestation Patient not extubated will due to the neurologic status and combination of systemic issues including heavy secretions Will need tracheostomy The exam, history, and the medical decision-making described in the above note were completed with the assistance of the mid-level provider. I reviewed and agree with the findings presented. I attest that I had a [id number] encounter with the patient on the same day, and personally performed and documented my assessment and findings in the medical record. Critical care time 50 minutes. Saul Kuo MD Jul 17, 2016 11:12
[2016-07-17] MEDS: LORazepam 0.5 MG TAB PO PRN (12:05)
[2016-07-17] MEDS: ACETAMINOPHEN 1000 MG/100 ML VIAL IV PRN (12:05)
[2016-07-17] MEDS ORDERED: PHARMACY ORDERED LAB XX ONE (15:45)
[2016-07-18] VITALS (18 sets, daily range): BP systolic 132–154; BP diastolic 44–76; PULSE 85–112; RESP 15–23; TEMP 98.3–100.5; O2SAT 99–100
[2016-07-18] MEDS: FREE WATER DOB SCH ×3 (00:45→16:00)
[2016-07-18] MEDS: hydrALAZINE HCL 20 MG/ML VIAL IV PUSH PRN (00:45)
[2016-07-18] MEDS: PANTOPRAZOLE INJ 80 MG in SODIUM CHLORIDE 0.9% INJ 100 ML IV SCH ×3 (00:55→20:55)
[2016-07-18] MEDS: RESP: ALBUTEROL 2.5 MG/IPRATROPIUM 0.5 MG NEB (SCH) NEB ×4 (03:03→20:30)
[2016-07-18 04:34] LABS: HEMATOCRIT 24.3 % (35.0-46.0); MEAN CORPUSCULAR HEMOGLOBIN 32.2 PG (27.0-34.0); MEAN CORPUSCULAR HGB CONC 35.8 % (32.0-36.0); PLATELET COUNT 146 TH/MM3 (150-450); RED CELL DISTRIBUTION WIDTH 13.2 % (11.6-17.2); REVIEW FLAG FINAL; WHITE BLOOD COUNT 10.7 TH/MM3 (4.0-11.0)
[2016-07-18 04:52] LABS: BICARBONATE 27.6 MEQ/L (21.0-32.0); POTASSIUM 3.1 MEQ/L (3.5-5.1)
[2016-07-18] MEDS: PIPERACIL-TAZO 3.375 GM PREMIX 50 ML IV SCH ×3 (04:53→18:21)
[2016-07-18 05:04] LABS: CALCIUM-PROTEIN CORRECTED 8.6 MG/DL (8.5-10.1)
[2016-07-18] MEDS: POTASSIUM CHLOR 40 MEQ PREMIX 100 ML IV PRN ×2 (05:09→07:36)
[2016-07-18] MEDS: CHLORHEXIDINE 0.12% (ORAL KIT) 15 ML CUP MT SCH ×2 (08:00→20:55)
[2016-07-18] MEDS: VALPROIC ACID 250 MG CAP PO SCH ×2 (08:53→20:57)
[2016-07-18] MEDS: DOCUSATE SODIUM 100 MG CAP PO SCH ×2 (08:53→20:57)
[2016-07-18] MEDS: LISINOPRIL 20 MG TAB PO SCH (08:54)
[2016-07-18] MEDS: FUROSEMIDE 20 MG TAB PO SCH (08:54)
[2016-07-18] MEDS: MAGNESIUM HYDROXIDE SUSP 30 ML CUP PO SCH (08:54)
[2016-07-18] MEDS: SODIUM CHLOR 0.9% 1000 ML INJ 1,000 ML IV SCH (10:11)
[2016-07-18] MEDS: VANCOMYCIN 1,500 MG/NS 500 ML IV SCH ×2 (10:11)
[2016-07-18] MEDS ORDERED: MISC INFORMATION OTHER ONE (11:00)
[2016-07-18] MEDS ORDERED: MIDAZOLAM HCL 5 MG/ML VIAL (1 ML) IV ONE (12:30)
[2016-07-18] MEDS ORDERED: VECURONIUM BROMIDE 10 MG VIAL IV PUSH ONE (12:30)
[2016-07-18] MEDS: NOREPINEPHRINE 4 MG/D5W 250 ML IV SCH ×2 (12:33→14:07)
[2016-07-18] MEDS: PROPOFOL 1000 MG/100 ML INJ 100 ML IV SCH (13:01)
--- NOTE | 2016-07-18 13:14 | HHI.PR ---
Neuropsych Emotional Emotional: UnabletoAssess: Emotional, Anxious/Fearful, Depressed/Sad, Hostile/ Resentful, Irritable/Angry/Frustrate, Labile, Constricted/Blunted Behavior Behavior: Unable to Asses: Behavior, Coping/Acceptance, Cooperative w/ Treatment, Motivation, Frustration Tolerance/[place], Impulsive/Agitated, Suicidal/ Homicidal Risk Cognitive Cognitive: Unable to Asses: Cognitive, Attention/Concentration, Confused/ Orientation, Insight/Awareness, Judgement/Problem-Solving, Memory Psychosocial Psychosocial: Mild: Family/Other Adjustment, Realistic Expectation, Moderate: Psychosocial Progress Notes/Response to Tx Contents of Sessions: Adjustment, Level of Consciousness Time with Patient: 30 minutes Premorbid psychological status Premorbid Cognitive, Emotional and Behavioral Status: Stable. 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 The patient has no psychiatric difficulties , as described above. Substance abuse history includes not significant. Behavioral Reactions of Patient and Family/Support System: Stable. The patient s family is experiencing ongoing issues of adjustment given the nature of the injury, and this aspect of recovery will require ongoing monitoring. I spoke at length with the patient's brother, who indicated good understanding of his sister's course of recovery. Emotional/Behavioral Status of Patient and Family/Support System: Deferred. Pertinent issues, if appropriate to this patients clinical care, are described in detail above. Maximizing acute care outcome It is recommended that the patient be monitored for emergent behavioral impulsivity as the medical condition evolves. This patients neuropathological challenges may limit their rehabilitation potential going forward, and these challenges will require specialized therapeutic skills to maximize outcome. It is understood that any possible underlying anoxic/hypoxic injury may have been overstated, based on reports from the patient's brother. Anticipated Problems Ongoing areas of concern will include behavioral impulsivity, lack of insight and judgment, which is expected to improve with time and treatment. Presently , the patient is preconscious. Treatment Plan This clinician will continue to follow with you throughout the course of this patients rehabilitation treatment, and I will be available to meet with the patients family/support system to facilitate their understanding and the ongoing care of their family member. The goals of neuropsychological intervention shall be both educational and supportive to the family/support system as is deemed clinically appropriate. [facility] Level: II:General response-total assist Impression This patient suffered a severe traumatic brain injury although it is not understood that any anoxic/hypoxic injury may have been overstated. Diagnosis: (1) Major neurocognitive disorder as late effect of traumatic brain injury with behavioral disturbance Progress Note Narrative Ongoing follow-up of patient within the context of daily trauma rounding. Patient was seen in the room and I had the opportunity to discuss neurocognitive and neurobehavioral issues with family members, who were present bedside. Specific issues that were addressed included issues of brainstem injuries as they relate to regulation of physiological processes, arousal maintenance, etc, course of recovery, etc. The family demonstrated good understanding of these issues, and I provided them my contact information for them to contact me in the future. The patient remains critically ill, only inconsistently following commands. I will continue to follow with you. Liborio Hitchcock PhD Jul 18, 2016 1:14 pm
[2016-07-18] MEDS ORDERED: ROCURONIUM INJ 50 MG/5 ML VIAL IV ONE (14:00)
--- NOTE | 2016-07-18 17:35 | HHI.CCPN ---
Subjective Brief History The patient is a 56-year-old female that presented to the emergency department/[facility] via [facility] as a trauma alert. Per medical history, reported by EMS the patient was found down on the ground, and in an industrial area, with shelving material that had fallen on her. The patient was unconscious for an undetermined time. Upon arrival of EMS the patient's GCS score 3. The patient was intubated prior to arrival by [facility] paramedics. A 7-0 endotracheal tube at 22 cm.at the lip. EMS reported that the laryngoscopic view patient had blood at the nares bilaterally and within the oropharynx. EMS reported that the had a difficult airway, very anterior. Patient did receive 2 doses of etomidate and 1 dose of succinylcholine by EMS in the field, prior to arrival. The patient then received Rocuronium upon arrival. Patient was found to have the subarachnoid and intraparenchymal hemorrhage mainly of the right frontal areas of brain. In addition patient may have suffered the hypoxic or anoxic brain injury for undetermined period of time 24 Hour Review/Hospital Course Patient was initially intubated and ventilated and over the last 24 hours has gradually improved Patient was extubated last night She had this point moves all 4 extremities tries to open left thigh but does not follow any commands Based on all of the above patient may remain extubated but I would not be surprised if patient required reintubation at some point should she develop significant secretions and there would be a danger of compromised airway 07/06/16 Patient neurologically slightly improved Did not open is yet however does follow some commands and squeezes hand when asked to Moves all 4 extremities Arlette Coma Scale about 10 07/07/16 Lethargic, follows commands Secretions improved Period of hyperventilation and tachycardia, resolved with IV Morphine 07/08/16 Obtunded, responds to sternal rub Periods of tachypnea overnight MRI brain today 07/09/16 Patient slightly more awake and purposeful. Follows commands and squeezes hand Repeat brain MRI done Patient will transfer out of the ICU today Discussed case with Dr. Garcias 07/10/16 Patient continues to be lethargic and have periods of tachypnea and tachycardia Follows commands 4 Ultrasound of bilateral lower extremities negative for DVT 07/14/16 Patient with traumatic brain contusion and bleeding was transferred to the floor several days ago and developed acute GI hemorrhage overnight Patient was transferred to ICU resuscitated received 4 units of blood and additional 2 units at this time Abdomen is soft hypoactive bowel sounds Blood is fairly fresh and there is very little question my mind that this is a diverticular bleed originating from the left side of the colon Colonoscopy however was not successful due to month blood no bleeder could be visualized In face of active bleeding we'll do angiogram in radiology and see if we can localize the bleed 85-90% of these bleeds will stop spontaneously with adequate therapy and supplementation with blood and blood products. Only about 10% of patients will require surgery on emergency basis but it is clearly helpful if not essential to know the site of bleeding in order to remove the correct hemicolon. In patients will continue to bleed and bleeding site cannot be visualized usually total abdominal colectomy is indicated Addendum Patient underwent the angiogram in the interventional suite and inferior mesenteric arteries superior mesenteric artery and distal branches were selectively injected. No bleeding site has been found The amount of bleeding required for positive angiogram is infinite Pletal low about 0.1 mL/m. Based on negative angiogram there is likelihood that patient has stopped bleeding in the meantime. We will follow H&H every 4 hours, as necessary and if patient continues to bleed and bleeding source cannot be found after bout 8 units patient will be taken to the operating room with purpose of subtotal colectomy Have discussed this with her and he agrees to the plan 07/15/16 Patient transferred yesterday to the ICU due to massive lower GI bleeding Patient underwent the SMA and MARIO angiograms which did not reveal the source of bleeding because by that time bleeding had stopped Patient has lost about 4 units of blood and in all likelihood this is a diverticular bleed originating from the left side of the colon Either way this has stopped right now and if it reoccurs patient will undergo another angiogram followed by colectomy 07/16/16 Patient remained stable Slight drop in hemoglobin since yesterday which can be attributed to the hemodilution and may be minor bleeding No more major hemorrhage from diverticula and hopefully this is going remain to be the case If patient rebleeds she will have immediate arteriogram and then goes to the operating room for colon resection On the ventilator patient has been stable and today will be today to wean her off the respirator possible and if neurologic status permits 07/17/16 Patient with head injury was recovering on the floor then developed a massive lower GI bleed most likely diverticular Patient was treated conservatively and this has since abated Hemoglobin has been dropping 1 g per day very slowly which may be indication of continuous small bleed or more likely a dilutional effect Will transfuse one unit of blood today the patient In the bigger picture patient remains ventilated and really responds only to commands occasionally Has a very heavy secretions and will not be able to protect her upper airway adequately extubated due to decreased level of consciousness and Coleman Coma Scale about 8 or 9 at best Therefore this point it is appropriate to go ahead with tracheostomy at this time I will discuss this with the family 07/18/16 Following commands with upper extremities Continues to have increased secretions, plan for DOCUMENT MANAGER tomorrow Patient had another small bloody stool today (Karoline Gardner) Objective Vital Signs Date Time Temp Pulse Resp B/P Pulse Ox O2 Delivery O2 Flow Rate FiO2 07/18/16 16:12 100 40 07/18/16 16:00 95 07/18/16 16:00 99.3 15 137/66 07/16/16 07:00 Mechanical Ventilator Intake and Output 07/17/16 07/17/16 07/18/16 08:00 16:00 00:00 Intake Total 856 ml 1473 ml 1381 ml Output Total 525 ml 1150 ml 625 ml Balance 331 ml 323 ml 756 ml (Karoline Gardner PLANT [employer]OTECTION SUPERVISOR) Result Diagram: 07/18/16 0410 07/18/16 1445 Imaging Last Impressions Chest X-Ray 07/17/16 0600 Signed Impressions: Service Date/Time: June 03:03 - CONCLUSION: Satisfactory chest appearance Chapo Hicks MD Abdomen X-Ray 07/17/16 0000 Signed Impressions: Service Date/Time: June 10:25 - CONCLUSION: 1. Dobbhoff with tip in duodenal bulb. Jayden Talyor MD Abdomen Arteriogram 07/14/16 0000 Signed Impressions: Service Date/Time: Thursday, July 14, 2016 14:59 - CONCLUSION: No active GI bleed identified in the SMA and MARIO distributions as detailed above. Fernandez Martin MD Transcranial Doppler Study Limited 07/10/16 0000 Cancelled Impressions: Service Date/Time: June 09:18 - CONCLUSION: There are no findings to indicate vasospasm. Chapo Davis MD Transcranial Doppler Study Complete 07/10/16 0000 Signed Impressions: Service Date/Time: June 09:18 - CONCLUSION: There are no findings to indicate vasospasm. Chapo Davis MD Lower Extremity Ultrasound 07/10/16 0000 Signed Impressions: Service Date/Time: June 09:17 - CONCLUSION: No evidence of deep venous thrombosis within the lower extremities. Anthony So MD Cervical Spine MRI 07/08/16 0000 Signed Impressions: Service Date/Time: Friday, July 08, 2016 13:48 - CONCLUSION: No abnormalities are seen within the cervical spine. Fluid identified within the dependent portion of the sphenoid sinuses likely related to the patient's trauma.. Noemi Lozano MD Brain MRI 07/08/16 0000 Signed Impressions: Service Date/Time: Friday, July 08, 2016 13:48 - CONCLUSION: Stable appearance of right frontal parenchymal contusion, small bilateral subdural hematomas and scattered areas of subarachnoid hemorrhage. There is an area of restricted diffusion involving the posterior medial temporal lobes bilaterally consistent with a contrecoup injury. No evidence of midline shift or hydrocephalus.. Noemi Lozano MD Head CT 07/06/16 0000 Signed Impressions: Service Date/Time: Wednesday, July 06, 2016 04:30 - CONCLUSION: Stable appearance to multiple cortical hemorrhages, subdural blood, subarachnoid blood and skull fracture. Javon Merida MD Thoracic Spine CT [id number]/02/161623 Signed Impressions: Service Date/Time: Saturday, July 02, 2016 16:40 - CONCLUSION: No acute bony injury in the thoracic spine Chapo Hicks MD Lumbar Spine CT 07/02/161623 Signed Impressions: Service Date/Time: Saturday, July 02, 2016 16:40 - CONCLUSION: No acute bony injury in the lumbosacral spine. Chapo Hicks MD Chest CT 07/02/161623 Signed Impressions: Service Date/Time: Saturday, July 02, 2016 16:40 - CONCLUSION: Bilateral posterior lower lobe consolidative changes, left worse than right. No evidence of acute mediastinal injury. Chapo Hicks MD Cervical Spine CT 07/02/161623 Signed Impressions: Service Date/Time: Saturday, July 02, 2016 16:32 - CONCLUSION: 1. No acute findings. Moderate degenerative change in the lower cervical spine. David Quispe MD Abdomen/Pelvis CT 07/02/161623 Signed Impressions: Service Date/Time: Saturday, July 02, 2016 16:40 - CONCLUSION: Negative CT scan abdomen and pelvis for acute traumatic injury. Jitendra Godoy MD FACR (JjKaroline M [employer] SUPERVISOR) Urinary Catheter Assessment Urinary Catheter: Yes Assessment to: Continue Villar insert reason: Measure Accurate Output (Jj,Shealean M [employer] SUPERVISOR) Vascular Central Line Catheter Date of Insertion: Jul 02, 2016 Line: Central Venous Catheter Side: Right Location: Subclavian (Jj,Shealean M [employer] SUPERVISOR) Assessment and Plan Plan GENERAL: 56-year-old well-nourished, well developed female lying in bed. SKIN: Warm and dry. HEAD: Normocephalic. EYES: PERRL. ENT: No nasal bleeding or discharge. Mucous membranes pink and moist. Left nare NG tube in place. NECK: ETT. Trachea midline. No JVD. CARDIOVASCULAR: Regular rate and rhythm. RESPIRATORY: No accessory muscle use. Lungs clear and diminished to auscultation. Breath sounds equal bilaterally. GASTROINTESTINAL: NGT. Abdomen soft, non-tender, nondistended. + BS. F/C in place. MUSCULOSKELETAL: Extremities without cyanosis, +2 BLE edema noted. No obvious deformities. NEUROLOGICAL: Sedated. Follows commands BUE. NEUROLOGICAL: Valporic acid Ativan TID PRN agitation Neurosurgery following HOB elevated > 30 degrees CARDIOVASCULAR: HR = sinus rhythm. HR = 85-110 BPM. BP = stable PMHx: HTN Scheduled Norvasc, lisinopril and Vasotec PRN Lasix 20mg daily BLE ultrasound negative for DVT Follow CMP - Levophed gtt PRN Electrolyte protocol in place for replacement. RESPIRATORY: PRVC/AC 12 / 500 / 40 / 1.0 / +5 Patient unable to maintain airway and manage secretions d/t mental status: DOCUMENT MANAGER placement in AM Continue to monitor closely for hypoxemia. Pulmonary toilet - L&S. Bronchodilators - Duonebs q2H PRN 07/17 CXR - lungs clear Labs in AM Chest X-Ray PRN GASTROINTESTINAL: Diet - Jevity 1.5 @ goal 30 mL/H. NPO after midnight. Bowel regimen - Colace and MOM. LBM 07/18 GI following for GIB, which had stopped until today when patient had 1 bloody BM. Recheck CBC in AM RENAL / URINARY: I&O +1121 BUN / creat 8 / 0.26 Villar - in place to bedside drainage bag ENDOCRINE: BGM - 102 HEMATOLOGY: H&H: 8.7 / 24.3 Continue to monitor for signs and symptoms of bleeding. Transfuse for < 7.0 Monitor patient for any bleeding complications. INFECTIOUS DISEASE: Follow CBC WBC 10.7 T-max 100.5 07/14 sputum cx + pseudomonas and Morganella morganii ID following Administer antipyretics as needed Invasive lines: ETT 07/14 NGT 07/17 L SC TLC 07/14 Villar 07/02 A line 07/15 PROPHYLAXIS: GI - Protonix gtt DVT - Mechanical VTE with SCDs. Chemical management contraindicated due to GIB SKIN: Warm / Dry ACTIVITY: Status -BR PT and OT evaluating. CASE MANAGEMENT: Consulted for assist with DC planning. Placement - disposition will need inpatient rehabilitation specializes in neuro injuries. Plan of care discussed with RN and family at bedside. Trauma surgery team will round daily and evaluate patient and adjust the treatment plan. (Karoline Gardner) Attestation The exam, history, and the medical decision-making described in the above note were completed with the assistance of the mid-level provider. I reviewed and agree with the findings presented. I attest that I had a [id number] encounter with the patient on the same day, and personally performed and documented my assessment and findings in the medical record. Critical care time 35 minutes. (Saul Kuo MD) Karoline Gardner Jul 18, 2016 17:35 Saul Kuo MD Jul 24, 2016 16:33
--- NOTE | 2016-07-18 22:06 | HHI.PR ---
Subjective Subjective Comments Patient resting comfortably. Does not appear to be in any discomfort. Allergies: Coded Allergies: Flagyl (Verified Allergy, Mild, NAUSEA, 04/30/08) Review of Systems All other ROS: Unable to obtain Exam I&O / VS 07/17/16 07/17/16 07/18/16 15:00 23:00 07:00 Intake Total 1473 ml 1381 ml 692 ml Output Total 1150 ml 625 ml 650 ml Balance 323 ml 756 ml 42 ml Intake Oral 0 ml IV Total 962 ml 986 ml 503 ml Tube Feeding 61 ml 275 ml 69 ml Packed Cells 250 ml Tube Irrigant 200 ml 120 ml 120 ml Output Urine Total 1150 ml 625 ml 650 ml # Bowel Movements 0 1 Vital Signs Date Time Temp Pulse Resp B/P Pulse Ox O2 Delivery O2 Flow Rate FiO2 07/18/16 19:35 100 40 07/18/16 18:00 91 07/18/16 16:12 100 40 07/18/16 16:00 95 07/18/16 16:00 35 07/18/16 16:00 99.3 95 15 137/66 100 07/18/16 14:00 85 07/18/16 12:00 95 07/18/16 12:00 35 07/18/16 12:00 98.3 85 16 132/56 100 07/18/16 11:42 100 35 07/18/16 10:00 100 07/18/16 08:00 35 07/18/16 08:00 98.9 110 23 136/65 100 07/18/16 08:00 110 07/18/16 07:59 100 35 07/18/16 06:00 102 07/18/16 04:07 100 35 07/18/16 04:00 100.5 112 17 132/44 100 07/18/16 04:00 35 07/18/16 04:00 112 07/18/16 02:00 102 07/18/16 01:38 100 35 07/18/16 00:00 96 07/18/16 00:00 100.4 96 21 135/53 100 07/18/16 00:00 35 07/17/16 22:24 100 35 General: Intubated, Sedated, No acute distress, Other (nasal cannula oxygen in place) Cardiovascular: Regular Rhythm Musculoskeletal: ROM (within functional limits) Orientation: unable to asses Self, unable to asses Place, unable to asses Time , unable to asses Situation Neurologic: Pupils (PERRLA) Objective Micro and Labs Laboratory Tests Test 07/18/16 07/18/16 04:10 14:45 White Blood Count 10.7 Red Blood Count 2.70 Hemoglobin 8.7 Hematocrit 24.3 Mean Corpuscular Volume 90.0 Mean Corpuscular Hemoglobin 32.2 Mean Corpuscular Hemoglobin 35.8 Concent Red Cell Distribution Width 13.2 Platelet Count 146 Mean Platelet Volume 7.6 Sodium Level 145 Potassium Level 3.1 3.7 Chloride Level 110 Carbon Dioxide Level 27.6 Anion Gap 7 Blood Urea Nitrogen 8 Creatinine 0.26 Estimat Glomerular Filtration 270 Rate Random Glucose 102 Calcium Level 7.4 Protein Corrected Calcium 8.6 Total Protein 4.9 Date/Time Procedure Status Source Growth 07/14/16 01:30 Gram Stain - Final Complete Sputum Endotracheal 07/14/16 01:30 Sputum Culture - Final Complete Pseudomonas Aeruginosa Morganella Morganii Assessment and Plan Assessment 1. TBI including diffuse subarachnoid hemorrhage right frontal area, the left hemisphere and sylvian fissures with diffuse mild brain swelling and right frontal fracture extending through the right frontal sinus and orbital roof now Rancho 2-3 Plan 1. Appreciate neuropsychology follow-up 2. PT providing range of motion 3. Occupational therapy addressing ADLs and currently dependent 4. ST consult for evaluation 5. Patient will need ongoing rehabilitation at discharge and case management is referring for ongoing care. 6. Will continue to follow while hospitalized and at discharge as appropriate. Cesilia Phillips MD Jul 18, 2016 22:06
[2016-07-19] VITALS (17 sets, daily range): BP systolic 112–143; BP diastolic 54–66; PULSE 83–120; RESP 10–20; TEMP 98.8–100.7; O2SAT 97–100
[2016-07-19] MEDS: FREE WATER DOB SCH ×3 (00:30→16:00)
[2016-07-19] MEDS: PIPERACIL-TAZO 3.375 GM PREMIX 50 ML IV SCH ×3 (02:21→18:45)
[2016-07-19] MEDS: PROPOFOL 1000 MG/100 ML INJ 100 ML IV SCH (02:22)
[2016-07-19] MEDS: RESP: ALBUTEROL 2.5 MG/IPRATROPIUM 0.5 MG NEB (SCH) NEB ×2 (03:47→08:09)
[2016-07-19 04:16] LABS: AUTOMATED NEUTROPHIL # 8.7 TH/MM3 (1.8-7.7); BASOPHIL % 0.4 % (0.0-2.0); EOSINOPHIL # 0.1 TH/MM3 (0-0.4); EOSINOPHIL % 1.4 % (0.0-4.0); HEMATOCRIT 24.7 % (35.0-46.0); HEMO FLAGS DIFF FINAL; LYMPH % 7.3 % (9.0-44.0); LYMPHOCYTE # 0.8 TH/MM3 (1.0-4.8); MEAN CELL VOLUME 90.7 FL (80.0-100.0); MEAN CORPUSCULAR HEMOGLOBIN 31.3 PG (27.0-34.0); MEAN CORPUSCULAR HGB CONC 34.5 % (32.0-36.0); MONO % 6.2 % (0.0-8.0); NEUT % 84.7 % (16.0-70.0); PLATELET COUNT 169 TH/MM3 (150-450); RED BLOOD COUNT 2.72 MIL/MM3 (4.00-5.30); RED CELL DISTRIBUTION WIDTH 13.7 % (11.6-17.2); WHITE BLOOD COUNT 10.3 TH/MM3 (4.0-11.0)
[2016-07-19] MEDS: VANCOMYCIN 1,500 MG/NS 500 ML IV SCH ×4 (05:15→22:34)
[2016-07-19] MEDS: CHLORHEXIDINE 0.12% (ORAL KIT) 15 ML CUP MT SCH ×2 (08:00→20:48)
[2016-07-19] MEDS: LISINOPRIL 20 MG TAB PO SCH (08:25)
[2016-07-19] MEDS: DOCUSATE SODIUM 100 MG CAP PO SCH ×2 (08:25→20:48)
[2016-07-19] MEDS: VALPROIC ACID 250 MG CAP PO SCH ×2 (08:25→20:48)
[2016-07-19] MEDS: FUROSEMIDE 20 MG TAB PO SCH (08:25)
[2016-07-19] MEDS: MAGNESIUM HYDROXIDE SUSP 30 ML CUP PO SCH (08:25)
[2016-07-19] MEDS: SODIUM CHLOR 0.9% 1000 ML INJ 1,000 ML IV SCH (08:26)
[2016-07-19] MEDS: PANTOPRAZOLE INJ 80 MG in SODIUM CHLORIDE 0.9% INJ 100 ML IV SCH ×2 (09:47→20:48)
[2016-07-19] MEDS: METOPROLOL TARTRATE 5 MG/5 ML VIAL IV PUSH SCH ×3 (10:39→22:34)
--- NOTE | 2016-07-19 14:26 | HHI.CCPN ---
Subjective Brief History The patient is a 56-year-old female that presented to the emergency department/[facility]uma [facility] via [facility] as a trauma alert. Per medical history, reported by EMS the patient was found down on the ground, and in an industrial area, with shelving material that had fallen on her. The patient was unconscious for an undetermined time. Upon arrival of EMS the patient's GCS score 3. The patient was intubated prior to arrival by [facility] paramedics. A 7-0 endotracheal tube at 22 cm.at the lip. EMS reported that the laryngoscopic view patient had blood at the nares bilaterally and within the oropharynx. EMS reported that the had a difficult airway, very anterior. Patient did receive 2 doses of etomidate and 1 dose of succinylcholine by EMS in the field, prior to arrival. The patient then received Rocuronium upon arrival. Patient was found to have the subarachnoid and intraparenchymal hemorrhage mainly of the right frontal areas of brain. In addition patient may have suffered the hypoxic or anoxic brain injury for undetermined period of time 24 Hour Review/Hospital Course Patient was initially intubated and ventilated and over the last 24 hours has gradually improved Patient was extubated last night She had this point moves all 4 extremities tries to open left thigh but does not follow any commands Based on all of the above patient may remain extubated but I would not be surprised if patient required reintubation at some point should she develop significant secretions and there would be a danger of compromised airway 07/06/16 Patient neurologically slightly improved Did not open is yet however does follow some commands and squeezes hand when asked to Moves all 4 extremities Arlette Coma Scale about 10 07/07/16 Lethargic, follows commands Secretions improved Period of hyperventilation and tachycardia, resolved with IV Morphine 07/08/16 Obtunded, responds to sternal rub Periods of tachypnea overnight MRI brain today 07/09/16 Patient slightly more awake and purposeful. Follows commands and squeezes hand Repeat brain MRI done Patient will transfer out of the ICU today Discussed case with Dr. Garcias 07/10/16 Patient continues to be lethargic and have periods of tachypnea and tachycardia Follows commands 4 Ultrasound of bilateral lower extremities negative for DVT 07/14/16 Patient with traumatic brain contusion and bleeding was transferred to the floor several days ago and developed acute GI hemorrhage overnight Patient was transferred to ICU resuscitated received 4 units of blood and additional 2 units at this time Abdomen is soft hypoactive bowel sounds Blood is fairly fresh and there is very little question my mind that this is a diverticular bleed originating from the left side of the colon Colonoscopy however was not successful due to month blood no bleeder could be visualized In face of active bleeding we'll do angiogram in radiology and see if we can localize the bleed 85-90% of these bleeds will stop spontaneously with adequate therapy and supplementation with blood and blood products. Only about 10% of patients will require surgery on emergency basis but it is clearly helpful if not essential to know the site of bleeding in order to remove the correct hemicolon. In patients will continue to bleed and bleeding site cannot be visualized usually total abdominal colectomy is indicated Addendum Patient underwent the angiogram in the interventional suite and inferior mesenteric arteries superior mesenteric artery and distal branches were selectively injected. No bleeding site has been found The amount of bleeding required for positive angiogram is infinite Pletal low about 0.1 mL/m. Based on negative angiogram there is likelihood that patient has stopped bleeding in the meantime. We will follow H&H every 4 hours, as necessary and if patient continues to bleed and bleeding source cannot be found after bout 8 units patient will be taken to the operating room with purpose of subtotal colectomy Have discussed this with her and he agrees to the plan 07/15/16 Patient transferred yesterday to the ICU due to massive lower GI bleeding Patient underwent the SMA and MARIO angiograms which did not reveal the source of bleeding because by that time bleeding had stopped Patient has lost about 4 units of blood and in all likelihood this is a diverticular bleed originating from the left side of the colon Either way this has stopped right now and if it reoccurs patient will undergo another angiogram followed by colectomy 07/16/16 Patient remained stable Slight drop in hemoglobin since yesterday which can be attributed to the hemodilution and may be minor bleeding No more major hemorrhage from diverticula and hopefully this is going remain to be the case If patient rebleeds she will have immediate arteriogram and then goes to the operating room for colon resection On the ventilator patient has been stable and today will be today to wean her off the respirator possible and if neurologic status permits 07/17/16 Patient with head injury was recovering on the floor then developed a massive lower GI bleed most likely diverticular Patient was treated conservatively and this has since abated Hemoglobin has been dropping 1 g per day very slowly which may be indication of continuous small bleed or more likely a dilutional effect Will transfuse one unit of blood today the patient In the bigger picture patient remains ventilated and really responds only to commands occasionally Has a very heavy secretions and will not be able to protect her upper airway adequately extubated due to decreased level of consciousness and Arlette Coma Scale about 8 or 9 at best Therefore this point it is appropriate to go ahead with tracheostomy at this time I will discuss this with the family 07/18/16 Following commands with upper extremities Continues to have increased secretions, 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 Patient had another small bloody stool today 07/19/16 In the last 24 hours patient slightly more arousable and follows commands when off sedation She was scheduled to undergo tracheostomy yesterday but with even slight neurologic improvement as this decided to postpone the trach and see how patient does with goal to possibly extubate and save patient another operation Objective Vital Signs Date Time Temp Pulse Resp B/P Pulse Ox O2 Delivery O2 Flow Rate FiO2 07/19/16 12:24 100 35 07/19/16 12:00 103 07/19/16 12:00 100.7 12 143/65 07/19/16 08:09 Ventilator Intake and Output 07/18/16 07/18/16 07/19/16 08:00 16:00 00:00 Intake Total 692 ml 991 ml 642 ml Output Total 650 ml 3300 ml 925 ml Balance 42 ml -2309 ml -283 ml Result Diagram: 07/19/16 0400 07/18/16 1445 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 SKIN: Warm and dry. HEAD: Normocephalic. EYES: PERRL. ENT: No nasal bleeding or discharge. Mucous membranes pink and moist. Left nare NG tube in place. NECK: ETT. Trachea midline. No JVD. CARDIOVASCULAR: Regular rate and rhythm. RESPIRATORY: No accessory muscle use. Lungs clear and diminished to auscultation. Breath sounds equal bilaterally. GASTROINTESTINAL: NGT. Abdomen soft, non-tender, nondistended. + BS. F/C in place. MUSCULOSKELETAL: Extremities without cyanosis, +2 BLE edema noted. No obvious deformities. NEUROLOGICAL: Sedated. Follows commands BUE. NEUROLOGICAL: Valporic acid Ativan TID PRN agitation Neurosurgery following HOB elevated > 30 degrees CARDIOVASCULAR: HR = sinus rhythm. HR = 85-110 BPM. BP = stable PMHx: HTN Scheduled Norvasc, lisinopril and Vasotec PRN Lasix 20mg daily BLE ultrasound negative for DVT Follow CMP - Levophed gtt PRN Electrolyte protocol in place for replacement. RESPIRATORY: PRVC/AC 12 / 500 / 40 / 1.0 / +5 Patient unable to maintain airway and manage secretions d/t mental status: SALES EXECUTIVE placement in AM Continue to monitor closely for hypoxemia. Pulmonary toilet - L&S. Bronchodilators - Duonebs q2H PRN 07/17 CXR - lungs clear Labs in AM Chest X-Ray PRN GASTROINTESTINAL: Diet - Jevity 1.5 @ goal 30 mL/H. NPO after midnight. Bowel regimen - Colace and MOM. LBM 07/18 GI following for GIB, which had stopped until today when patient had 1 bloody BM. Recheck CBC in AM RENAL / URINARY: I&O +1121 BUN / creat 8 / 0.26 Villar - in place to bedside drainage bag ENDOCRINE: BGM - 102 HEMATOLOGY: H&H: 8.7 / 24.3 Continue to monitor for signs and symptoms of bleeding. Transfuse for < 7.0 Monitor patient for any bleeding complications. INFECTIOUS DISEASE: Follow CBC WBC 10.7 T-max 100.5 07/14 sputum cx + pseudomonas and Morganella morganii ID following Administer antipyretics as needed Invasive lines: ETT 07/14 NGT 07/17 L SC TLC 07/14 Villar 07/02 A line 07/15 PROPHYLAXIS: GI - Protonix gtt DVT - Mechanical VTE with SCDs. Chemical management contraindicated due to GIB SKIN: Warm / Dry ACTIVITY: Status -BR PT and OT evaluating. CASE MANAGEMENT: Consulted for assist with DC planning. Placement - disposition will need inpatient rehabilitation specializes in neuro injuries. Plan of care discussed with RN and family at bedside. Trauma surgery team will round daily and evaluate patient and adjust the treatment plan. Attestation The exam, history, and the medical decision-making described in the above note were completed with the assistance of the mid-level provider. I reviewed and agree with the findings presented. I attest that I had a [id number] encounter with the patient on the same day, and personally performed and documented my assessment and findings in the medical record. Critical care time 40 minutes. Saul Kuo MD Jul 19, 2016 14:26
[2016-07-19] MEDS ORDERED: PHARMACY ORDERED LAB XX ONE (21:45)
[2016-07-20] VITALS (17 sets, daily range): BP systolic 106–154; BP diastolic 46–64; PULSE 79–110; RESP 11–20; TEMP 98.3–101.9; O2SAT 96–100
[2016-07-20] MEDS: LORazepam 0.5 MG TAB PO PRN (00:19)
[2016-07-20] MEDS: PIPERACIL-TAZO 3.375 GM PREMIX 50 ML IV SCH ×3 (03:00→18:25)
[2016-07-20] MEDS: METOPROLOL TARTRATE 5 MG/5 ML VIAL IV PUSH SCH ×4 (03:14→21:30)
[2016-07-20] MEDS: PANTOPRAZOLE INJ 80 MG in SODIUM CHLORIDE 0.9% INJ 100 ML IV SCH ×2 (05:37→15:59)
[2016-07-20] MEDS: hydrALAZINE HCL 20 MG/ML VIAL IV PUSH PRN (05:43)
[2016-07-20] MEDS: ACETAMINOPHEN 1000 MG/100 ML VIAL IV PRN (05:43)
[2016-07-20 06:15] LABS: BICARBONATE 27.6 MEQ/L (21.0-32.0); POTASSIUM 3.3 MEQ/L (3.5-5.1)
--- NOTE | 2016-07-20 06:52 | RADRPT ---
EXAM DATE/TIME: 07/20/2016 04:42 [facility] COMPARISON: CHEST SINGLE AP, July 17, 2016, 3:03. INDICATIONS : Please evaluate after respiratory failure. MEDICAL HISTORY : Hypertension. SURGICAL HISTORY : None. ENCOUNTER: Subsequent ACUITY: 1 week PAIN SCORE: Non-responsive. LOCATION: Bilateral chest FINDINGS: ET tube tip well above the katharine. Large bore feeding tube traverses the [id number]. The lungs a re symmetrically aerated and clear. Both hemidiaphragms are well delineated. The heart is normal in size. CONCLUSION: The lungs are clear. Javon Merida MD on July 20, 2016 at 6:50 Board Certified Radiologist. This report was verified electronically.
[2016-07-20] MEDS: FREE WATER DOB SCH ×4 (08:00→23:56)
[2016-07-20] MEDS: CHLORHEXIDINE 0.12% (ORAL KIT) 15 ML CUP MT SCH ×2 (08:00→20:00)
[2016-07-20] MEDS: MAGNESIUM HYDROXIDE SUSP 30 ML CUP PO SCH (08:57)
[2016-07-20] MEDS: POTASSIUM CL 40 MEQ/30 ML LIQ UDC PO/TUBE PRN (08:57)
[2016-07-20] MEDS: DOCUSATE SODIUM 100 MG CAP PO SCH ×2 (08:58→20:42)
[2016-07-20] MEDS: FUROSEMIDE 20 MG TAB PO SCH (08:58)
[2016-07-20] MEDS: VALPROIC ACID 250 MG CAP PO SCH ×2 (08:58→20:42)
[2016-07-20] MEDS: LISINOPRIL 20 MG TAB PO SCH (09:00)
[2016-07-20] MEDS: VANCOMYCIN 1,500 MG/NS 500 ML IV SCH ×4 (10:00→21:30)
[2016-07-20] MEDS: SODIUM CHLOR 0.9% 1000 ML INJ 1,000 ML IV SCH (10:27)
--- NOTE | 2016-07-20 12:12 | HHI.CCPN ---
Subjective Brief History The patient is a 56-year-old female that presented to the emergency department/Trauma [facility] via [facility] as a trauma alert. Per medical history, reported by EMS the patient was found down on the ground, and in an industrial area, with shelving material that had fallen on her. The patient was unconscious for an undetermined time. Upon arrival of EMS the patient's GCS score 3. The patient was intubated prior to arrival by [facility] paramedics. A 7-0 endotracheal tube at 22 cm.at the lip. EMS reported that the laryngoscopic view patient had blood at the nares bilaterally and within the oropharynx. EMS reported that the had a difficult airway, very anterior. Patient did receive 2 doses of etomidate and 1 dose of succinylcholine by EMS in the field, prior to arrival. The patient then received Rocuronium upon arrival. Patient was found to have the subarachnoid and intraparenchymal hemorrhage mainly of the right frontal areas of brain. In addition patient may have suffered the hypoxic or anoxic brain injury for undetermined period of time 24 Hour Review/Hospital Course Patient was initially intubated and ventilated and over the last 24 hours has gradually improved Patient was extubated last night She had this point moves all 4 extremities tries to open left thigh but does not follow any commands Based on all of the above patient may remain extubated but I would not be surprised if patient required reintubation at some point should she develop significant secretions and there would be a danger of compromised airway 07/06/16 Patient neurologically slightly improved Did not open is yet however does follow some commands and squeezes hand when asked to Moves all 4 extremities Arlette Coma Scale about 10 07/07/16 Lethargic, follows commands Secretions improved Period of hyperventilation and tachycardia, resolved with IV Morphine 07/08/16 Obtunded, responds to sternal rub Periods of tachypnea overnight MRI brain today 07/09/16 Patient slightly more awake and purposeful. Follows commands and squeezes hand Repeat brain MRI done Patient will transfer out of the ICU today Discussed case with Dr. Garcias 07/10/16 Patient continues to be lethargic and have periods of tachypnea and tachycardia Follows commands 4 Ultrasound of bilateral lower extremities negative for DVT 07/14/16 Patient with traumatic brain contusion and bleeding was transferred to the floor several days ago and developed acute GI hemorrhage overnight Patient was transferred to ICU resuscitated received 4 units of blood and additional 2 units at this time Abdomen is soft hypoactive bowel sounds Blood is fairly fresh and there is very little question my mind that this is a diverticular bleed originating from the left side of the colon Colonoscopy however was not successful due to month blood no bleeder could be visualized In face of active bleeding we'll do angiogram in radiology and see if we can localize the bleed 85-90% of these bleeds will stop spontaneously with adequate therapy and supplementation with blood and blood products. Only about 10% of patients will require surgery on emergency basis but it is clearly helpful if not essential to know the site of bleeding in order to remove the correct hemicolon. In patients will continue to bleed and bleeding site cannot be visualized usually total abdominal colectomy is indicated Addendum Patient underwent the angiogram in the interventional suite and inferior mesenteric arteries superior mesenteric artery and distal branches were selectively injected. No bleeding site has been found The amount of bleeding required for positive angiogram is infinite Pletal low about 0.1 mL/m. Based on negative angiogram there is likelihood that patient has stopped bleeding in the meantime. We will follow H&H every 4 hours, as necessary and if patient continues to bleed and bleeding source cannot be found after bout 8 units patient will be taken to the operating room with purpose of subtotal colectomy Have discussed this with her and he agrees to the plan 07/15/16 Patient transferred yesterday to the ICU due to massive lower GI bleeding Patient underwent the SMA and MARIO angiograms which did not reveal the source of bleeding because by that time bleeding had stopped Patient has lost about 4 units of blood and in all likelihood this is a diverticular bleed originating from the left side of the colon Either way this has stopped right now and if it reoccurs patient will undergo another angiogram followed by colectomy 07/16/16 Patient remained stable Slight drop in hemoglobin since yesterday which can be attributed to the hemodilution and may be minor bleeding No more major hemorrhage from diverticula and hopefully this is going remain to be the case If patient rebleeds she will have immediate arteriogram and then goes to the operating room for colon resection On the ventilator patient has been stable and today will be today to wean her off the respirator possible and if neurologic status permits 07/17/16 Patient with head injury was recovering on the floor then developed a massive lower GI bleed most likely diverticular Patient was treated conservatively and this has since abated Hemoglobin has been dropping 1 g per day very slowly which may be indication of continuous small bleed or more likely a dilutional effect Will transfuse one unit of blood today the patient In the bigger picture patient remains ventilated and really responds only to commands occasionally Has a very heavy secretions and will not be able to protect her upper airway adequately extubated due to decreased level of consciousness and Arlette Coma Scale about 8 or 9 at best Therefore this point it is appropriate to go ahead with tracheostomy at this time I will discuss this with the family 07/18/16 Following commands with upper extremities Continues to have increased secretions, 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 Patient had another small bloody stool today 07/19/16 In the last 24 hours patient slightly more arousable and follows commands when off sedation She was scheduled to undergo tracheostomy yesterday but with even slight neurologic improvement as this decided to postpone the trach and see how patient does with goal to possibly extubate and save patient another operation 07/20/16 In last 24 hours patient has been without any sedation and unfortunately she doesn't follow any commands for me for me although she might a fold some commands for the night nurse At this point I do not believe the patient would be safe to extubate and upper airway could not be maintained in this fashion Unfortunately will have to go ahead and do the tracheostomy for this is the appropriate and safe way to manage this patient Patient scheduled for tracheostomy tomorrow Objective Vital Signs Date Time Temp Pulse Resp B/P Pulse Ox O2 Delivery O2 Flow Rate FiO2 07/20/16 10:00 94 07/20/16 08:56 98 Ventilator 35 07/20/16 08:00 100.2 12 106/46 Intake and Output 07/19/16 07/19/16 07/20/16 08:00 16:00 00:00 Intake Total 848 ml 893 ml 619 ml Output Total 500 ml 1450 ml 650 ml Balance 348 ml -557 ml -31 ml Result Diagram: 07/19/16 0400 07/20/16 0550 Imaging Last 24 hours Impressions Chest X-Ray 07/20/16 0600 Signed Impressions: Service Date/Time: Wednesday, July 20, 2016 04:42 - CONCLUSION: The lungs are clear. 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 Patient moves all extremities but does not follow any commands and doesn't open eyes Her [place] Coma Scale is about 7-8 and this is not consistent with protection of upper airway or safe management the patient is extubated Hemodynamic/Cardiac Hemodynamically stable and hemoglobin remains stable no more bleeding from the GI tract by clinical criteria Pulmonary/Respiratory Bilateral good breath sounds For tracheostomy tomorrow Abdomen/GI Nutrition Abdomen soft Vascular Central Line Catheter Date of Insertion: Jul 02, 2016 Line: Central Venous Catheter Side: Right Location: Subclavian Assessment and Plan Plan GENERAL: 56-year-old well-nourished, well developed female lying in bed. SKIN: Warm and dry. HEAD: Normocephalic. EYES: PERRL. ENT: No nasal bleeding or discharge. Mucous membranes pink and moist. Left nare NG tube in place. NECK: ETT. Trachea midline. No JVD. CARDIOVASCULAR: Regular rate and rhythm. RESPIRATORY: No accessory muscle use. Lungs clear and diminished to auscultation. Breath sounds equal bilaterally. GASTROINTESTINAL: NGT. Abdomen soft, non-tender, nondistended. + BS. F/C in place. MUSCULOSKELETAL: Extremities without cyanosis, +2 BLE edema noted. No obvious deformities. NEUROLOGICAL: Sedated. Follows commands BUE. NEUROLOGICAL: Valporic acid Ativan TID PRN agitation Neurosurgery following HOB elevated > 30 degrees CARDIOVASCULAR: HR = sinus rhythm. HR = 85-110 BPM. BP = stable PMHx: HTN Scheduled Norvasc, lisinopril and Vasotec PRN Lasix 20mg daily BLE ultrasound negative for DVT Follow CMP - Levophed gtt PRN Electrolyte protocol in place for replacement. 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 Pulmonary toilet - L&S. Bronchodilators - Duonebs q2H PRN 07/17 CXR - lungs clear Labs in AM Chest X-Ray PRN GASTROINTESTINAL: Diet - Jevity 1.5 @ goal 30 mL/H. NPO after midnight. Bowel regimen - Colace and MOM. LBM 07/18 GI following for GIB, which had stopped until today when patient had 1 bloody BM. Recheck CBC in AM RENAL / URINARY: I&O +1121 BUN / creat 8 / 0.26 Villar - in place to bedside drainage bag ENDOCRINE: BGM - 102 HEMATOLOGY: H&H: 8.7 / 24.3 Continue to monitor for signs and symptoms of bleeding. Transfuse for < 7.0 Monitor patient for any bleeding complications. INFECTIOUS DISEASE: Follow CBC WBC 10.7 T-max 100.5 07/14 sputum cx + pseudomonas and Morganella morganii ID following Administer antipyretics as needed Invasive lines: ETT 07/14 NGT 07/17 L SC TLC 07/14 Villar 07/02 A line 07/15 PROPHYLAXIS: GI - Protonix gtt DVT - Mechanical VTE with SCDs. Chemical management contraindicated due to GIB SKIN: Warm / Dry ACTIVITY: Status -BR PT and OT evaluating. CASE MANAGEMENT: Consulted for assist with DC planning. Placement - disposition will need inpatient rehabilitation specializes in neuro injuries. Plan of care discussed with RN and family at bedside. Trauma surgery team will round daily and evaluate patient and adjust the treatment plan. Attestation The exam, history, and the medical decision-making described in the above note were completed with the assistance of the mid-level provider. I reviewed and agree with the findings presented. I attest that I had a [id number] encounter with the patient on the same day, and personally performed and documented my assessment and findings in the medical record. Critical care time 45 minutes. Saul Kuo MD Jul 20, 2016 12:12
[2016-07-21] VITALS (19 sets, daily range): BP systolic 124–172; BP diastolic 54–70; PULSE 81–112; RESP 10–17; TEMP 98.3–102.1; O2SAT 98–100
[2016-07-21] MEDS: PANTOPRAZOLE INJ 80 MG in SODIUM CHLORIDE 0.9% INJ 100 ML IV SCH (01:55)
[2016-07-21] MEDS: PIPERACIL-TAZO 3.375 GM PREMIX 50 ML IV SCH ×3 (03:00→18:06)
[2016-07-21] MEDS: METOPROLOL TARTRATE 5 MG/5 ML VIAL IV PUSH SCH ×4 (03:14→20:37)
[2016-07-21 04:07] LABS: HEMATOCRIT 24.2 % (35.0-46.0); MEAN CELL VOLUME 90.4 FL (80.0-100.0); MEAN CORPUSCULAR HEMOGLOBIN 31.1 PG (27.0-34.0); MEAN CORPUSCULAR HGB CONC 34.4 % (32.0-36.0); PLATELET COUNT 208 TH/MM3 (150-450); RED BLOOD COUNT 2.67 MIL/MM3 (4.00-5.30); RED CELL DISTRIBUTION WIDTH 13.5 % (11.6-17.2); REVIEW FLAG FINAL; WHITE BLOOD COUNT 10.3 TH/MM3 (4.0-11.0)
[2016-07-21 04:31] LABS: ANION GAP 9 MEQ/L (5-15); BICARBONATE 27.5 MEQ/L (21.0-32.0); BLOOD UREA NITROGEN 6 MG/DL (7-18); CHLORIDE 109 MEQ/L (98-107); GLOMERULAR FILTRATION RATE 509 ML/MIN (>89); POTASSIUM 3.1 MEQ/L (3.5-5.1); SODIUM (NA) 145 MEQ/L (136-145)
--- NOTE | 2016-07-21 04:36 | RADRPT ---
EXAM DATE/TIME: 07/21/2016 03:51 [facility] COMPARISON: CHEST SINGLE AP, July 20, 2016, 4:42. INDICATIONS : Evaluate after respiratory failure. MEDICAL HISTORY : Hypertension. SURGICAL HISTORY : None. ENCOUNTER: Subsequent ACUITY: 2 weeks PAIN SCORE: Non-responsive. LOCATION: Bilateral chest FINDINGS: A single view of the chest demonstrates the lungs to be symmetrically aerated without evidence of mas s, infiltrate or effusion. The support devices are in place. There is no pneumothorax. The cardiomedi astinal contours are unremarkable. Osseous structures are intact. CONCLUSION: No acute disease. No significant change has occurred. Darrius Stewart MD on July 21, 2016 at 4:34 Board Certified Radiologist. This report was verified electronically.
[2016-07-21] MEDS: POTASSIUM CHLOR 40 MEQ PREMIX 100 ML IV PRN ×3 (05:04→18:06)
[2016-07-21 06:00] LABS: BLOOD GAS HCO3 26 mmol/L (22-26); BLOOD GAS O2 HGB SATURATION 97 % (90-100); BLOOD GAS PCO2 40 mmHg (38-42); BLOOD GAS PO2 153 mmHg (61-120); BLOOD GAS TOTAL HGB 10.8 G/DL (12.0-16.0); CRITICAL VALUE NO; OXYGEN DEVICE VENTILATOR; TEMP CORR TO 98.6
[2016-07-21 06:01] LABS: DRAW SITE ART LINE; FIO2 35 %; STAT NO; VENT SETTINGS PRVC/AC
[2016-07-21] MEDS: FREE WATER DOB SCH ×3 (08:00→23:52)
[2016-07-21] MEDS: CHLORHEXIDINE 0.12% (ORAL KIT) 15 ML CUP MT SCH ×2 (08:00→20:36)
[2016-07-21] MEDS: DOCUSATE SODIUM 100 MG CAP PO SCH ×2 (08:40→20:37)
[2016-07-21] MEDS: VALPROIC ACID 250 MG CAP PO SCH ×2 (08:40→20:37)
[2016-07-21] MEDS: FUROSEMIDE 20 MG TAB PO SCH (08:40)
[2016-07-21] MEDS: MAGNESIUM HYDROXIDE SUSP 30 ML CUP PO SCH (08:41)
[2016-07-21] MEDS: LISINOPRIL 20 MG TAB PO SCH ×2 (08:43→10:29)
[2016-07-21] MEDS ORDERED: PHARMACY ORDERED LAB XX ONE (09:45)
[2016-07-21] MEDS: SODIUM CHLOR 0.9% 1000 ML INJ 1,000 ML IV SCH (10:29)
[2016-07-21] MEDS: VANCOMYCIN 1,500 MG/NS 500 ML IV SCH ×2 (10:30)
[2016-07-21] MEDS: PANTOPRAZOLE SODIUM 40 MG VIAL IV PUSH SCH (12:16)
[2016-07-21] MEDS ORDERED: MIDAZOLAM HCL 5 MG/ML VIAL (1 ML) ONE (13:18)
[2016-07-21] MEDS ORDERED: VECURONIUM BROMIDE 10 MG VIAL ONE (13:18)
[2016-07-21] MEDS ORDERED: MIDAZOLAM HCL 5 MG/ML VIAL (1 ML) IVP ONE (15:00)
[2016-07-21] MEDS ORDERED: VECURONIUM BROMIDE 10 MG VIAL IVP ONE (15:00)
--- NOTE | 2016-07-21 16:32 | PD.PROCEDR ---
Procedure Note Procedure DX: Chronic Respiratory Failure OP: Flexible Bronchoscopy Procedure: While on mechanical ventilation with usual ICU monitoring in place the bronchoscope was passed through a sealed elbow in the vent circuit. The immediate mid to lower trachea and bronchi were inspected. Large amount of sputum suctioned out. Orotracheal tube then withdrawn to 17 cm with scope at distal end. Surgeon performed percutaneous tracheostomy while scope used to visualize insertion. After trach inserted the scope was used to immediately confirm position. Then the vent circuit was connected to the new trach tube. Sats maintained over 90 throughout procedure. Ruben Lira MD Jul 21, 2016 16:32
--- NOTE | 2016-07-21 17:23 | HHI.CCPN ---
Subjective Brief History The patient is a 56-year-old female that presented to the emergency department/[facility] via [facility] as a trauma alert. Per medical history, reported by EMS the patient was found down on the ground, and in an industrial area, with shelving material that had fallen on her. The patient was unconscious for an undetermined time. Upon arrival of EMS the patient's GCS score 3. The patient was intubated prior to arrival by [facility] paramedics. A 7-0 endotracheal tube at 22 cm.at the lip. EMS reported that the laryngoscopic view patient had blood at the nares bilaterally and within the oropharynx. EMS reported that the had a difficult airway, very anterior. Patient did receive 2 doses of etomidate and 1 dose of succinylcholine by EMS in the field, prior to arrival. The patient then received Rocuronium upon arrival. Patient was found to have the subarachnoid and intraparenchymal hemorrhage mainly of the right frontal areas of brain. In addition patient may have suffered the hypoxic or anoxic brain injury for undetermined period of time 24 Hour Review/Hospital Course Patient was initially intubated and ventilated and over the last 24 hours has gradually improved Patient was extubated last night She had this point moves all 4 extremities tries to open left thigh but does not follow any commands Based on all of the above patient may remain extubated but I would not be surprised if patient required reintubation at some point should she develop significant secretions and there would be a danger of compromised airway 07/06/16 Patient neurologically slightly improved Did not open is yet however does follow some commands and squeezes hand when asked to Moves all 4 extremities Arlette Coma Scale about 10 07/07/16 Lethargic, follows commands Secretions improved Period of hyperventilation and tachycardia, resolved with IV Morphine 07/08/16 Obtunded, responds to sternal rub Periods of tachypnea overnight MRI brain today 07/09/16 Patient slightly more awake and purposeful. Follows commands and squeezes hand Repeat brain MRI done Patient will transfer out of the ICU today Discussed case with Dr. Garcias 07/10/16 Patient continues to be lethargic and have periods of tachypnea and tachycardia Follows commands 4 Ultrasound of bilateral lower extremities negative for DVT 07/14/16 Patient with traumatic brain contusion and bleeding was transferred to the floor several days ago and developed acute GI hemorrhage overnight Patient was transferred to ICU resuscitated received 4 units of blood and additional 2 units at this time Abdomen is soft hypoactive bowel sounds Blood is fairly fresh and there is very little question my mind that this is a diverticular bleed originating from the left side of the colon Colonoscopy however was not successful due to month blood no bleeder could be visualized In face of active bleeding we'll do angiogram in radiology and see if we can localize the bleed 85-90% of these bleeds will stop spontaneously with adequate therapy and supplementation with blood and blood products. Only about 10% of patients will require surgery on emergency basis but it is clearly helpful if not essential to know the site of bleeding in order to remove the correct hemicolon. In patients will continue to bleed and bleeding site cannot be visualized usually total abdominal colectomy is indicated Addendum Patient underwent the angiogram in the interventional suite and inferior mesenteric arteries superior mesenteric artery and distal branches were selectively injected. No bleeding site has been found The amount of bleeding required for positive angiogram is infinite Pletal low about 0.1 mL/m. Based on negative angiogram there is likelihood that patient has stopped bleeding in the meantime. We will follow H&H every 4 hours, as necessary and if patient continues to bleed and bleeding source cannot be found after bout 8 units patient will be taken to the operating room with purpose of subtotal colectomy Have discussed this with her and he agrees to the plan 07/15/16 Patient transferred yesterday to the ICU due to massive lower GI bleeding Patient underwent the SMA and MARIO angiograms which did not reveal the source of bleeding because by that time bleeding had stopped Patient has lost about 4 units of blood and in all likelihood this is a diverticular bleed originating from the left side of the colon Either way this has stopped right now and if it reoccurs patient will undergo another angiogram followed by colectomy 07/16/16 Patient remained stable Slight drop in hemoglobin since yesterday which can be attributed to the hemodilution and may be minor bleeding No more major hemorrhage from diverticula and hopefully this is going remain to be the case If patient rebleeds she will have immediate arteriogram and then goes to the operating room for colon resection On the ventilator patient has been stable and today will be today to wean her off the respirator possible and if neurologic status permits 07/17/16 Patient with head injury was recovering on the floor then developed a massive lower GI bleed most likely diverticular Patient was treated conservatively and this has since abated Hemoglobin has been dropping 1 g per day very slowly which may be indication of continuous small bleed or more likely a dilutional effect Will transfuse one unit of blood today the patient In the bigger picture patient remains ventilated and really responds only to commands occasionally Has a very heavy secretions and will not be able to protect her upper airway adequately extubated due to decreased level of consciousness and Arlette Coma Scale about 8 or 9 at best Therefore this point it is appropriate to go ahead with tracheostomy at this time I will discuss this with the family 07/18/16 Following commands with upper extremities Continues to have increased secretions, plan for SEE WHEELER tomorrow Patient had another small bloody stool today 07/19/16 In the last 24 hours patient slightly more arousable and follows commands when off sedation She was scheduled to undergo tracheostomy yesterday but with even slight neurologic improvement as this decided to postpone the trach and see how patient does with goal to possibly extubate and save patient another operation 07/20/16 In last 24 hours patient has been without any sedation and unfortunately she doesn't follow any commands for me for me although she might a fold some commands for the night nurse At this point I do not believe the patient would be safe to extubate and upper airway could not be maintained in this fashion Unfortunately will have to go ahead and do the tracheostomy for this is the appropriate and safe way to manage this patient Patient scheduled for tracheostomy tomorrow 07/21/16 Patient is neurologically unchanged She does not follow commands except for very occasional squeezing of the hands Will not be able to keep upper airway open Patient underwent Blue Rhino tracheostomy at the bedside today Objective Vital Signs Date Time Temp Pulse Resp B/P Pulse Ox O2 Delivery O2 Flow Rate FiO2 07/21/16 16:27 100 35 07/21/16 16:00 86 07/21/16 16:00 99.5 16 142/66 07/20/16 08:56 Ventilator Intake and Output 07/20/16 07/20/16 07/21/16 08:00 16:00 00:00 Intake Total 1026 ml 1356 ml 399 ml Output Total 700 ml 475 ml 600 ml Balance 326 ml 881 ml -201 ml Result Diagram: 07/21/16 0400 07/21/16 0400 Other Results Laboratory Tests Test 07/21/16 05:49 Blood Gas Puncture Site ART LINE Blood Gas Patient Temperature 98.6 Blood Gas HCO3 26 mmol/L (22-26) Blood Gas Base Excess 2.0 mmol/L (-2-2) Blood Gas Oxygen Saturation 97 % (90-100) Arterial Blood pH 7.43 (7.380-7.420) Arterial Blood Partial 40 mmHg (38-42) Pressure CO2 Arterial Blood Partial 153 mmHg Pressure O2 (61-120) Arterial Blood Oxygen Content 15.0 Vol % (12.0-20.0) Arterial Blood 1.0 % (0-4) Carboxyhemoglobin Arterial Blood Methemoglobin 1.0 % (0-2) Blood Gas Hemoglobin 10.8 G/DL (12.0-16.0) Oxygen Delivery Device VENTILATOR Blood Gas Ventilator Setting PRVC/AC Blood Gas Inspired Oxygen 35 % Imaging Last 24 hours Impressions Chest X-Ray 07/21/16 0600 Signed Impressions: Service Date/Time: Thursday, July 21, 2016 03:51 - CONCLUSION: No acute disease. No significant change has occurred. Darrius Stewart MD Exam HANDLE ROUNDER OPERATOR No improvement in neurologic status Hemodynamic/Cardiac Hemodynamically intact Pulmonary/Respiratory Bilateral breath sounds and significant amount of secretions Blue Rhino tracheostomy today Will wean from this point on considering the patient has would inspiratory effort and the main obstacle was the level of consciousness and inability to protect upper airway which is now fixed by placing the tracheostomy Abdomen/GI Nutrition Abdomen is soft enteral feeds tolerated Vascular Central Line Catheter Date of Insertion: Jul 02, 2016 Line: Central Venous Catheter Side: Right Location: Subclavian Assessment and Plan Plan GENERAL: 56-year-old well-nourished, well developed female lying in bed. SKIN: Warm and dry. HEAD: Normocephalic. EYES: PERRL. ENT: No nasal bleeding or discharge. Mucous membranes pink and moist. Left nare NG tube in place. NECK: ETT. Trachea midline. No JVD. CARDIOVASCULAR: Regular rate and rhythm. RESPIRATORY: No accessory muscle use. Lungs clear and diminished to auscultation. Breath sounds equal bilaterally. GASTROINTESTINAL: NGT. Abdomen soft, non-tender, nondistended. + BS. F/C in place. MUSCULOSKELETAL: Extremities without cyanosis, +2 BLE edema noted. No obvious deformities. NEUROLOGICAL: Sedated. Follows commands BUE. NEUROLOGICAL: Valporic acid Ativan TID PRN agitation Neurosurgery following HOB elevated > 30 degrees CARDIOVASCULAR: HR = sinus rhythm. HR = 85-110 BPM. BP = stable PMHx: HTN Scheduled Norvasc, lisinopril and Vasotec PRN Lasix 20mg daily BLE ultrasound negative for DVT Follow CMP - Levophed gtt PRN Electrolyte protocol in place for replacement. RESPIRATORY: PRVC/AC 12 / 500 / 40 / 1.0 / +5 Patient unable to maintain airway and manage secretions d/t mental status: SEE WHEELER placement in AM Continue to monitor closely for hypoxemia. Pulmonary toilet - L&S. Bronchodilators - Duonebs q2H PRN 07/17 CXR - lungs clear Labs in AM Chest X-Ray PRN GASTROINTESTINAL: Diet - Jevity 1.5 @ goal 30 mL/H. NPO after midnight. Bowel regimen - Colace and MOM. LBM 07/18 GI following for GIB, which had stopped until today when patient had 1 bloody BM. Recheck CBC in AM RENAL / URINARY: I&O +1121 BUN / creat 8 / 0.26 Villar - in place to bedside drainage bag ENDOCRINE: BGM - 102 HEMATOLOGY: H&H: 8.7 / 24.3 Continue to monitor for signs and symptoms of bleeding. Transfuse for < 7.0 Monitor patient for any bleeding complications. INFECTIOUS DISEASE: Follow CBC WBC 10.7 T-max 100.5 07/14 sputum cx + pseudomonas and Morganella morganii ID following Administer antipyretics as needed Invasive lines: ETT 07/14 NGT 07/17 L SC TLC 07/14 Villar 07/02 A line 07/15 PROPHYLAXIS: GI - Protonix gtt DVT - Mechanical VTE with SCDs. Chemical management contraindicated due to GIB SKIN: Warm / Dry ACTIVITY: Status -BR PT and OT evaluating. CASE MANAGEMENT: Consulted for assist with DC planning. Placement - disposition will need inpatient rehabilitation specializes in neuro injuries. Plan of care discussed with RN and family at bedside. Trauma surgery team will round daily and evaluate patient and adjust the treatment plan. Attestation The exam, history, and the medical decision-making described in the above note were completed with the assistance of the mid-level provider. I reviewed and agree with the findings presented. I attest that I had a [id number] encounter with the patient on the same day, and personally performed and documented my assessment and findings in the medical record. Critical care time 45 minutes. Saul Kuo MD Jul 21, 2016 17:23
[2016-07-21] MEDS: ACETAMINOPHEN 1000 MG/100 ML VIAL IV PRN (20:37)
[2016-07-21] MEDS: VANCOMYCIN INJ 1,750 MG in SODIUM CHLORID 0.9% 500 ML INJ 500 ML IV SCH (23:22)
[2016-07-22] VITALS (20 sets, daily range): BP systolic 123–160; BP diastolic 58–84; PULSE 81–100; RESP 12–16; TEMP 98.9–99.7; O2SAT 98–100
[2016-07-22] MEDS: PIPERACIL-TAZO 3.375 GM PREMIX 50 ML IV SCH ×3 (03:33→20:57)
[2016-07-22] MEDS: METOPROLOL TARTRATE 5 MG/5 ML VIAL IV PUSH SCH ×4 (06:16→20:57)
[2016-07-22 06:38] LABS: BICARBONATE 30.1 MEQ/L (21.0-32.0); POTASSIUM 3.4 MEQ/L (3.5-5.1)
[2016-07-22] MEDS: POTASSIUM CL 40 MEQ/30 ML LIQ UDC PO/TUBE PRN (06:59)
[2016-07-22] MEDS: DOCUSATE SODIUM 100 MG CAP PO SCH (08:48)
[2016-07-22] MEDS: FREE WATER DOB SCH ×3 (08:48→23:14)
[2016-07-22] MEDS: CHLORHEXIDINE 0.12% (ORAL KIT) 15 ML CUP MT SCH ×2 (08:48→20:59)
[2016-07-22] MEDS: LISINOPRIL 20 MG TAB PO SCH (08:49)
[2016-07-22] MEDS: VALPROIC ACID 250 MG CAP PO SCH ×2 (08:49→20:59)
[2016-07-22] MEDS: FUROSEMIDE 20 MG TAB PO SCH (08:49)
[2016-07-22] MEDS: MAGNESIUM HYDROXIDE SUSP 30 ML CUP PO SCH (08:49)
[2016-07-22] MEDS: SODIUM CHLOR 0.9% 1000 ML INJ 1,000 ML IV SCH (08:50)
[2016-07-22] MEDS: VANCOMYCIN INJ 1,750 MG in SODIUM CHLORID 0.9% 500 ML INJ 500 ML IV SCH ×2 (08:50→23:14)
[2016-07-22] MEDS ORDERED: EPINEPHrine HCL (1:10,000) 1 MG/10 ML SYRINGE ONE (10:37)
[2016-07-22] MEDS ORDERED: LIDOCAINE HCL 2% 100 MG/5 ML SYRINGE ONE (10:37)
[2016-07-22] MEDS ORDERED: ATROPINE SULFATE 1 MG/10 ML SYRINGE ONE (10:37)
--- NOTE | 2016-07-22 11:34 | RADRPT ---
EXAM DATE/TIME: 07/22/2016 11:07 [facility] COMPARISON: CT BRAIN W/O CONTRAST, July 03, 2016, 4:43. CT BRAIN W/O CONTRAST, July 06, 2016, 4:30. INDICATIONS : follow-up head injury RADIATION DOSE: 56.35 CTDIvol (mGy) MEDICAL HISTORY : Hypertension. Intracranial bleed from head trauma. SURGICAL HISTORY : Tubal ligation. ENCOUNTER: Subsequent ACUITY: 3 weeks PAIN SCALE: Non-responsive LOCATION: cranial TECHNIQUE: Multiple contiguous axial images were obtained of the head. Using automated exposure control and adj ustment of the mA and/or kV according to patient size, radiation dose was kept as low as reasonably a chievable to obtain optimal diagnostic quality images. FINDINGS: CParenchymal hemorrhage cortical hemorrhages as well as subdural blood has cleared with persistent ca lvarial fracture noted. There is a low density in deep white matter and adjacent del cid matter in the r ight frontal region most likely representing edema or encephalomalacia. cONCLUSION: Clearing of intracranial hemorrhage associated with skull fracture. There is residual low density in the right frontal region representing residual edema or encephalomalacia.. Jayden Geronimo MD on July 22, 2016 at 11:31 Board Certified Radiologist. This report was verified electronically.
[2016-07-22] MEDS: PANTOPRAZOLE SODIUM 40 MG VIAL IV PUSH SCH (11:55)
--- NOTE | 2016-07-22 12:00 | HHI.PR ---
Neuropsych Emotional Emotional: UnabletoAssess: Emotional, Anxious/Fearful, Depressed/Sad, Hostile/ Resentful, Irritable/Angry/Frustrate, Labile, Constricted/Blunted Behavior Behavior: Unable to Asses: Behavior, Coping/Acceptance, Cooperative w/ Treatment, Motivation, Frustration Tolerance/[place], Impulsive/Agitated, Suicidal/ Homicidal Risk Cognitive Cognitive: Unable to Asses: Cognitive, Attention/Concentration, Confused/ Orientation, Insight/Awareness, Judgement/Problem-Solving, Memory Progress Notes/Response to Tx Contents of Sessions: Level of Consciousness Time with Patient: 15 minutes Premorbid psychological status Premorbid Cognitive, Emotional and Behavioral Status: Stable. 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 The patient has no psychiatric difficulties , as described above. Substance abuse history includes not significant. Behavioral Reactions of Patient and Family/Support System: Stable. The patient s family is experiencing ongoing issues of adjustment given the nature of the injury, and this aspect of recovery will require ongoing monitoring. I spoke at length with the patient's brother, who indicated good understanding of his sister's course of recovery. Emotional/Behavioral Status of Patient and Family/Support System: Deferred. Pertinent issues, if appropriate to this patients clinical care, are described in detail above. Maximizing acute care outcome It is recommended that the patient be monitored for emergent behavioral impulsivity as the medical condition evolves. This patients neuropathological challenges may limit their rehabilitation potential going forward, and these challenges will require specialized therapeutic skills to maximize outcome. It is understood that any possible underlying anoxic/hypoxic injury may have been overstated, based on reports from the patient's brother. Anticipated Problems Ongoing areas of concern will include behavioral impulsivity, lack of insight and judgment, which is expected to improve with time and treatment. Presently , the patient is preconscious. Treatment Plan This clinician will continue to follow with you throughout the course of this patients rehabilitation treatment, and I will be available to meet with the patients family/support system to facilitate their understanding and the ongoing care of their family member. The goals of neuropsychological intervention shall be both educational and supportive to the family/support system as is deemed clinically appropriate. [facility] Level: II:General response-total assist Impression This patient suffered a severe traumatic brain injury although it is not understood that any anoxic/hypoxic injury may have been overstated. Diagnosis: (1) Major neurocognitive disorder as late effect of traumatic brain injury with behavioral disturbance Status: Acute Progress Note Narrative Ongoing follow-up of patient within the context of daily trauma rounds. No demonstrable neurobehavioral change has been observed in patient since last visit. I will continue to follow with you. Liborio Hitchcock PhD Jul 22, 2016 12:00
--- NOTE | 2016-07-22 14:08 | HHI.NSPN ---
Subjective History Day 1 after closed head injury with frontal skull fx, SAH and cerebral contusions, intubated and sedated. The repeat head CT shows improved SAH and better defined contusions in the frontal lobe. She is on 3% saline and [place] J is maintained until she can be more awake. 07/07/15 She is very lethargic but is sitting in bed. She does not follow commands. 07/08/15 MRI of the brain and cervical spine completed. Multiple cerebral contusions found including a left midbrain bruise but no shit/mass effect, no vertebral fracture or cord injury. She is still critically ill with a phos level of 1.3 07/09/16 She is more awake today, still has difficulty with eyelid opening and facial control but can open her left eye to stimulation and is able to answer good morning . She can move both upper extremities to command but is weaker in the left lower extremity. 07/10/16 Tachypneic but awake and following commands with all 4 extremities, very weak. 07/22/16 She remains very weak after a major GI bleed requiring massive transfusion and hemodynamic support. She initially had mostly internuclear ophthalmoplegia but now has no tongue movement and is generally vera weak. She had a tracheostomy yesterday. Vitals . Vital Signs Date Time Temp Pulse Resp B/P Pulse Ox O2 Delivery O2 Flow Rate FiO2 07/22/16 12:07 100 35 07/22/16 12:00 40 07/22/16 12:00 93 07/22/16 12:00 99.3 93 12 142/60 100 07/22/16 11:00 100 100 07/22/16 10:12 100 35 07/22/16 10:00 86 07/22/16 08:03 100 35 07/22/16 08:03 35 07/22/16 08:00 99.4 84 16 123/84 100 07/22/16 08:00 84 07/22/16 08:00 40 07/22/16 06:00 82 07/22/16 05:43 100 40 07/22/16 04:00 84 07/22/16 04:00 99.7 84 16 140/58 100 07/22/16 04:00 35 07/22/16 02:00 90 07/22/16 00:22 98 40 07/22/16 00:00 93 07/22/16 00:00 35 07/22/16 00:00 99.2 93 16 145/70 99 07/21/16 22:00 88 07/21/16 20:30 100 35 07/21/16 20:00 88 07/21/16 20:00 35 07/21/16 20:00 102.1 112 16 172/70 100 07/21/16 18:00 85 07/21/16 16:27 100 35 07/21/16 16:00 35 07/21/16 16:00 86 07/21/16 16:00 99.5 86 16 142/66 100 07/21/16 14:00 85 07/21/16 07/21/16 07/22/16 15:00 23:00 07:00 Intake Total 1837 ml 698 ml 1001 ml Output Total 2200 ml 1350 ml 850 ml Balance -363 ml -652 ml 151 ml Maximum Temperature: 102.1 Physical Exam Head Head: Abrasions (improving right periorbital ecchymosis) Eyes Eyes: Pupils Equal Neuro Mental Status: Lethargic Pupils: Reactive Bilaterally [place] Coma Scale Best Eye Openin - To speech Best Verbal: 1 - None Best Motor: 6 - Obeys Total Glascow Coma Scale (GCS): 10 Cardiac Cardiac: Regular Rate & Rhythm Genitourinary Genitourinary: Villar Catheter In Place Musculoskeletal Extremities Upper Extremities Deltoid Bicep Tricep HI W. Ext Right Left Lower Extremeties Ilio Quad Plantar Dorsi EHL Right Left Musculoskeletal Remarks Awake but has difficulty with full eye opening and eye movements, pupils reactive, gaze limited by conjunctival edema, corneal reflexes are present but her gag is very diminished, able to grasp weakly and move toes weakly bilaterally Extremities Edema: Edematous Objective Labs Laboratory Tests 07/21/16 17:00 07/22/16 05:40 Laboratory Tests Test 07/21/16 07/22/16 17:00 05:40 Potassium Level 3.4 MEQ/L 3.4 MEQ/L Sodium Level 144 MEQ/L Chloride Level 107 MEQ/L Carbon Dioxide Level 30.1 MEQ/L Anion Gap 7 MEQ/L Blood Urea Nitrogen 4 MG/DL Creatinine 0.27 MG/DL Estimat Glomerular Filtration 258 ML/MIN Rate Random Glucose 130 MG/DL Calcium Level 7.7 MG/DL Magnesium Level 2.0 MG/DL Imaging Remarks Last Impressions Head CT 07/22/16 0000 Signed Impressions: Service Date/Time: Friday, July 22, 2016 11:07 - CONCLUSION: Chest X-Ray 07/21/16 0600 Signed Impressions: Service Date/Time: Thursday, July 21, 2016 03:51 - CONCLUSION: No acute disease. No significant change has occurred. Darrius Stewart MD Abdomen X-Ray 07/17/16 0000 Signed Impressions: Service Date/Time: June 10:25 - CONCLUSION: 1. Dobbhoff with tip in duodenal bulb. Jayden Taylor MD Abdomen Arteriogram 07/14/16 0000 Signed Impressions: Service Date/Time: Thursday, July 14, 2016 14:59 - CONCLUSION: No active GI bleed identified in the SMA and MARIO distributions as detailed above. Fernandez Martin MD Transcranial Doppler Study Limited 07/10/16 0000 Cancelled Impressions: Service Date/Time: June 09:18 - CONCLUSION: There are no findings to indicate vasospasm. Chapo Davis MD Transcranial Doppler Study Complete 07/10/16 0000 Signed Impressions: Service Date/Time: June 09:18 - CONCLUSION: There are no findings to indicate vasospasm. Chapo Davis MD Lower Extremity Ultrasound 07/10/16 0000 Signed Impressions: Service Date/Time: June 09:17 - CONCLUSION: No evidence of deep venous thrombosis within the lower extremities. Anthony So MD Cervical Spine MRI 07/08/16 0000 Signed Impressions: Service Date/Time: Friday, July 08, 2016 13:48 - CONCLUSION: No abnormalities are seen within the cervical spine. Fluid identified within the dependent portion of the sphenoid sinuses likely related to the patient's trauma.. Noemi Lozano MD Brain MRI 07/08/16 0000 Signed Impressions: Service Date/Time: Friday, July 08, 2016 13:48 - CONCLUSION: Stable appearance of right frontal parenchymal contusion, small bilateral subdural hematomas and scattered areas of subarachnoid hemorrhage. There is an area of restricted diffusion involving the posterior medial temporal lobes bilaterally consistent with a contrecoup injury. No evidence of midline shift or hydrocephalus.. Noemi Lozano MD Thoracic Spine CT [id number]/[id number] Signed Impressions: Service Date/Time: Saturday, July 02, 2016 16:40 - CONCLUSION: No acute bony injury in the thoracic spine Chapo Hicks MD Lumbar Spine CT [id number] Signed Impressions: Service Date/Time: Saturday, July 02, 2016 16:40 - CONCLUSION: No acute bony injury in the lumbosacral spine. Chapo Hicks MD Chest CT [id number]/[id number] Signed Impressions: Service Date/Time: Saturday, July 02, 2016 16:40 - CONCLUSION: Bilateral posterior lower lobe consolidative changes, left worse than right. No evidence of acute mediastinal injury. Chapo Hicks MD Cervical Spine CT [id number]/[id number] Signed Impressions: Service Date/Time: Saturday, July 02, 2016 16:32 - CONCLUSION: 1. No acute findings. Moderate degenerative change in the lower cervical spine. David Quispe MD Abdomen/Pelvis CT [id number]/[id number] Signed Impressions: Service Date/Time: Saturday, July 02, 2016 16:40 - CONCLUSION: Negative CT scan abdomen and pelvis for acute traumatic injury. Jitendra Godoy MD FACR Assessment & Plan Diagnosis: (1) Closed head injury with loss of consciousness of unknown duration Plan: The head CT shows no new bleed or mass effect. There is hypointensity in the right frontal region, left midbrain, epifanio and medulla which may in part be due to streaking artifact. (2) Brainstem contusion without open intracranial wound with concussion Plan: Clinical evidence of severe midbrain and pontine abnormality, has almost no gag on exam. A PEG is recommended. Critical Care Time (minutes): Magnus Hines Jul 22, 2016 14:08
[2016-07-22] MEDS ORDERED: LACT10SO PO (17:47)
[2016-07-22] MEDS ORDERED: SENN1TAB PO (17:47)
[2016-07-22] MEDS ORDERED: LORA-392 PO (17:47)
[2016-07-22] MEDS ORDERED: PANT40P PO (17:47)
--- NOTE | 2016-07-22 18:37 | MG ---
cc: JIMMIE ORTIZ M.D. Lab No: Date: 07/22/16 Age: 56 Sex: F Race: An outpatient EEG was obtained on this 56-year-old patient with history of trauma alert, contusions and seizure-like activity. This EEG shows continuous slowing bilaterally. There is some mixture of rhythms including delta activity bilaterally. There are some occasional sharp discharges on the right frontal central head region predominantly. There is some probable attenuation on the right. There is no ictal pattern. There is intermittent left arm and left leg movement, but the EEG did not show a distinct change in pattern or rhythmicity to suggest ictal activity. INTERPRETATION Abnormal EEG because of bi-hemisphere slowing, right probably more than left, with associated right hemisphere sharp discharges which are likely an epileptiform abnormality. There was a description left arm and left leg movements, but there was no distinct ictal abnormality on the EEG to correlate with these. MD GARETH Herndon/ /6:18 PM /6:31 PM
[2016-07-22] MEDS: DOCUSATE SODIUM 50 MG/SENNA 8.6 MG TAB PO SCH (20:58)
[2016-07-22] MEDS ORDERED: LACTULOSE SYRUP 20 GM/30 ML CUP PO SCH (21:00)
[2016-07-22] MEDS ORDERED: MAGNESIUM HYDROXIDE SUSP 30 ML CUP PO SCH (21:00)
--- NOTE | 2016-07-22 21:09 | HHI.CCPN ---
Subjective Brief History The patient is a 56-year-old female that presented to the emergency department/[facility] [place] via [facility] as a trauma alert. Per medical history, reported by EMS the patient was found down on the ground, and in an industrial area, with shelving material that had fallen on her. The patient was unconscious for an undetermined time. Upon arrival of EMS the patient's GCS score 3. The patient was intubated prior to arrival by [facility] paramedics. A 7-0 endotracheal tube at 22 cm.at the lip. EMS reported that the laryngoscopic view patient had blood at the nares bilaterally and within the oropharynx. EMS reported that the had a difficult airway, very anterior. Patient did receive 2 doses of etomidate and 1 dose of succinylcholine by EMS in the field, prior to arrival. The patient then received Rocuronium upon arrival. Patient was found to have the subarachnoid and intraparenchymal hemorrhage mainly of the right frontal areas of brain. In addition patient may have suffered the hypoxic or anoxic brain injury for undetermined period of time 24 Hour Review/Hospital Course Patient was initially intubated and ventilated and over the last 24 hours has gradually improved Patient was extubated last night She had this point moves all 4 extremities tries to open left thigh but does not follow any commands Based on all of the above patient may remain extubated but I would not be surprised if patient required reintubation at some point should she develop significant secretions and there would be a danger of compromised airway 07/06/16 Patient neurologically slightly improved Did not open is yet however does follow some commands and squeezes hand when asked to Moves all 4 extremities Arlette Coma Scale about 10 07/07/16 Lethargic, follows commands Secretions improved Period of hyperventilation and tachycardia, resolved with IV Morphine 07/08/16 Obtunded, responds to sternal rub Periods of tachypnea overnight MRI brain today 07/09/16 Patient slightly more awake and purposeful. Follows commands and squeezes hand Repeat brain MRI done Patient will transfer out of the ICU today Discussed case with Dr. Garcias 07/10/16 Patient continues to be lethargic and have periods of tachypnea and tachycardia Follows commands 4 Ultrasound of bilateral lower extremities negative for DVT 07/14/16 Patient with traumatic brain contusion and bleeding was transferred to the floor several days ago and developed acute GI hemorrhage overnight Patient was transferred to ICU resuscitated received 4 units of blood and additional 2 units at this time Abdomen is soft hypoactive bowel sounds Blood is fairly fresh and there is very little question my mind that this is a diverticular bleed originating from the left side of the colon Colonoscopy however was not successful due to month blood no bleeder could be visualized In face of active bleeding we'll do angiogram in radiology and see if we can localize the bleed 85-90% of these bleeds will stop spontaneously with adequate therapy and supplementation with blood and blood products. Only about 10% of patients will require surgery on emergency basis but it is clearly helpful if not essential to know the site of bleeding in order to remove the correct hemicolon. In patients will continue to bleed and bleeding site cannot be visualized usually total abdominal colectomy is indicated Addendum Patient underwent the angiogram in the interventional suite and inferior mesenteric arteries superior mesenteric artery and distal branches were selectively injected. No bleeding site has been found The amount of bleeding required for positive angiogram is infinite Pletal low about 0.1 mL/m. Based on negative angiogram there is likelihood that patient has stopped bleeding in the meantime. We will follow H&H every 4 hours, as necessary and if patient continues to bleed and bleeding source cannot be found after bout 8 units patient will be taken to the operating room with purpose of subtotal colectomy Have discussed this with her and he agrees to the plan 07/15/16 Patient transferred yesterday to the ICU due to massive lower GI bleeding Patient underwent the SMA and MARIO angiograms which did not reveal the source of bleeding because by that time bleeding had stopped Patient has lost about 4 units of blood and in all likelihood this is a diverticular bleed originating from the left side of the colon Either way this has stopped right now and if it reoccurs patient will undergo another angiogram followed by colectomy 07/16/16 Patient remained stable Slight drop in hemoglobin since yesterday which can be attributed to the hemodilution and may be minor bleeding No more major hemorrhage from diverticula and hopefully this is going remain to be the case If patient rebleeds she will have immediate arteriogram and then goes to the operating room for colon resection On the ventilator patient has been stable and today will be today to wean her off the respirator possible and if neurologic status permits 07/17/16 Patient with head injury was recovering on the floor then developed a massive lower GI bleed most likely diverticular Patient was treated conservatively and this has since abated Hemoglobin has been dropping 1 g per day very slowly which may be indication of continuous small bleed or more likely a dilutional effect Will transfuse one unit of blood today the patient In the bigger picture patient remains ventilated and really responds only to commands occasionally Has a very heavy secretions and will not be able to protect her upper airway adequately extubated due to decreased level of consciousness and Arlette Coma Scale about 8 or 9 at best Therefore this point it is appropriate to go ahead with tracheostomy at this time I will discuss this with the family 07/18/16 Following commands with upper extremities Continues to have increased secretions, 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 Patient had another small bloody stool today 07/19/16 In the last 24 hours patient slightly more arousable and follows commands when off sedation She was scheduled to undergo tracheostomy yesterday but with even slight neurologic improvement as this decided to postpone the trach and see how patient does with goal to possibly extubate and save patient another operation 07/20/16 In last 24 hours patient has been without any sedation and unfortunately she doesn't follow any commands for me for me although she might a fold some commands for the night nurse At this point I do not believe the patient would be safe to extubate and upper airway could not be maintained in this fashion Unfortunately will have to go ahead and do the tracheostomy for this is the appropriate and safe way to manage this patient Patient scheduled for tracheostomy tomorrow 07/21/16 Patient is neurologically unchanged She does not follow commands except for very occasional squeezing of the hands Will not be able to keep upper airway open Patient underwent Blue Rhino tracheostomy at the bedside today 07/22/16 Patient remains stable After bronchoscopy patient was suctioned out and is now being weaned slowly When on CPAP she goes into rapid cello breathing pattern incompatible with separation from the ventilator Eventually patient will be transferred to LTAC for further care Objective Vital Signs Date Time Temp Pulse Resp B/P Pulse Ox O2 Delivery O2 Flow Rate FiO2 07/22/16 18:02 100 35 07/22/16 18:00 84 07/22/16 16:00 99.1 14 145/62 07/20/16 08:56 Ventilator Intake and Output 07/21/16 07/21/16 07/22/16 08:00 16:00 00:00 Intake Total 929 ml 1837 ml 698 ml Output Total 1000 ml 2200 ml 1350 ml Balance -71 ml -363 ml -652 ml Result Diagram: 07/21/16 0400 07/22/16 0540 Imaging Last [address] 07/22/16 0000 Signed Impressions: Service Date/Time: Friday, July 22, 2016 11:07 - CONCLUSION: MD 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 Patient underwent today CT scan of the brain and EEG has been ordered to rule out any possible seizure activity that were not catching clinical in form of partial complex seizures or electrical bursts for patient is not waking up as we would like to see her CT scan doesn't show any new abnormalities Hemodynamic/Cardiac Hemodynamically remains stable Pulmonary/Respiratory Bilateral breath sounds copious secretions When weaned off the ventilator goes into rapid shallow pattern of breathing incompatible with separation from the vent Abdomen/GI Nutrition Abdomen soft enteral feeds tolerated Vascular Central Line Catheter Date of Insertion: Jul 02, 2016 Line: Central Venous Catheter Side: Right Location: Subclavian Assessment and Plan Plan GENERAL: 56-year-old well-nourished, well developed female lying in bed. SKIN: Warm and dry. HEAD: Normocephalic. EYES: PERRL. ENT: No nasal bleeding or discharge. Mucous membranes pink and moist. Left nare NG tube in place. NECK: ETT. Trachea midline. No JVD. CARDIOVASCULAR: Regular rate and rhythm. RESPIRATORY: No accessory muscle use. Lungs clear and diminished to auscultation. Breath sounds equal bilaterally. GASTROINTESTINAL: NGT. Abdomen soft, non-tender, nondistended. + BS. F/C in place. MUSCULOSKELETAL: Extremities without cyanosis, +2 BLE edema noted. No obvious deformities. NEUROLOGICAL: Sedated. Follows commands BUE. NEUROLOGICAL: Valporic acid Ativan TID PRN agitation Neurosurgery following HOB elevated > 30 degrees CARDIOVASCULAR: HR = sinus rhythm. HR = 85-110 BPM. BP = stable PMHx: HTN Scheduled Norvasc, lisinopril and Vasotec PRN Lasix 20mg daily BLE ultrasound negative for DVT Follow CMP - Levophed gtt PRN Electrolyte protocol in place for replacement. RESPIRATORY: PRVC/AC 12 / 500 / 40 / 1.0 / +5 Patient unable to maintain airway and manage secretions d/t mental status: LIGHT RAIL TRAIN OPERATOR placement in AM Continue to monitor closely for hypoxemia. Pulmonary toilet - L&S. Bronchodilators - Duonebs q2H PRN 07/17 CXR - lungs clear Labs in AM Chest X-Ray PRN GASTROINTESTINAL: Diet - Jevity 1.5 @ goal 30 mL/H. NPO after midnight. Bowel regimen - Colace and MOM. LBM 07/18 GI following for GIB, which had stopped until today when patient had 1 bloody BM. Recheck CBC in AM RENAL / URINARY: I&O +1121 BUN / creat 8 / 0.26 Villar - in place to bedside drainage bag ENDOCRINE: BGM - 102 HEMATOLOGY: H&H: 8.7 / 24.3 Continue to monitor for signs and symptoms of bleeding. Transfuse for < 7.0 Monitor patient for any bleeding complications. INFECTIOUS DISEASE: Follow CBC WBC 10.7 T-max 100.5 07/14 sputum cx + pseudomonas and Morganella morganii ID following Administer antipyretics as needed Invasive lines: ETT 07/14 NGT 07/17 L SC TLC 07/14 Villar 07/02 A line 07/15 PROPHYLAXIS: GI - Protonix gtt DVT - Mechanical VTE with SCDs. Chemical management contraindicated due to GIB SKIN: Warm / Dry ACTIVITY: Status -BR PT and OT evaluating. CASE MANAGEMENT: Consulted for assist with DC planning. Placement - disposition will need inpatient rehabilitation specializes in neuro injuries. Plan of care discussed with RN and family at bedside. Trauma surgery team will round daily and evaluate patient and adjust the treatment plan. Attestation The exam, history, and the medical decision-making described in the above note were completed with the assistance of the mid-level provider. I reviewed and agree with the findings presented. I attest that I had a [id number] encounter with the patient on the same day, and personally performed and documented my assessment and findings in the medical record. Critical care time 35 minutes. Saul Kuo MD Jul 22, 2016 21:09
[2016-07-22] MEDS ORDERED: PHARMACY ORDERED LAB XX ONE (21:45)
[2016-07-22] MEDS: LORazepam 0.5 MG TAB PO PRN (23:14)
[2016-07-23] VITALS (10 sets, daily range): BP systolic 134–136; BP diastolic 61–74; PULSE 82–92; RESP 13–16; TEMP 98.7–100.6; O2SAT 100
[2016-07-23] MEDS: PIPERACIL-TAZO 3.375 GM PREMIX 50 ML IV SCH ×2 (03:16→10:03)
--- NOTE | 2016-07-23 04:34 | RADRPT ---
EXAM DATE/TIME: 07/23/2016 03:12 [facility] COMPARISON: CHEST SINGLE AP, July 21, 2016, 3:51. INDICATIONS : Respiratory disease MEDICAL HISTORY : Hypertension. SURGICAL HISTORY : Unknown ENCOUNTER: Subsequent ACUITY: 2 weeks PAIN SCORE: Non-responsive. LOCATION: Bilateral chest FINDINGS: The support devices remain in place. The lung bhakta remain grossly clear. There is some mild interst itial changes bilaterally. No definite pleural effusions. Heart size is stable. No significant change s compared to the prior exam. There is a tracheostomy tube in place. CONCLUSION: No significant interval change. Darrius Stewart MD on July 23, 2016 at 4:31 Board Certified Radiologist. This report was verified electronically.
[2016-07-23 05:23] LABS: BLOOD GAS BASE EXCESS 6.1 mmol/L (-2-2); BLOOD GAS HCO3 29 mmol/L (22-26); BLOOD GAS O2 HGB SATURATION 98 % (90-100); BLOOD GAS OXYGEN CONTENT 15.4 Vol % (12.0-20.0); BLOOD GAS PCO2 30 mmHg (38-42); BLOOD GAS PO2 176 mmHg (61-120); BLOOD GAS TOTAL HGB 10.9 G/DL (12.0-16.0); CRITICAL VALUE YES; OXYGEN DEVICE VENTILATOR; TEMP CORR TO 98.6
[2016-07-23 05:24] LABS: DRAW SITE ART LINE; FIO2 35 %; STAT NO; VENT SETTINGS PRVC/AC
[2016-07-23 05:53] LABS: AUTOMATED NEUTROPHIL # 7.5 TH/MM3 (1.8-7.7); BASOPHIL # 0.1 TH/MM3 (0-0.2); BASOPHIL % 0.6 % (0.0-2.0); EOSINOPHIL # 0.1 TH/MM3 (0-0.4); EOSINOPHIL % 1.4 % (0.0-4.0); HEMATOCRIT 25.2 % (35.0-46.0); HEMO FLAGS DIFF FINAL; LYMPH % 7.9 % (9.0-44.0); LYMPHOCYTE # 0.7 TH/MM3 (1.0-4.8); MEAN CELL VOLUME 90.5 FL (80.0-100.0); MEAN CORPUSCULAR HEMOGLOBIN 31.5 PG (27.0-34.0); MEAN CORPUSCULAR HGB CONC 34.8 % (32.0-36.0); MONO % 7.6 % (0.0-8.0); NEUT % 82.5 % (16.0-70.0); PLATELET COUNT 269 TH/MM3 (150-450); RED BLOOD COUNT 2.78 MIL/MM3 (4.00-5.30); RED CELL DISTRIBUTION WIDTH 13.5 % (11.6-17.2); WHITE BLOOD COUNT 9.1 TH/MM3 (4.0-11.0)
[2016-07-23] MEDS: METOPROLOL TARTRATE 5 MG/5 ML VIAL IV PUSH SCH ×2 (06:14→10:03)
[2016-07-23 06:17] LABS: ANION GAP 9 MEQ/L (5-15); AST (GOT) 56 U/L (15-37); BLOOD UREA NITROGEN 4 MG/DL (7-18); CHLORIDE 106 MEQ/L (98-107); GLOMERULAR FILTRATION RATE 164 ML/MIN (>89); MAGNESIUM 2.1 MG/DL (1.5-2.5); POTASSIUM 3.7 MEQ/L (3.5-5.1); SODIUM (NA) 146 MEQ/L (136-145)
[2016-07-23 06:21] LABS: ALKALINE PHOSPHATASE 88 U/L (45-117); ALT (GPT) 80 U/L (10-53); TOTAL BILIRUBIN ADULT 0.3 MG/DL (0.2-1.0)
[2016-07-23] MEDS: FREE WATER DOB SCH (08:00)
[2016-07-23] MEDS: MAGNESIUM HYDROXIDE SUSP 30 ML CUP PO SCH (09:00)
[2016-07-23] MEDS: DOCUSATE SODIUM 50 MG/SENNA 8.6 MG TAB PO SCH (09:00)
[2016-07-23] MEDS: LISINOPRIL 20 MG TAB PO SCH (10:03)
[2016-07-23] MEDS: FUROSEMIDE 20 MG TAB PO SCH (10:04)
[2016-07-23] MEDS: CHLORHEXIDINE 0.12% (ORAL KIT) 15 ML CUP MT SCH (10:04)
[2016-07-23] MEDS: VALPROIC ACID 250 MG CAP PO SCH (10:04)
[2016-07-23] MEDS: PANTOPRAZOLE SODIUM 40 MG VIAL IV PUSH SCH (10:52)
[2016-07-23] MEDS: VANCOMYCIN INJ 1,750 MG in SODIUM CHLORID 0.9% 500 ML INJ 500 ML IV SCH (10:52)
[2016-07-23] MEDS ORDERED: PIPERACIL-TAZO 3.375 GM PREMIX 50 ML IV SCH (16:00)
--- NOTE | 2016-07-23 16:21 | HHI.DS ---
Discharge Summary Admission Date Jul 02, 2016 at 16:50 Discharge Date: Jul 23, 2016 Admitting Diagnosis trauma alert, subarachnoid hemorrhage, subdural hemorrhage (1) Subarachnoid hemorrhage (2) Subdural hemorrhage (3) Trauma (4) Closed head injury with loss of consciousness of unknown duration Brief History S/P trauma: Found down after shelving fell on her. CBC/BMP: 07/23/16 0529 07/23/16 0529 Significant Findings Laboratory Tests Test 07/21/16 07/21/16 07/21/16 07/22/16 04:00 05:49 17:00 05:40 Red Blood Count 2.67 MIL/MM3 (4.00-5.30) Hemoglobin 8.3 GM/DL (11.6-15.3) Hematocrit 24.2 % (35.0-46.0) Potassium Level 3.1 MEQ/L 3.4 MEQ/L 3.4 MEQ/L (3.5-5.1) (3.5-5.1) (3.5-5.1) Chloride Level 109 MEQ/L (98-107) Blood Urea Nitrogen 6 MG/DL (7-18) 4 MG/DL (7-18) Creatinine LESS THAN 0.15 0.27 MG/DL MG/DL (0.50-1.00) (0.50-1.00) Random Glucose 69 MG/DL 130 MG/DL (74-106) (74-106) Calcium Level 7.7 MG/DL 7.7 MG/DL (8.5-10.1) (8.5-10.1) Arterial Blood pH 7.43 (7.380-7.420) Arterial Blood Partial 153 mmHg Pressure O2 (61-120) Blood Gas Hemoglobin 10.8 G/DL (12.0-16.0) Test 07/23/16 07/23/16 05:14 05:29 Blood Gas HCO3 29 mmol/L (22-26) Blood Gas Base Excess 6.1 mmol/L (-2-2) Arterial Blood pH 7.59 (7.380-7.420) Arterial Blood Partial 30 mmHg (38-42) Pressure CO2 Arterial Blood Partial 176 mmHg Pressure O2 (61-120) Blood Gas Hemoglobin 10.9 G/DL (12.0-16.0) Red Blood Count 2.78 MIL/MM3 (4.00-5.30) Hemoglobin 8.8 GM/DL (11.6-15.3) Hematocrit 25.2 % (35.0-46.0) Mean Platelet Volume 6.9 FL (7.0-11.0) Neutrophils (%) (Auto) 82.5 % (16.0-70.0) Lymphocytes (%) (Auto) 7.9 % (9.0-44.0) Lymphocytes # (Auto) 0.7 TH/MM3 (1.0-4.8) Sodium Level 146 MEQ/L (136-145) Blood Urea Nitrogen 4 MG/DL (7-18) Creatinine 0.40 MG/DL (0.50-1.00) Random Glucose 119 MG/DL (74-106) Calcium Level 8.1 MG/DL (8.5-10.1) Aspartate Amino Transf 56 U/L (15-37) (AST/SGOT) Alanine Aminotransferase 80 U/L (10-53) (ALT/SGPT) Total Protein 5.6 GM/DL (6.4-8.2) Albumin 2.0 GM/DL (3.4-5.0) Imaging Last Impressions Chest X-Ray 07/23/16 0600 Signed Impressions: Service Date/Time: Saturday, July 23, 2016 03:12 - CONCLUSION: No significant interval change. Darrius Stewart MD Head CT 07/22/16 0000 Signed Impressions: Service Date/Time: Friday, July 22, 2016 11:07 - CONCLUSION: Abdomen X-Ray 07/17/16 0000 Signed Impressions: Service Date/Time: June 10:25 - CONCLUSION: 1. Dobbhoff with tip in duodenal bulb. Jayden Taylor MD Abdomen Arteriogram 07/14/16 0000 Signed Impressions: Service Date/Time: Thursday, July 14, 2016 14:59 - CONCLUSION: No active GI bleed identified in the SMA and MARIO distributions as detailed above. Fernandez Martin MD Transcranial Doppler Study Limited 07/10/16 0000 Cancelled Impressions: Service Date/Time: June 09:18 - CONCLUSION: There are no findings to indicate vasospasm. Chapo Davis MD Transcranial Doppler Study Complete 07/10/16 0000 Signed Impressions: Service Date/Time: June 09:18 - CONCLUSION: There are no findings to indicate vasospasm. Chapo Davis MD Lower Extremity Ultrasound 07/10/16 0000 Signed Impressions: Service Date/Time: June 09:17 - CONCLUSION: No evidence of deep venous thrombosis within the lower extremities. Anthony So MD ADDENDUM: It was brought to my attention today that the above report is incorrect. There is no DVT identified within either lower extremity as previously described but there is a thrombus/clot within the right peroneal vein. The above findings were relayed to the patient's nurse via telephone by the anesthesiology physician at the time of this dictation. Chapo Davis MD Cervical Spine MRI 07/08/16 0000 Signed Impressions: Service Date/Time: Friday, July 08, 2016 13:48 - CONCLUSION: No abnormalities are seen within the cervical spine. Fluid identified within the dependent portion of the sphenoid sinuses likely related to the patient's trauma.. Noemi Lozano MD Brain MRI 07/08/16 0000 Signed Impressions: Service Date/Time: Friday, July 08, 2016 13:48 - CONCLUSION: Stable appearance of right frontal parenchymal contusion, small bilateral subdural hematomas and scattered areas of subarachnoid hemorrhage. There is an area of restricted diffusion involving the posterior medial temporal lobes bilaterally consistent with a contrecoup injury. No evidence of midline shift or hydrocephalus.. Noemi Lozano MD Thoracic Spine CT 07/02/161623 Signed Impressions: Service Date/Time: Saturday, July 02, 2016 16:40 - CONCLUSION: No acute bony injury in the thoracic spine Chapo Hicks MD Lumbar Spine CT 07/02/161623 Signed Impressions: Service Date/Time: Saturday, July 02, 2016 16:40 - CONCLUSION: No acute bony injury in the lumbosacral spine. Chapo Hicks MD Chest CT 07/02/161623 Signed Impressions: Service Date/Time: Saturday, July 02, 2016 16:40 - CONCLUSION: Bilateral posterior lower lobe consolidative changes, left worse than right. No evidence of acute mediastinal injury. Chapo Hicks MD Cervical Spine CT 1/4/17 1624 Signed Impressions: Service Date/Time: Saturday, July 02, 2016 16:32 - CONCLUSION: 1. No acute findings. Moderate degenerative change in the lower cervical spine. David Quispe MD Abdomen/Pelvis CT 07/02/164 Signed Impressions: Service Date/Time: Saturday, July 02, 2016 16:40 - CONCLUSION: Negative CT scan abdomen and pelvis for acute traumatic injury. Jitendra Godoy MD FACR PE at Discharge GENERAL: This is a 56-year-old female in bed in no distress. SKIN: Warm and dry. HEAD: Atraumatic. Normocephalic. EYES: PERRLA. ENT: No nasal bleeding or discharge. Mucous membranes pink and moist. NECK: Trachea midline. No JVD. CARDIOVASCULAR: Regular rate and rhythm. RESPIRATORY: No accessory muscle use. Lungs are clear to auscultation. Breath sounds equal bilaterally. No distress or dyspnea. GASTROINTESTINAL: BS + x 4 quads. Abdomen soft, non-tender, nondistended. MUSCULOSKELETAL: Extremities without cyanosis, or edema. + peripheral pulses x 4 extremities. Warm with good capillary refill and sensation. MAEW. NEUROLOGICAL: Her eyes are closed, she does not verbalize. She will follow very simple commands, but this requires intense stimulation. Hospital Course KLUTI KAAH: The patient is a 56-year-old female that presented to the emergency department/[facility] [place] via [facility] as a trauma alert. Per medical history,reported by EMS the patient was found down on the ground, and in an industrial area, with shelving material that had fallen on her. The patient was unconscious for an undetermined time. Upon arrival of EMS the patient's GCS score 3. The patient was intubated prior to arrival by [facility] paramedics. A 7-0 endotracheal tube at 22 cm.at the lip. EMS reported that the laryngoscopic view patient had blood at the nares bilaterally and within the oropharynx. EMS reported that the had a difficult airway, very anterior. Patient did receive 2 doses of etomidate and 1 dose of succinylcholine by EMS in the field, prior to arrival. The patient then received Rocuronium upon arrival. Patient was found to have the subarachnoid and intraparenchymal hemorrhage mainly of the right frontal areas of brain. In addition patient may have suffered the hypoxic or anoxic brain injury for undetermined period of time. 07/05/16 Patient was initially intubated and ventilated and over the last 24 hours has gradually improved Patient was extubated last night She had this point moves all 4 extremities tries to open left thigh but does not follow any commands Based on all of the above patient may remain extubated but I would not be surprised if patient required reintubation at some point should she develop significant secretions and there would be a danger of compromised airway 07/06/16 Patient neurologically slightly improved Did not open is yet however does follow some commands and squeezes hand when asked to Moves all 4 extremities Arlette Coma Scale about 10 07/07/16 Lethargic, follows commands Secretions improved Period of hyperventilation and tachycardia, resolved with IV Morphine 07/08/16 Obtunded, responds to sternal rub Periods of tachypnea overnight MRI brain today 07/09/16 Patient slightly more awake and purposeful. Follows commands and squeezes hand Repeat brain MRI done Patient will transfer out of the ICU today Discussed case with Dr. Garcias 07/10/16 Patient continues to be lethargic and have periods of tachypnea and tachycardia Follows commands 4 Ultrasound of bilateral lower extremities negative for DVT 07/14/16 Patient with traumatic brain contusion and bleeding was transferred to the floor several days ago and developed acute GI hemorrhage overnight Patient was transferred to ICU resuscitated received 4 units of blood and additional 2 units at this time Abdomen is soft hypoactive bowel sounds Blood is fairly fresh and there is very little question my mind that this is a diverticular bleed originating from the left side of the colon Colonoscopy however was not successful due to month blood no bleeder could be visualized In face of active bleeding we'll do angiogram in radiology and see if we can localize the bleed 85-90% of these bleeds will stop spontaneously with adequate therapy and supplementation with blood and blood products. Only about 10% of patients will require surgery on emergency basis but it is clearly helpful if not essential to know the site of bleeding in order to remove the correct hemicolon. In patients will continue to bleed and bleeding site cannot be visualized usually total abdominal colectomy is indicated Addendum Patient underwent the angiogram in the interventional suite and inferior mesenteric arteries superior mesenteric artery and distal branches were selectively injected. No bleeding site has been found The amount of bleeding required for positive angiogram is infinite Pletal low about 0.1 mL/m. Based on negative angiogram there is likelihood that patient has stopped bleeding in the meantime. We will follow H&H every 4 hours, as necessary and if patient continues to bleed and bleeding source cannot be found after bout 8 units patient will be taken to the operating room with purpose of subtotal colectomy Have discussed this with her and he agrees to the plan 07/15/16 Patient transferred yesterday to the ICU due to massive lower GI bleeding Patient underwent the SMA and MARIO angiograms which did not reveal the source of bleeding because by that time bleeding had stopped Patient has lost about 4 units of blood and in all likelihood this is a diverticular bleed originating from the left side of the colon Either way this has stopped right now and if it reoccurs patient will undergo another angiogram followed by colectomy 07/16/16 Patient remained stable Slight drop in hemoglobin since yesterday which can be attributed to the hemodilution and may be minor bleeding No more major hemorrhage from diverticula and hopefully this is going remain to be the case If patient rebleeds she will have immediate arteriogram and then goes to the operating room for colon resection On the ventilator patient has been stable and today will be today to wean her off the respirator possible and if neurologic status permits 07/17/16 Patient with head injury was recovering on the floor then developed a massive lower GI bleed most likely diverticular Patient was treated conservatively and this has since abated Hemoglobin has been dropping 1 g per day very slowly which may be indication of continuous small bleed or more likely a dilutional effect Will transfuse one unit of blood today the patient In the bigger picture patient remains ventilated and really responds only to commands occasionally Has a very heavy secretions and will not be able to protect her upper airway adequately extubated due to decreased level of consciousness and Arlette Coma Scale about 8 or 9 at best Therefore this point it is appropriate to go ahead with tracheostomy at this time I will discuss this with the family 07/18/16 Following commands with upper extremities Continues to have increased secretions, 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 Patient had another small bloody stool today 07/19/16 In the last 24 hours patient slightly more arousable and follows commands when off sedation She was scheduled to undergo tracheostomy yesterday but with even slight neurologic improvement as this decided to postpone the trach and see how patient does with goal to possibly extubate and save patient another operation 07/20/16 In last 24 hours patient has been without any sedation and unfortunately she doesn't follow any commands for me for me although she might a fold some commands for the night nurse At this point I do not believe the patient would be safe to extubate and upper airway could not be maintained in this fashion Unfortunately will have to go ahead and do the tracheostomy for this is the appropriate and safe way to manage this patient Patient scheduled for tracheostomy tomorrow 07/21/16 Patient is neurologically unchanged She does not follow commands except for very occasional squeezing of the hands Will not be able to keep upper airway open Patient underwent Blue Rhino tracheostomy at the bedside today 07/22/16 Patient remains stable After bronchoscopy patient was suctioned out and is now being weaned slowly When on CPAP she goes into rapid cello breathing pattern incompatible with separation from the ventilator Eventually patient will be transferred to LTAC for further care INJURIES: RIGHT frontal skull fx RIGHT frontal SAH with punctate parenchymal hemorrhages (diffuse cerebral edema) 07/08 MRI brain- Multiple cerebral contusions found including a left midbrain 07/22: CT brain: Clearing of intracranial hemorrhage, with residual edema. 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 Duonebs PRN. Pain: Tylenol. Ativan PO TID PRN Activity: BR. PT, OT evaluating GI: Protonix IV Bowel: Colace. MOM scheduled. LBM 07/23 DVT: SCD. No Lovenox d/t GIB LINES: Trach 07/21 Dobhoff 07/17 L SC TLC 07/14 [place] 07/02 Patient is clear from trauma surgery standpoint to [facility] and ventilator weaning. Plan of care discussed with patient's family at bedside. Pt Condition on Discharge: Stable Discharge Disposition: Rehab Inpatient Discharge Instructions DIET: Follow Instructions for: On Tube Feeding Additional Diet Instructions: Jevity at 50 cc/hr Activities you can perform: Regular-No Restrictions Karoline Gardner Jul 23, 2016 16:21
[2016-07-23] MEDS ORDERED: VANCOMYCIN INJ 1,250 MG in SODIUM CHLOR 0.9% 250 ML INJ 250 ML IV SCH (18:00)
[2016-07-24] MEDS ORDERED: PHARMACY ORDERED LAB XX ONE (17:45)
--- NOTE | 2016-07-26 14:50 | MP ---
cc: LORELEI RIOS DATE OF SURGERY: 07/26/2016. PREOPERATIVE DIAGNOSIS: 1. Subdural hematoma. 2. Intracranial hemorrhage. 3. Decreased level of consciousness. 4. Respiratory insufficiency. POSTOPERATIVE DIAGNOSIS: 1. Subdural hematoma. 2. Intracranial hemorrhage. 3. Decreased level of consciousness. 4. Respiratory insufficiency. OPERATIVE PROCEDURE PERFORMED: Tracheostomy with Blue Rhino. SURGEON: Saul Kuo M.D. BRONCHOSCOPIST: Conner Lira MD. ANESTHESIA: 1% Xylocaine and sedation. ESTIMATED BLOOD LOSS: 5 cc. DESCRIPTION OF THE PROCEDURE IN DETAIL: The patient was prepped and draped in the usual sterile fashion. The area was infiltrated with 1% Xylocaine. A vertical incision was made in the midline of the neck and deepened down with a hemostat to the level of the trachea. A needle was inserted between the second and third tracheal ring and this was observed with the bronchoscope as the endotracheal tube was withdrawn sufficiently. A guidewire was now inserted through the needle and then this one was withdrawn. The #4 Telugu dilator was placed over the guidewire and then next the large Blue Rhino dilator was placed dilating the trachea to the #8 Telugu size level. An 8 Shiley endotracheal low pressure cannula was placed and the balloon insufflated. This connected to the ventilator and end tidal carbon dioxide checked. The patient was now bronchoscoped and cleared of all secretions. The cannula was sutured to the neck with 2-0 Prolene and secured with a band around the neck. The patient tolerated the procedure well. Saul GUERRERO/ERNIE /3:11 PM /2:44 PM
[2016-08-19] MEDS ORDERED: BISA10SU3 RECTAL (17:41)
[2016-08-19] MEDS ORDERED: DOCU100C PO/TUBE (17:41)
[2016-08-19] MEDS ORDERED: [UNRECOGNIZED DRUG - CODE] PO/TUBE (17:41)
[2016-08-19] MEDS ORDERED: LORA-373 PO (17:41)
[2016-08-19] MEDS ORDERED: METO25TA3 PO/TUBE (17:41)
[2016-08-19] MEDS ORDERED: CHLO.12%30 SWISH-SPIT (17:41)
[2016-08-19] MEDS ORDERED: LISI-515 PO/TUBE (17:41)
[2016-08-19] MEDS ORDERED: AMLO10TA2 PO/TUBE (17:41)
[2016-08-19] MEDS ORDERED: ACET325T PO/TUBE (17:41)
[2016-08-19] MEDS ORDERED: IPRASOL INH (17:41)
[2016-08-19] MEDS ORDERED: WHIT15OI EACH EYE (17:41)
[2016-08-19] MEDS ORDERED: FAMO40TA PO/TUBE (17:41)
[2016-08-19] MEDS ORDERED: MAGN400T2 PO/TUBE (17:41)
[2016-08-19] MEDS ORDERED: FURO20TA PO/TUBE (17:41)
[2016-10-16] MEDS ORDERED: WHEEMIS3 (15:56)
[2016-10-16] MEDS ORDERED: [UNRECOGNIZED DRUG - OTHER] (15:56)
[2016-10-16] MEDS ORDERED: BENCH (15:56)
[2016-10-16] MEDS ORDERED: [UNRECOGNIZED DRUG - OTHER] (15:56)
[2016-10-16] MEDS ORDERED: [UNRECOGNIZED DRUG - OTHER] (15:56)
[2016-10-17] MEDS ORDERED: GETGO ROLLING W1 MI1 (15:32)
[2016-10-22] MEDS ORDERED: 3-IN3MIS (12:08)
[2016-10-24] MEDS ORDERED: [UNRECOGNIZED DRUG - CODE] (10:59)
[2016-10-28] MEDS ORDERED: CITA20TA4 PO (10:00)
[2016-10-28] MEDS ORDERED: VALP250 PO ×2 (10:00→13:39)
[2016-10-28] MEDS ORDERED: Artificial Tears Opth Soln EACH EYE (10:00)
[2016-10-28] MEDS ORDERED: XARE10TA PO (10:00)
[2016-10-28] MEDS ORDERED: ACET325T PO (10:00)
[2016-10-28] MEDS ORDERED: FURO20TA PO (10:00)
[2016-10-28] MEDS ORDERED: ALPR.5 PO (10:00)
[2016-10-28] MEDS ORDERED: LISI-515 PO (10:00)
[2016-11-05] MEDS ORDERED: ALPR.5 PO (14:32)
[2016-11-26] MEDS ORDERED: CITA20TA4 PO (13:48)
[2016-11-26] MEDS ORDERED: ALPR.5 PO (13:48)
[2016-11-26] MEDS ORDERED: LISI-515 PO (13:48)
[2016-11-26] MEDS ORDERED: ACE-2 (13:52)
[2016-12-02] MEDS ORDERED: ARTH650T6 PO (10:15)
[2016-12-22] MEDS ORDERED: SYST0.4D2 EACH EYE (10:02)
== END 2016-07-23 12:10 | DRG 4 ==
LOC: NEPI 16:14 → EDBD 16:50 → NEDA 16:50 → MERGE 16:50 → N03A 16:57 → N05B 07-10 16:59 → N03B 07-14 00:40
PROVIDERS: ADMIT Surgery; ATTEND Surgery
PROC: 5A1945Z Respiratory Ventilation, 24-96 Consecutive Hours (ICD-10-PCS; 2016-07-02)
PROC: 02HV33Z Insertion of Infusion Device into Superior Vena Cava, Percutaneous Approach (ICD-10-PCS; 2016-07-02)
PROC: 03HY32Z Insertion of Monitoring Device into Upper Artery, Percutaneous Approach (ICD-10-PCS; 2016-07-14)
PROC: 0BH17EZ Insertion of Endotracheal Airway into Trachea, Via Natural or Artificial Opening (ICD-10-PCS; 2016-07-14)
PROC: 05H633Z Insertion of Infusion Device into Left Subclavian Vein, Percutaneous Approach (ICD-10-PCS; 2016-07-14)
PROC: 0DJ08ZZ Inspection of Upper Intestinal Tract, Via Natural or Artificial Opening Endoscopic (ICD-10-PCS; 2016-07-14)
PROC: 0DJD8ZZ Inspection of Lower Intestinal Tract, Via Natural or Artificial Opening Endoscopic (ICD-10-PCS; 2016-07-14)
PROC: B4151ZZ Fluoroscopy of Inferior Mesenteric Artery using Low Osmolar Contrast (ICD-10-PCS; 2016-07-14)
PROC: 30233N1 Transfusion of Nonautologous Red Blood Cells into Peripheral Vein, Percutaneous Approach (ICD-10-PCS; 2016-07-14)
PROC: 5A1955Z Respiratory Ventilation, Greater than 96 Consecutive Hours (ICD-10-PCS; 2016-07-14 11:40)
PROC: 0B113F4 Bypass Trachea to Cutaneous with Tracheostomy Device, Percutaneous Approach (ICD-10-PCS; principal; 2016-07-21)
PROC: 0BJ08ZZ Inspection of Tracheobronchial Tree, Via Natural or Artificial Opening Endoscopic (ICD-10-PCS; 2016-07-21)
DX: S06.6X5A Traumatic subarachnoid hemorrhage with loss of consciousness greater than 24 hours with return to pre-existing conscious level, initial encounter (principal); G93.6 Cerebral edema; R57.1 Hypovolemic shock; E87.3 Alkalosis; K92.2 Gastrointestinal hemorrhage, unspecified; D62 Acute posthemorrhagic anemia; F01.51 Vascular dementia, unspecified severity, with behavioral disturbance; J96.91 Respiratory failure, unspecified with hypoxia; I10 Essential (primary) hypertension; S02.0XXA Fracture of vault of skull, initial encounter for closed fracture; R40.2431 Glasgow coma scale score 3-8, in the field [EMT or ambulance]; S06.5X5A Traumatic subdural hemorrhage with loss of consciousness greater than 24 hours with return to pre-existing conscious level, initial encounter; K29.70 Gastritis, unspecified, without bleeding; K64.8 Other hemorrhoids; K64.4 Residual hemorrhoidal skin tags; F41.9 Anxiety disorder, unspecified; G83.14 Monoplegia of lower limb affecting left nondominant side; Z78.1 Physical restraint status; W20.8XXA Other cause of strike by thrown, projected or falling object, initial encounter
CPT/HCPCS: 31500; 36245; 36246; 36430; 36556; 36600; 36620; 70450; 70551; 71010; 71260; 72125; 72128; 72131; 72141; 74000; 74177; 75726; 75774; 76937; 80048; 80053; 80202; 80307; 80320; 82435; 82550; 82565; 82805; 82947; 82948; 83605; 83735; 83930; 84100; 84132; 84155; 84295; 84520; 85014; 85018; 85025; 85027; 85610; 85730; 86403; 86850; 86900; 86901; 86920; 87040; 87070; 87077; 87086; 87186; 87205; 87641; 90471; 93005; 93306; 93886; 93888; 93970; 94002; 94003; 94640; 94664; 95819; 96374; 99291; A0431-QM-SH; A0436-QM-SH; A7521; C1760; C1769; C1887; C1894; C9113; C9248; G0269; G0390; J0131; J0171; J0330; J0360; J0461; J1815; J1940; J1953; J2060; J2250; J2270; J2543; J3010; J3370; J3480; J7030; J7040; J7050; L0150; L0172; P9016; Q9967

== ENCOUNTER → 2016-09-26 | Outpatient (CLI) | payer OTHER ==
[~2016-09-26] MED LIST changes: +3-IN3MIS; +ACE-2; +ACET325T PO; +ACET325T PO/TUBE; -ALPR-138 PO; +ALPR.5 PO; +AMLO10TA2 PO/TUBE; +ARTH650T6 PO; +ASPI81TA11 PO; +Artificial Tears Opth Soln EACH EYE; +BENCH; +BISA10SU3 RECTAL; +CHLO.12%30 SWISH-SPIT; +CITA20TA4 PO; +DOCU100C PO/TUBE; -ETOMIDATE 20 MG/10 ML VIAL IV PUSH ONE; -ETOMIDATE 40 MG/20 ML VIAL IV PUSH ONE; +FAMO40TA PO/TUBE; +FURO20TA PO; +FURO20TA PO/TUBE; +GETGO ROLLING W1 MI1; +IPRASOL INH; -LIDOCAINE HCL 2% 100 MG/5 ML SYRINGE IV PUSH ONE; +LISI-515 PO; +LISI-515 PO/TUBE; +LORA-373 PO; +MAGN400T2 PO/TUBE; +METO25TA3 PO/TUBE; +MULTTAB67 PO; +PROPOFOL 200 MG/20 ML AMP IV ONE; -SUCCINYLCHOLINE CHLORIDE 200 MG/10 ML VIAL IVP ONE; +SYST0.4D2 EACH EYE; +VALP250 PO; -VASO10TA8 PO; +WHEEMIS3; +WHIT15OI EACH EYE; +XARE10TA PO; +[UNRECOGNIZED DRUG - CODE]; +[UNRECOGNIZED DRUG - CODE] PO/TUBE; +[UNRECOGNIZED DRUG - OTHER]; +[UNRECOGNIZED DRUG - OTHER]; +[UNRECOGNIZED DRUG - OTHER]
[2016-09-26 12:27] VITALS: TEMP 98.3
--- NOTE | 2016-09-26 12:36 | GIPROC ---
[facility] [place] [address] [facility]. [facility], [address] COLONOSCOPY PROCEDURE REPORT EXAM DATE: 09/26/2016 PATIENT NAME: Jeanne Hillman MR #: [id number] BIRTHDATE: 1960 ENDOSCOPIST: Jeffery Lawrence MD ORDER #: [id number] BUTTER MAKER: Mary Ellen Mathis and Moris Lyn STATUS: outpatient INDICATIONS: The patient is a 56 yr old female here for a colonoscopy due to recent GI bleed patient needing clearance for anticoagulation PROCEDURE PERFORMED: Colonoscopy with ablation MEDICATIONS: None and Per Anesthesia. PREP QUALITY: good ESTIMATED BLOOD LOSS: None CONSENT: The patient understands the risks and benefits of the procedure and understands that these risks include, but are not limited to: sedation, allergic reaction, infection, perforation and/or bleeding. Alternative means of evaluation and treatment include, among others: physical exam, x-rays, and/or surgical intervention. The patient elects to proceed with this endoscopic procedure. medical equipment was checked for proper function. Hand hygiene and appropriate measures for infection prevention was taken. After the risks, benefits and alternatives of the procedure were thoroughly explained, Informed consent was verified, confirmed and timeout was successfully executed by the treatment team. A digital exam revealed no abnormalities of the rectum The Pentax EC-3490Li endoscope was introduced through the anus and advanced to the cecum, which was identified by both the appendix and ileocecal valve. The instrument was then slowly withdrawn as the colon was fully examined. COLON FINDINGS: A small sessile polyp was found in the transverse colon. Destruction of tissue via ablation was attempted. There was no blood loss from maneuver. The colon mucosa was otherwise normal. Retroflexed views revealed no abnormalities The scope was then completely withdrawn from the patient and the procedure terminated. PROCEDURE WITHDRAWAL TIME:15.4minutes ADVERSE EVENTS: There were no complications. IMPRESSIONS: 1. A small sessile polyp was found in the transverse colon; Destruction of tissue via ablation was attempted 2. The colon mucosa was otherwise normal 3. Retroflexed views revealed no abnormalities 4. Revealed no abnormalities of the rectum RECOMMENDATIONS: 1. High fiber diet 2. Yearly hemoccult 3. Follow-up: GI Clinic PRN RECALL: Return 5 years Colonoscopy Jeffery Lawrence MD eSigned: Jeffery Lawrence MD 09/26/2016 12:36 PM cc: DOCUMENT ADDENDUM eSigned: Jeffery Lawrence MD 09/26/2016 12:41 PM Reason for addendum: [ ] Correction of inaccurate information [ ] Recently acquired lab/pathology results [x] Additional information Comments: this case was done on an outpatient basis and the patient is going back to the rehabilitation place in stable condition diet as tolerated activities as tolerated PATIENT NAME: Jeanne Hillman MR#: [id number]
--- NOTE | 2016-09-26 12:40 | GIPROC ---
[facility] [address] [facility]. [facility], [address] EGD PROCEDURE REPORT EXAM DATE: 09/26/2016 PATIENT NAME: Jeanne Hilmlan MR #: [id number] BIRTHDATE: 1960 ATTENDING: Jeffery Lawrence MD ORDER #: [id number] SYSTEMS PLANNER: Moris Lyn and Mary Ellen Mathis STATUS: outpatient INDICATIONS: The patient is a 56 yr old female here for an EGD due to Recent GI bleed patient needing clearance for anticoagulation use for DVT PROCEDURE PERFORMED: EGD w/ ablation MEDICATIONS: None and Per Anesthesia. TOPICAL ANESTHETIC: CONSENT: The patient understands the risks and benefits of the procedure and understands that these risks include, but are not limited to: sedation, allergic reaction, infection, perforation and/or bleeding. Alternative means of evaluation and treatment include, among others: physical exam, x-rays, and/or surgical intervention. The patient elects to proceed with this endoscopic procedure. medical equipment was checked for proper function. Hand hygiene and appropriate measures for infection prevention was taken. After the risks, benefits and alternatives of the procedure were thoroughly explained, Informed consent was verified, confirmed and timeout was successfully executed by the treatment team. The patient was anesthetized with topical anesthesia and the EC-3490Li (Pedi C) endoscope was introduced through the mouth and advanced to the second portion of the duodenum. Retroflexed views revealed no abnormalities The gastroscope was then slowly withdrawn and removed. 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 Cautery was applied to the site for 5 secs. The endoscopy was otherwise normal. ADVERSE EVENTS: There were no complications. IMPRESSIONS: 1. 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 Normal endoscopy otherwise 3. Retroflexed views revealed no abnormalities RECOMMENDATIONS: 1. Continue PPI 2. Follow-up: GI clinic PRN 3. Okay to use anticoagulation PATIENT CONDITION: stable DISPOSITION: Home REPEAT EXAM: Jeffery Lawrence MD eSigned: Jeffery Lawrence MD 09/26/2016 12:40 PM cc: PATIENT NAME: Jeanne Hillman MR#: [id number]
[2016-09-26 12:45] VITALS: BP 122/69; PULSE 71; RESP 16; O2SAT 100
== END ==
LOC: HEND 11:12
PROVIDERS: ATTEND Internal Medicine Gastroenterology
DX: K92.2 Gastrointestinal hemorrhage, unspecified (principal); Q27.33 Arteriovenous malformation of digestive system vessel; K63.5 Polyp of colon; I10 Essential (primary) hypertension